=== PATIENT | female | born 1975 | race African-American/Black ===

== ENCOUNTER 2018-11-02 07:30 | Emergency (ER) | payer MEDICAID ==
[~2018-11-02] VITALS: Ht 167.6 cm; Wt 127.0 kg
[2018-11-02] MEDS ORDERED: ONDANSETRON PF 4 MG/2 ML VIAL. IV ONE ×2 (08:00→10:00)
[2018-11-02] MEDS ORDERED: IV NORMAL SALINE 1000ML BAG 1,000 ML IV ONE (08:00)
[2018-11-02 08:08] LABS: BASO % 1 % (0-3); BILIRUBIN,URINE NEGATIVE (NEG); CLARITY,URINE CLEAR; COLOR,URINE YELLOW; EOS # 0.2 x10^3/uL (0.0-0.7); EOS % 3 % (0-3); HEMATOCRIT 36.8 % (36.0-47.0); HEMOGLOBIN 11.8 g/dL (12.0-15.5); LYMPH # 2.1 x10^3/uL (1.0-4.8); LYMPH % 40 % (24-48); MEAN CORPUSCULAR HEMOGLOBIN 27 pg (25-35); MEAN CORPUSCULAR HGB CONC 32 g/dL (31-37); MEAN CORPUSCULAR VOLUME 85 fL (79-100); MONO # 0.3 x10^3/uL (0.0-1.1); MONO % 6 % (0-9); NEUT # 2.7 x10^3uL (1.8-7.7); NEUT % 50 % (31-73); NITRITE,URINE NEGATIVE (NEG); PLATELET COUNT 224 x10^3/uL (140-400); PROTEIN,URINE 30 mg/dL (NEG-TRACE); RED BLOOD COUNT 4.35 x10^6/uL (3.50-5.40); RED CELL DISTRIBUTION WIDTH 15.4 % (11.5-14.5); UROBILINOGEN,URINE 0.2 mg/dL (0.2 mg/dL); WHITE BLOOD COUNT 5.4 x10^3/uL (4.0-11.0)
[2018-11-02 08:20] LABS: CALCIUM 8.7 mg/dL (8.5-10.1); GFR 72.9; POTASSIUM 3.7 mmol/L (3.5-5.1); SQUAMOUS EPITHELIAL CELL,UR FEW /LPF
[2018-11-02 08:21] LABS: BACTERIA,URINE 0 /HPF (0-FEW); RBC,URINE 0 /HPF (0-2)
[2018-11-02 08:26] LABS: ALBUMIN 3.5 g/dL (3.4-5.0); ALBUMIN/GLOBULIN RATIO 0.9 (1.0-1.7); TOTAL BILIRUBIN 0.3 mg/dL (0.2-1.0); TOTAL PROTEIN 7.4 g/dL (6.4-8.2)
[2018-11-02] MEDS ORDERED: MORPHINE SULFATE 4 MG/ML VIAL. IV ONE ×2 (08:30→10:15)
[2018-11-02] MEDS ORDERED: MORPHINE SULFATE 4 MG/ML VIAL. IM ONE (09:15)
--- NOTE | 2018-11-02 09:21 | RAD ---
CT ABDOMEN PELVIS WO CONTRAST Indication: Hemoptysis this morning. Abdominal pain, nausea vomiting for 3 days. Cholecystectomy and hysterectomy. Exposure: One or more of the following individualized dose reduction techniques were utilized for this examination: 1. Automated exposure control 2. Adjustment of the mA and/or kV according to patient size 3. Use of iterative reconstruction technique. Comparison: None are available. Technique: No intravenous contrast given. No oral contrast per request. Findings: Evaluation of solid viscera, bowel and vasculature is compromised by the noncontrast technique. Lung bases are clear. Heart size enlarged. Liver mildly enlarged, 19.5 cm. Spleen not enlarged. No peripancreatic fluid or inflammatory change. No evidence of adrenal mass. No evidence of urinary tract calculus, hydronephrosis or hydroureter. Gallbladder surgically absent. Mild dilatation of the common bile duct and pancreatic duct. Aorta is nonaneurysmal. There is a mildly enlarged right inguinal lymph node measuring 15 mm in short axis. No pathologic retroperitoneal or mesenteric lymph node enlargement is otherwise seen. No significant small bowel distention. No evidence of acute colitis. Mild retained stool in the colon, mild. The appendix is not well seen. No evidence of ascites or pneumoperitoneum. The urinary bladder visualization is limited by artifact, due to body habitus. No definite pelvic mass. Mild degenerative changes of the spine and hips. No destructive bone lesion. Small fat-containing anterior abdominal wall umbilical hernia. IMPRESSION: 1. Mild hepatomegaly. 2. Mildly enlarged nonspecific right inguinal lymph node, could be infectious, inflammatory or neoplastic. 3. No acute findings within constraints of a noncontrast exam. Electronically signed by: Vaughn Devries MD (11/02/2018 9:19 AM) [facility]
[2018-11-02] MEDS ORDERED: PROCHLORPERAZINE 10 MG/2 ML VIAL. IV ONE (10:00)
[2018-11-02] MEDS ORDERED: SULF1TAB23 PO (10:11)
[2018-11-02] MEDS ORDERED: ONDA4TAB7 PO (10:11)
--- NOTE | 2018-11-02 10:11 | PHYS DOC ---
Past Medical History Past Medical History: Arthritis, Other Additional Past Medical Histor: NEUROPATHY Past Surgical History: Cholecystectomy, Hysterectomy, Other Additional Past Surgical Histo: KELOID Alcohol Use: None Drug Use: None Adult General Chief Complaint Chief Complaint: NAUSEA/VOMITING/DIARRHA HPI HPI Patient is a 43 year old female presented to the E today for evaluation of nausea, vomiting, diarrhea for about 4 days. Patient denied any fever, no blood in her stool. NO recent sick contact, had not been on any antibiotic recently. Patient complains of some abdominal pain. No pelvic pain, no vaginal bleeding or discharge. Review of Systems Review of Systems Constitutional: Denies fever or chills [] Eyes: Denies change in visual acuity, redness, or eye pain [] HENT: Denies nasal congestion or sore throat [] Respiratory: Denies cough or shortness of breath [] Cardiovascular: No additional information not addressed in HPI [] GI: Positive for abdominal pain, nausea, vomiting, NO bloody stools, POSITIVE FOR diarrhea [] : Denies dysuria or hematuria [] Musculoskeletal: Denies back pain or joint pain [] Integument: Denies rash or skin lesions [] Neurologic: Denies headache, focal weakness or sensory changes [] Endocrine: Denies polyuria or polydipsia [] All other systems were reviewed and found to be within normal limits, except as documented in this note. Current Medications Current Medications Current Medications Medications (Trade) Dose Ordered Sig/Kathrine Start Time Stop Time Status Last Admin Dose Admin Morphine Sulfate (Morphine Sulfate) 4 mg 1X ONCE 11/02/18 10:15 11/02/18 10:16 DC 11/02/18 09:58 4 MG Ondansetron HCl (Zofran) 8 mg 1X ONCE 11/02/18 10:00 11/02/18 10:01 DC 11/02/18 09:55 8 MG Prochlorperazine Edisylate (Compazine) 10 mg 1X ONCE 11/02/18 10:00 11/02/18 10:01 DC 11/02/18 10:46 10 MG Sodium Chloride 1,000 ml @ 1,000 mls/hr 1X ONCE 11/02/18 08:00 11/02/18 08:59 DC 11/02/18 08:24 1,000 MLS/HR Allergies Allergies Allergies Coded Allergies Type Severity Reaction Last Updated Verified Penicillins Allergy Intermediate 11/02/18 Yes ketorolac Allergy Intermediate 11/02/18 Yes metoclopramide Allergy Intermediate 11/02/18 Yes Physical Exam Physical Exam Constitutional: Well developed, well nourished, no acute distress, non-toxic appearance. [] HENT: Normocephalic, atraumatic, bilateral external ears normal, oropharynx yg st, no oral exudates, nose normal. [] Eyes: PERRLA, EOMI, conjunctiva normal, no discharge. [] Neck: Normal range of motion, no tenderness, supple, no stridor. [] Cardiovascular:Heart rate regular rhythm, no murmur [] Lungs & Thorax: Bilateral breath sounds clear to auscultation [] Abdomen: Bowel sounds normal, soft, There is diffuse tenderness to palpation, no guarding, no masses, no pulsatile masses. [] Skin: Warm, dry, no erythema, no rash. [] Back: No tenderness, no CVA tenderness. [] Extremities: No tenderness, no cyanosis, no clubbing, ROM intact, no edema. [] Neurologic: Alert and oriented X 3, normal motor function, normal sensory function, no focal deficits noted. [] Psychologic: Affect normal, judgement normal, mood normal. [] Current Patient Data Vital Signs Vital Signs Date Time Temp Pulse Resp B/P (MAP) Pulse Ox O2 Delivery O2 Flow Rate FiO2 11/02/18 10:48 69 20 174/85 (114) 98 Room Air 11/02/18 07:40 97.4 97.4 Lab Values Laboratory Tests Test 11/02/18 07:40 White Blood Count 5.4 x10^3/uL (4.0-11.0) Red Blood Count 4.35 x10^6/uL (3.50-5.40) Hemoglobin 11.8 g/dL (12.0-15.5) L Hematocrit 36.8 % (36.0-47.0) Mean Corpuscular Volume 85 fL (79-100) Mean Corpuscular Hemoglobin 27 pg (25-35) Mean Corpuscular Hemoglobin Concent 32 g/dL (31-37) Red Cell Distribution Width 15.4 % (11.5-14.5) H Platelet Count 224 x10^3/uL (140-400) Neutrophils (%) (Auto) 50 % (31-73) Lymphocytes (%) (Auto) 40 % (24-48) Monocytes (%) (Auto) 6 % (0-9) Eosinophils (%) (Auto) 3 % (0-3) Basophils (%) (Auto) 1 % (0-3) Neutrophils # (Auto) 2.7 x10^3uL (1.8-7.7) Lymphocytes # (Auto) 2.1 x10^3/uL (1.0-4.8) Monocytes # (Auto) 0.3 x10^3/uL (0.0-1.1) Eosinophils # (Auto) 0.2 x10^3/uL (0.0-0.7) Basophils # (Auto) 0.0 x10^3/uL (0.0-0.2) Urine Collection Type Unknown Urine Color Yellow Urine Clarity Clear Urine pH 6.0 Urine Specific Mcpherson 1.020 Urine Protein 30 mg/dL (NEG-TRACE) Urine Glucose (UA) Negative mg/dL (NEG) Urine Ketones (Stick) Negative mg/dL (NEG) Urine Blood Negative (NEG) Urine Nitrite Negative (NEG) Urine Bilirubin Negative (NEG) Urine Urobilinogen Dipstick 0.2 mg/dL (0.2 mg/dL) Urine Leukocyte Esterase Small (NEG) Urine RBC 0 /HPF (0-2) Urine WBC 5-10 /HPF (0-4) Urine Squamous Epithelial Cells Few /LPF Urine Bacteria 0 /HPF (0-FEW) Urine Mucus Slight /LPF Sodium Level 139 mmol/L (136-145) Potassium Level 3.7 mmol/L (3.5-5.1) Chloride Level 105 mmol/L (98-107) Carbon Dioxide Level 23 mmol/L (21-32) Anion Gap 11 (6-14) Blood Urea Nitrogen 16 mg/dL (7-20) Creatinine 1.0 mg/dL (0.6-1.0) Estimated GFR (Cockcroft-Gault) 72.9 BUN/Creatinine Ratio 16 (6-20) Glucose Level 86 mg/dL (70-99) Calcium Level 8.7 mg/dL (8.5-10.1) Total Bilirubin 0.3 mg/dL (0.2-1.0) Aspartate Amino Transferase (AST) 11 U/L (15-37) L Alanine Aminotransferase (ALT) 14 U/L (14-59) Alkaline Phosphatase 97 U/L (46-116) Total Protein 7.4 g/dL (6.4-8.2) Albumin 3.5 g/dL (3.4-5.0) Albumin/Globulin Ratio 0.9 (1.0-1.7) L Lipase 91 U/L (73-393) Laboratory Tests 11/02/18 07:40 Laboratory Tests 11/02/18 07:40 EKG EKG [] Radiology/Procedures Radiology/Procedures [][facility] [address] [place] [address] IMAGING REPORT Signed PATIENT: YVES BURTON ACCOUNT: [id number] : 1975 LOCATION: ER AGE: 43 SEX: F EXAM STATUS: REG ER ORD. PHYSICIAN: CHRIS APPIAH DO REASON: abdominal pain, nausea and vomiting for 3 days PROCEDURE: CT ABDOMEN PELVIS WO CONTRAST CT ABDOMEN PELVIS WO CONTRAST Indication: Hemoptysis this morning. Abdominal pain, nausea vomiting for 3 days. Cholecystectomy and hysterectomy. Exposure: One or more of the following individualized dose reduction techniques were utilized for this examination: 1. Automated exposure control 2. Adjustment of the mA and/or kV according to patient size 3. Use of iterative reconstruction technique. Comparison: None are available. Technique: No intravenous contrast given. No oral contrast per request. Findings: Evaluation of solid viscera, bowel and vasculature is compromised by the noncontrast technique. Lung bases are clear. Heart size enlarged. Liver mildly enlarged, 19.5 cm. Spleen not enlarged. No peripancreatic fluid or inflammatory change. No evidence of adrenal mass. No evidence of urinary tract calculus, hydronephrosis or hydroureter. Gallbladder surgically absent. Mild dilatation of the common bile duct and pancreatic duct. Aorta is nonaneurysmal. There is a mildly enlarged right inguinal lymph node measuring 15 mm in short axis. No pathologic retroperitoneal or mesenteric lymph node enlargement is otherwise seen. No significant small bowel distention. No evidence of acute colitis. Mild retained stool in the colon, mild. The appendix is not well seen. No evidence of ascites or pneumoperitoneum. The urinary bladder visualization is limited by artifact, due to body habitus. No definite pelvic mass. Mild degenerative changes of the spine and hips. No destructive bone lesion. Small fat-containing anterior abdominal wall umbilical hernia. IMPRESSION: 1. Mild hepatomegaly. 2. Mildly enlarged nonspecific right inguinal lymph node, could be infectious, inflammatory or neoplastic. 3. No acute findings within constraints of a noncontrast exam. Electronically signed by: Vaughn Devries MD (11/02/2018 9:19 AM) [facility] DICTATED and SIGNED BY: VAUGHN DEVRIES MD DATE: 11/02/18918 Course & Med Decision Making Course & Med Decision Making Pertinent Labs and Imaging studies reviewed. (See chart for details) [] Dragon Disclaimer Dragon Disclaimer This electronic medical record was generated, in whole or in part, using a voice recognition dictation system. Departure Departure Impression: Primary Impression: Gastroenteritis Disposition: 01 HOME, SELF-CARE Condition: IMPROVED Referrals: UNKNOWN PCP NAME (PCP) follow up with your doctor next week for reevaluation Patient Instructions: Viral Gastroenteritis Scripts Sulfamethoxazole/Trimethoprim (BACTRIM 400-80 MG TABLET) 1 Each Tablet 1 TAB PO BID, #6 TAB Prov: CHRIS APPIAH DO 11/02/18 Ondansetron Hcl (ZOFRAN) 4 Mg Tablet 1 TAB PO PRN Q6-8HRS, #15 TAB Prov: CHRIS APPIAH DO 11/02/18 CHRIS APPIAH DO November 02, 2018 10:11
[2018-11-02 10:48] VITALS: BP 174/85
--- NOTE | 2018-11-09 11:04 | NUR ---
Late entry made to Medical Record. IV Stop time transcribed from eMAR to IV spreadsheet
== END 2018-11-02 11:15 | disposition home or self-care (01) ==
LOC: ER 07:30
DX: K52.9 Noninfective gastroenteritis and colitis, unspecified (principal); Z90.710 Acquired absence of both cervix and uterus; Z90.49 Acquired absence of other specified parts of digestive tract; Z88.0 Allergy status to penicillin; Z88.6 Allergy status to analgesic agent; Z88.8 Allergy status to other drugs, medicaments and biological substances
CPT/HCPCS: 36415; 74176; 80053; 81001; 83690; 85025; 87086; 96361; 96374; 96375; 96376; 99285; J0780; J2270; J2405; J7030

== ENCOUNTER 2019-05-11 17:26 | Inpatient (IN) | payer SELFPAY ==
[~2019-05-11] VITALS: Ht 162.6 cm; Wt 148.8 kg
[~2019-05-11 17:26] MED LIST: ONDA4TAB7 PO; SULF1TAB23 PO
[2019-05-11] MEDS ORDERED: METOCLOPRAMIDE HCL 10 MG/2 ML VIAL. IVP ONE (18:45)
--- NOTE | 2019-05-11 19:05 | PHYS DOC ---
Past Medical History Past Medical History: Arthritis, Hypertension, Migraines, Other Additional Past Medical Histor: NEUROPATHY Past Surgical History: Cholecystectomy, Hysterectomy, Other Additional Past Surgical Histo: KELOID Alcohol Use: None Drug Use: None Adult General Chief Complaint Chief Complaint: HEADACHE HPI HPI Patient is a 44 year old -[place] female with history of migraines, hypertension who presents with acute migraine headache starting several hours prior to ED arrival. Patient states headache call from sleep. Initially located in the left retro-orbital region and has since gradually migrated to the right parietal region. Headache is described as throbbing. It is associated with light sensitivity and nausea. Patient did take [id number] pain medication without symptoms. Denies neck stiffness, fever, extremity weakness or loss of sensation. No fever, rash. Denies chest pain palpitations shortness of breath. No other acute symptoms or complaints. patient states her blood pressure is normally well controlled 130s over 70s. Patient's systolic blood pressures greater than 200. Patient did not take her blood pressure medications this morning. No family history of cerebral hemorrhage. Previous hysterectomy. [] Review of Systems Review of Systems Review symptoms as per history of present illness. All other review symptoms are negative. All other systems were reviewed and found to be within normal limits, except as documented in this note. Current Medications Current Medications Current Medications Medications (Trade) Dose Ordered Sig/Kathirne Start Time Stop Time Status Last Admin Dose Admin Diphenhydramine HCl (Benadryl) 50 mg 1X ONCE 05/11/19 19:15 05/11/19 19:16 DC 05/11/19 19:40 50 MG Fentanyl Citrate (Fentanyl 2ml Vial) 75 mcg 1X ONCE 05/11/19 21:00 05/11/19 21:01 05/11/19 20:51 75 MCG Metoclopramide HCl (Reglan Vial) 10 mg 1X ONCE 05/11/19 18:45 05/11/19 18:46 UNV Prochlorperazine Edisylate (Compazine) 10 mg 1X ONCE 05/11/19 19:15 05/11/19 19:16 DC 05/11/19 19:40 10 MG Allergies Allergies Allergies Coded Allergies Type Severity Reaction Last Updated Verified Penicillins Allergy Intermediate 11/02/18 Yes ketorolac Allergy Intermediate 11/02/18 Yes metoclopramide Allergy Intermediate 11/02/18 Yes Physical Exam Physical Exam Constitutional: Well developed, well nourished, no acute distress, non-toxic appearance. [] HENT: Normocephalic, atraumatic, bilateral external ears normal, oropharynx moist, no oral exudates, nose normal. [] Eyes: PERRLA, EOMI, conjunctiva normal, no discharge. [] Neck: Normal range of motion, no tenderness, supple, no stridor. [] Cardiovascular:Heart rate regular rhythm, no murmur [] Lungs & Thorax: Bilateral breath sounds clear to auscultation [] Abdomen: Bowel sounds normal, soft, no tenderness. [] Skin: Warm, dry, no erythema, no rash. [] Back: No tenderness, no CVA tenderness. [] Extremities: No tenderness, no cyanosis, no clubbing, ROM intact, no edema. [] Neurologic: Alert and oriented X 3, CN 2-12 grossly intact, normal motor function, normal sensory function, no focal deficits noted. [] Psychologic: Affect normal, judgement normal, mood normal. [] Current Patient Data Vital Signs Vital Signs Date Time Temp Pulse Resp B/P (MAP) Pulse Ox O2 Delivery O2 Flow Rate FiO2 05/11/19 18:17 98.0 102 20 215/86 (129) 98 Room Air 98.0 EKG EKG [] Radiology/Procedures Radiology/Procedures [Ct head: Subtle lieberman-white matter changes in right frontal lobe. MRI recommended per radiologist] Course & Med Decision Making Course & Med Decision Making Pertinent Labs and Imaging studies reviewed. (See chart for details) [Persistent migraine-like headache refractory to pain medication acute elevation in blood pressure. No neurologic deficits. Blood pressure improved with tx. Will admit to the hospital service for further treatment, anticipated neurology consult and MRI] Dragon Disclaimer Dragon Disclaimer This electronic medical record was generated, in whole or in part, using a voice recognition dictation system. Departure Departure Impression: Primary Impression: Headache Additional Impression: Accelerated hypertension Disposition: ADMITTED INPATIENT Condition: IMPROVED Referrals: UNKNOWN PCP NAME (PCP) Problem Qualifiers MELISSA ANAND DO May 11, 2019 19:05
[2019-05-11] MEDS ORDERED: PROCHLORPERAZINE 10 MG/2 ML VIAL. IV ONE (19:15)
[2019-05-11] MEDS ORDERED: diphenhydrAMINE 50 MG/ML VIAL IVP ONE (19:15)
--- NOTE | 2019-05-11 20:16 | RAD ---
Exam: CT head INDICATION: Headache TECHNIQUE: Sequential axial images through the head were obtained without the administration of IV contrast. Comparisons: None FINDINGS: No focal parenchymal lesion or hemorrhage is identified. There is no midline shift or sulcal effacement. Subtle loss of the lieberman-white distinction in the right frontal lobe. This is seen best on series 2 image 21. The ventricular system is within normal limits without compression hydrocephalus. The basal cisterns are well maintained. The visualized portions of the paranasal sinuses and mastoid air cells are well-pneumatized. No acute fractures. IMPRESSION: Subtle loss of lieberman-white distinction in the right frontal lobe, which may be artifactual. Recommend MRI for further evaluation. Exposure: One or more of the following in the visualized dose reduction techniques were utilized for this examination: 1. Automated exposure control 2. Adjustment of the MA and/or KV according to patient size Use of iterative of reconstructive technique Electronically signed by: Derrick Johnson MD (05/11/2019 8:13 PM) [facility]
[2019-05-11] MEDS ORDERED: fentaNYL PF VIAL 100 MCG/2 ML VIAL IVP ONE (21:00)
[2019-05-11] MEDS ORDERED: ONDANSETRON PF 4 MG/2 ML VIAL. IV PRN (21:15)
[2019-05-11] MEDS ORDERED: cloNIDine HCL 0.1 MG TABLET PO PRN (21:15)
[2019-05-11] MEDS ORDERED: LABETALOL 20 MG/4 ML DISP.SYRIN. IVP ONE (21:30)
[2019-05-11] MEDS: IV NORMAL SALINE 1000ML BAG 1,000 ML IV SCH (21:46)
[2019-05-11] MEDS: MORPHINE SULFATE 2 MG/ML VIAL. IV PRN (21:51)
[2019-05-11 22:09] LABS: BASO % 0 % (0-3); EOS # 0.1 x10^3/uL (0.0-0.7); EOS % 3 % (0-3); HEMATOCRIT 30.6 % (36.0-47.0); HEMOGLOBIN 9.8 g/dL (12.0-15.5); LYMPH # 2.4 x10^3/uL (1.0-4.8); LYMPH % 45 % (24-48); MEAN CORPUSCULAR HEMOGLOBIN 26 pg (25-35); MEAN CORPUSCULAR HGB CONC 32 g/dL (31-37); MEAN CORPUSCULAR VOLUME 82 fL (79-100); MONO # 0.6 x10^3/uL (0.0-1.1); MONO % 11 % (0-9); NEUT # 2.2 x10^3/uL (1.8-7.7); NEUT % 41 % (31-73); PLATELET COUNT 185 x10^3/uL (140-400); RED BLOOD COUNT 3.75 x10^6/uL (3.50-5.40); RED CELL DISTRIBUTION WIDTH 14.8 % (11.5-14.5); WHITE BLOOD COUNT 5.3 x10^3/uL (4.0-11.0)
[2019-05-11 22:18] LABS: CALCIUM 8.8 mg/dL (8.5-10.1); CREATININE 0.8 mg/dL (0.6-1.0); GFR 93.9; POTASSIUM 4.1 mmol/L (3.5-5.1)
[2019-05-11 22:23] LABS: ALBUMIN 3.1 g/dL (3.4-5.0); ALBUMIN/GLOBULIN RATIO 0.8 (1.0-1.7); TOTAL BILIRUBIN 0.4 mg/dL (0.2-1.0); TOTAL PROTEIN 6.8 g/dL (6.4-8.2)
[2019-05-12] VITALS (7 sets, daily range): BP systolic 122–183; BP diastolic 56–82
[2019-05-12] MEDS ORDERED: QUET200T4 PO (00:31)
[2019-05-12] MEDS ORDERED: CLON0.1T PO (00:31)
[2019-05-12] MEDS ORDERED: TIZA4TAB2 PO (00:31)
[2019-05-12] MEDS: MORPHINE SULFATE 2 MG/ML VIAL. IV PRN ×6 (00:35→20:38)
--- NOTE | 2019-05-12 09:29 | PDOC1 ---
History and Physical Date of Admission Date of Admission DATE: 05/12/19 TIME: 09:28 Identification/Chief Complaint Chief Complaint SEEN IN ER , 44 year old -H[place] female with history of migraines, hypertension who presents with acute migraine headache starting several hours prior to ED arrival. Patient states headache AWOKE HER from sleep. Initially located in the left retro-orbital region and has since gradually migrated to the right parietal region. Headache is described as throbbing. It is associated with light sensitivity and nausea. Patient did take [id number] pain medication without symptoms. Denies neck stiffness, fever, extremity weakness or loss of se nsation. No fever, rash. Denies chest pain palpitations shortness of breath. patient states her blood pressure is normally well controlled 130s over 70s. Patient's systolic blood pressures greater than 200. ON PRESENTATION Past Medical History Past Medical History Past Medical History Past Medical History Past Medical History: Arthritis, Hypertension, Migraines, Other Additional Past Medical Histor: NEUROPATHY Past Surgical History: Cholecystectomy, Hysterectomy, Other Additional Past Surgical Histo: KELOID Alcohol Use: None Drug Use: None Family History Family History: Hypertension Social History Smoke: No ALCOHOL: none Drugs: None Current Problem List Problem List Problems Medical Problems: (1) Accelerated hypertension Status: Acute (2) Headache Status: Acute Current Medications Current Medications Current Medications Prochlorperazine Edisylate (Compazine) 10 mg 1X ONCE IV Last administered on 05/11/19at 19:40; Start 05/11/19 at 19:15; Stop 05/11/19 at 19:16; Status DC Metoclopramide HCl (Reglan Vial) 10 mg 1X ONCE IVP ; Start 05/11/19 at 18:45; Stop 05/11/19 at 18:46; Status UNV Diphenhydramine HCl (Benadryl) 50 mg 1X ONCE IVP Last administered on 05/11/19at 19:40; Start 05/11/19 at 19:15; Stop 05/11/19 at 19:16; Status DC Fentanyl Citrate (Fentanyl 2ml Vial) 75 mcg 1X ONCE IVP Last administered on 05/11/19at 20:51; Start 05/11/19 at 21:00; Stop 05/11/19 at 21:01; Status DC Labetalol HCl (Normodyne Iv Push) 20 mg 1X ONCE IVP Last administered on 05/11/19at 21:20; Start 05/11/19 at 21:30; Stop 05/11/19 at 21:31; Status DC Ondansetron HCl (Zofran) 4 mg PRN Q8HRS PRN IV NAUSEA/VOMITING Last administered on 05/11/19at 21:50; Start 05/11/19 at 21:15; Stop 05/12/19 at 21:14 Morphine Sulfate (Morphine Sulfate) 2 mg PRN Q2HR PRN IV PAIN Last administered on 05/12/19at 08:26; Start 05/11/19 at 21:15; Stop 05/12/19 at 21:14 Sodium Chloride 1,000 ml @ 75 mls/hr [id number] IV Last administered on 05/11/19at 21:46; Start 05/11/19 at 21:15; Stop 05/12/19 at 21:14 Clonidine HCl (Catapres) 0.1 mg PRN Q4HRS PRN PO HYPERTENSION; Start 05/11/19 at 21:15 Active Scripts Active Bactrim 400-80 Mg Tablet (Sulfamethoxazole/Trimethoprim) 1 Each Tablet 1 Tab PO BID Zofran (Ondansetron Hcl) 4 Mg Tablet 1 Tab PO PRN Q6-8HRS Reported Seroquel (Quetiapine Fumarate) 200 Mg Tablet 200 Mg PO HS Tizanidine Hcl 4 Mg Tablet 4 Mg PO TID PRN Clonidine Hcl 0.1 Mg Tablet 0.1 Mg PO DAILY Allergies Allergies: Coded Allergies: Penicillins (Verified Allergy, Intermediate, 11/02/18) ketorolac (Verified Allergy, Intermediate, 11/02/18) metoclopramide (Verified Allergy, Intermediate, 11/02/18) Physical Exam Physical Exam Physical Exam Physical Exam Constitutional: Well developed, well nourished, no acute distress, non-toxic appearance. [] HENT: Normocephalic, atraumatic, bilateral external ears normal, oropharynx mois t, no oral exudates, nose normal. [] Eyes: PERRLA, EOMI, conjunctiva normal, no discharge. [] Neck: Normal range of motion, no tenderness, supple, no stridor. [] Cardiovascular:Heart rate regular rhythm, no murmur [] Lungs & Thorax: Bilateral breath sounds clear to auscultation [] Abdomen: Bowel sounds normal, soft, no tenderness. [] Skin: Warm, dry, no erythema, no rash. [] Back: No tenderness, no CVA tenderness. [] Extremities: No tenderness, no cyanosis, no clubbing, ROM intact, no edema. [] Neurologic: Alert and oriented X 3, CN 2-12 grossly intact, normal motor function, normal sensory function, no focal deficits noted. [] Psychologic: Affect normal, judgment normal, mood normal. [] General: Oriented X3, Cooperative HEENT: Atraumatic Heart: no thrills Breasts: Not examined Abdomen: Soft Rectal Exam: not examined PELVIC: Examination not indicated Extremities: No cyanosis Neuro: Normal speech, Cranial nerves 3-12 NL Psych/Mental Status: Mental status NL Vitals Vitals Vital Signs Date Time Temp Pulse Resp B/P (MAP) Pulse Ox O2 Delivery O2 Flow Rate FiO2 05/12/19 08:26 20 Room Air 05/12/19 07:00 98.2 68 122/66 (84) 98 98.2 Labs Labs Laboratory Tests Test 05/11/19 21:50 White Blood Count 5.3 x10^3/uL (4.0-11.0) Red Blood Count 3.75 x10^6/uL (3.50-5.40) Hemoglobin 9.8 g/dL (12.0-15.5) Hematocrit 30.6 % (36.0-47.0) Mean Corpuscular Volume 82 fL (79-100) Mean Corpuscular Hemoglobin 26 pg (25-35) Mean Corpuscular Hemoglobin Concent 32 g/dL (31-37) Red Cell Distribution Width 14.8 % (11.5-14.5) Platelet Count 185 x10^3/uL (140-400) Neutrophils (%) (Auto) 41 % (31-73) Lymphocytes (%) (Auto) 45 % (24-48) Monocytes (%) (Auto) 11 % (0-9) Eosinophils (%) (Auto) 3 % (0-3) Basophils (%) (Auto) 0 % (0-3) Neutrophils # (Auto) 2.2 x10^3/uL (1.8-7.7) Lymphocytes # (Auto) 2.4 x10^3/uL (1.0-4.8) Monocytes # (Auto) 0.6 x10^3/uL (0.0-1.1) Eosinophils # (Auto) 0.1 x10^3/uL (0.0-0.7) Basophils # (Auto) 0.0 x10^3/uL (0.0-0.2) Sodium Level 143 mmol/L (136-145) Potassium Level 4.1 mmol/L (3.5-5.1) Chloride Level 106 mmol/L (98-107) Carbon Dioxide Level 24 mmol/L (21-32) Anion Gap 13 (6-14) Blood Urea Nitrogen 23 mg/dL (7-20) Creatinine 0.8 mg/dL (0.6-1.0) Estimated GFR (Cockcroft-Gault) 93.9 BUN/Creatinine Ratio 29 (6-20) Glucose Level 88 mg/dL (70-99) Calcium Level 8.8 mg/dL (8.5-10.1) Total Bilirubin 0.4 mg/dL (0.2-1.0) Aspartate Amino Transf (AST/SGOT) 13 U/L (15-37) Alanine Aminotransferase (ALT/SGPT) 13 U/L (14-59) Alkaline Phosphatase 85 U/L (46-116) Total Protein 6.8 g/dL (6.4-8.2) Albumin 3.1 g/dL (3.4-5.0) Albumin/Globulin Ratio 0.8 (1.0-1.7) Laboratory Tests Test 05/11/19 21:50 White Blood Count 5.3 x10^3/uL (4.0-11.0) Red Blood Count 3.75 x10^6/uL (3.50-5.40) Hemoglobin 9.8 g/dL (12.0-15.5) Hematocrit 30.6 % (36.0-47.0) Mean Corpuscular Volume 82 fL (79-100) Mean Corpuscular Hemoglobin 26 pg (25-35) Mean Corpuscular Hemoglobin Concent 32 g/dL (31-37) Red Cell Distribution Width 14.8 % (11.5-14.5) Platelet Count 185 x10^3/uL (140-400) Neutrophils (%) (Auto) 41 % (31-73) Lymphocytes (%) (Auto) 45 % (24-48) Monocytes (%) (Auto) 11 % (0-9) Eosinophils (%) (Auto) 3 % (0-3) Basophils (%) (Auto) 0 % (0-3) Neutrophils # (Auto) 2.2 x10^3/uL (1.8-7.7) Lymphocytes # (Auto) 2.4 x10^3/uL (1.0-4.8) Monocytes # (Auto) 0.6 x10^3/uL (0.0-1.1) Eosinophils # (Auto) 0.1 x10^3/uL (0.0-0.7) Basophils # (Auto) 0.0 x10^3/uL (0.0-0.2) Sodium Level 143 mmol/L (136-145) Potassium Level 4.1 mmol/L (3.5-5.1) Chloride Level 106 mmol/L (98-107) Carbon Dioxide Level 24 mmol/L (21-32) Anion Gap 13 (6-14) Blood Urea Nitrogen 23 mg/dL (7-20) Creatinine 0.8 mg/dL (0.6-1.0) Estimated GFR (Cockcroft-Gault) 93.9 BUN/Creatinine Ratio 29 (6-20) Glucose Level 88 mg/dL (70-99) Calcium Level 8.8 mg/dL (8.5-10.1) Total Bilirubin 0.4 mg/dL (0.2-1.0) Aspartate Amino Transf (AST/SGOT) 13 U/L (15-37) Alanine Aminotransferase (ALT/SGPT) 13 U/L (14-59) Alkaline Phosphatase 85 U/L (46-116) Total Protein 6.8 g/dL (6.4-8.2) Albumin 3.1 g/dL (3.4-5.0) Albumin/Globulin Ratio 0.8 (1.0-1.7) Images Images Exam: CT head INDICATION: Headache TECHNIQUE: Sequential axial images through the head were obtained without the administration of IV contrast. Comparisons: None FINDINGS: No focal parenchymal lesion or hemorrhage is identified. There is no midline shift or sulcal effacement. Subtle loss of the lieberman-white distinction in the right frontal lobe. This is seen best on series 2 image 21. The ventricular system is within normal limits without compression hydrocephalus. The basal cisterns are well maintained. The visualized portions of the paranasal sinuses and mastoid air cells are well-pneumatized. No acute fractures. IMPRESSION: Subtle loss of lieberman-white distinction in the right frontal lobe, which may be artifactual. Recommend MRI for further evaluation. Exposure: One or more of the following in the visualized dose reduction techniques were utilized for this examination: 1. Automated exposure control 2. Adjustment of the MA and/or KV according to patient size Use of iterative of reconstructive technique Electronically signed by: Heidi Cedeno MD (05/11/2019 8:13 PM) [facility] DICTATED and SIGNED BY: HEIDI CEDENO MD VTE Prophylaxis Ordered VTE Prophylaxis Devices: No VTE Pharmacological Prophylaxi: Yes Assessment/Plan Assessment/Plan IMPRESSION: ACUTE MIGRANE SYNDROME UNCONTROLLED HYPERTENSION EXTREME MORBID OBESITY 05/[address] HEAD, Subtle loss of lieberman-white distinction in the right frontal lobe, which may be artifactual. Recommend MRI for further evaluation. PLAN TELE BED ADMIT BP CONTROL ECHO CARDIOLOGY CONSULT NEUROLOGY CONSULT MRI HEAD not done, will not fit in our mri here NAEL KIRKLAND MD May 12, 2019 09:29
[2019-05-12] MEDS: IV NORMAL SALINE 1000ML BAG 1,000 ML IV SCH (10:35)
[2019-05-12] MEDS ORDERED: PROMETHAZINE 12.5 MG TABLET. PO PRN (12:00)
--- NOTE | 2019-05-12 12:12 | PDOC2 ---
NEUROLOGY CONSULT Date of Admission Date of Admission Full Report Dictated Radha Alonso is a pleasant 44-year-old morbidly obese woman with severe hypertension who presented with migraine with aura. Neurologic exam revealed some weakness of the right leg which she states has been going on for several months. CT scan of the brain did not reveal hemorrhage. There may have been some lieberman-white differentiation but this is often artifact. MRI brain was recommended but she would not be able to fit into a closed scanner. She does have a heart murmur which she was unaware. She's been feeling some chest pain and shortness of breath. I will order a chest x-ray and echocardiogram. We cannot use a migraine specific medicine with her elevated blood pressure. We can continue with symptomatic treatment with morphine and antiemetics. I will add lorazepam to help with the anxiety. DATE: 05/12/19 TIME: 12:12 Current Medications Current Medications Current Medications Prochlorperazine Edisylate (Compazine) 10 mg 1X ONCE IV Last administered on 05/11/19at 19:40; Start 05/11/19 at 19:15; Stop 05/11/19 at 19:16; Status DC Metoclopramide HCl (Reglan Vial) 10 mg 1X ONCE IVP ; Start 05/11/19 at 18:45; Stop 05/11/19 at 18:46; Status UNV Diphenhydramine HCl (Benadryl) 50 mg 1X ONCE IVP Last administered on 05/11/19at 19:40; Start 05/11/19 at 19:15; Stop 05/11/19 at 19:16; Status DC Fentanyl Citrate (Fentanyl 2ml Vial) 75 mcg 1X ONCE IVP Last administered on 05/11/19at 20:51; Start 05/11/19 at 21:00; Stop 05/11/19 at 21:01; Status DC Labetalol HCl (Normodyne Iv Push) 20 mg 1X ONCE IVP Last administered on 05/11/19at 21:20; Start 05/11/19 at 21:30; Stop 05/11/19 at 21:31; Status DC Ondansetron HCl (Zofran) 4 mg PRN Q8HRS PRN IV NAUSEA/VOMITING Last admini stered on 05/11/19at 21:50; Start 05/11/19 at 21:15; Stop 05/12/19 at 21:14 Morphine Sulfate (Morphine Sulfate) 2 mg PRN Q2HR PRN IV PAIN Last administered on 05/12/19at 08:26; Start 05/11/19 at 21:15; Stop 05/12/19 at 21:14 Sodium Chloride 1,000 ml @ 75 mls/hr [id number] IV Last administered on 05/12/19at 10:35; Start 05/11/19 at 21:15; Stop 05/12/19 at 21:14 Clonidine HCl (Catapres) 0.1 mg PRN Q4HRS PRN PO HYPERTENSION; Start 05/11/19 at 21:15 Active Scripts Active Bactrim 400-80 Mg Tablet (Sulfamethoxazole/Trimethoprim) 1 Each Tablet 1 Tab PO BID Zofran (Ondansetron Hcl) 4 Mg Tablet 1 Tab PO PRN Q6-8HRS Reported Seroquel (Quetiapine Fumarate) 200 Mg Tablet 200 Mg PO HS Tizanidine Hcl 4 Mg Tablet 4 Mg PO TID PRN Clonidine Hcl 0.1 Mg Tablet 0.1 Mg PO DAILY Allergies Allergies: Coded Allergies: Penicillins (Verified Allergy, Intermediate, 11/02/18) ketorolac (Verified Allergy, Intermediate, 11/02/18) metoclopramide (Verified Allergy, Intermediate, 11/02/18) Vitals VITALS Vital Signs Date Time Temp Pulse Resp B/P (MAP) Pulse Ox O2 Delivery O2 Flow Rate FiO2 05/12/19 08:26 20 Room Air 05/12/19 07:00 98.2 68 122/66 (84) 98 98.2 Labs Labs Laboratory Tests Test 05/11/19 21:50 White Blood Count 5.3 x10^3/uL (4.0-11.0) Red Blood Count 3.75 x10^6/uL (3.50-5.40) Hemoglobin 9.8 g/dL (12.0-15.5) Hematocrit 30.6 % (36.0-47.0) Mean Corpuscular Volume 82 fL (79-100) Mean Corpuscular Hemoglobin 26 pg (25-35) Mean Corpuscular Hemoglobin Concent 32 g/dL (31-37) Red Cell Distribution Width 14.8 % (11.5-14.5) Platelet Count 185 x10^3/uL (140-400) Neutrophils (%) (Auto) 41 % (31-73) Lymphocytes (%) (Auto) 45 % (24-48) Monocytes (%) (Auto) 11 % (0-9) Eosinophils (%) (Auto) 3 % (0-3) Basophils (%) (Auto) 0 % (0-3) Neutrophils # (Auto) 2.2 x10^3/uL (1.8-7.7) Lymphocytes # (Auto) 2.4 x10^3/uL (1.0-4.8) Monocytes # (Auto) 0.6 x10^3/uL (0.0-1.1) Eosinophils # (Auto) 0.1 x10^3/uL (0.0-0.7) Basophils # (Auto) 0.0 x10^3/uL (0.0-0.2) Sodium Level 143 mmol/L (136-145) Potassium Level 4.1 mmol/L (3.5-5.1) Chloride Level 106 mmol/L (98-107) Carbon Dioxide Level 24 mmol/L (21-32) Anion Gap 13 (6-14) Blood Urea Nitrogen 23 mg/dL (7-20) Creatinine 0.8 mg/dL (0.6-1.0) Estimated GFR (Cockcroft-Gault) 93.9 BUN/Creatinine Ratio 29 (6-20) Glucose Level 88 mg/dL (70-99) Calcium Level 8.8 mg/dL (8.5-10.1) Total Bilirubin 0.4 mg/dL (0.2-1.0) Aspartate Amino Transf (AST/SGOT) 13 U/L (15-37) Alanine Aminotransferase (ALT/SGPT) 13 U/L (14-59) Alkaline Phosphatase 85 U/L (46-116) Total Protein 6.8 g/dL (6.4-8.2) Albumin 3.1 g/dL (3.4-5.0) Albumin/Globulin Ratio 0.8 (1.0-1.7) Laboratory Tests Test 05/11/19 21:50 White Blood Count 5.3 x10^3/uL (4.0-11.0) Red Blood Count 3.75 x10^6/uL (3.50-5.40) Hemoglobin 9.8 g/dL (12.0-15.5) Hematocrit 30.6 % (36.0-47.0) Mean Corpuscular Volume 82 fL (79-100) Mean Corpuscular Hemoglobin 26 pg (25-35) Mean Corpuscular Hemoglobin Concent 32 g/dL (31-37) Red Cell Distribution Width 14.8 % (11.5-14.5) Platelet Count 185 x10^3/uL (140-400) Neutrophils (%) (Auto) 41 % (31-73) Lymphocytes (%) (Auto) 45 % (24-48) Monocytes (%) (Auto) 11 % (0-9) Eosinophils (%) (Auto) 3 % (0-3) Basophils (%) (Auto) 0 % (0-3) Neutrophils # (Auto) 2.2 x10^3/uL (1.8-7.7) Lymphocytes # (Auto) 2.4 x10^3/uL (1.0-4.8) Monocytes # (Auto) 0.6 x10^3/uL (0.0-1.1) Eosinophils # (Auto) 0.1 x10^3/uL (0.0-0.7) Basophils # (Auto) 0.0 x10^3/uL (0.0-0.2) Sodium Level 143 mmol/L (136-145) Potassium Level 4.1 mmol/L (3.5-5.1) Chloride Level 106 mmol/L (98-107) Carbon Dioxide Level 24 mmol/L (21-32) Anion Gap 13 (6-14) Blood Urea Nitrogen 23 mg/dL (7-20) Creatinine 0.8 mg/dL (0.6-1.0) Estimated GFR (Cockcroft-Gault) 93.9 BUN/Creatinine Ratio 29 (6-20) Glucose Level 88 mg/dL (70-99) Calcium Level 8.8 mg/dL (8.5-10.1) Total Bilirubin 0.4 mg/dL (0.2-1.0) Aspartate Amino Transf (AST/SGOT) 13 U/L (15-37) Alanine Aminotransferase (ALT/SGPT) 13 U/L (14-59) Alkaline Phosphatase 85 U/L (46-116) Total Protein 6.8 g/dL (6.4-8.2) Albumin 3.1 g/dL (3.4-5.0) Albumin/Globulin Ratio 0.8 (1.0-1.7) CAMI CHRISTIANSEN MD May 12, 2019 12:12
[2019-05-12] MEDS ORDERED: ONDANSETRON ODT 4 MG TAB.RAPDIS. PO PRN (12:15)
[2019-05-12] MEDS ORDERED: ACETAMINOPHEN 325 MG TABLET. PO PRN (12:30)
[2019-05-12] MEDS ORDERED: guaiFENesin ORAL 200 MG/10 ML LIQUID. PO PRN (12:30)
[2019-05-12] MEDS ORDERED: DOCUSATE SODIUM 100 MG CAPSULE. PO PRN (12:30)
[2019-05-12] MEDS ORDERED: 0.9 % SODIUM CHLORIDE 10 ML DISP.SYRIN. IV PRN (12:30)
[2019-05-12] MEDS ORDERED: MAG HYDROX/ALUMINUM HYD/SIMETH 30 ML ORAL.SUSP PO PRN (12:30)
[2019-05-12] MEDS ORDERED: ALBUTEROL SULFATE 2.5 MG/3 ML NEBU. NEB PRN (12:30)
[2019-05-12] MEDS ORDERED: ONDANSETRON PF 4 MG/2 ML VIAL. IV PRN (12:30)
[2019-05-12] MEDS ORDERED: cloNIDine HCL 0.1 MG TABLET PO PRN (12:30)
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
[2019-05-12] MEDS: cloNIDine HCL 0.1 MG TABLET PO SCH (13:21)
--- NOTE | 2019-05-12 13:35 | RAD ---
Exam performed: 2 views of the chest. Indication: Chest pain, swelling, heart murmur Date of Service: 05/12/2019 11:53 AM . Comparison : None available Findings: PA and lateral radiographs of the chest reveal a mildly enlarged cardiomediastinal contour. Probably vascularity is unremarkable. The lungs are clear. No pleural fluid is seen. The visualized osseous structures are unremarkable. Impression: Mild cardiomegaly. No acute pulmonary findings seen. Electronically signed by: Cheri Carranza MD (05/12/2019 1:32 PM) [facility]
[2019-05-12] MEDS: QUEtiapine 100 MG TABLET. PO SCH (20:38)
[2019-05-12] MEDS: tiZANidine 4 MG TABLET. PO PRN (20:44)
[2019-05-12] MEDS ORDERED: PROCHLORPERAZINE 10 MG/2 ML VIAL. IV PRN (23:15)
[2019-05-12] MEDS: traMADol 50 MG TABLET PO PRN (23:19)
[2019-05-13 03:16] VITALS: BP 136/78
[2019-05-13] MEDS: MORPHINE SULFATE 2 MG/ML VIAL. IV PRN ×2 (07:17→13:42)
[2019-05-13 07:25] VITALS: BP 178/83
--- NOTE | 2019-05-13 10:14 | PDOC ---
PROGRESS NOTES History of Present Illness History of Present Illness DICTATED and SIGNED BY: DERRICK CEDENO MD VTE Prophylaxis Ordered VTE Prophylaxis Devices: No VTE Pharmacological Prophylaxi: Yes Assessment/Plan Assessment/Plan IMPRESSION: ACUTE MIGRANE SYNDROME UNCONTROLLED HYPERTENSION EXTREME MORBID OBESITY 05/[address] HEAD, Subtle loss of lieberman-white distinction in the right frontal lobe, which may be artifactual. Recommend MRI for further evaluation. PLAN TELE BED ADMIT BP CONTROL ECHO CARDIOLOGY CONSULT NEUROLOGY CONSULT MRI HEAD not done, will not fit in our mri here CBC, COMP, ESR 11-17 INC CLONIDINE 0.1 MG PO BID Vitals Vitals Vital Signs Date Time Temp Pulse Resp B/P (MAP) Pulse Ox O2 Delivery O2 Flow Rate FiO2 05/13/19 07:25 97.4 100 20 178/83 (114) 100 Room Air 97.4 Physical Exam General: Alert, Oriented X3, Cooperative, mild distress Heart: Regular rate Lungs: Clear, Wheezing Abdomen: Normal bowel sounds, Soft Extremities: No clubbing, No cyanosis Skin: No significant lesion Labs LABS STATUS: REG ER ORD. PHYSICIAN: MELISSA ANAND DO REASON: LLOYD PROCEDURE: CT HEAD WO CONTRAST Exam: CT head INDICATION: Headache TECHNIQUE: Sequential axial images through the head were obtained without the administration of IV contrast. Comparisons: None FINDINGS: No focal parenchymal lesion or hemorrhage is identified. There is no midline shift or sulcal effacement. Subtle loss of the lieberman-white distinction in the right frontal lobe. This is seen best on series 2 image 21. The ventricular system is within normal limits without compression hydrocephalus. The basal cisterns are well maintained. The visualized portions of the paranasal sinuses and mastoid air cells are well-pneumatized. No acute fractures. IMPRESSION: Subtle loss of lieberman-white distinction in the right frontal lobe, which may be artifactual. Recommend MRI for further evaluation. Exposure: One or more of the following in the visualized dose reduction techniques were utilized for this examination: 1. Automated exposure control 2. Adjustment of the MA and/or KV according to patient size Use of iterative of reconstructive technique Electronically signed by: Derrick Cedeno MD (05/11/2019 8:13 PM) [facility] DICTATED and SIGNED BY: DERRICK CEDENO MD DATE: 05/11/192012 Assessment and Plan Assessmemt and Plan Problems Medical Problems: (1) Accelerated hypertension Status: Acute (2) Headache Status: Acute Comment Review of Relevant I have reviewed the following items rhonda (where applicable) has been applied. Labs Laboratory Tests Test 05/11/19 21:50 White Blood Count 5.3 x10^3/uL (4.0-11.0) Red Blood Count 3.75 x10^6/uL (3.50-5.40) Hemoglobin 9.8 g/dL (12.0-15.5) Hematocrit 30.6 % (36.0-47.0) Mean Corpuscular Volume 82 fL (79-100) Mean Corpuscular Hemoglobin 26 pg (25-35) Mean Corpuscular Hemoglobin Concent 32 g/dL (31-37) Red Cell Distribution Width 14.8 % (11.5-14.5) Platelet Count 185 x10^3/uL (140-400) Neutrophils (%) (Auto) 41 % (31-73) Lymphocytes (%) (Auto) 45 % (24-48) Monocytes (%) (Auto) 11 % (0-9) Eosinophils (%) (Auto) 3 % (0-3) Basophils (%) (Auto) 0 % (0-3) Neutrophils # (Auto) 2.2 x10^3/uL (1.8-7.7) Lymphocytes # (Auto) 2.4 x10^3/uL (1.0-4.8) Monocytes # (Auto) 0.6 x10^3/uL (0.0-1.1) Eosinophils # (Auto) 0.1 x10^3/uL (0.0-0.7) Basophils # (Auto) 0.0 x10^3/uL (0.0-0.2) Sodium Level 143 mmol/L (136-145) Potassium Level 4.1 mmol/L (3.5-5.1) Chloride Level 106 mmol/L (98-107) Carbon Dioxide Level 24 mmol/L (21-32) Anion Gap 13 (6-14) Blood Urea Nitrogen 23 mg/dL (7-20) Creatinine 0.8 mg/dL (0.6-1.0) Estimated GFR (Cockcroft-Gault) 93.9 BUN/Creatinine Ratio 29 (6-20) Glucose Level 88 mg/dL (70-99) Calcium Level 8.8 mg/dL (8.5-10.1) Total Bilirubin 0.4 mg/dL (0.2-1.0) Aspartate Amino Transf (AST/SGOT) 13 U/L (15-37) Alanine Aminotransferase (ALT/SGPT) 13 U/L (14-59) Alkaline Phosphatase 85 U/L (46-116) Total Protein 6.8 g/dL (6.4-8.2) Albumin 3.1 g/dL (3.4-5.0) Albumin/Globulin Ratio 0.8 (1.0-1.7) Medications Current Medications Prochlorperazine Edisylate (Compazine) 10 mg 1X ONCE IV Last administered on 05/11/19 19:40; Start 05/11/19 at 19:15; Stop 05/11/19 at 19:16; Status DC Metoclopramide HCl (Reglan Vial) 10 mg 1X ONCE IVP ; Start 05/11/19 at 18:45; Stop 05/11/19 at 18:46; Status UNV Diphenhydramine HCl (Benadryl) 50 mg 1X ONCE IVP Last administered on 05/11/19at 19:40; Start 05/11/19 at 19:15; Stop 05/11/19 at 19:16; Status DC Fentanyl Citrate (Fentanyl 2ml Vial) 75 mcg 1X ONCE IVP Last administered on 05/11/19at 20:51; Start 05/11/19 at 21:00; Stop 05/11/19 at 21:01; Status DC Labetalol HCl (Normodyne Iv Push) 20 mg 1X ONCE IVP Last administered on 05/11/19at 21:20; Start 05/11/19 at 21:30; Stop 05/11/19 at 21:31; Status DC Ondansetron HCl (Zofran) 4 mg PRN Q8HRS PRN IV NAUSEA/VOMITING Last administered on 05/11/19at 21:50; Start 05/11/19 at 21:15; Stop 05/12/19 at 21:14; Status DC Morphine Sulfate (Morphine Sulfate) 2 mg PRN Q2HR PRN IV PAIN Last administered on 05/12/19at 20:38; Start 05/11/19 at 21:15; Stop 05/12/19 at 21:14; Status DC Sodium Chloride 1,000 ml @ 75 mls/hr [id number] IV Last administered on 05/12/19at 10:35; Start 05/11/19 at 21:15; Stop 05/12/19 at 21:14; Status DC Clonidine HCl (Catapres) 0.1 mg PRN Q4HRS PRN PO HYPERTENSION; Start 05/11/19 at 21:15; Status Cancel Clonidine HCl (Catapres) 0.1 mg DAILY PO Last administered on 05/12/19at 13:21; Start 05/12/19 at 13:00 Tizanidine HCl (Zanaflex) 4 mg PRN TID PRN PO MUSCLE SPASMS Last administered on 05/12/19at 20:44; Start 05/12/19 at 12:00 Ondansetron HCl (Zofran Odt) 4 mg PRN Q8HRS PRN PO NAUSEA/VOMITING; Start 05/12/19 at 12:15 Quetiapine Fumarate (SEROquel) 200 mg QHS PO Last administered on 05/12/19at 20:38; Start 05/12/19 at 21:00 Lorazepam (Ativan Inj) 0.5 mg PRN Q8HRS PRN IVP ANXIETY / AGITATION Last administered on 05/13/19at 07:15; Start 05/12/19 at 12:00 Promethazine HCl (Phenergan) 12.5 mg PRN Q6HRS PRN PO NAUSEA/VOMITING 2ND CHOICE Last administered on 05/12/19at 14:38; Start 05/12/19 at 12:00 Sodium Chloride (Normal Saline Flush) 3 ml QSHIFT PRN IV AFTER MEDS AND BLOOD DRAWS; Start 05/12/19 at 12:30 Ondansetron HCl (Zofran) 4 mg PRN Q4HRS PRN IV NAUSEA/VOMITING; Start 05/12/19 at 12:30 Acetaminophen (Tylenol) 650 mg PRN Q4HRS PRN PO TEMP OVER 100.4F OR MILD PAIN; Start 05/12/19 at 12:30 Al Hydroxide/Mg Hydroxide (Mylanta Plus Xs) 30 ml PRN DAILY PRN PO HEARTBURN / GAS; Start 05/12/19 at 12:30 Clonidine HCl (Catapres) 0.1 mg PRN Q6HRS PRN PO SBP>160 OR DBP>90; Start 05/12/19 at 12:30 Docusate Sodium (Colace) 100 mg PRN BID PRN PO CONSTIPATION; Start 05/12/19 at 12:30 Albuterol Sulfate (Ventolin Neb Soln) 2.5 mg PRN Q4HRS PRN NEB SHORTNESS OF BREATH; Start 05/12/19 at 12:30 Guaifenesin (Robitussin) 200 mg PRN Q4HRS PRN PO COUGH; Start 05/12/19 at 12:30 Lorazepam (Ativan) 0.5 mg PRN Q4HRS PRN PO ANXIETY / AGITATION; Start 05/12/19 at 12:30 Enoxaparin Sodium (Lovenox 60mg Syringe) 60 mg Q12HR SQ Last administered on 05/12/19at 20:41; Start 05/12/19 at 21:00 Tramadol HCl (Ultram) 50 mg PRN Q6HRS PRN PO PAIN Last administered on 05/12/19at 23:19; Start 05/12/19 at 23:15 Morphine Sulfate (Morphine Sulfate) 2 mg PRN Q6HRS PRN IV PAIN Last administered on 05/13/19at 07:17; Start 05/12/19 at 23:15 Prochlorperazine Edisylate (Compazine) 10 mg PRN Q6HRS PRN IV NAUSEA/VOMITING Last administered on 05/12/19at 23:19; Start 05/12/19 at 23:15 Active Scripts Active Bactrim 400-80 Mg Tablet (Sulfamethoxazole/Trimethoprim) 1 Each Tablet 1 Tab PO BID Zofran (Ondansetron Hcl) 4 Mg Tablet 1 Tab PO PRN Q6-8HRS Reported Seroquel (Quetiapine Fumarate) 200 Mg Tablet 200 Mg PO HS Tizanidine Hcl 4 Mg Tablet 4 Mg PO TID PRN Clonidine Hcl 0.1 Mg Tablet 0.1 Mg PO DAILY Vitals/I & O Vital Sign - Last 24 Hours 05/12/19 05/12/19 05/12/19 05/12/19 11:00 11:05 11:35 13:21 Temp 97.6 97.6 Pulse 103 103 Resp 20 B/P (MAP) 163/78 (106) 163/78 Pulse Ox 96 98 98 O2 Delivery Room Air Room Air Room Air 05/12/19 05/12/19 05/12/19 05/12/19 14:39 15:00 17:56 18:36 Temp 98.2 98.2 Pulse 89 Resp 22 B/P (MAP) 143/65 (91) Pulse Ox 98 97 97 97 O2 Delivery Room Air Room Air Room Air Room Air 05/12/19 05/12/19 05/12/19 05/12/19 19:42 20:00 20:38 23:19 Temp 97.8 97.8 Pulse 96 Resp 20 B/P (MAP) 142/66 (91) Pulse Ox 98 O2 Delivery Room Air Room Air Room Air Room Air 05/12/19 05/13/19 05/13/19 05/13/19 23:25 01:23 03:16 07:17 Temp 98.5 98.3 98.5 98.3 Pulse 90 87 Resp 18 24 B/P (MAP) 156/70 (98) 136/78 (97) Pulse Ox 95 97 97 O2 Delivery Room Air Room Air Room Air Room Air 05/13/19 07:25 Temp 97.4 97.4 Pulse 100 Resp 20 B/P (MAP) 178/83 (114) Pulse Ox 100 O2 Delivery Room Air Intake and Output 05/12/19 05/12/19 05/13/19 15:00 23:00 07:00 Intake Total 360 ml 240 ml 480 ml Balance 360 ml 240 ml 480 ml NAEL KIRKLAND MD May 13, 2019 10:14
[2019-05-13] MEDS: traMADol 50 MG TABLET PO PRN ×2 (10:52→20:49)
[2019-05-13] MEDS: cloNIDine HCL 0.1 MG TABLET PO SCH ×3 (10:52→20:51)
[2019-05-13 11:10] VITALS: BP 167/76
[2019-05-13 14:55] VITALS: BP 151/70
--- NOTE | 2019-05-13 17:34 | PDOC ---
PROGRESS NOTES Assessment Problems Medical Problems: (1) Accelerated hypertension - Blood pressure medications are being adjusted to try to improve control. I don't believe the current blood pressures contribute to her headache as they are not severely elevated. Status: Acute (2) Headache- She continues to have great difficulty with headache. The current medical regimen is not adequately controlling her pain. I will change the morphine so the dosages 4 mg at a time instead of 2 and return the dosage interval to every 4 hours. We cannot use migraine specific medications at this time because of her elevated blood pressures. If the headaches do not start to improve with symptomatic treatment that I would recommend further investigation with a lumbar puncture in order to obtain cerebral spinal fluid to look for evidence of viral meningitis. This would need to be done under fluoroscopy because of the morbid obesity. Status: Acute Plan 1. I have changed the order of morphine to 4 mg every 4 hours as needed. She may continue to use low-dose lorazepam as needed for anxiety. 2. If the headache is not improving but I would consider a lumbar puncture for spinal fluid analysis to look for viral meningitis. 3. An MRI of the brain could be performed but [facility] Subjective The medication helps reduce the pain a little bit but the headache is just coming back. They change the morphine to every 6 hours and the headache is becoming quite severe. Objective Vital Signs Date Time Temp Pulse Resp B/P (MAP) Pulse Ox O2 Delivery O2 Flow Rate FiO2 05/13/19 17:04 87 151/70 05/13/19 14:55 97.5 20 98 Room Air 97.5 Intake and Output 05/13/19 07:00 Intake Total 1080 ml Balance 1080 ml Intake Oral 1080 ml # Voids 3 PHYSICAL EXAM She was sitting at the side of the bed with good balance. She was alert, awake and cooperative. Speech was fluent and clear. She had a good fund of recent and remote knowledge. Attention and concentration was intact. The eyes were conjugate and face symmetric. Movements were symmetric and well coordinated. Review of Relevant I have reviewed the following items rhonda (where applicable) has been applied. Labs Laboratory Tests Test 05/11/19 21:50 White Blood Count 5.3 x10^3/uL (4.0-11.0) Red Blood Count 3.75 x10^6/uL (3.50-5.40) Hemoglobin 9.8 g/dL (12.0-15.5) Hematocrit 30.6 % (36.0-47.0) Mean Corpuscular Volume 82 fL (79-100) Mean Corpuscular Hemoglobin 26 pg (25-35) Mean Corpuscular Hemoglobin Concent 32 g/dL (31-37) Red Cell Distribution Width 14.8 % (11.5-14.5) Platelet Count 185 x10^3/uL (140-400) Neutrophils (%) (Auto) 41 % (31-73) Lymphocytes (%) (Auto) 45 % (24-48) Monocytes (%) (Auto) 11 % (0-9) Eosinophils (%) (Auto) 3 % (0-3) Basophils (%) (Auto) 0 % (0-3) Neutrophils # (Auto) 2.2 x10^3/uL (1.8-7.7) Lymphocytes # (Auto) 2.4 x10^3/uL (1.0-4.8) Monocytes # (Auto) 0.6 x10^3/uL (0.0-1.1) Eosinophils # (Auto) 0.1 x10^3/uL (0.0-0.7) Basophils # (Auto) 0.0 x10^3/uL (0.0-0.2) Sodium Level 143 mmol/L (136-145) Potassium Level 4.1 mmol/L (3.5-5.1) Chloride Level 106 mmol/L (98-107) Carbon Dioxide Level 24 mmol/L (21-32) Anion Gap 13 (6-14) Blood Urea Nitrogen 23 mg/dL (7-20) Creatinine 0.8 mg/dL (0.6-1.0) Estimated GFR (Cockcroft-Gault) 93.9 BUN/Creatinine Ratio 29 (6-20) Glucose Level 88 mg/dL (70-99) Calcium Level 8.8 mg/dL (8.5-10.1) Total Bilirubin 0.4 mg/dL (0.2-1.0) Aspartate Amino Transf (AST/SGOT) 13 U/L (15-37) Alanine Aminotransferase (ALT/SGPT) 13 U/L (14-59) Alkaline Phosphatase 85 U/L (46-116) Total Protein 6.8 g/dL (6.4-8.2) Albumin 3.1 g/dL (3.4-5.0) Albumin/Globulin Ratio 0.8 (1.0-1.7) Medications Current Medications Prochlorperazine Edisylate (Compazine) 10 mg 1X ONCE IV Last administered on 05/11/19at 19:40; Start 05/11/19 at 19:15; Stop 05/11/19 at 19:16; Status DC Metoclopramide HCl (Reglan Vial) 10 mg 1X ONCE IVP ; Start 05/11/19 at 18:45; Stop 05/11/19 at 18:46; Status UNV Diphenhydramine HCl (Benadryl) 50 mg 1X ONCE IVP Last administered on 05/11/19at 19:40; Start 05/11/19 at 19:15; Stop 05/11/19 at 19:16; Status DC Fentanyl Citrate (Fentanyl 2ml Vial) 75 mcg 1X ONCE IVP Last administered on 05/11/19at 20:51; Start 05/11/19 at 21:00; Stop 05/11/19 at 21:01; Status DC Labetalol HCl (Normodyne Iv Push) 20 mg 1X ONCE IVP Last administered on 05/11/19at 21:20; Start 05/11/19 at 21:30; Stop 05/11/19 at 21:31; Status DC Ondansetron HCl (Zofran) 4 mg PRN Q8HRS PRN IV NAUSEA/VOMITING Last administer ed on 05/11/19at 21:50; Start 05/11/19 at 21:15; Stop 05/12/19 at 21:14; Status DC Morphine Sulfate (Morphine Sulfate) 2 mg PRN Q2HR PRN IV PAIN Last administered on 05/12/19at 20:38; Start 05/11/19 at 21:15; Stop 05/12/19 at 21:14; Status DC Sodium Chloride 1,000 ml @ 75 mls/hr [id number] IV Last administered on 05/12/19at 10:35; Start 05/11/19 at 21:15; Stop 05/12/19 at 21:14; Status DC Clonidine HCl (Catapres) 0.1 mg PRN Q4HRS PRN PO HYPERTENSION; Start 05/11/19 at 21:15; Status Cancel Clonidine HCl (Catapres) 0.1 mg DAILY PO Last administered on 05/13/19at 10:52; Start 05/12/19 at 13:00; Stop 05/13/19 at 15:42; Status DC Tizanidine HCl (Zanaflex) 4 mg PRN TID PRN PO MUSCLE SPASMS Last administered on 05/12/19at 20:44; Start 05/12/19 at 12:00 Ondansetron HCl (Zofran Odt) 4 mg PRN Q8HRS PRN PO NAUSEA/VOMITING (1st Choice); Start 05/12/19 at 12:15 Quetiapine Fumarate (SEROquel) 200 mg QHS PO Last administered on 05/12/19at 20:38; Start 05/12/19 at 21:00 Lorazepam (Ativan Inj) 0.5 mg PRN Q8HRS PRN IVP ANXIETY / AGITATION Last administered on 05/13/19at 07:15; Start 05/12/19 at 12:00 Promethazine HCl (Phenergan) 12.5 mg PRN Q6HRS PRN PO NAUSEA/VOMITING 2ND CHOICE Last administered on 05/12/19at 14:38; Start 05/12/19 at 12:00 Sodium Chloride (Normal Saline Flush) 3 ml QSHIFT PRN IV AFTER MEDS AND BLOOD DRAWS; Start 05/12/19 at 12:30 Ondansetron HCl (Zofran) 4 mg PRN Q4HRS PRN IV NAUSEA/VOMITING (1st Choice); Start 05/12/19 at 12:30 Acetaminophen (Tylenol) 650 mg PRN Q4HRS PRN PO TEMP OVER 100.4F OR MILD PAIN; Start 05/12/19 at 12:30 Al Hydroxide/Mg Hydroxide (Mylanta Plus Xs) 30 ml PRN DAILY PRN PO HEARTBURN / GAS; Start 05/12/19 at 12:30 Clonidine HCl (Catapres) 0.1 mg PRN Q6HRS PRN PO SBP>160 OR DBP>90; Start 05/12/19 at 12:30 Docusate Sodium (Colace) 100 mg PRN BID PRN PO CONSTIPATION; Start 05/12/19 at 12:30 Albuterol Sulfate (Ventolin Neb Soln) 2.5 mg PRN Q4HRS PRN NEB SHORTNESS OF BREATH; Start 05/12/19 at 12:30 Guaifenesin (Robitussin) 200 mg PRN Q4HRS PRN PO COUGH; Start 05/12/19 at 12:30 Lorazepam (Ativan) 0.5 mg PRN Q4HRS PRN PO ANXIETY / AGITATION; Start 05/12/19 at 12:30 Enoxaparin Sodium (Lovenox 60mg Syringe) 60 mg Q12HR SQ Last administered on 05/13/19at 10:51; Start 05/12/19 at 21:00 Tramadol HCl (Ultram) 50 mg PRN Q6HRS PRN PO PAIN Last administered on 05/13/19at 10:52; Start 05/12/19 at 23:15 Morphine Sulfate (Morphine Sulfate) 2 mg PRN Q6HRS PRN IV PAIN Last administered on 05/13/19at 13:42; Start 05/12/19 at 23:15; Stop 05/13/19 at 17:29; Status DC Prochlorperazine Edisylate (Compazine) 10 mg PRN Q6HRS PRN IV NAUSEA/VOMITING (2nd Choice) Last administered on 05/12/19at 23:19; Start 05/12/19 at 23:15 Clonidine HCl (Catapres) 0.1 mg BID PO Last administered on 05/13/19at 17:04; Start 05/13/19 at 15:45 Morphine Sulfate (Morphine Sulfate) 4 mg PRN Q4HRS PRN IV PAIN; Start 05/13/19 at 17:30; Status UNV Active Scripts Active Bactrim 400-80 Mg Tablet (Sulfamethoxazole/Trimethoprim) 1 Each Tablet 1 Tab PO BID Zofran (Ondansetron Hcl) 4 Mg Tablet 1 Tab PO PRN Q6-8HRS Reported Seroquel (Quetiapine Fumarate) 200 Mg Tablet 200 Mg PO HS Tizanidine Hcl 4 Mg Tablet 4 Mg PO TID PRN Clonidine Hcl 0.1 Mg Tablet 0.1 Mg PO DAILY Vitals/I & O Vital Sign - Last 24 Hours 05/12/19 05/12/19 05/12/19 05/12/19 17:56 18:36 19:42 20:00 Temp 97.8 97.8 Pulse 96 Resp 20 B/P (MAP) 142/66 (91) Pulse Ox 97 97 98 O2 Delivery Room Air Room Air Room Air Room Air 05/12/19 05/12/19 05/12/19 05/13/19 20:38 23:19 23:25 01:23 Temp 98.5 98.5 Pulse 90 Resp 18 B/P (MAP) 156/70 (98) Pulse Ox 95 O2 Delivery Room Air Room Air Room Air Room Air 05/13/19 05/13/19 05/13/19 05/13/19 03:16 07:17 07:25 08:00 Temp 98.3 97.4 98.3 97.4 Pulse 87 100 Resp 24 20 B/P (MAP) 136/78 (97) 178/83 (114) Pulse Ox 97 97 100 O2 Delivery Room Air Room Air Room Air Room Air 05/13/19 05/13/19 05/13/19 05/13/19 10:52 10:52 11:10 13:42 Temp 97.7 97.7 Pulse 100 102 Resp 20 B/P (MAP) 178/83 167/76 (106) Pulse Ox 100 98 98 O2 Delivery Room Air Room Air Room Air 05/13/19 05/13/19 14:55 17:04 Temp 97.5 97.5 Pulse 87 87 Resp 20 B/P (MAP) 151/70 (97) 151/70 Pulse Ox 98 O2 Delivery Room Air Intake and Output 05/12/19 05/12/19 05/13/19 15:00 23:00 07:00 Intake Total 360 ml 240 ml 480 ml Balance 360 ml 240 ml 480 ml CAMI CHRISTIANSEN MD May 13, 2019 17:34
--- NOTE | 2019-05-13 18:22 | PDOC2 ---
CONSULT Date of Consult Date of Consult DATE: 05/13/19 TIME: 18:18 Reason for Consult Reason for Consult: Accelerated hypertension Referring Physician Referring Physician: Dr. High Identification/Chief Complaint Chief Complaint Headache Source Source: Chart review, Patient History of Present Illness Reason for Visit: The patient is a 44-year-old female who presented to the emergency room with headache. Patient's initial blood pressure was also reportedly to be significantly elevated greater than 190. Initial CT head scan showed no acute changes but possible subtle loss of lieberman-white distinction in the right frontal lobe. Patient's blood pressure has improved and she has been placed on clonidine today. She denies chest pain. She denies shortness of breath. She is being evaluated by the neurology service. Past Medical History Cardiovascular: HTN CENTRAL NERVOUS SYSTEM: Migraine Past Surgical History Past Surgical History: No pertinent history Family History Family History: Hypertension Social History No ALCOHOL: none Drugs: None Current Problem List Problem List Problems Medical Problems: (1) Accelerated hypertension Status: Acute (2) Headache Status: Acute Current Medications Current Medications Current Medications Prochlorperazine Edisylate (Compazine) 10 mg 1X ONCE IV Last administered on 05/11/19at 19:40; Start 05/11/19 at 19:15; Stop 05/11/19 at 19:16; Status DC Metoclopramide HCl (Reglan Vial) 10 mg 1X ONCE IVP ; Start 05/11/19 at 18:45; Stop 05/11/19 at 18:46; Status UNV Diphenhydramine HCl (Benadryl) 50 mg 1X ONCE IVP Last administered on 05/11/19at 19:40; Start 05/11/19 at 19:15; Stop 05/11/19 at 19:16; Status DC Fentanyl Citrate (Fentanyl 2ml Vial) 75 mcg 1X ONCE IVP Last administered on 05/11/19at 20:51; Start 05/11/19 at 21:00; Stop 05/11/19 at 21:01; Status DC Labetalol HCl (Normodyne Iv Push) 20 mg 1X ONCE IVP Last administered on 05/11/19at 21:20; Start 05/11/19 at 21:30; Stop 05/11/19 at 21:31; Status DC Ondansetron HCl (Zofran) 4 mg PRN Q8HRS PRN IV NAUSEA/VOMITING Last administered on 05/11/19at 21:50; Start 05/11/19 at 21:15; Stop 05/12/19 at 21:14; Status DC Morphine Sulfate (Morphine Sulfate) 2 mg PRN Q2HR PRN IV PAIN Last administered on 05/12/19at 20:38; Start 05/11/19 at 21:15; Stop 05/12/19 at 21:14; Status DC Sodium Chloride 1,000 ml @ 75 mls/hr [id number] IV Last administered on 05/12/19at 10:35; Start 05/11/19 at 21:15; Stop 05/12/19 at 21:14; Status DC Clonidine HCl (Catapres) 0.1 mg PRN Q4HRS PRN PO HYPERTENSION; Start 05/11/19 at 21:15; Status Cancel Clonidine HCl (Catapres) 0.1 mg DAILY PO Last administered on 05/13/19at 10:52; Start 05/12/19 at 13:00; Stop 05/13/19 at 15:42; Status DC Tizanidine HCl (Zanaflex) 4 mg PRN TID PRN PO MUSCLE SPASMS Last administered on 05/12/19at 20:44; Start 05/12/19 at 12:00 Ondansetron HCl (Zofran Odt) 4 mg PRN Q8HRS PRN PO NAUSEA/VOMITING (1st Choice); Start 05/12/19 at 12:15 Quetiapine Fumarate (SEROquel) 200 mg QHS PO Last administered on 05/12/19at 20:38; Start 05/12/19 at 21:00 Lorazepam (Ativan Inj) 0.5 mg PRN Q8HRS PRN IVP ANXIETY / AGITATION Last administered on 05/13/19at 07:15; Start 05/12/19 at 12:00 Promethazine HCl (Phenergan) 12.5 mg PRN Q6HRS PRN PO NAUSEA/VOMITING 2ND CHOICE Last administered on 05/12/19at 14:38; Start 05/12/19 at 12:00 Sodium Chloride (Normal Saline Flush) 3 ml QSHIFT PRN IV AFTER MEDS AND BLOOD DRAWS; Start 05/12/19 at 12:30 Ondansetron HCl (Zofran) 4 mg PRN Q4HRS PRN IV NAUSEA/VOMITING (1st Choice); Start 05/12/19 at 12:30 Acetaminophen (Tylenol) 650 mg PRN Q4HRS PRN PO TEMP OVER 100.4F OR MILD PAIN; Start 05/12/19 at 12:30 Al Hydroxide/Mg Hydroxide (Mylanta Plus Xs) 30 ml PRN DAILY PRN PO HEARTBURN / GAS; Start 05/12/19 at 12:30 Clonidine HCl (Catapres) 0.1 mg PRN Q6HRS PRN PO SBP>160 OR DBP>90; Start 05/12/19 at 12:30 Docusate Sodium (Colace) 100 mg PRN BID PRN PO CONSTIPATION; Start 05/12/19 at 12:30 Albuterol Sulfate (Ventolin Neb Soln) 2.5 mg PRN Q4HRS PRN NEB SHORTNESS OF BREATH; Start 05/12/19 at 12:30 Guaifenesin (Robitussin) 200 mg PRN Q4HRS PRN PO COUGH; Start 05/12/19 at 12:30 Lorazepam (Ativan) 0.5 mg PRN Q4HRS PRN PO ANXIETY / AGITATION; Start 05/12/19 at 12:30 Enoxaparin Sodium (Lovenox 60mg Syringe) 60 mg Q12HR SQ Last administered on 05/13/19at 10:51; Start 05/12/19 at 21:00 Tramadol HCl (Ultram) 50 mg PRN Q6HRS PRN PO PAIN Last administered on 05/13/19at 10:52; Start 05/12/19 at 23:15 Morphine Sulfate (Morphine Sulfate) 2 mg PRN Q6HRS PRN IV PAIN Last administered on 05/13/19at 13:42; Start 05/12/19 at 23:15; Stop 05/13/19 at 17:29; Status DC Prochlorperazine Edisylate (Compazine) 10 mg PRN Q6HRS PRN IV NAUSEA/VOMITING (2nd Choice) Last administered on 05/12/19at 23:19; Start 05/12/19 at 23:15 Clonidine HCl (Catapres) 0.1 mg BID PO Last administered on 05/13/19at 17:04; Start 05/13/19 at 15:45 Morphine Sulfate (Morphine Sulfate) 4 mg PRN Q4HRS PRN IV MODERATE TO SEVERE PAIN; Start 05/13/19 at 17:45 Active Scripts Active Bactrim 400-80 Mg Tablet (Sulfamethoxazole/Trimethoprim) 1 Each Tablet 1 Tab PO BID Zofran (Ondansetron Hcl) 4 Mg Tablet 1 Tab PO PRN Q6-8HRS Reported Seroquel (Quetiapine Fumarate) 200 Mg Tablet 200 Mg PO HS Tizanidine Hcl 4 Mg Tablet 4 Mg PO TID PRN Clonidine Hcl 0.1 Mg Tablet 0.1 Mg PO DAILY Allergies Allergies: Coded Allergies: Penicillins (Verified Allergy, Intermediate, 11/02/18) ketorolac (Verified Allergy, Intermediate, 11/02/18) metoclopramide (Verified Allergy, Intermediate, 11/02/18) ROS General: YES: Fatigue Neurological: Yes Headaches Physical Exam General: mild distress HEENT: Atraumatic Lungs: Clear to auscultation Heart: Regular rate Abdomen: Normal bowel sounds Vitals VITALS Vital Signs Date Time Temp Pulse Resp B/P (MAP) Pulse Ox O2 Delivery O2 Flow Rate FiO2 05/13/19 17:04 87 151/70 05/13/19 14:55 97.5 20 98 Room Air 97.5 Labs Labs Laboratory Tests Test 05/11/19 21:50 White Blood Count 5.3 x10^3/uL (4.0-11.0) Red Blood Count 3.75 x10^6/uL (3.50-5.40) Hemoglobin 9.8 g/dL (12.0-15.5) Hematocrit 30.6 % (36.0-47.0) Mean Corpuscular Volume 82 fL (79-100) Mean Corpuscular Hemoglobin 26 pg (25-35) Mean Corpuscular Hemoglobin Concent 32 g/dL (31-37) Red Cell Distribution Width 14.8 % (11.5-14.5) Platelet Count 185 x10^3/uL (140-400) Neutrophils (%) (Auto) 41 % (31-73) Lymphocytes (%) (Auto) 45 % (24-48) Monocytes (%) (Auto) 11 % (0-9) Eosinophils (%) (Auto) 3 % (0-3) Basophils (%) (Auto) 0 % (0-3) Neutrophils # (Auto) 2.2 x10^3/uL (1.8-7.7) Lymphocytes # (Auto) 2.4 x10^3/uL (1.0-4.8) Monocytes # (Auto) 0.6 x10^3/uL (0.0-1.1) Eosinophils # (Auto) 0.1 x10^3/uL (0.0-0.7) Basophils # (Auto) 0.0 x10^3/uL (0.0-0.2) Sodium Level 143 mmol/L (136-145) Potassium Level 4.1 mmol/L (3.5-5.1) Chloride Level 106 mmol/L (98-107) Carbon Dioxide Level 24 mmol/L (21-32) Anion Gap 13 (6-14) Blood Urea Nitrogen 23 mg/dL (7-20) Creatinine 0.8 mg/dL (0.6-1.0) Estimated GFR (Cockcroft-Gault) 93.9 BUN/Creatinine Ratio 29 (6-20) Glucose Level 88 mg/dL (70-99) Calcium Level 8.8 mg/dL (8.5-10.1) Total Bilirubin 0.4 mg/dL (0.2-1.0) Aspartate Amino Transf (AST/SGOT) 13 U/L (15-37) Alanine Aminotransferase (ALT/SGPT) 13 U/L (14-59) Alkaline Phosphatase 85 U/L (46-116) Total Protein 6.8 g/dL (6.4-8.2) Albumin 3.1 g/dL (3.4-5.0) Albumin/Globulin Ratio 0.8 (1.0-1.7) Images Images CT scan as above Assessment/Plan Assessment/Plan 1. Headaches. History of migraines. Headache mildly improving. Being evaluated by the neurology service. 2. Accelerated hypertension. Improved today. Patient states she has been under good control and then had a spike recently. We'll continue medications above with close monitoring. Echo echocardiogram for LV function and possible LVH. Thank you for allowing us to participate in the care of your patient. ADE SHOKO MD May 13, 2019 18:22
[2019-05-13 19:55] VITALS: BP 149/66
[2019-05-13] MEDS: QUEtiapine 100 MG TABLET. PO SCH (20:51)
[2019-05-13 21:23] LABS: BASO # 0.1 x10^3/uL (0.0-0.2); BASO % 1 % (0-3); EOS # 0.3 x10^3/uL (0.0-0.7); EOS % 4 % (0-3); HEMATOCRIT 29.6 % (36.0-47.0); HEMOGLOBIN 9.8 g/dL (12.0-15.5); LYMPH # 3.3 x10^3/uL (1.0-4.8); LYMPH % 45 % (24-48); MEAN CORPUSCULAR HEMOGLOBIN 27 pg (25-35); MEAN CORPUSCULAR HGB CONC 33 g/dL (31-37); MEAN CORPUSCULAR VOLUME 81 fL (79-100); MONO # 0.7 x10^3/uL (0.0-1.1); MONO % 9 % (0-9); NEUT # 2.9 x10^3/uL (1.8-7.7); NEUT % 41 % (31-73); PLATELET COUNT 152 x10^3/uL (140-400); RED BLOOD COUNT 3.65 x10^6/uL (3.50-5.40); RED CELL DISTRIBUTION WIDTH 14.7 % (11.5-14.5); WHITE BLOOD COUNT 7.2 x10^3/uL (4.0-11.0)
[2019-05-13 21:42] LABS: ALBUMIN 2.8 g/dL (3.4-5.0); ALBUMIN/GLOBULIN RATIO 0.8 (1.0-1.7); CALCIUM 8.7 mg/dL (8.5-10.1); CREATININE 0.7 mg/dL (0.6-1.0); GFR 109.5; POTASSIUM 4.9 mmol/L (3.5-5.1); TOTAL BILIRUBIN 0.4 mg/dL (0.2-1.0); TOTAL PROTEIN 6.1 g/dL (6.4-8.2)
[2019-05-13 21:45] LABS: PLATELET CLUMP PRESENT; PLT ESTIMATE ADEQUATE (ADEQUATE)
[2019-05-13 21:47] LABS: SCHISTOCYTES OCC
[2019-05-13] MEDS: MORPHINE SULFATE 4 MG/ML VIAL. IV PRN (22:52)
[2019-05-13 23:29] VITALS: BP 160/77
[2019-05-14 03:20] VITALS: BP 139/67
[2019-05-14] MEDS: MORPHINE SULFATE 4 MG/ML VIAL. IV PRN ×5 (04:53→22:54)
[2019-05-14 07:00] VITALS: BP 168/67
--- NOTE | 2019-05-14 08:53 | PDOC ---
PROGRESS NOTES History of Present Illness History of Present Illness DICTATED and SIGNED BY: HEIDI CEDENO MD VTE Prophylaxis Ordered VTE Prophylaxis Devices: No VTE Pharmacological Prophylaxi: Yes Assessment/Plan Assessment/Plan IMPRESSION: ACUTE MIGRANE SYNDROME UNCONTROLLED HYPERTENSION EXTREME MORBID OBESITY 05/[address] HEAD, Subtle loss of lieberman-white distinction in the right frontal lobe, which may be artifactual. Recommend MRI for further evaluation. PERSISTENT HEADACHE, NO FEVER PLAN TELE BED ADMIT BP CONTROL ECHO CARDIOLOGY CONSULT NEUROLOGY CONSULT MRI HEAD not done, will not fit in our mri here CBC, COMP, ESR 11-17 INC CLONIDINE 0.1 MG PO TID ID CONSULT Vitals Vitals Vital Signs Date Time Temp Pulse Resp B/P (MAP) Pulse Ox O2 Delivery O2 Flow Rate FiO2 05/14/19 07:00 97.4 84 22 168/67 (100) 98 Room Air 97.4 Physical Exam General: Alert, Oriented X3, Cooperative, mild distress Heart: Regular rate, Normal S1, Normal S2 Lungs: Clear, Wheezing Abdomen: Normal bowel sounds Extremities: No clubbing, No cyanosis Skin: No significant lesion Labs LABS Laboratory Tests Test 05/13/19 21:00 White Blood Count 7.2 x10^3/uL (4.0-11.0) Red Blood Count 3.65 x10^6/uL (3.50-5.40) Hemoglobin 9.8 g/dL (12.0-15.5) Hematocrit 29.6 % (36.0-47.0) Mean Corpuscular Volume 81 fL (79-100) Mean Corpuscular Hemoglobin 27 pg (25-35) Mean Corpuscular Hemoglobin Concent 33 g/dL (31-37) Red Cell Distribution Width 14.7 % (11.5-14.5) Platelet Count 152 x10^3/uL (140-400) Neutrophils (%) (Auto) 41 % (31-73) Lymphocytes (%) (Auto) 45 % (24-48) Monocytes (%) (Auto) 9 % (0-9) Eosinophils (%) (Auto) 4 % (0-3) Basophils (%) (Auto) 1 % (0-3) Neutrophils # (Auto) 2.9 x10^3/uL (1.8-7.7) Lymphocytes # (Auto) 3.3 x10^3/uL (1.0-4.8) Monocytes # (Auto) 0.7 x10^3/uL (0.0-1.1) Eosinophils # (Auto) 0.3 x10^3/uL (0.0-0.7) Basophils # (Auto) 0.1 x10^3/uL (0.0-0.2) Platelet Estimate Adequate (ADEQUATE) Platelet Clumps, EDTA Present Schistocytes Occ Erythrocyte Sedimentation Rate 15 (0-25) Sodium Level 143 mmol/L (136-145) Potassium Level 4.9 mmol/L (3.5-5.1) Chloride Level 108 mmol/L (98-107) Carbon Dioxide Level 25 mmol/L (21-32) Anion Gap 10 (6-14) Blood Urea Nitrogen 17 mg/dL (7-20) Creatinine 0.7 mg/dL (0.6-1.0) Estimated GFR (Cockcroft-Gault) 109.5 BUN/Creatinine Ratio 24 (6-20) Glucose Level 118 mg/dL (70-99) Calcium Level 8.7 mg/dL (8.5-10.1) Total Bilirubin 0.4 mg/dL (0.2-1.0) Aspartate Amino Transf (AST/SGOT) 27 U/L (15-37) Alanine Aminotransferase (ALT/SGPT) 15 U/L (14-59) Alkaline Phosphatase 94 U/L (46-116) Total Protein 6.1 g/dL (6.4-8.2) Albumin 2.8 g/dL (3.4-5.0) Albumin/Globulin Ratio 0.8 (1.0-1.7) Assessment and Plan Assessmemt and Plan Problems Medical Problems: (1) Accelerated hypertension Status: Acute (2) Headache Status: Acute Comment Review of Relevant I have reviewed the following items rhonda (where applicable) has been applied. Labs Laboratory Tests Test 05/13/19 21:00 White Blood Count 7.2 x10^3/uL (4.0-11.0) Red Blood Count 3.65 x10^6/uL (3.50-5.40) Hemoglobin 9.8 g/dL (12.0-15.5) Hematocrit 29.6 % (36.0-47.0) Mean Corpuscular Volume 81 fL (79-100) Mean Corpuscular Hemoglobin 27 pg (25-35) Mean Corpuscular Hemoglobin Concent 33 g/dL (31-37) Red Cell Distribution Width 14.7 % (11.5-14.5) Platelet Count 152 x10^3/uL (140-400) Neutrophils (%) (Auto) 41 % (31-73) Lymphocytes (%) (Auto) 45 % (24-48) Monocytes (%) (Auto) 9 % (0-9) Eosinophils (%) (Auto) 4 % (0-3) Basophils (%) (Auto) 1 % (0-3) Neutrophils # (Auto) 2.9 x10^3/uL (1.8-7.7) Lymphocytes # (Auto) 3.3 x10^3/uL (1.0-4.8) Monocytes # (Auto) 0.7 x10^3/uL (0.0-1.1) Eosinophils # (Auto) 0.3 x10^3/uL (0.0-0.7) Basophils # (Auto) 0.1 x10^3/uL (0.0-0.2) Platelet Estimate Adequate (ADEQUATE) Platelet Clumps, EDTA Present Schistocytes Occ Erythrocyte Sedimentation Rate 15 (0-25) Sodium Level 143 mmol/L (136-145) Potassium Level 4.9 mmol/L (3.5-5.1) Chloride Level 108 mmol/L (98-107) Carbon Dioxide Level 25 mmol/L (21-32) Anion Gap 10 (6-14) Blood Urea Nitrogen 17 mg/dL (7-20) Creatinine 0.7 mg/dL (0.6-1.0) Estimated GFR (Cockcroft-Gault) 109.5 BUN/Creatinine Ratio 24 (6-20) Glucose Level 118 mg/dL (70-99) Calcium Level 8.7 mg/dL (8.5-10.1) Total Bilirubin 0.4 mg/dL (0.2-1.0) Aspartate Amino Transf (AST/SGOT) 27 U/L (15-37) Alanine Aminotransferase (ALT/SGPT) 15 U/L (14-59) Alkaline Phosphatase 94 U/L (46-116) Total Protein 6.1 g/dL (6.4-8.2) Albumin 2.8 g/dL (3.4-5.0) Albumin/Globulin Ratio 0.8 (1.0-1.7) Laboratory Tests Test 05/13/19 21:00 White Blood Count 7.2 x10^3/uL (4.0-11.0) Red Blood Count 3.65 x10^6/uL (3.50-5.40) Hemoglobin 9.8 g/dL (12.0-15.5) Hematocrit 29.6 % (36.0-47.0) Mean Corpuscular Volume 81 fL (79-100) Mean Corpuscular Hemoglobin 27 pg (25-35) Mean Corpuscular Hemoglobin Concent 33 g/dL (31-37) Red Cell Distribution Width 14.7 % (11.5-14.5) Platelet Count 152 x10^3/uL (140-400) Neutrophils (%) (Auto) 41 % (31-73) Lymphocytes (%) (Auto) 45 % (24-48) Monocytes (%) (Auto) 9 % (0-9) Eosinophils (%) (Auto) 4 % (0-3) Basophils (%) (Auto) 1 % (0-3) Neutrophils # (Auto) 2.9 x10^3/uL (1.8-7.7) Lymphocytes # (Auto) 3.3 x10^3/uL (1.0-4.8) Monocytes # (Auto) 0.7 x10^3/uL (0.0-1.1) Eosinophils # (Auto) 0.3 x10^3/uL (0.0-0.7) Basophils # (Auto) 0.1 x10^3/uL (0.0-0.2) Platelet Estimate Adequate (ADEQUATE) Platelet Clumps, EDTA Present Schistocytes Occ Erythrocyte Sedimentation Rate 15 (0-25) Sodium Level 143 mmol/L (136-145) Potassium Level 4.9 mmol/L (3.5-5.1) Chloride Level 108 mmol/L (98-107) Carbon Dioxide Level 25 mmol/L (21-32) Anion Gap 10 (6-14) Blood Urea Nitrogen 17 mg/dL (7-20) Creatinine 0.7 mg/dL (0.6-1.0) Estimated GFR (Cockcroft-Gault) 109.5 BUN/Creatinine Ratio 24 (6-20) Glucose Level 118 mg/dL (70-99) Calcium Level 8.7 mg/dL (8.5-10.1) Total Bilirubin 0.4 mg/dL (0.2-1.0) Aspartate Amino Transf (AST/SGOT) 27 U/L (15-37) Alanine Aminotransferase (ALT/SGPT) 15 U/L (14-59) Alkaline Phosphatase 94 U/L (46-116) Total Protein 6.1 g/dL (6.4-8.2) Albumin 2.8 g/dL (3.4-5.0) Albumin/Globulin Ratio 0.8 (1.0-1.7) Medications Current Medications Prochlorperazine Edisylate (Compazine) 10 mg 1X ONCE IV Last administered on 05/11/19at 19:40; Start 05/11/19 at 19:15; Stop 05/11/19 at 19:16; Status DC Metoclopramide HCl (Reglan Vial) 10 mg 1X ONCE IVP ; Start 05/11/19 at 18:45; Stop 05/11/19 at 18:46; Status UNV Diphenhydramine HCl (Benadryl) 50 mg 1X ONCE IVP Last administered on 05/11/19at 19:40; Start 05/11/19 at 19:15; Stop 05/11/19 at 19:16; Status DC Fentanyl Citrate (Fentanyl 2ml Vial) 75 mcg 1X ONCE IVP Last administered on 05/11/19at 20:51; Start 05/11/19 at 21:00; Stop 05/11/19 at 21:01; Status DC Labetalol HCl (Normodyne Iv Push) 20 mg 1X ONCE IVP Last administered on 05/11/19at 21:20; Start 05/11/19 at 21:30; Stop 05/11/19 at 21:31; Status DC Ondansetron HCl (Zofran) 4 mg PRN Q8HRS PRN IV NAUSEA/VOMITING Last administered on 05/11/19at 21:50; Start 05/11/19 at 21:15; Stop 05/12/19 at 21:14; Status DC Morphine Sulfate (Morphine Sulfate) 2 mg PRN Q2HR PRN IV PAIN Last administered on 05/12/19at 20:38; Start 05/11/19 at 21:15; Stop 05/12/19 at 21:14; Status DC Sodium Chloride 1,000 ml @ 75 mls/hr [id number] IV Last administered on 05/12/19at 10:35; Start 05/11/19 at 21:15; Stop 05/12/19 at 21:14; Status DC Clonidine HCl (Catapres) 0.1 mg PRN Q4HRS PRN PO HYPERTENSION; Start 05/11/19 at 21:15; Status Cancel Clonidine HCl (Catapres) 0.1 mg DAILY PO Last administered on 05/13/19at 10:52; Start 05/12/19 at 13:00; Stop 05/13/19 at 15:42; Status DC Tizanidine HCl (Zanaflex) 4 mg PRN TID PRN PO MUSCLE SPASMS Last administered on 05/12/19at 20:44; Start 05/12/19 at 12:00 Ondansetron HCl (Zofran Odt) 4 mg PRN Q8HRS PRN PO NAUSEA/VOMITING (1st C hoice); Start 05/12/19 at 12:15 Quetiapine Fumarate (SEROquel) 200 mg QHS PO Last administered on 05/13/19at 20:51; Start 05/12/19 at 21:00 Lorazepam (Ativan Inj) 0.5 mg PRN Q8HRS PRN IVP ANXIETY / AGITATION Last administered on 05/13/19at 22:52; Start 05/12/19 at 12:00 Promethazine HCl (Phenergan) 12.5 mg PRN Q6HRS PRN PO NAUSEA/VOMITING 2ND CHOICE Last administered on 05/12/19at 14:38; Start 05/12/19 at 12:00; Stop 05/13/19 at 18:29; Status DC Sodium Chloride (Normal Saline Flush) 3 ml QSHIFT PRN IV AFTER MEDS AND BLOOD DRAWS; Start 05/12/19 at 12:30 Ondansetron HCl (Zofran) 4 mg PRN Q4HRS PRN IV NAUSEA/VOMITING (1st Choice); Start 05/12/19 at 12:30 Acetaminophen (Tylenol) 650 mg PRN Q4HRS PRN PO TEMP OVER 100.4F OR MILD PAIN; Start 05/12/19 at 12:30 Al Hydroxide/Mg Hydroxide (Mylanta Plus Xs) 30 ml PRN DAILY PRN PO HEARTBURN / GAS; Start 05/12/19 at 12:30 Clonidine HCl (Catapres) 0.1 mg PRN Q6HRS PRN PO SBP>160 OR DBP>90; Start 05/12/19 at 12:30 Docusate Sodium (Colace) 100 mg PRN BID PRN PO CONSTIPATION; Start 05/12/19 at 12:30 Albuterol Sulfate (Ventolin Neb Soln) 2.5 mg PRN Q4HRS PRN NEB SHORTNESS OF BREATH; Start 05/12/19 at 12:30 Guaifenesin (Robitussin) 200 mg PRN Q4HRS PRN PO COUGH; Start 05/12/19 at 12:30 Lorazepam (Ativan) 0.5 mg PRN Q4HRS PRN PO ANXIETY / AGITATION; Start 05/12/19 at 12:30 Enoxaparin Sodium (Lovenox 60mg Syringe) 60 mg Q12HR SQ Last administered on 05/13/19at 20:51; Start 05/12/19 at 21:00 Tramadol HCl (Ultram) 50 mg PRN Q6HRS PRN PO PAIN Last administered on 05/13/19at 20:49; Start 05/12/19 at 23:15 Morphine Sulfate (Morphine Sulfate) 2 mg PRN Q6HRS PRN IV PAIN Last administ ered on 05/13/19at 13:42; Start 05/12/19 at 23:15; Stop 05/13/19 at 17:29; Status DC Prochlorperazine Edisylate (Compazine) 10 mg PRN Q6HRS PRN IV NAUSEA/VOMITING (2nd Choice) Last administered on 05/12/19at 23:19; Start 05/12/19 at 23:15 Clonidine HCl (Catapres) 0.1 mg BID PO Last administered on 05/13/19at 20:51; Start 05/13/19 at 15:45 Morphine Sulfate (Morphine Sulfate) 4 mg PRN Q4HRS PRN IV MODERATE TO SEVERE PAIN Last administered on 05/14/19at 04:53; Start 05/13/19 at 17:45 Promethazine HCl (Phenergan) 12.5 mg PRN Q4HRS PRN PO NAUSEA/VOMITING 2ND CHOICE; Start 05/13/19 at 18:30 Dihydroergotamine Mesylate 1 mg/ Sodium Chloride 51 ml @ 102 mls/hr Q12H IV ; Start 05/14/19 at 09:00 Active Scripts Active Bactrim 400-80 Mg Tablet (Sulfamethoxazole/Trimethoprim) 1 Each Tablet 1 Tab PO BID Zofran (Ondansetron Hcl) 4 Mg Tablet 1 Tab PO PRN Q6-8HRS Reported Seroquel (Quetiapine Fumarate) 200 Mg Tablet 200 Mg PO HS Tizanidine Hcl 4 Mg Tablet 4 Mg PO TID PRN Clonidine Hcl 0.1 Mg Tablet 0.1 Mg PO DAILY Vitals/I & O Vital Sign - Last 24 Hours 05/13/19 05/13/19 05/13/19 05/13/19 10:52 10:52 11:10 13:42 Temp 97.7 97.7 Pulse 100 102 Resp 20 B/P (MAP) 178/83 167/76 (106) Pulse Ox 100 98 98 O2 Delivery Room Air Room Air Room Air 05/13/19 05/13/19 05/13/19 05/13/19 14:55 17:04 19:55 20:14 Temp 97.5 97.9 97.5 97.9 Pulse 87 87 91 Resp 20 24 B/P (MAP) 151/70 (97) 151/70 149/66 (93) Pulse Ox 98 98 O2 Delivery Room Air Room Air Room Air 05/13/19 05/13/19 05/13/19 05/13/19 20:49 20:51 21:57 22:52 Pulse 91 Resp 18 18 18 B/P (MAP) 149/66 Pulse Ox 98 98 98 O2 Delivery Room Air Room Air Room Air 05/13/19 05/13/19 05/14/19 05/14/19 23:29 23:37 03:20 04:53 Temp 98.6 98.0 98.6 98.0 Pulse 93 93 Resp 18 18 20 18 B/P (MAP) 160/77 (104) 139/67 (91) Pulse Ox 97 97 98 98 O2 Delivery Room Air Room Air Room Air Room Air 05/14/19 05/14/19 05:41 07:00 Temp 97.4 97.4 Pulse 84 Resp 16 22 B/P (MAP) 168/67 (100) Pulse Ox 98 98 O2 Delivery Room Air Room Air Intake and Output 05/13/19 05/13/19 05/14/19 15:00 23:00 07:00 Intake Total 0 ml 240 ml 740 ml Output Total 2250 ml Balance 0 ml 240 ml -1510 ml NAEL KIRKLAND MD May 14, 2019 08:53
[2019-05-14] MEDS: cloNIDine HCL 0.1 MG TABLET PO SCH ×3 (09:12→22:00)
[2019-05-14] MEDS: PROMETHAZINE 12.5 MG TABLET. PO PRN ×2 (09:54→22:51)
[2019-05-14] MEDS: DIHYDROERGOTAMINE 1 MG in IV NORMAL SALINE 50ML 50 ML IV SCH ×2 (10:21→22:01)
[2019-05-14 11:36] VITALS: BP 171/99
--- NOTE | 2019-05-14 12:55 | PDOC ---
PROGRESS NOTES Assessment Problems Medical Problems: (1) Accelerated hypertension Status: Acute (2) Headache Status: Acute Migraines Hypertension Possible sleep apnea Plan Morphine trial of DHE, discussed side effects Holding on LP and MRI given improvement Subjective complains of snoring and excessive somnolence Headache better, 12/04 Objective Vital Signs Date Time Temp Pulse Resp B/P (MAP) Pulse Ox O2 Delivery O2 Flow Rate FiO2 05/14/19 11:36 98.6 87 22 171/99 (123) 96 Room Air 98.6 Intake and Output 05/14/19 07:00 Intake Total 980 ml Output Total 2250 ml Balance -1270 ml Intake Oral 980 ml Output Urine Total 2250 ml # Voids 1 PHYSICAL EXAM Alert. Oriented to time, place and person. PERRL. EOMI. CN: no focal findings. Muscle tone: normal. Muscle strength: 5/5 DTR: 2+ Plantar reflex: flexor Gait: not examined in bed. Sensory exam: no abnormal findings. No cerebellar signs elicited. Review of Relevant I have reviewed the following items rhonda (where applicable) has been applied. Labs Laboratory Tests Test 05/13/19 21:00 White Blood Count 7.2 x10^3/uL (4.0-11.0) Red Blood Count 3.65 x10^6/uL (3.50-5.40) Hemoglobin 9.8 g/dL (12.0-15.5) Hematocrit 29.6 % (36.0-47.0) Mean Corpuscular Volume 81 fL (79-100) Mean Corpuscular Hemoglobin 27 pg (25-35) Mean Corpuscular Hemoglobin Concent 33 g/dL (31-37) Red Cell Distribution Width 14.7 % (11.5-14.5) Platelet Count 152 x10^3/uL (140-400) Neutrophils (%) (Auto) 41 % (31-73) Lymphocytes (%) (Auto) 45 % (24-48) Monocytes (%) (Auto) 9 % (0-9) Eosinophils (%) (Auto) 4 % (0-3) Basophils (%) (Auto) 1 % (0-3) Neutrophils # (Auto) 2.9 x10^3/uL (1.8-7.7) Lymphocytes # (Auto) 3.3 x10^3/uL (1.0-4.8) Monocytes # (Auto) 0.7 x10^3/uL (0.0-1.1) Eosinophils # (Auto) 0.3 x10^3/uL (0.0-0.7) Basophils # (Auto) 0.1 x10^3/uL (0.0-0.2) Platelet Estimate Adequate (ADEQUATE) Platelet Clumps, EDTA Present Schistocytes Occ Erythrocyte Sedimentation Rate 15 (0-25) Sodium Level 143 mmol/L (136-145) Potassium Level 4.9 mmol/L (3.5-5.1) Chloride Level 108 mmol/L (98-107) Carbon Dioxide Level 25 mmol/L (21-32) Anion Gap 10 (6-14) Blood Urea Nitrogen 17 mg/dL (7-20) Creatinine 0.7 mg/dL (0.6-1.0) Estimated GFR (Cockcroft-Gault) 109.5 BUN/Creatinine Ratio 24 (6-20) Glucose Level 118 mg/dL (70-99) Calcium Level 8.7 mg/dL (8.5-10.1) Total Bilirubin 0.4 mg/dL (0.2-1.0) Aspartate Amino Transf (AST/SGOT) 27 U/L (15-37) Alanine Aminotransferase (ALT/SGPT) 15 U/L (14-59) Alkaline Phosphatase 94 U/L (46-116) Total Protein 6.1 g/dL (6.4-8.2) Albumin 2.8 g/dL (3.4-5.0) Albumin/Globulin Ratio 0.8 (1.0-1.7) Laboratory Tests Test 05/13/19 21:00 White Blood Count 7.2 x10^3/uL (4.0-11.0) Red Blood Count 3.65 x10^6/uL (3.50-5.40) Hemoglobin 9.8 g/dL (12.0-15.5) Hematocrit 29.6 % (36.0-47.0) Mean Corpuscular Volume 81 fL (79-100) Mean Corpuscular Hemoglobin 27 pg (25-35) Mean Corpuscular Hemoglobin Concent 33 g/dL (31-37) Red Cell Distribution Width 14.7 % (11.5-14.5) Platelet Count 152 x10^3/uL (140-400) Neutrophils (%) (Auto) 41 % (31-73) Lymphocytes (%) (Auto) 45 % (24-48) Monocytes (%) (Auto) 9 % (0-9) Eosinophils (%) (Auto) 4 % (0-3) Basophils (%) (Auto) 1 % (0-3) Neutrophils # (Auto) 2.9 x10^3/uL (1.8-7.7) Lymphocytes # (Auto) 3.3 x10^3/uL (1.0-4.8) Monocytes # (Auto) 0.7 x10^3/uL (0.0-1.1) Eosinophils # (Auto) 0.3 x10^3/uL (0.0-0.7) Basophils # (Auto) 0.1 x10^3/uL (0.0-0.2) Platelet Estimate Adequate (ADEQUATE) Platelet Clumps, EDTA Present Schistocytes Occ Erythrocyte Sedimentation Rate 15 (0-25) Sodium Level 143 mmol/L (136-145) Potassium Level 4.9 mmol/L (3.5-5.1) Chloride Level 108 mmol/L (98-107) Carbon Dioxide Level 25 mmol/L (21-32) Anion Gap 10 (6-14) Blood Urea Nitrogen 17 mg/dL (7-20) Creatinine 0.7 mg/dL (0.6-1.0) Estimated GFR (Cockcroft-Gault) 109.5 BUN/Creatinine Ratio 24 (6-20) Glucose Level 118 mg/dL (70-99) Calcium Level 8.7 mg/dL (8.5-10.1) Total Bilirubin 0.4 mg/dL (0.2-1.0) Aspartate Amino Transf (AST/SGOT) 27 U/L (15-37) Alanine Aminotransferase (ALT/SGPT) 15 U/L (14-59) Alkaline Phosphatase 94 U/L (46-116) Total Protein 6.1 g/dL (6.4-8.2) Albumin 2.8 g/dL (3.4-5.0) Albumin/Globulin Ratio 0.8 (1.0-1.7) Medications Current Medications Prochlorperazine Edisylate (Compazine) 10 mg 1X ONCE IV Last administered on 05/11/19at 19:40; Start 05/11/19 at 19:15; Stop 05/11/19 at 19:16; Status DC Metoclopramide HCl (Reglan Vial) 10 mg 1X ONCE IVP ; Start 05/11/19 at 18:45; Stop 05/11/19 at 18:46; Status UNV Diphenhydramine HCl (Benadryl) 50 mg 1X ONCE IVP Last administered on 05/11/19at 19:40; Start 05/11/19 at 19:15; Stop 05/11/19 at 19:16; Status DC Fentanyl Citrate (Fentanyl 2ml Vial) 75 mcg 1X ONCE IVP Last administered on 05/11/19at 20:51; Start 05/11/19 at 21:00; Stop 05/11/19 at 21:01; Status DC Labetalol HCl (Normodyne Iv Push) 20 mg 1X ONCE IVP Last administered on 05/11/19at 21:20; Start 05/11/19 at 21:30; Stop 05/11/19 at 21:31; Status DC Ondansetron HCl (Zofran) 4 mg PRN Q8HRS PRN IV NAUSEA/VOMITING Last administered on 05/11/19at 21:50; Start 05/11/19 at 21:15; Stop 05/12/19 at 21:14; Status DC Morphine Sulfate (Morphine Sulfate) 2 mg PRN Q2HR PRN IV PAIN Last administered on 05/12/19at 20:38; Start 05/11/19 at 21:15; Stop 05/12/19 at 21:14; Status DC Sodium Chloride 1,000 ml @ 75 mls/hr [id number] IV Last administered on 05/12/19at 10:35; Start 05/11/19 at 21:15; Stop 05/12/19 at 21:14; Status DC Clonidine HCl (Catapres) 0.1 mg PRN Q4HRS PRN PO HYPERTENSION; Start 05/11/19 at 21:15; Status Cancel Clonidine HCl (Catapres) 0.1 mg DAILY PO Last administered on 05/13/19at 10:52; Start 05/12/19 at 13:00; Stop 05/13/19 at 15:42; Status DC Tizanidine HCl (Zanaflex) 4 mg PRN TID PRN PO MUSCLE SPASMS Last administered on 05/12/19at 20:44; Start 05/12/19 at 12:00 Ondansetron HCl (Zofran Odt) 4 mg PRN Q8HRS PRN PO NAUSEA/VOMITING (1st Choice); Start 05/12/19 at 12:15 Quetiapine Fumarate (SEROquel) 200 mg QHS PO Last administered on 05/13/19at 20:51; Start 05/12/19 at 21:00 Lorazepam (Ativan Inj) 0.5 mg PRN Q8HRS PRN IVP ANXIETY / AGITATION Last administered on 05/13/19at 22:52; Start 05/12/19 at 12:00 Promethazine HCl (Phenergan) 12.5 mg PRN Q6HRS PRN PO NAUSEA/VOMITING 2ND CHOICE Last administered on 05/12/19at 14:38; Start 05/12/19 at 12:00; Stop 05/13/19 at 18:29; Status DC Sodium Chloride (Normal Saline Flush) 3 ml QSHIFT PRN IV AFTER MEDS AND BLOOD DRAWS; Start 05/12/19 at 12:30 Ondansetron HCl (Zofran) 4 mg PRN Q4HRS PRN IV NAUSEA/VOMITING (1st Choice); Start 05/12/19 at 12:30 Acetaminophen (Tylenol) 650 mg PRN Q4HRS PRN PO TEMP OVER 100.4F OR MILD PAIN; Start 05/12/19 at 12:30 Al Hydroxide/Mg Hydroxide (Mylanta Plus Xs) 30 ml PRN DAILY PRN PO HEARTBURN / GAS; Start 05/12/19 at 12:30 Clonidine HCl (Catapres) 0.1 mg PRN Q6HRS PRN PO SBP>160 OR DBP>90; Start 05/12/19 at 12:30 Docusate Sodium (Colace) 100 mg PRN BID PRN PO CONSTIPATION; Start 05/12/19 at 12:30 Albuterol Sulfate (Ventolin Neb Soln) 2.5 mg PRN Q4HRS PRN NEB SHORTNESS OF BREATH; Start 05/12/19 at 12:30 Guaifenesin (Robitussin) 200 mg PRN Q4HRS PRN PO COUGH; Start 05/12/19 at 12:30 Lorazepam (Ativan) 0.5 mg PRN Q4HRS PRN PO ANXIETY / AGITATION; Start 05/12/19 at 12:30 Enoxaparin Sodium (Lovenox 60mg Syringe) 60 mg Q12HR SQ Last administered on 05/14/19 09:13; Start 05/12/19 at 21:00 Tramadol HCl (Ultram) 50 mg PRN Q6HRS PRN PO PAIN Last administered on 05/13/19 20:49; Start 05/12/19 at 23:15 Morphine Sulfate (Morphine Sulfate) 2 mg PRN Q6HRS PRN IV PAIN Last administered on 05/13/19 13:42; Start 05/12/19 at 23:15; Stop 05/13/19 at 17:29; Status DC Prochlorperazine Edisylate (Compazine) 10 mg PRN Q6HRS PRN IV NAUSEA/VOMITING (2nd Choice) Last administered on 05/12/19 23:19; Start 05/12/19 at 23:15 Clonidine HCl (Catapres) 0.1 mg BID PO Last administered on 05/14/19at 09:12; Start 05/13/19 at 15:45; Stop 05/14/19 at 11:38; Status DC Morphine Sulfate (Morphine Sulfate) 4 mg PRN Q4HRS PRN IV MODERATE TO SEVERE PAIN Last administered on 05/14/19 09:12; Start 05/13/19 at 17:45 Promethazine HCl (Phenergan) 12.5 mg PRN Q4HRS PRN PO NAUSEA/VOMITING 2ND CHOICE Last administered on 05/14/19at 09:54; Start 05/13/19 at 18:30 Dihydroergotamine Mesylate 1 mg/ Sodium Chloride 51 ml @ 102 mls/hr Q12H IV Last administered on 05/14/19at 10:21; Start 05/14/19 at 09:00 Clonidine HCl (Catapres) 0.1 mg Q8HRS PO ; Start 05/14/19 at 14:00 Hydralazine HCl (Apresoline Inj) 10 mg PRN Q6HRS PRN IVP ELEVATED BP, SEE COMMENTS; Start 05/14/19 at 12:30 Active Scripts Active Bactrim 400-80 Mg Tablet (Sulfamethoxazole/Trimethoprim) 1 Each Tablet 1 Tab PO BID Zofran (Ondansetron Hcl) 4 Mg Tablet 1 Tab PO PRN Q6-8HRS Reported Seroquel (Quetiapine Fumarate) 200 Mg Tablet 200 Mg PO HS Tizanidine Hcl 4 Mg Tablet 4 Mg PO TID PRN Clonidine Hcl 0.1 Mg Tablet 0.1 Mg PO DAILY Vitals/I & O Vital Sign - Last 24 Hours 05/13/19 05/13/19 05/13/19 05/13/19 13:42 14:55 17:04 19:55 Temp 97.5 97.9 97.5 97.9 Pulse 87 87 91 Resp 20 24 B/P (MAP) 151/70 (97) 151/70 149/66 (93) Pulse Ox 98 98 98 O2 Delivery Room Air Room Air Room Air 05/13/19 05/13/19 05/13/19 05/13/19 20:14 20:49 20:51 21:57 Pulse 91 Resp 18 18 B/P (MAP) 149/66 Pulse Ox 98 98 O2 Delivery Room Air Room Air Room Air 05/13/19 05/13/19 05/13/19 05/14/19 22:52 23:29 23:37 03:20 Temp 98.6 98.0 98.6 98.0 Pulse 93 93 Resp 18 18 18 20 B/P (MAP) 160/77 (104) 139/67 (91) Pulse Ox 98 97 97 98 O2 Delivery Room Air Room Air Room Air Room Air 05/14/19 05/14/19 05/14/19 05/14/19 04:53 05:41 07:00 07:55 Temp 97.4 97.4 Pulse 84 Resp 18 16 22 B/P (MAP) 168/67 (100) Pulse Ox 98 98 98 O2 Delivery Room Air Room Air Room Air Room Air 05/14/19 05/14/19 05/14/19 05/14/19 09:12 09:12 09:56 11:36 Temp 98.6 98.6 Pulse 84 87 Resp 22 B/P (MAP) 168/67 171/99 (123) Pulse Ox 96 O2 Delivery Room Air Room Air Room Air Intake and Output 05/13/19 05/13/19 05/14/19 15:00 23:00 07:00 Intake Total 0 ml 240 ml 740 ml Output Total 2250 ml Balance 0 ml 240 ml -1510 ml EMMA BRENNAN MD May 14, 2019 12:55
--- NOTE | 2019-05-14 13:11 | CARD ---
MR#: [id number] Date of Study: 05/14/2019 Ordering Physician: CAMI CHRISTIANSEN, Referring Physician: CAMI CHRISTIANSEN, Tech: Courtney Lundberg APPROVED REPORT EXAM: Two-dimensional and M-mode echocardiogram with Doppler and color Doppler. Other Information Quality : AverageHR: 85bpm INDICATION Murmur 2D DIMENSIONS RVDd3.3 (2.9-3.5cm)Left Atrium(2D)4.4 (1.6-4.0cm) IVSd1.2 (0.7-1.1cm)Aortic Root(2D)2.6 (2.0-3.7cm) LVDd5.1 (3.9-5.9cm)LVOT Diameter2.1 (1.8-2.4cm) PWd1.3 (0.7-1.1cm)LVDs2.6 (2.5-4.0cm) FS (%) 49.7 %SV101.3 ml LVEF(%)80.8 (>50%) Aortic Valve AoV Peak Vipin.196.8cm/sAoV VTI35.7cm AO Peak GR.15.5mmHgLVOT Peak Vipin.163.8cm/s LVOT VTI 29.25cmAO Mean GR.11mmHg CHUCK (VMAX)2.12bn7OGE (VTI)2.85cm2 Mitral Valve MV E Rcrnbkhe875.4cm/sMV DECEL [id number] MV A Iodmtjac79.2cm/sMV VUX68sz E/A Ratio3.6MVA (PHT)5.72cm2 TDI E/Lateral E'11.0E/Medial E'11.6 Pulmonary Valve PV Peak Bxqwccuy556.3cm/sPV Peak Grad.5mmHg Tricuspid Valve TR P. Jxmxufhr559ms/sRAP [id number] TR Peak Gr.21mmHg Pulmonary Vein S1 Fgvxfklb21.2cm/sD2 Blmihfma92.7cm/s PVa [id number] LEFT VENTRICLE The left ventricle is normal size. There is borderline concentric left ventricular hypertrophy. The l eft ventricular systolic function is normal. The Ejection Fraction is 60-65%. There is normal LV segm ental wall motion. Transmitral Doppler flow pattern is normal for age. RIGHT VENTRICLE The right ventricle is normal size. The right ventricular systolic function is normal. ATRIA The left atrium is mildly dilated. The right atrium size is normal. The interatrial septum is intact with no evidence for an atrial septal defect or patent foramen ovale as noted on 2-D or Doppler imagi ng. AORTIC VALVE The aortic valve is mildly thickened but opens well. Doppler and Color Flow revealed no significant a ortic regurgitation. There is no significant aortic valvular stenosis. MITRAL VALVE The mitral valve is thickened but opens well. There is no evidence of mitral valve prolapse. There is no mitral valve stenosis. Doppler and Color-flow revealed trace mitral regurgitation. TRICUSPID VALVE The tricuspid valve leaflets are thickened , but open well. Doppler and Color Flow revealed trace tri cuspid regurgitation. There is no tricuspid valve stenosis. PULMONIC VALVE The pulmonic valve is not well visualized. Doppler and Color Flow revealed mild pulmonic valvular reg urgitation. GREAT VESSELS The aortic root is normal in size. The ascending aorta is normal in size. The IVC is normal in size a nd collapses >50% with inspiration. PERICARDIAL EFFUSION There is no pleural effusion. There is no evidence of significant pericardial effusion. Critical Notification Critical Value: No <Conclusion> The left ventricular systolic function is normal. The Ejection Fraction is 60-65%. There is normal LV segmental wall motion. Trace mitral regurgitation. Trace tricuspid regurgitation. There is no evidence of significant pericardial effusion. Signed by : Javier Cody, Electronically Approved : 05/14/2019 13:11:16
[2019-05-14] MEDS: hydrALAZINE 20 MG/ML VIAL. IVP PRN (13:31)
[2019-05-14 14:15] LABS: BASO % 1 % (0-3); EOS # 0.2 x10^3/uL (0.0-0.7); EOS % 4 % (0-3); HEMATOCRIT 34.4 % (36.0-47.0); HEMOGLOBIN 10.7 g/dL (12.0-15.5); LYMPH # 1.7 x10^3/uL (1.0-4.8); LYMPH % 38 % (24-48); MEAN CORPUSCULAR HEMOGLOBIN 26 pg (25-35); MEAN CORPUSCULAR HGB CONC 31 g/dL (31-37); MEAN CORPUSCULAR VOLUME 84 fL (79-100); MONO # 0.4 x10^3/uL (0.0-1.1); MONO % 9 % (0-9); NEUT # 2.1 x10^3/uL (1.8-7.7); NEUT % 48 % (31-73); PLATELET COUNT 131 x10^3/uL (140-400); RED BLOOD COUNT 4.09 x10^6/uL (3.50-5.40); RED CELL DISTRIBUTION WIDTH 15.1 % (11.5-14.5); WHITE BLOOD COUNT 4.4 x10^3/uL (4.0-11.0)
[2019-05-14 14:56] VITALS: BP 159/65
--- NOTE | 2019-05-14 15:58 | NUR ---
SW consulted for dc planning. Chart reviewed and discussed with RN. Pt lives at home with family. Pt has PMHx migrains, HTN and Arthritis. Pt is admitted for headache and accelerated HTN. SW met with pt and pt was lethargic. Pt states she goes to [facility] for her medical condition. Pt does not have health insurance and SW discussed [facility] will screen her to see if she qualifies for any programs. Pt is not employed and gets support from family. Pt denies SW needs at this time but would like to work with Physical therapy while she is here. SW requested PT/OT order. SW will be available for dc needs.
--- NOTE | 2019-05-14 17:55 | PDOC ---
PROGRESS NOTES Subjective Subjective Patient seen and examined The patient is more comfortable today Objective Objective Vital Signs Date Time Temp Pulse Resp B/P (MAP) Pulse Ox O2 Delivery O2 Flow Rate FiO2 05/14/19 14:56 84 159/65 (96) 05/14/19 14:51 Room Air 05/14/19 11:36 98.6 22 96 98.6 Intake and Output 05/14/19 07:00 Intake Total 980 ml Output Total 2250 ml Balance -1270 ml Intake Oral 980 ml Output Urine Total 2250 ml # Voids 1 Physical Exam Abdomen: Normal bowel sounds Heart: Regular rate General: mild distress Lungs: Clear to auscultation Assessment Assessment Problems Medical Problems: (1) Accelerated hypertension Status: Acute (2) Headache Status: Acute 1. Headaches. History of migraines. Headache mildly improving. Neurology workup is in progress. 2. Accelerated hypertension. Improved. Patient states she has been under good control and then had a spike recently. Medications being tapered up. Echo pending. Comment Review of Relevant I have reviewed the following items rhonda (where applicable) has been applied. Labs Laboratory Tests Test 05/13/19 21:00 05/14/19 14:00 White Blood Count 7.2 x10^3/uL (4.0-11.0) 4.4 x10^3/uL (4.0-11.0) Red Blood Count 3.65 x10^6/uL (3.50-5.40) 4.09 x10^6/uL (3.50-5.40) Hemoglobin 9.8 g/dL (12.0-15.5) 10.7 g/dL (12.0-15.5) Hematocrit 29.6 % (36.0-47.0) 34.4 % (36.0-47.0) Mean Corpuscular Volume 81 fL (79-100) 84 fL (79-100) Mean Corpuscular Hemoglobin 27 pg (25-35) 26 pg (25-35) Mean Corpuscular Hemoglobin Concent 33 g/dL (31-37) 31 g/dL (31-37) Red Cell Distribution Width 14.7 % (11.5-14.5) 15.1 % (11.5-14.5) Platelet Count 152 x10^3/uL (140-400) 131 x10^3/uL (140-400) Neutrophils (%) (Auto) 41 % (31-73) 48 % (31-73) Lymphocytes (%) (Auto) 45 % (24-48) 38 % (24-48) Monocytes (%) (Auto) 9 % (0-9) 9 % (0-9) Eosinophils (%) (Auto) 4 % (0-3) 4 % (0-3) Basophils (%) (Auto) 1 % (0-3) 1 % (0-3) Neutrophils # (Auto) 2.9 x10^3/uL (1.8-7.7) 2.1 x10^3/uL (1.8-7.7) Lymphocytes # (Auto) 3.3 x10^3/uL (1.0-4.8) 1.7 x10^3/uL (1.0-4.8) Monocytes # (Auto) 0.7 x10^3/uL (0.0-1.1) 0.4 x10^3/uL (0.0-1.1) Eosinophils # (Auto) 0.3 x10^3/uL (0.0-0.7) 0.2 x10^3/uL (0.0-0.7) Basophils # (Auto) 0.1 x10^3/uL (0.0-0.2) 0.0 x10^3/uL (0.0-0.2) Platelet Estimate Adequate (ADEQUATE) Platelet Clumps, EDTA Present Schistocytes Occ Erythrocyte Sedimentation Rate 15 (0-25) Sodium Level 143 mmol/L (136-145) Potassium Level 4.9 mmol/L (3.5-5.1) Chloride Level 108 mmol/L (98-107) Carbon Dioxide Level 25 mmol/L (21-32) Anion Gap 10 (6-14) Blood Urea Nitrogen 17 mg/dL (7-20) Creatinine 0.7 mg/dL (0.6-1.0) Estimated GFR (Cockcroft-Gault) 109.5 BUN/Creatinine Ratio 24 (6-20) Glucose Level 118 mg/dL (70-99) Calcium Level 8.7 mg/dL (8.5-10.1) Total Bilirubin 0.4 mg/dL (0.2-1.0) Aspartate Amino Transf (AST/SGOT) 27 U/L (15-37) Alanine Aminotransferase (ALT/SGPT) 15 U/L (14-59) Alkaline Phosphatase 94 U/L (46-116) Total Protein 6.1 g/dL (6.4-8.2) Albumin 2.8 g/dL (3.4-5.0) Albumin/Globulin Ratio 0.8 (1.0-1.7) Laboratory Tests Test 05/13/19 21:00 05/14/19 14:00 White Blood Count 7.2 x10^3/uL (4.0-11.0) 4.4 x10^3/uL (4.0-11.0) Red Blood Count 3.65 x10^6/uL (3.50-5.40) 4.09 x10^6/uL (3.50-5.40) Hemoglobin 9.8 g/dL (12.0-15.5) 10.7 g/dL (12.0-15.5) Hematocrit 29.6 % (36.0-47.0) 34.4 % (36.0-47.0) Mean Corpuscular Volume 81 fL (79-100) 84 fL (79-100) Mean Corpuscular Hemoglobin 27 pg (25-35) 26 pg (25-35) Mean Corpuscular Hemoglobin Concent 33 g/dL (31-37) 31 g/dL (31-37) Red Cell Distribution Width 14.7 % (11.5-14.5) 15.1 % (11.5-14.5) Platelet Count 152 x10^3/uL (140-400) 131 x10^3/uL (140-400) Neutrophils (%) (Auto) 41 % (31-73) 48 % (31-73) Lymphocytes (%) (Auto) 45 % (24-48) 38 % (24-48) Monocytes (%) (Auto) 9 % (0-9) 9 % (0-9) Eosinophils (%) (Auto) 4 % (0-3) 4 % (0-3) Basophils (%) (Auto) 1 % (0-3) 1 % (0-3) Neutrophils # (Auto) 2.9 x10^3/uL (1.8-7.7) 2.1 x10^3/uL (1.8-7.7) Lymphocytes # (Auto) 3.3 x10^3/uL (1.0-4.8) 1.7 x10^3/uL (1.0-4.8) Monocytes # (Auto) 0.7 x10^3/uL (0.0-1.1) 0.4 x10^3/uL (0.0-1.1) Eosinophils # (Auto) 0.3 x10^3/uL (0.0-0.7) 0.2 x10^3/uL (0.0-0.7) Basophils # (Auto) 0.1 x10^3/uL (0.0-0.2) 0.0 x10^3/uL (0.0-0.2) Platelet Estimate Adequate (ADEQUATE) Platelet Clumps, EDTA Present Schistocytes Occ Erythrocyte Sedimentation Rate 15 (0-25) Sodium Level 143 mmol/L (136-145) Potassium Level 4.9 mmol/L (3.5-5.1) Chloride Level 108 mmol/L (98-107) Carbon Dioxide Level 25 mmol/L (21-32) Anion Gap 10 (6-14) Blood Urea Nitrogen 17 mg/dL (7-20) Creatinine 0.7 mg/dL (0.6-1.0) Estimated GFR (Cockcroft-Gault) 109.5 BUN/Creatinine Ratio 24 (6-20) Glucose Level 118 mg/dL (70-99) Calcium Level 8.7 mg/dL (8.5-10.1) Total Bilirubin 0.4 mg/dL (0.2-1.0) Aspartate Amino Transf (AST/SGOT) 27 U/L (15-37) Alanine Aminotransferase (ALT/SGPT) 15 U/L (14-59) Alkaline Phosphatase 94 U/L (46-116) Total Protein 6.1 g/dL (6.4-8.2) Albumin 2.8 g/dL (3.4-5.0) Albumin/Globulin Ratio 0.8 (1.0-1.7) Medications Current Medications Prochlorperazine Edisylate (Compazine) 10 mg 1X ONCE IV Last administered on 05/11/19at 19:40; Start 05/11/19 at 19:15; Stop 05/11/19 at 19:16; Status DC Metoclopramide HCl (Reglan Vial) 10 mg 1X ONCE IVP ; Start 05/11/19 at 18:45; Stop 05/11/19 at 18:46; Status UNV Diphenhydramine HCl (Benadryl) 50 mg 1X ONCE IVP Last administered on 05/11/19at 19:40; Start 05/11/19 at 19:15; Stop 05/11/19 at 19:16; Status DC Fentanyl Citrate (Fentanyl 2ml Vial) 75 mcg 1X ONCE IVP Last administered on 05/11/19at 20:51; Start 05/11/19 at 21:00; Stop 05/11/19 at 21:01; Status DC Labetalol HCl (Normodyne Iv Push) 20 mg 1X ONCE IVP Last administered on 05/11/19at 21:20; Start 05/11/19 at 21:30; Stop 05/11/19 at 21:31; Status DC Ondansetron HCl (Zofran) 4 mg PRN Q8HRS PRN IV NAUSEA/VOMITING Last administered on 05/11/19at 21:50; Start 05/11/19 at 21:15; Stop 05/12/19 at 21:14; Status DC Morphine Sulfate (Morphine Sulfate) 2 mg PRN Q2HR PRN IV PAIN Last administered on 05/12/19 20:38; Start 05/11/19 at 21:15; Stop 05/12/19 at 21:14; Status DC Sodium Chloride 1,000 ml @ 75 mls/hr [id number] IV Last administered on 05/12/19at 10:35; Start 05/11/19 at 21:15; Stop 05/12/19 at 21:14; Status DC Clonidine HCl (Catapres) 0.1 mg PRN Q4HRS PRN PO HYPERTENSION; Start 05/11/19 at 21:15; Status Cancel Clonidine HCl (Catapres) 0.1 mg DAILY PO Last administered on 05/13/19at 10:52; Start 05/12/19 at 13:00; Stop 05/13/19 at 15:42; Status DC Tizanidine HCl (Zanaflex) 4 mg PRN TID PRN PO MUSCLE SPASMS Last administered on 05/12/19at 20:44; Start 05/12/19 at 12:00 Ondansetron HCl (Zofran Odt) 4 mg PRN Q8HRS PRN PO NAUSEA/VOMITING (1st Choice); Start 05/12/19 at 12:15 Quetiapine Fumarate (SEROquel) 200 mg QHS PO Last administered on 05/13/19at 20:51; Start 05/12/19 at 21:00 Lorazepam (Ativan Inj) 0.5 mg PRN Q8HRS PRN IVP ANXIETY / AGITATION Last administered on 05/14/19at 14:52; Start 05/12/19 at 12:00 Promethazine HCl (Phenergan) 12.5 mg PRN Q6HRS PRN PO NAUSEA/VOMITING 2ND CHOIC E Last administered on 05/12/19at 14:38; Start 05/12/19 at 12:00; Stop 05/13/19 at 18:29; Status DC Sodium Chloride (Normal Saline Flush) 3 ml QSHIFT PRN IV AFTER MEDS AND BLOOD DRAWS; Start 05/12/19 at 12:30 Ondansetron HCl (Zofran) 4 mg PRN Q4HRS PRN IV NAUSEA/VOMITING (1st Choice); Start 05/12/19 at 12:30 Acetaminophen (Tylenol) 650 mg PRN Q4HRS PRN PO TEMP OVER 100.4F OR MILD PAIN; Start 05/12/19 at 12:30 Al Hydroxide/Mg Hydroxide (Mylanta Plus Xs) 30 ml PRN DAILY PRN PO HEARTBURN / GAS; Start 05/12/19 at 12:30 Clonidine HCl (Catapres) 0.1 mg PRN Q6HRS PRN PO SBP>160 OR DBP>90; Start 05/12/19 at 12:30 Docusate Sodium (Colace) 100 mg PRN BID PRN PO CONSTIPATION; Start 05/12/19 at 12:30 Albuterol Sulfate (Ventolin Neb Soln) 2.5 mg PRN Q4HRS PRN NEB SHORTNESS OF BREATH; Start 05/12/19 at 12:30 Guaifenesin (Robitussin) 200 mg PRN Q4HRS PRN PO COUGH; Start 05/12/19 at 12:30 Lorazepam (Ativan) 0.5 mg PRN Q4HRS PRN PO ANXIETY / AGITATION; Start 05/12/19 at 12:30 Enoxaparin Sodium (Lovenox 60mg Syringe) 60 mg Q12HR SQ Last administered on 05/14/19 09:13; Start 05/12/19 at 21:00 Tramadol HCl (Ultram) 50 mg PRN Q6HRS PRN PO PAIN Last administered on 05/13/19 20:49; Start 05/12/19 at 23:15 Morphine Sulfate (Morphine Sulfate) 2 mg PRN Q6HRS PRN IV PAIN Last administered on 05/13/19 13:42; Start 05/12/19 at 23:15; Stop 05/13/19 at 17:29; Status DC Prochlorperazine Edisylate (Compazine) 10 mg PRN Q6HRS PRN IV NAUSEA/VOMITING (2nd Choice) Last administered on 05/12/19 23:19; Start 05/12/19 at 23:15 Clonidine HCl (Catapres) 0.1 mg BID PO Last administered on 05/14/19 09:12; Start 05/13/19 at 15:45; Stop 05/14/19 at 11:38; Status DC Morphine Sulfate (Morphine Sulfate) 4 mg PRN Q4HRS PRN IV MODERATE TO SEVERE PAIN Last administered on 05/14/19 13:32; Start 05/13/19 at 17:45 Promethazine HCl (Phenergan) 12.5 mg PRN Q4HRS PRN PO NAUSEA/VOMITING 2ND CHOIC E Last administered on 05/14/19 09:54; Start 05/13/19 at 18:30 Dihydroergotamine Mesylate 1 mg/ Sodium Chloride 51 ml @ 102 mls/hr Q12H IV Last administered on 05/14/19 10:21; Start 05/14/19 at 09:00 Clonidine HCl (Catapres) 0.1 mg Q8HRS PO Last administered on 05/14/19 13:32; Start 05/14/19 at 14:00 Hydralazine HCl (Apresoline Inj) 10 mg PRN Q6HRS PRN IVP ELEVATED BP, SEE COMMENTS; Start 05/14/19 at 12:30 Active Scripts Active Bactrim 400-80 Mg Tablet (Sulfamethoxazole/Trimethoprim) 1 Each Tablet 1 Tab PO BID Zofran (Ondansetron Hcl) 4 Mg Tablet 1 Tab PO PRN Q6-8HRS Reported Seroquel (Quetiapine Fumarate) 200 Mg Tablet 200 Mg PO HS Tizanidine Hcl 4 Mg Tablet 4 Mg PO TID PRN Clonidine Hcl 0.1 Mg Tablet 0.1 Mg PO DAILY Vitals/I & O Vital Sign - Last 24 Hours 05/13/19 05/13/19 05/13/19 05/13/19 19:55 20:14 20:49 20:51 Temp 97.9 97.9 Pulse 91 91 Resp 24 18 B/P (MAP) 149/66 (93) 149/66 Pulse Ox 98 98 O2 Delivery Room Air Room Air Room Air 05/13/19 05/13/19 05/13/19 05/13/19 21:57 22:52 23:29 23:37 Temp 98.6 98.6 Pulse 93 Resp 18 18 18 18 B/P (MAP) 160/77 (104) Pulse Ox 98 98 97 97 O2 Delivery Room Air Room Air Room Air Room Air 05/14/19 05/14/19 05/14/19 05/14/19 03:20 04:53 05:41 07:00 Temp 98.0 97.4 98.0 97.4 Pulse 93 84 Resp 20 18 16 22 B/P (MAP) 139/67 (91) 168/67 (100) Pulse Ox 98 98 98 98 O2 Delivery Room Air Room Air Room Air Room Air 05/14/19 05/14/19 05/14/19 05/14/19 07:55 09:12 09:12 09:56 Pulse 84 B/P (MAP) 168/67 O2 Delivery Room Air Room Air Room Air 05/14/19 05/14/19 05/14/19 05/14/19 11:36 13:32 13:32 14:51 Temp 98.6 98.6 Pulse 87 91 Resp 22 B/P (MAP) 171/99 (123) 152/118 Pulse Ox 96 O2 Delivery Room Air Room Air Room Air 05/14/19 14:56 Pulse 84 B/P (MAP) 159/65 (96) Intake and Output 05/13/19 05/13/19 05/14/19 15:00 23:00 07:00 Intake Total 0 ml 240 ml 740 ml Output Total 2250 ml Balance 0 ml 240 ml -1510 ml ADE SHOOK MD May 14, 2019 17:55
[2019-05-14 19:25] VITALS: BP 150/76
[2019-05-14] MEDS: QUEtiapine 100 MG TABLET. PO SCH (22:00)
[2019-05-14 23:25] VITALS: BP 189/95
[2019-05-15 03:25] VITALS: BP 151/58
[2019-05-15] MEDS: MORPHINE SULFATE 4 MG/ML VIAL. IV PRN ×6 (04:42→22:58)
[2019-05-15] MEDS: cloNIDine HCL 0.1 MG TABLET PO SCH ×3 (06:17→21:51)
[2019-05-15 07:20] VITALS: BP 156/84
[2019-05-15] MEDS ORDERED: METOCLOPRAMIDE HCL 10 MG/2 ML VIAL. IVP ONE (09:00)
[2019-05-15] MEDS ORDERED: DIHYDROERGOTAMINE 1 MG in IV NORMAL SALINE 50ML 50 ML IV ONE (09:00)
--- NOTE | 2019-05-15 10:28 | PDOC ---
PROGRESS NOTES History of Present Illness History of Present Illness DICTATED and SIGNED BY: HEIDI CEDENO MD VTE Prophylaxis Ordered VTE Prophylaxis Devices: No VTE Pharmacological Prophylaxi: Yes Assessment/Plan Assessment/Plan IMPRESSION: ACUTE MIGRANE SYNDROME UNCONTROLLED HYPERTENSION EXTREME MORBID OBESITY 05/[address] HEAD, Subtle loss of lieberman-white distinction in the right frontal lobe, which may be artifactual. Recommend MRI for further evaluation. PERSISTENT HEADACHE, NO FEVER PLAN TELE BED ADMIT BP CONTROL ECHO CARDIOLOGY CONSULT NEUROLOGY CONSULT MRI HEAD not done, will not fit in our mri here CBC, COMP, ESR 11-17 INC CLONIDINE 0.1 MG PO TID ID CONSULT Vitals Vitals Vital Signs Date Time Temp Pulse Resp B/P (MAP) Pulse Ox O2 Delivery O2 Flow Rate FiO2 05/15/19 09:10 Room Air 05/15/19 07:20 99.3 87 22 156/84 (108) 96 99.3 Physical Exam General: mild distress Heart: Regular rate Lungs: Clear, Wheezing Abdomen: Normal bowel sounds Extremities: No clubbing, No cyanosis Skin: No significant lesion Labs LABS Laboratory Tests Test 05/14/19 14:00 White Blood Count 4.4 x10^3/uL (4.0-11.0) Red Blood Count 4.09 x10^6/uL (3.50-5.40) Hemoglobin 10.7 g/dL (12.0-15.5) Hematocrit 34.4 % (36.0-47.0) Mean Corpuscular Volume 84 fL (79-100) Mean Corpuscular Hemoglobin 26 pg (25-35) Mean Corpuscular Hemoglobin Concent 31 g/dL (31-37) Red Cell Distribution Width 15.1 % (11.5-14.5) Platelet Count 131 x10^3/uL (140-400) Neutrophils (%) (Auto) 48 % (31-73) Lymphocytes (%) (Auto) 38 % (24-48) Monocytes (%) (Auto) 9 % (0-9) Eosinophils (%) (Auto) 4 % (0-3) Basophils (%) (Auto) 1 % (0-3) Neutrophils # (Auto) 2.1 x10^3/uL (1.8-7.7) Lymphocytes # (Auto) 1.7 x10^3/uL (1.0-4.8) Monocytes # (Auto) 0.4 x10^3/uL (0.0-1.1) Eosinophils # (Auto) 0.2 x10^3/uL (0.0-0.7) Basophils # (Auto) 0.0 x10^3/uL (0.0-0.2) Assessment and Plan Assessmemt and Plan Problems Medical Problems: (1) Accelerated hypertension Status: Acute (2) Headache Status: Acute Comment Review of Relevant I have reviewed the following items rhonda (where applicable) has been applied. Labs Laboratory Tests Test 05/13/19 21:00 05/14/19 14:00 White Blood Count 7.2 x10^3/uL (4.0-11.0) 4.4 x10^3/uL (4.0-11.0) Red Blood Count 3.65 x10^6/uL (3.50-5.40) 4.09 x10^6/uL (3.50-5.40) Hemoglobin 9.8 g/dL (12.0-15.5) 10.7 g/dL (12.0-15.5) Hematocrit 29.6 % (36.0-47.0) 34.4 % (36.0-47.0) Mean Corpuscular Volume 81 fL (79-100) 84 fL (79-100) Mean Corpuscular Hemoglobin 27 pg (25-35) 26 pg (25-35) Mean Corpuscular Hemoglobin Concent 33 g/dL (31-37) 31 g/dL (31-37) Red Cell Distribution Width 14.7 % (11.5-14.5) 15.1 % (11.5-14.5) Platelet Count 152 x10^3/uL (140-400) 131 x10^3/uL (140-400) Neutrophils (%) (Auto) 41 % (31-73) 48 % (31-73) Lymphocytes (%) (Auto) 45 % (24-48) 38 % (24-48) Monocytes (%) (Auto) 9 % (0-9) 9 % (0-9) Eosinophils (%) (Auto) 4 % (0-3) 4 % (0-3) Basophils (%) (Auto) 1 % (0-3) 1 % (0-3) Neutrophils # (Auto) 2.9 x10^3/uL (1.8-7.7) 2.1 x10^3/uL (1.8-7.7) Lymphocytes # (Auto) 3.3 x10^3/uL (1.0-4.8) 1.7 x10^3/uL (1.0-4.8) Monocytes # (Auto) 0.7 x10^3/uL (0.0-1.1) 0.4 x10^3/uL (0.0-1.1) Eosinophils # (Auto) 0.3 x10^3/uL (0.0-0.7) 0.2 x10^3/uL (0.0-0.7) Basophils # (Auto) 0.1 x10^3/uL (0.0-0.2) 0.0 x10^3/uL (0.0-0.2) Platelet Estimate Adequate (ADEQUATE) Platelet Clumps, EDTA Present Schistocytes Occ Erythrocyte Sedimentation Rate 15 (0-25) Sodium Level 143 mmol/L (136-145) Potassium Level 4.9 mmol/L (3.5-5.1) Chloride Level 108 mmol/L (98-107) Carbon Dioxide Level 25 mmol/L (21-32) Anion Gap 10 (6-14) Blood Urea Nitrogen 17 mg/dL (7-20) Creatinine 0.7 mg/dL (0.6-1.0) Estimated GFR (Cockcroft-Gault) 109.5 BUN/Creatinine Ratio 24 (6-20) Glucose Level 118 mg/dL (70-99) Calcium Level 8.7 mg/dL (8.5-10.1) Total Bilirubin 0.4 mg/dL (0.2-1.0) Aspartate Amino Transf (AST/SGOT) 27 U/L (15-37) Alanine Aminotransferase (ALT/SGPT) 15 U/L (14-59) Alkaline Phosphatase 94 U/L (46-116) Total Protein 6.1 g/dL (6.4-8.2) Albumin 2.8 g/dL (3.4-5.0) Albumin/Globulin Ratio 0.8 (1.0-1.7) Laboratory Tests Test 05/14/19 14:00 White Blood Count 4.4 x10^3/uL (4.0-11.0) Red Blood Count 4.09 x10^6/uL (3.50-5.40) Hemoglobin 10.7 g/dL (12.0-15.5) Hematocrit 34.4 % (36.0-47.0) Mean Corpuscular Volume 84 fL (79-100) Mean Corpuscular Hemoglobin 26 pg (25-35) Mean Corpuscular Hemoglobin Concent 31 g/dL (31-37) Red Cell Distribution Width 15.1 % (11.5-14.5) Platelet Count 131 x10^3/uL (140-400) Neutrophils (%) (Auto) 48 % (31-73) Lymphocytes (%) (Auto) 38 % (24-48) Monocytes (%) (Auto) 9 % (0-9) Eosinophils (%) (Auto) 4 % (0-3) Basophils (%) (Auto) 1 % (0-3) Neutrophils # (Auto) 2.1 x10^3/uL (1.8-7.7) Lymphocytes # (Auto) 1.7 x10^3/uL (1.0-4.8) Monocytes # (Auto) 0.4 x10^3/uL (0.0-1.1) Eosinophils # (Auto) 0.2 x10^3/uL (0.0-0.7) Basophils # (Auto) 0.0 x10^3/uL (0.0-0.2) Medications Current Medications Prochlorperazine Edisylate (Compazine) 10 mg 1X ONCE IV Last administered on 05/11/19at 19:40; Start 05/11/19 at 19:15; Stop 05/11/19 at 19:16; Status DC Metoclopramide HCl (Reglan Vial) 10 mg 1X ONCE IVP ; Start 05/11/19 at 18:45; Stop 05/11/19 at 18:46; Status UNV Diphenhydramine HCl (Benadryl) 50 mg 1X ONCE IVP Last administered on 05/11/19at 19:40; Start 05/11/19 at 19:15; Stop 05/11/19 at 19:16; Status DC Fentanyl Citrate (Fentanyl 2ml Vial) 75 mcg 1X ONCE IVP Last administered on 05/11/19at 20:51; Start 05/11/19 at 21:00; Stop 05/11/19 at 21:01; Status DC Labetalol HCl (Normodyne Iv Push) 20 mg 1X ONCE IVP Last administered on 05/11/19at 21:20; Start 05/11/19 at 21:30; Stop 05/11/19 at 21:31; Status DC Ondansetron HCl (Zofran) 4 mg PRN Q8HRS PRN IV NAUSEA/VOMITING Last administered on 05/11/19at 21:50; Start 05/11/19 at 21:15; Stop 05/12/19 at 21:14; Status DC Morphine Sulfate (Morphine Sulfate) 2 mg PRN Q2HR PRN IV PAIN Last administered on 05/12/19at 20:38; Start 05/11/19 at 21:15; Stop 05/12/19 at 21:14; Status DC Sodium Chloride 1,000 ml @ 75 mls/hr [id number] IV Last administered on 05/12/19at 10:35; Start 05/11/19 at 21:15; Stop 05/12/19 at 21:14; Status DC Clonidine HCl (Catapres) 0.1 mg PRN Q4HRS PRN PO HYPERTENSION; Start 05/11/19 at 21:15; Status Cancel Clonidine HCl (Catapres) 0.1 mg DAILY PO Last administered on 05/13/19at 10:52; Start 05/12/19 at 13:00; Stop 05/13/19 at 15:42; Status DC Tizanidine HCl (Zanaflex) 4 mg PRN TID PRN PO MUSCLE SPASMS Last administered on 05/12/19at 20:44; Start 05/12/19 at 12:00 Ondansetron HCl (Zofran Odt) 4 mg PRN Q8HRS PRN PO NAUSEA/VOMITING (1st Choice ); Start 05/12/19 at 12:15 Quetiapine Fumarate (SEROquel) 200 mg QHS PO Last administered on 05/14/19at 22:00; Start 05/12/19 at 21:00 Lorazepam (Ativan Inj) 0.5 mg PRN Q8HRS PRN IVP ANXIETY / AGITATION Last administered on 05/14/19at 22:54; Start 05/12/19 at 12:00 Promethazine HCl (Phenergan) 12.5 mg PRN Q6HRS PRN PO NAUSEA/VOMITING 2ND CHOICE Last administered on 05/12/19at 14:38; Start 05/12/19 at 12:00; Stop 05/13/19 at 18:29; Status DC Sodium Chloride (Normal Saline Flush) 3 ml QSHIFT PRN IV AFTER MEDS AND BLOOD DRAWS; Start 05/12/19 at 12:30 Ondansetron HCl (Zofran) 4 mg PRN Q4HRS PRN IV NAUSEA/VOMITING (1st Choice); Start 05/12/19 at 12:30 Acetaminophen (Tylenol) 650 mg PRN Q4HRS PRN PO TEMP OVER 100.4F OR MILD PAIN; Start 05/12/19 at 12:30 Al Hydroxide/Mg Hydroxide (Mylanta Plus Xs) 30 ml PRN DAILY PRN PO HEARTBURN / GAS; Start 05/12/19 at 12:30 Clonidine HCl (Catapres) 0.1 mg PRN Q6HRS PRN PO SBP>160 OR DBP>90; Start 05/12/19 at 12:30 Docusate Sodium (Colace) 100 mg PRN BID PRN PO CONSTIPATION; Start 05/12/19 at 12:30 Albuterol Sulfate (Ventolin Neb Soln) 2.5 mg PRN Q4HRS PRN NEB SHORTNESS OF BREATH; Start 05/12/19 at 12:30 Guaifenesin (Robitussin) 200 mg PRN Q4HRS PRN PO COUGH; Start 05/12/19 at 12:30 Lorazepam (Ativan) 0.5 mg PRN Q4HRS PRN PO ANXIETY / AGITATION; Start 05/12/19 at 12:30 Enoxaparin Sodium (Lovenox 60mg Syringe) 60 mg Q12HR SQ Last administered on 05/15/19at 09:09; Start 05/12/19 at 21:00 Tramadol HCl (Ultram) 50 mg PRN Q6HRS PRN PO PAIN Last administered on 05/13/19at 20:49; Start 05/12/19 at 23:15 Morphine Sulfate (Morphine Sulfate) 2 mg PRN Q6HRS PRN IV PAIN Last administered on 05/13/19at 13:42; Start 05/12/19 at 23:15; Stop 05/13/19 at 17:29; Status DC Prochlorperazine Edisylate (Compazine) 10 mg PRN Q6HRS PRN IV NAUSEA/VOMITING (2nd Choice) Last administered on 05/12/19at 23:19; Start 05/12/19 at 23:15 Clonidine HCl (Catapres) 0.1 mg BID PO Last administered on 05/14/19at 09:12; Start 05/13/19 at 15:45; Stop 05/14/19 at 11:38; Status DC Morphine Sulfate (Morphine Sulfate) 4 mg PRN Q4HRS PRN IV MODERATE TO SEVERE PAIN Last administered on 05/15/19at 09:10; Start 05/13/19 at 17:45 Promethazine HCl (Phenergan) 12.5 mg PRN Q4HRS PRN PO NAUSEA/VOMITING 2ND CHOICE Last administered on 05/14/19at 22:51; Start 05/13/19 at 18:30 Dihydroergotamine Mesylate 1 mg/ Sodium Chloride 51 ml @ 102 mls/hr Q12H IV Last administered on 05/14/19at 22:01; Start 05/14/19 at 09:00; Stop 05/15/19 at 10:00; Status DC Clonidine HCl (Catapres) 0.1 mg Q8HRS PO Last administered on 05/15/19at 06:17; Start 05/14/19 at 14:00 Hydralazine HCl (Apresoline Inj) 10 mg PRN Q6HRS PRN IVP ELEVATED BP, SEE COMMENTS; Start 05/14/19 at 12:30 Metoclopramide HCl (Reglan Vial) 10 mg 1X ONCE IVP ; Start 05/15/19 at 09:00; Stop 05/15/19 at 09:01; Status UNV Dihydroergotamine Mesylate 1 mg/ Sodium Chloride 51 ml @ 102 mls/hr 1X ONCE IV ; Start 05/15/19 at 09:00; Stop 05/15/19 at 09:29; Status UNV Ondansetron HCl (Zofran) 4 mg ONCE ONCE IVP ; Start 05/15/19 at 09:50; Stop 05/15/19 at 09:51; Status DC Active Scripts Active Bactrim 400-80 Mg Tablet (Sulfamethoxazole/Trimethoprim) 1 Each Tablet 1 Tab PO BID Zofran (Ondansetron Hcl) 4 Mg Tablet 1 Tab PO PRN Q6-8HRS Reported Seroquel (Quetiapine Fumarate) 200 Mg Tablet 200 Mg PO HS Tizanidine Hcl 4 Mg Tablet 4 Mg PO TID PRN Clonidine Hcl 0.1 Mg Tablet 0.1 Mg PO DAILY Vitals/I & O Vital Sign - Last 24 Hours 05/14/19 05/14/19 05/14/19 05/14/19 11:36 13:32 13:32 14:51 Temp 98.6 98.6 Pulse 87 91 Resp 22 B/P (MAP) 171/99 (123) 152/118 Pulse Ox 96 O2 Delivery Room Air Room Air Room Air 05/14/19 05/14/19 05/14/19 05/14/19 14:56 18:23 19:24 19:25 Temp 98.5 98.5 Pulse 84 85 Resp 22 B/P (MAP) 159/65 (96) 150/76 (100) Pulse Ox 98 O2 Delivery Room Air Room Air Room Air 05/14/19 05/14/19 05/14/19 05/14/19 20:00 22:00 22:54 23:25 Temp 98.6 98.6 Pulse 85 81 Resp 22 B/P (MAP) 150/76 189/95 (126) Pulse Ox 98 98 O2 Delivery Room Air Room Air Room Air 05/14/19 05/15/19 05/15/19 05/15/19 23:29 03:25 04:42 05:15 Temp 97.9 97.9 Pulse 78 Resp 24 15 B/P (MAP) 151/58 (89) Pulse Ox 98 97 97 97 O2 Delivery Room Air Room Air Room Air Room Air 05/15/19 05/15/19 05/15/19 05/15/19 06:17 07:20 07:45 09:10 Temp 99.3 99.3 Pulse 83 87 Resp 22 B/P (MAP) 156/76 156/84 (108) Pulse Ox 96 O2 Delivery Room Air Room Air Room Air Intake and Output 05/14/19 05/14/19 05/15/19 15:00 23:00 07:00 Intake Total 100 ml 350 ml Output Total 250 ml Balance 100 ml -250 ml 350 ml NAEL KIRKLAND MD May 15, 2019 10:28
[2019-05-15] MEDS: ONDANSETRON PF 4 MG/2 ML VIAL. IVP ONE ×2 (10:30→12:17)
[2019-05-15 10:58] VITALS: BP 159/66
--- NOTE | 2019-05-15 11:41 | PDOC ---
PROGRESS NOTES Assessment Problems Medical Problems: (1) Accelerated hypertension Status: Acute (2) Headache Status: Acute Migraines Hypertension Possible sleep apnea Plan Awaiting MRI of the brain with MR venogram and angiogram Hold on lumbar puncture She is no better with DHE, she declined the premedication with Compazine, but would like to try it again, this time with Reglan. However, pharmacist call me to say that she is allergic to Reglan, so we will pre-medicate with Zofran Morphine She has had side effects or lack of improvement with multiple medications I listed for her including Depakote, Imitrex, Toradol, Benadryl, Compazine Outpatient home polysomnogram I'm not sure which direction the cause-effect arrow goes between her hypert ension and migraines, hopefully lowering of blood pressure will help Subjective Headache is still 12/04 Objective Vital Signs Date Time Temp Pulse Resp B/P (MAP) Pulse Ox O2 Delivery O2 Flow Rate FiO2 05/15/19 10:58 98.7 79 18 159/66 (97) 98 Room Air 98.7 Intake and Output 05/15/19 07:00 Intake Total 450 ml Output Total 250 ml Balance 200 ml Intake Oral 450 ml Output Urine Total 250 ml # Voids 3 PHYSICAL EXAM Alert. Oriented to time, place and person. PERRL. EOMI. CN: no focal findings. Fundi benign Muscle tone: normal. Muscle strength: 5/5 DTR: 2+ Plantar reflex: flexor Gait: not examined in bed. Sensory exam: no abnormal findings. No cerebellar signs elicited. Review of Relevant I have reviewed the following items rhonda (where applicable) has been applied. Labs Laboratory Tests Test 05/13/19 21:00 05/14/19 14:00 White Blood Count 7.2 x10^3/uL (4.0-11.0) 4.4 x10^3/uL (4.0-11.0) Red Blood Count 3.65 x10^6/uL (3.50-5.40) 4.09 x10^6/uL (3.50-5.40) Hemoglobin 9.8 g/dL (12.0-15.5) 10.7 g/dL (12.0-15.5) Hematocrit 29.6 % (36.0-47.0) 34.4 % (36.0-47.0) Mean Corpuscular Volume 81 fL (79-100) 84 fL (79-100) Mean Corpuscular Hemoglobin 27 pg (25-35) 26 pg (25-35) Mean Corpuscular Hemoglobin Concent 33 g/dL (31-37) 31 g/dL (31-37) Red Cell Distribution Width 14.7 % (11.5-14.5) 15.1 % (11.5-14.5) Platelet Count 152 x10^3/uL (140-400) 131 x10^3/uL (140-400) Neutrophils (%) (Auto) 41 % (31-73) 48 % (31-73) Lymphocytes (%) (Auto) 45 % (24-48) 38 % (24-48) Monocytes (%) (Auto) 9 % (0-9) 9 % (0-9) Eosinophils (%) (Auto) 4 % (0-3) 4 % (0-3) Basophils (%) (Auto) 1 % (0-3) 1 % (0-3) Neutrophils # (Auto) 2.9 x10^3/uL (1.8-7.7) 2.1 x10^3/uL (1.8-7.7) Lymphocytes # (Auto) 3.3 x10^3/uL (1.0-4.8) 1.7 x10^3/uL (1.0-4.8) Monocytes # (Auto) 0.7 x10^3/uL (0.0-1.1) 0.4 x10^3/uL (0.0-1.1) Eosinophils # (Auto) 0.3 x10^3/uL (0.0-0.7) 0.2 x10^3/uL (0.0-0.7) Basophils # (Auto) 0.1 x10^3/uL (0.0-0.2) 0.0 x10^3/uL (0.0-0.2) Platelet Estimate Adequate (ADEQUATE) Platelet Clumps, EDTA Present Schistocytes Occ Erythrocyte Sedimentation Rate 15 (0-25) Sodium Level 143 mmol/L (136-145) Potassium Level 4.9 mmol/L (3.5-5.1) Chloride Level 108 mmol/L (98-107) Carbon Dioxide Level 25 mmol/L (21-32) Anion Gap 10 (6-14) Blood Urea Nitrogen 17 mg/dL (7-20) Creatinine 0.7 mg/dL (0.6-1.0) Estimated GFR (Cockcroft-Gault) 109.5 BUN/Creatinine Ratio 24 (6-20) Glucose Level 118 mg/dL (70-99) Calcium Level 8.7 mg/dL (8.5-10.1) Total Bilirubin 0.4 mg/dL (0.2-1.0) Aspartate Amino Transf (AST/SGOT) 27 U/L (15-37) Alanine Aminotransferase (ALT/SGPT) 15 U/L (14-59) Alkaline Phosphatase 94 U/L (46-116) Total Protein 6.1 g/dL (6.4-8.2) Albumin 2.8 g/dL (3.4-5.0) Albumin/Globulin Ratio 0.8 (1.0-1.7) Laboratory Tests Test 05/14/19 14:00 White Blood Count 4.4 x10^3/uL (4.0-11.0) Red Blood Count 4.09 x10^6/uL (3.50-5.40) Hemoglobin 10.7 g/dL (12.0-15.5) Hematocrit 34.4 % (36.0-47.0) Mean Corpuscular Volume 84 fL (79-100) Mean Corpuscular Hemoglobin 26 pg (25-35) Mean Corpuscular Hemoglobin Concent 31 g/dL (31-37) Red Cell Distribution Width 15.1 % (11.5-14.5) Platelet Count 131 x10^3/uL (140-400) Neutrophils (%) (Auto) 48 % (31-73) Lymphocytes (%) (Auto) 38 % (24-48) Monocytes (%) (Auto) 9 % (0-9) Eosinophils (%) (Auto) 4 % (0-3) Basophils (%) (Auto) 1 % (0-3) Neutrophils # (Auto) 2.1 x10^3/uL (1.8-7.7) Lymphocytes # (Auto) 1.7 x10^3/uL (1.0-4.8) Monocytes # (Auto) 0.4 x10^3/uL (0.0-1.1) Eosinophils # (Auto) 0.2 x10^3/uL (0.0-0.7) Basophils # (Auto) 0.0 x10^3/uL (0.0-0.2) Medications Current Medications Prochlorperazine Edisylate (Compazine) 10 mg 1X ONCE IV Last administered on 05/11/19at 19:40; Start 05/11/19 at 19:15; Stop 05/11/19 at 19:16; Status DC Metoclopramide HCl (Reglan Vial) 10 mg 1X ONCE IVP ; Start 05/11/19 at 18:45; Stop 05/11/19 at 18:46; Status UNV Diphenhydramine HCl (Benadryl) 50 mg 1X ONCE IVP Last administered on 05/11/19at 19:40; Start 05/11/19 at 19:15; Stop 05/11/19 at 19:16; Status DC Fentanyl Citrate (Fentanyl 2ml Vial) 75 mcg 1X ONCE IVP Last administered on 05/11/19at 20:51; Start 05/11/19 at 21:00; Stop 05/11/19 at 21:01; Status DC Labetalol HCl (Normodyne Iv Push) 20 mg 1X ONCE IVP Last administered on 05/11/19at 21:20; Start 05/11/19 at 21:30; Stop 05/11/19 at 21:31; Status DC Ondansetron HCl (Zofran) 4 mg PRN Q8HRS PRN IV NAUSEA/VOMITING Last administered on 05/11/19at 21:50; Start 05/11/19 at 21:15; Stop 05/12/19 at 21:14; Status DC Morphine Sulfate (Morphine Sulfate) 2 mg PRN Q2HR PRN IV PAIN Last administered on 05/12/19at 20:38; Start 05/11/19 at 21:15; Stop 05/12/19 at 21:14; Status DC Sodium Chloride 1,000 ml @ 75 mls/hr [id number] IV Last administered on 05/12/19at 10:35; Start 05/11/19 at 21:15; Stop 05/12/19 at 21:14; Status DC Clonidine HCl (Catapres) 0.1 mg PRN Q4HRS PRN PO HYPERTENSION; Start 05/11/19 at 21:15; Status Cancel Clonidine HCl (Catapres) 0.1 mg DAILY PO Last administered on 05/13/19at 10:52; Start 05/12/19 at 13:00; Stop 05/13/19 at 15:42; Status DC Tizanidine HCl (Zanaflex) 4 mg PRN TID PRN PO MUSCLE SPASMS Last administered on 05/12/19at 20:44; Start 05/12/19 at 12:00 Ondansetron HCl (Zofran Odt) 4 mg PRN Q8HRS PRN PO NAUSEA/VOMITING (1st Choice); Start 05/12/19 at 12:15 Quetiapine Fumarate (SEROquel) 200 mg QHS PO Last administered on 05/14/19at 2 2:00; Start 05/12/19 at 21:00 Lorazepam (Ativan Inj) 0.5 mg PRN Q8HRS PRN IVP ANXIETY / AGITATION Last administered on 05/15/19at 10:30; Start 05/12/19 at 12:00 Promethazine HCl (Phenergan) 12.5 mg PRN Q6HRS PRN PO NAUSEA/VOMITING 2ND CHOICE Last administered on 05/12/19at 14:38; Start 05/12/19 at 12:00; Stop 05/13/19 at 18:29; Status DC Sodium Chloride (Normal Saline Flush) 3 ml QSHIFT PRN IV AFTER MEDS AND BLOOD DRAWS; Start 05/12/19 at 12:30 Ondansetron HCl (Zofran) 4 mg PRN Q4HRS PRN IV NAUSEA/VOMITING (1st Choice); Start 05/12/19 at 12:30 Acetaminophen (Tylenol) 650 mg PRN Q4HRS PRN PO TEMP OVER 100.4F OR MILD PAIN; Start 05/12/19 at 12:30 Al Hydroxide/Mg Hydroxide (Mylanta Plus Xs) 30 ml PRN DAILY PRN PO HEARTBURN / GAS; Start 05/12/19 at 12:30 Clonidine HCl (Catapres) 0.1 mg PRN Q6HRS PRN PO SBP>160 OR DBP>90; Start 05/12/19 at 12:30 Docusate Sodium (Colace) 100 mg PRN BID PRN PO CONSTIPATION; Start 05/12/19 at 12:30 Albuterol Sulfate (Ventolin Neb Soln) 2.5 mg PRN Q4HRS PRN NEB SHORTNESS OF BREATH; Start 05/12/19 at 12:30 Guaifenesin (Robitussin) 200 mg PRN Q4HRS PRN PO COUGH; Start 05/12/19 at 12:30 Lorazepam (Ativan) 0.5 mg PRN Q4HRS PRN PO ANXIETY / AGITATION; Start 05/12/19 at 12:30 Enoxaparin Sodium (Lovenox 60mg Syringe) 60 mg Q12HR SQ Last administered on 05/15/19 09:09; Start 05/12/19 at 21:00 Tramadol HCl (Ultram) 50 mg PRN Q6HRS PRN PO PAIN Last administered on 05/13/19at 20:49; Start 05/12/19 at 23:15 Morphine Sulfate (Morphine Sulfate) 2 mg PRN Q6HRS PRN IV PAIN Last administered on 05/13/19at 13:42; Start 05/12/19 at 23:15; Stop 05/13/19 at 17:29; Status DC Prochlorperazine Edisylate (Compazine) 10 mg PRN Q6HRS PRN IV NAUSEA/VOMITING (2nd Choice) Last administered on 05/12/19 23:19; Start 05/12/19 at 23:15 Clonidine HCl (Catapres) 0.1 mg BID PO Last administered on 05/14/19at 09:12; Start 05/13/19 at 15:45; Stop 05/14/19 at 11:38; Status DC Morphine Sulfate (Morphine Sulfate) 4 mg PRN Q4HRS PRN IV MODERATE TO SEVERE PAIN Last administered on 05/15/19 09:10; Start 05/13/19 at 17:45 Promethazine HCl (Phenergan) 12.5 mg PRN Q4HRS PRN PO NAUSEA/VOMITING 2ND CHOICE Last administered on 05/14/19at 22:51; Start 05/13/19 at 18:30 Dihydroergotamine Mesylate 1 mg/ Sodium Chloride 51 ml @ 102 mls/hr Q12H IV Last administered on 05/14/19at 22:01; Start 05/14/19 at 09:00; Stop 05/15/19 at 10:00; Status DC Clonidine HCl (Catapres) 0.1 mg Q8HRS PO Last administered on 05/15/19at 06:17; Start 05/14/19 at 14:00 Hydralazine HCl (Apresoline Inj) 10 mg PRN Q6HRS PRN IVP ELEVATED BP, SEE COMMENTS; Start 05/14/19 at 12:30 Metoclopramide HCl (Reglan Vial) 10 mg 1X ONCE IVP ; Start 05/15/19 at 09:00; Stop 05/15/19 at 09:01; Status UNV Dihydroergotamine Mesylate 1 mg/ Sodium Chloride 51 ml @ 102 mls/hr 1X ONCE IV ; Start 05/15/19 at 09:00; Stop 05/15/19 at 09:29; Status UNV Ondansetron HCl (Zofran) 4 mg ONCE ONCE IVP ; Start 05/15/19 at 09:50; Stop 05/15/19 at 09:51; Status DC Active Scripts Active Bactrim 400-80 Mg Tablet (Sulfamethoxazole/Trimethoprim) 1 Each Tablet 1 Tab PO BID Zofran (Ondansetron Hcl) 4 Mg Tablet 1 Tab PO PRN Q6-8HRS Reported Seroquel (Quetiapine Fumarate) 200 Mg Tablet 200 Mg PO HS Tizanidine Hcl 4 Mg Tablet 4 Mg PO TID PRN Clonidine Hcl 0.1 Mg Tablet 0.1 Mg PO DAILY Vitals/I & O Vital Sign - Last 24 Hours 05/14/19 05/14/19 05/14/19 05/14/19 13:32 13:32 14:51 14:56 Pulse 91 84 B/P (MAP) 152/118 159/65 (96) O2 Delivery Room Air Room Air 05/14/19 05/14/19 05/14/19 05/14/19 18:23 19:24 19:25 20:00 Temp 98.5 98.5 Pulse 85 Resp 22 B/P (MAP) 150/76 (100) Pulse Ox 98 O2 Delivery Room Air Room Air Room Air Room Air 05/14/19 05/14/19 05/14/19 05/14/19 22:00 22:54 23:25 23:29 Temp 98.6 98.6 Pulse 85 81 Resp 22 B/P (MAP) 150/76 189/95 (126) Pulse Ox 98 98 98 O2 Delivery Room Air Room Air Room Air 05/15/19 05/15/19 05/15/19 05/15/19 03:25 04:42 05:15 06:17 Temp 97.9 97.9 Pulse 78 83 Resp 24 15 B/P (MAP) 151/58 (89) 156/76 Pulse Ox 97 97 97 O2 Delivery Room Air Room Air Room Air 05/15/19 05/15/19 05/15/19 05/15/19 07:20 07:45 09:10 10:30 Temp 99.3 99.3 Pulse 87 Resp 22 B/P (MAP) 156/84 (108) Pulse Ox 96 O2 Delivery Room Air Room Air Room Air Room Air 05/15/19 10:58 Temp 98.7 98.7 Pulse 79 Resp 18 B/P (MAP) 159/66 (97) Pulse Ox 98 O2 Delivery Room Air Intake and Output 05/14/19 05/14/19 05/15/19 15:00 23:00 07:00 Intake Total 100 ml 350 ml Output Total 250 ml Balance 100 ml -250 ml 350 ml EMMA BRENNAN MD May 15, 2019 11:40
[2019-05-15] MEDS: DIHYDROERGOTAMINE 1 MG in IV NORMAL SALINE 50ML 50 ML IV SCH (12:30)
--- NOTE | 2019-05-15 12:36 | RAD ---
EXAMINATION: Magnetic resonance imaging (MRI) of the brain and brainstem without contrast 05/15/2019 2:07 PM Magnetic resonance angiography and venography of the brain without contrast HISTORY: Headache TECHNIQUE: Multiplanar multi-weighted MRI of the brain and brainstem was performed without intravenous contrast using the general brain protocol. Noncontrast [id number] magnetic resonance angiography and venography of the cerebral vasculature was performed. Maximum intensity projection images are provided. Stenosis calculations for CT, MR, and conventional angiography are based upon measurements of the distal ICA diameter in accordance with the NASCET methodology. Stenosis calculations for carotid ultrasound studies are derived from validated velocity criteria which are known to correlate with the NASCET methodology. COMPARISON: None available. FINDINGS: The scalp and calvarium are normal. The superior sagittal sinus demonstrates normal venous flow. The corpus callosum is normal in shape and signal intensity. The posterior fossa is unremarkable. The pituitary and sella are normal. The brainstem and craniocervical junction are unremarkable. 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 Diffusion weighted images reveal no hyperintensities to suggest acute cerebral infarction. The susceptibility weighted sequences reveal no evidence of acute or chronic hemorrhage. The ventricles are normal in size and position without evidence of hydrocephalus. The paranasal sinuses are normal. The visualized portions of the mastoids are unremarkable. The orbits appear normal. Normal flow voids are demonstrated in the carotid arteries and basilar artery. Venogram: Superior sagittal sinus is patent. Internal cerebral veins and minute Mauri are patent. Straight sinus is patent. Tortuous is normal in position. Transverse sinuses, sigmoid sinus and jugular bulb are intact. No evidence for dural venous sinus thrombosis. Arteriogram: Intracranial segments of the internal carotid arteries are normal in course and caliber. 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 Middle cerebral arteries are normal in course and caliber with patent sylvian branches. Anterior cerebral arteries are normal in course and caliber. Vertebral arteries are codominant. Basilar artery is normal in course and caliber. Superior cerebellar arteries and anterior inferior cerebellar arteries are widely patent. Posterior cerebral arteries including bilateral P1 segments are widely patent. There is no vascular malformation or high-grade stenosis/large vessel occlusion. IMPRESSION: 1. No evidence for acute or subacute ischemia. 2. 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 3 month follow-up MRI brain may be of benefit to assess stability as alternate pineal lesions/tumors remain in the differential. 3. 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 One year follow-up MRA may be of benefit. 4. No evidence for sinus venous thrombosis. Electronically signed by: María Rollins MD (05/15/2019 12:33 PM) [id number]
[2019-05-15 15:17] VITALS: BP 163/61
[2019-05-15 19:15] VITALS: BP 152/81
[2019-05-15] MEDS: QUEtiapine 100 MG TABLET. PO SCH (21:50)
[2019-05-15] MEDS: tiZANidine 4 MG TABLET. PO PRN (21:55)
[2019-05-15 23:15] VITALS: BP 150/80
[2019-05-16] VITALS (7 sets, daily range): BP systolic 142–169; BP diastolic 54–81
[2019-05-16] MEDS: MORPHINE SULFATE 4 MG/ML VIAL. IV PRN (03:54)
[2019-05-16] MEDS: cloNIDine HCL 0.1 MG TABLET PO SCH ×3 (06:12→20:46)
[2019-05-16] MEDS: hydrALAZINE 20 MG/ML VIAL. IVP PRN (07:07)
[2019-05-16] MEDS: CITALOPRAM 20 MG TABLET. PO SCH (09:13)
[2019-05-16] MEDS: fentaNYL PF VIAL 100 MCG/2 ML VIAL IVP PRN ×5 (09:13→22:39)
[2019-05-16] MEDS ORDERED: SUMAtriptan SUCC 6 MG/0.5 ML VIAL. SQ ONE (09:30)
--- NOTE | 2019-05-16 10:15 | PDOC ---
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 Plan I will repeat the brain MRI in 3-12 months, and the brain MRI angiogram in one year Citalopram, for migraine prevention and grief reaction, side effects discussed Does not need lumbar puncture Change morphine to fentanyl She has had side effects or lack of improvement with multiple medications I listed for her including Depakote, Imitrex, Toradol, Benadryl, Compazine. She is willing to try a sumatriptan injection, I discussed side effects Outpatient home polysomnogram I'm not sure which direction the cause-effect arrow goes between her hypertens ion and migraines, hopefully lowering of blood pressure will help Headache still 01/03, cannot go home with this degree of pain Subjective Headache still 01/03 Objective Vital Signs Date Time Temp Pulse Resp B/P (MAP) Pulse Ox O2 Delivery O2 Flow Rate FiO2 05/16/19 09:13 100 Room Air 05/16/19 07:30 98.0 97 20 155/75 (101) 98.0 Intake and Output 05/16/19 07:00 Intake Total 2000 ml Balance 2000 ml Intake Oral 2000 ml # Voids 1 PHYSICAL EXAM Alert. Oriented to time, place and person. PERRL. EOMI. CN: no focal findings. Muscle tone: normal. Muscle strength: 5/5 DTR: 2+ Plantar reflex: flexor Gait: not examined in bed. Sensory exam: no abnormal findings. No cerebellar signs elicited. Review of Relevant I have reviewed the following items rhonda (where applicable) has been applied. Labs Laboratory Tests Test 05/14/19 14:00 White Blood Count 4.4 x10^3/uL (4.0-11.0) Red Blood Count 4.09 x10^6/uL (3.50-5.40) Hemoglobin 10.7 g/dL (12.0-15.5) Hematocrit 34.4 % (36.0-47.0) Mean Corpuscular Volume 84 fL (79-100) Mean Corpuscular Hemoglobin 26 pg (25-35) Mean Corpuscular Hemoglobin Concent 31 g/dL (31-37) Red Cell Distribution Width 15.1 % (11.5-14.5) Platelet Count 131 x10^3/uL (140-400) Neutrophils (%) (Auto) 48 % (31-73) Lymphocytes (%) (Auto) 38 % (24-48) Monocytes (%) (Auto) 9 % (0-9) Eosinophils (%) (Auto) 4 % (0-3) Basophils (%) (Auto) 1 % (0-3) Neutrophils # (Auto) 2.1 x10^3/uL (1.8-7.7) Lymphocytes # (Auto) 1.7 x10^3/uL (1.0-4.8) Monocytes # (Auto) 0.4 x10^3/uL (0.0-1.1) Eosinophils # (Auto) 0.2 x10^3/uL (0.0-0.7) Basophils # (Auto) 0.0 x10^3/uL (0.0-0.2) Medications Current Medications Prochlorperazine Edisylate (Compazine) 10 mg 1X ONCE IV Last administered on 05/11/19at 19:40; Start 05/11/19 at 19:15; Stop 05/11/19 at 19:16; Status DC Metoclopramide HCl (Reglan Vial) 10 mg 1X ONCE IVP ; Start 05/11/19 at 18:45; Stop 05/11/19 at 18:46; Status UNV Diphenhydramine HCl (Benadryl) 50 mg 1X ONCE IVP Last administered on 05/11/19at 19:40; Start 05/11/19 at 19:15; Stop 05/11/19 at 19:16; Status DC Fentanyl Citrate (Fentanyl 2ml Vial) 75 mcg 1X ONCE IVP Last administered on 05/11/19at 20:51; Start 05/11/19 at 21:00; Stop 05/11/19 at 21:01; Status DC Labetalol HCl (Normodyne Iv Push) 20 mg 1X ONCE IVP Last administered on 05/11/19at 21:20; Start 05/11/19 at 21:30; Stop 05/11/19 at 21:31; Status DC Ondansetron HCl (Zofran) 4 mg PRN Q8HRS PRN IV NAUSEA/VOMITING Last administered on 05/11/19at 21:50; Start 05/11/19 at 21:15; Stop 05/12/19 at 21:14; Status DC Morphine Sulfate (Morphine Sulfate) 2 mg PRN Q2HR PRN IV PAIN Last administered on 05/12/19 20:38; Start 05/11/19 at 21:15; Stop 05/12/19 at 21:14; Status DC Sodium Chloride 1,000 ml @ 75 mls/hr [id number] IV Last administered on 05/12/19 10:35; Start 05/11/19 at 21:15; Stop 05/12/19 at 21:14; Status DC Clonidine HCl (Catapres) 0.1 mg PRN Q4HRS PRN PO HYPERTENSION; Start 05/11/19 at 21:15; Status Cancel Clonidine HCl (Catapres) 0.1 mg DAILY PO Last administered on 05/13/19at 10:52; Start 05/12/19 at 13:00; Stop 05/13/19 at 15:42; Status DC Tizanidine HCl (Zanaflex) 4 mg PRN TID PRN PO MUSCLE SPASMS Last administered on 05/15/19 21:55; Start 05/12/19 at 12:00 Ondansetron HCl (Zofran Odt) 4 mg PRN Q8HRS PRN PO NAUSEA/VOMITING (1st Ch oice); Start 05/12/19 at 12:15 Quetiapine Fumarate (SEROquel) 200 mg QHS PO Last administered on 05/15/19at 21:50; Start 05/12/19 at 21:00 Lorazepam (Ativan Inj) 0.5 mg PRN Q8HRS PRN IVP ANXIETY / AGITATION Last administered on 05/15/19at 22:59; Start 05/12/19 at 12:00 Promethazine HCl (Phenergan) 12.5 mg PRN Q6HRS PRN PO NAUSEA/VOMITING 2ND CHOICE Last administered on 05/12/19 14:38; Start 05/12/19 at 12:00; Stop 05/13/19 at 18:29; Status DC Sodium Chloride (Normal Saline Flush) 3 ml QSHIFT PRN IV AFTER MEDS AND BLOOD DRAWS; Start 05/12/19 at 12:30 Ondansetron HCl (Zofran) 4 mg PRN Q4HRS PRN IV NAUSEA/VOMITING (1st Choice); Start 05/12/19 at 12:30 Acetaminophen (Tylenol) 650 mg PRN Q4HRS PRN PO TEMP OVER 100.4F OR MILD PAIN; Start 05/12/19 at 12:30 Al Hydroxide/Mg Hydroxide (Mylanta Plus Xs) 30 ml PRN DAILY PRN PO HEARTBURN / GAS; Start 05/12/19 at 12:30 Clonidine HCl (Catapres) 0.1 mg PRN Q6HRS PRN PO SBP>160 OR DBP>90; Start 05/12/19 at 12:30 Docusate Sodium (Colace) 100 mg PRN BID PRN PO CONSTIPATION; Start 05/12/19 at 12:30 Albuterol Sulfate (Ventolin Neb Soln) 2.5 mg PRN Q4HRS PRN NEB SHORTNESS OF BREATH; Start 05/12/19 at 12:30 Guaifenesin (Robitussin) 200 mg PRN Q4HRS PRN PO COUGH; Start 05/12/19 at 12:30 Lorazepam (Ativan) 0.5 mg PRN Q4HRS PRN PO ANXIETY / AGITATION; Start 05/12/19 at 12:30 Enoxaparin Sodium (Lovenox 60mg Syringe) 60 mg Q12HR SQ Last administered on 05/16/19at 09:23; Start 05/12/19 at 21:00 Tramadol HCl (Ultram) 50 mg PRN Q6HRS PRN PO PAIN Last administered on 05/13/19at 20:49; Start 05/12/19 at 23:15 Morphine Sulfate (Morphine Sulfate) 2 mg PRN Q6HRS PRN IV PAIN Last administe red on 05/13/19at 13:42; Start 05/12/19 at 23:15; Stop 05/13/19 at 17:29; Status DC Prochlorperazine Edisylate (Compazine) 10 mg PRN Q6HRS PRN IV NAUSEA/VOMITING (2nd Choice) Last administered on 05/12/19at 23:19; Start 05/12/19 at 23:15 Clonidine HCl (Catapres) 0.1 mg BID PO Last administered on 05/14/19 09:12; Start 05/13/19 at 15:45; Stop 05/14/19 at 11:38; Status DC Morphine Sulfate (Morphine Sulfate) 4 mg PRN Q4HRS PRN IV MODERATE TO SEVERE PAIN Last administered on 05/16/19at 03:54; Start 05/13/19 at 17:45; Stop 05/16/19 at 08:54; Status DC Promethazine HCl (Phenergan) 12.5 mg PRN Q4HRS PRN PO NAUSEA/VOMITING 2ND CHOICE Last administered on 05/14/19at 22:51; Start 05/13/19 at 18:30 Dihydroergotamine Mesylate 1 mg/ Sodium Chloride 51 ml @ 102 mls/hr Q12H IV Last administered on 05/15/19at 12:30; Start 05/14/19 at 09:00; Stop 05/15/19 at 10:00; Status DC Clonidine HCl (Catapres) 0.1 mg Q8HRS PO Last administered on 05/16/19at 06:12; Start 05/14/19 at 14:00 Hydralazine HCl (Apresoline Inj) 10 mg PRN Q6HRS PRN IVP ELEVATED BP, SEE COMMENTS Last administered on 05/16/19at 07:07; Start 05/14/19 at 12:30 Metoclopramide HCl (Reglan Vial) 10 mg 1X ONCE IVP ; Start 05/15/19 at 09:00; Stop 05/15/19 at 09:01; Status UNV Dihydroergotamine Mesylate 1 mg/ Sodium Chloride 51 ml @ 102 mls/hr 1X ONCE IV ; Start 05/15/19 at 09:00; Stop 05/15/19 at 09:29; Status UNV Ondansetron HCl (Zofran) 4 mg ONCE ONCE IVP Last administered on 05/15/19at 12:17; Start 05/15/19 at 09:50; Stop 05/15/19 at 09:51; Status DC Citalopram Hydrobromide (CeleXA) 20 mg DAILY PO Last administered on 05/16/19at 09:13; Start 05/16/19 at 09:00 Fentanyl Citrate (Fentanyl 2ml Vial) 50 mcg PRN Q2HR PRN IVP PAIN Last administered on 05/16/19at 09:13; Start 05/16/19 at 09:00 Sumatriptan Succinate (Imitrex) 6 mg 1X ONCE SQ Last administered on 05/16/19at 09:59; Start 05/16/19 at 09:30; Stop 05/16/19 at 09:31; Status DC Active Scripts Active Bactrim 400-80 Mg Tablet (Sulfamethoxazole/Trimethoprim) 1 Each Tablet 1 Tab PO BID Zofran (Ondansetron Hcl) 4 Mg Tablet 1 Tab PO PRN Q6-8HRS Reported Seroquel (Quetiapine Fumarate) 200 Mg Tablet 200 Mg PO HS Tizanidine Hcl 4 Mg Tablet 4 Mg PO TID PRN Clonidine Hcl 0.1 Mg Tablet 0.1 Mg PO DAILY Vitals/I & O Vital Sign - Last 24 Hours 05/15/19 05/15/19 05/15/19 05/15/19 10:30 10:58 13:53 13:55 Temp 98.7 98.7 Pulse 79 85 Resp 18 B/P (MAP) 159/66 (97) 157/85 Pulse Ox 98 O2 Delivery Room Air Room Air Room Air 05/15/19 05/15/19 05/15/19 05/15/19 14:36 15:17 18:38 19:15 Temp 97.8 98.4 97.8 98.4 Pulse 81 83 Resp 20 16 B/P (MAP) 163/61 (95) 152/81 (104) Pulse Ox 97 95 O2 Delivery Room Air Room Air Room Air Room Air 05/15/19 05/15/19 05/15/19 05/15/19 20:07 20:15 21:51 22:58 Pulse 83 B/P (MAP) 152/81 O2 Delivery Room Air Room Air Room Air 05/15/19 05/16/19 05/16/19 05/16/19 23:15 00:22 03:20 03:54 Temp 99.0 97.5 99.0 97.5 Pulse 78 91 Resp 16 20 B/P (MAP) 150/80 (103) 142/63 (89) Pulse Ox 98 100 O2 Delivery Room Air Room Air Room Air Room Air 05/16/19 05/16/19 05/16/1919 04:33 06:12 07:07 07:30 Temp 98.0 98.0 Pulse 91 89 97 Resp 20 B/P (MAP) 142/63 194/106 155/75 (101) Pulse Ox 100 O2 Delivery Room Air Room Air 05/16/19 09:13 Pulse Ox 100 O2 Delivery Room Air Intake and Output 05/15/19 05/15/19 05/16/19 15:00 23:00 07:00 Intake Total 480 ml 500 ml 1020 ml Balance 480 ml 500 ml 1020 ml Images ANGIOGRAPHY BRAIN WO CONTRAST EXAMINATION: Magnetic resonance imaging (MRI) of the brain and brainstem without contrast 05/15/2019 2:07 PM Magnetic resonance angiography and venography of the brain without contrast HISTORY: Headache TECHNIQUE: Multiplanar multi-weighted MRI of the brain and brainstem was performed without intravenous contrast using the general brain protocol. Noncontrast [id number] magnetic resonance angiography and venography of the cerebral vasculature was performed. Maximum intensity projection images are provided. Stenosis calculations for CT, MR, and conventional angiography are based upon measurements of the distal ICA diameter in accordance with the NASCET methodology. Stenosis calculations for carotid ultrasound studies are derived from validated velocity criteria which are known to correlate with the NASCET methodology. COMPARISON: None available. FINDINGS: The scalp and calvarium are normal. The superior sagittal sinus demonstrates normal venous flow. The corpus callosum is normal in shape and signal intensity. The posterior fossa is unremarkable. The pituitary and sella are normal. The brainstem and craniocervical junction are unremarkable. 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 Diffusion weighted images reveal no hyperintensities to suggest acute cerebral infarction. The susceptibility weighted sequences reveal no evidence of acute or chronic hemorrhage. The ventricles are normal in size and position without evidence of hydrocephalus. The paranasal sinuses are normal. The visualized portions of the mastoids are unremarkable. The orbits appear normal. Normal flow voids are demonstrated in the carotid arteries and basilar artery. Venogram: Superior sagittal sinus is patent. Internal cerebral veins and minute Mauri are patent. Straight sinus is patent. Tortuous is normal in position. Transverse sinuses, sigmoid sinus and jugular bulb are intact. No evidence for dural venous sinus thrombosis. Arteriogram: Intracranial segments of the internal carotid arteries are normal in course and caliber. 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 Middle cerebral arteries are normal in course and caliber with patent sylvian branches. Anterior cerebral arteries are normal in course and caliber. Vertebral arteries are codominant. Basilar artery is normal in course and caliber. Superior cerebellar arteries and anterior inferior cerebellar arteries are widely patent. Posterior cerebral arteries including bilateral P1 segments are widely patent. There is no vascular malformation or high-grade stenosis/large vessel occlusion. IMPRESSION: 1. No evidence for acute or subacute ischemia. 2. 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 3 month follow-up MRI brain may be of benefit to assess stability as alternate pineal lesions/tumors remain in the differential. 3. 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 One year follow-up MRA may be of benefit. 4. No evidence for sinus venous thrombosis. EMMA BRENNAN MD May 16, 2019 10:15
--- NOTE | 2019-05-16 11:13 | NUR ---
SW following pt. HCFS will follow pt for Medicaid application. Pt has been participating in therapy and might need Cane, Walker upon dc. Nursing staff is able to provide pt with a walker from [facility]. office as pt is self pay. Will be available as needed. Discussed with RN.
[2019-05-16] MEDS ORDERED: LISINOPRIL 20 MG TABLET PO SCH (11:15)
--- NOTE | 2019-05-16 11:17 | PDOC ---
PROGRESS NOTES History of Present Illness History of Present Illness DICTATED and SIGNED BY: HEIDI CEDENO MD VTE Prophylaxis Ordered VTE Prophylaxis Devices: No VTE Pharmacological Prophylaxi: Yes Assessment/Plan Assessment/Plan IMPRESSION: ACUTE MIGRANE SYNDROME UNCONTROLLED HYPERTENSION, REMAINS LABILE EXTREME MORBID OBESITY 05/[address] HEAD, Subtle loss of lieberman-white distinction in the right frontal lobe, which may be artifactual. Recommend MRI for further evaluation. PERSISTENT HEADACHE, NO FEVER ON MRA HEADNo evidence for acute or subacute ischemia. 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 3 month follow-up MRI brain may be of benefit to assess stability as alternate pineal lesions/tumors remain in the differential. 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 One year follow-up MRA may be of benefit. No evidence for sinus venous thrombosis. PLAN TELE BED ADMIT BP CONTROL ECHO CARDIOLOGY CONSULT NEUROLOGY CONSULT NOTED MRI HEAD not done, will not fit in our mri here CBC, COMP, ESR 11-17 INC CLONIDINE 0.1 MG PO TID ID CONSULT ON HOLD Add labetalol 100MG PO BID 38 MIN PT EXAM, CHART REVIEW, > 50% OF TIME SPENT WITH EXAM, CHART REVIEW, PT CARE COORDINATION Vitals Vitals Vital Signs Date Time Temp Pulse Resp B/P (MAP) Pulse Ox O2 Delivery O2 Flow Rate FiO2 05/16/19 11:01 97.8 89 22 151/54 (86) 96 Room Air 97.8 Physical Exam General: Alert, Oriented X3, Cooperative, mild distress Heart: Regular rate, Normal S1 Lungs: Clear, Wheezing Abdomen: Normal bowel sounds, Soft Extremities: No clubbing, No cyanosis Skin: No significant lesion Labs LABS REASON: headache /MRV /OK TO DO 05/15 PER JOSE PROCEDURE: ANGIOGRAPHY BRAIN WO CONTRAST EXAMINATION: Magnetic resonance imaging (MRI) of the brain and brainstem without contrast 05/15/2019 2:07 PM Magnetic resonance angiography and venography of the brain without contrast HISTORY: Headache TECHNIQUE: Multiplanar multi-weighted MRI of the brain and brainstem was performed without intravenous contrast using the general brain protocol. Noncontrast [id number] magnetic resonance angiography and venography of the cerebral vasculature was performed. Maximum intensity projection images are provided. Stenosis calculations for CT, MR, and conventional angiography are based upon measurements of the distal ICA diameter in accordance with the NASCET methodology. Stenosis calculations for carotid ultrasound studies are derived from validated velocity criteria which are known to correlate with the NASCET methodology. COMPARISON: None available. FINDINGS: The scalp and calvarium are normal. The superior sagittal sinus demonstrates normal venous flow. The corpus callosum is normal in shape and signal intensity. The posterior fossa is unremarkable. The pituitary and sella are normal. The brainstem and craniocervical junction are unremarkable. 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 Diffusion weighted images reveal no hyperintensities to suggest acute cerebral infarction. The susceptibility weighted sequences reveal no evidence of acute or chronic hemorrhage. The ventricles are normal in size and position without evidence of hydrocephalus. The paranasal sinuses are normal. The visualized portions of the mastoids are unremarkable. The orbits appear normal. Normal flow voids are demonstrated in the carotid arteries and basilar artery. Venogram: Superior sagittal sinus is patent. Internal cerebral veins and minute Mauri are patent. Straight sinus is patent. Tortuous is normal in position. Transverse sinuses, sigmoid sinus and jugular bulb are intact. No evidence for dural venous sinus thrombosis. Arteriogram: Intracranial segments of the internal carotid arteries are normal in course and caliber. 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 Middle cerebral arteries are normal in course and caliber with patent sylvian branches. Anterior cerebral arteries are normal in course and caliber. Vertebral arteries are codominant. Basilar artery is normal in course and caliber. Superior cerebellar arteries and anterior inferior cerebellar arteries are widely patent. Posterior cerebral arteries including bilateral P1 segments are widely patent. There is no vascular malformation or high-grade stenosis/large vessel occlusion. IMPRESSION: 1. No evidence for acute or subacute ischemia. 2. 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 3 month follow-up MRI brain may be of benefit to assess stability as alternate pineal lesions/tumors remain in the differential. 3. 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 One year follow-up MRA may be of benefit. 4. No evidence for sinus venous thrombosis. Electronically signed by: Jarad Mccrary MD (05/15/2019 12:33 PM) [id number] DICTATED and SIGNED BY: JARAD MCCRARY MD DATE: 05/15/19 1233 Assessment and Plan Assessmemt and Plan Problems Medical Problems: (1) Accelerated hypertension Status: Acute (2) Headache Status: Acute Comment Review of Relevant I have reviewed the following items rhonda (where applicable) has been applied. Labs Laboratory Tests Test 05/14/19 14:00 White Blood Count 4.4 x10^3/uL (4.0-11.0) Red Blood Count 4.09 x10^6/uL (3.50-5.40) Hemoglobin 10.7 g/dL (12.0-15.5) Hematocrit 34.4 % (36.0-47.0) Mean Corpuscular Volume 84 fL (79-100) Mean Corpuscular Hemoglobin 26 pg (25-35) Mean Corpuscular Hemoglobin Concent 31 g/dL (31-37) Red Cell Distribution Width 15.1 % (11.5-14.5) Platelet Count 131 x10^3/uL (140-400) Neutrophils (%) (Auto) 48 % (31-73) Lymphocytes (%) (Auto) 38 % (24-48) Monocytes (%) (Auto) 9 % (0-9) Eosinophils (%) (Auto) 4 % (0-3) Basophils (%) (Auto) 1 % (0-3) Neutrophils # (Auto) 2.1 x10^3/uL (1.8-7.7) Lymphocytes # (Auto) 1.7 x10^3/uL (1.0-4.8) Monocytes # (Auto) 0.4 x10^3/uL (0.0-1.1) Eosinophils # (Auto) 0.2 x10^3/uL (0.0-0.7) Basophils # (Auto) 0.0 x10^3/uL (0.0-0.2) Medications Current Medications Prochlorperazine Edisylate (Compazine) 10 mg 1X ONCE IV Last administered on 05/11/19at 19:40; Start 05/11/19 at 19:15; Stop 05/11/19 at 19:16; Status DC Metoclopramide HCl (Reglan Vial) 10 mg 1X ONCE IVP ; Start 05/11/19 at 18:45; Stop 05/11/19 at 18:46; Status UNV Diphenhydramine HCl (Benadryl) 50 mg 1X ONCE IVP Last administered on 05/11/19 19:40; Start 05/11/19 at 19:15; Stop 05/11/19 at 19:16; Status DC Fentanyl Citrate (Fentanyl 2ml Vial) 75 mcg 1X ONCE IVP Last administered on 05/11/19 20:51; Start 05/11/19 at 21:00; Stop 05/11/19 at 21:01; Status DC Labetalol HCl (Normodyne Iv Push) 20 mg 1X ONCE IVP Last administered on 05/11/19at 21:20; Start 05/11/19 at 21:30; Stop 05/11/19 at 21:31; Status DC Ondansetron HCl (Zofran) 4 mg PRN Q8HRS PRN IV NAUSEA/VOMITING Last administered on 05/11/19 21:50; Start 05/11/19 at 21:15; Stop 05/12/19 at 21:14; Status DC Morphine Sulfate (Morphine Sulfate) 2 mg PRN Q2HR PRN IV PAIN Last administered on 05/12/19 20:38; Start 05/11/19 at 21:15; Stop 05/12/19 at 21:14; Status DC Sodium Chloride 1,000 ml @ 75 mls/hr [id number] IV Last administered on 05/12/19 10:35; Start 05/11/19 at 21:15; Stop 05/12/19 at 21:14; Status DC Clonidine HCl (Catapres) 0.1 mg PRN Q4HRS PRN PO HYPERTENSION; Start 05/11/19 at 21:15; Status Cancel Clonidine HCl (Catapres) 0.1 mg DAILY PO Last administered on 05/13/19at 10:52; Start 05/12/19 at 13:00; Stop 05/13/19 at 15:42; Status DC Tizanidine HCl (Zanaflex) 4 mg PRN TID PRN PO MUSCLE SPASMS Last administered on 05/15/19 21:55; Start 05/12/19 at 12:00 Ondansetron HCl (Zofran Odt) 4 mg PRN Q8HRS PRN PO NAUSEA/VOMITING (1st Choice ); Start 05/12/19 at 12:15 Quetiapine Fumarate (SEROquel) 200 mg QHS PO Last administered on 11/19/19at 21:50; Start 05/12/19 at 21:00 Lorazepam (Ativan Inj) 0.5 mg PRN Q8HRS PRN IVP ANXIETY / AGITATION Last administered on 05/15/19at 22:59; Start 05/12/19 at 12:00 Promethazine HCl (Phenergan) 12.5 mg PRN Q6HRS PRN PO NAUSEA/VOMITING 2ND CHOICE Last administered on 05/12/19at 14:38; Start 05/12/19 at 12:00; Stop 05/13/19 at 18:29; Status DC Sodium Chloride (Normal Saline Flush) 3 ml QSHIFT PRN IV AFTER MEDS AND BLOOD DRAWS; Start 05/12/19 at 12:30 Ondansetron HCl (Zofran) 4 mg PRN Q4HRS PRN IV NAUSEA/VOMITING (1st Choice); Start 05/12/19 at 12:30 Acetaminophen (Tylenol) 650 mg PRN Q4HRS PRN PO TEMP OVER 100.4F OR MILD PAIN; Start 05/12/19 at 12:30 Al Hydroxide/Mg Hydroxide (Mylanta Plus Xs) 30 ml PRN DAILY PRN PO HEARTBURN / GAS; Start 05/12/19 at 12:30 Clonidine HCl (Catapres) 0.1 mg PRN Q6HRS PRN PO SBP>160 OR DBP>90; Start 05/12/19 at 12:30 Docusate Sodium (Colace) 100 mg PRN BID PRN PO CONSTIPATION; Start 05/12/19 at 12:30 Albuterol Sulfate (Ventolin Neb Soln) 2.5 mg PRN Q4HRS PRN NEB SHORTNESS OF BREATH; Start 05/12/19 at 12:30 Guaifenesin (Robitussin) 200 mg PRN Q4HRS PRN PO COUGH; Start 05/12/19 at 12:30 Lorazepam (Ativan) 0.5 mg PRN Q4HRS PRN PO ANXIETY / AGITATION; Start 05/12/19 at 12:30 Enoxaparin Sodium (Lovenox 60mg Syringe) 60 mg Q12HR SQ Last administered on 05/16/19at 09:23; Start 05/12/19 at 21:00 Tramadol HCl (Ultram) 50 mg PRN Q6HRS PRN PO PAIN Last administered on 05/13/19at 20:49; Start 05/12/19 at 23:15 Morphine Sulfate (Morphine Sulfate) 2 mg PRN Q6HRS PRN IV PAIN Last administered on 05/13/19at 13:42; Start 05/12/19 at 23:15; Stop 05/13/19 at 17:29; Status DC Prochlorperazine Edisylate (Compazine) 10 mg PRN Q6HRS PRN IV NAUSEA/VOMITING (2nd Choice) Last administered on 05/12/19at 23:19; Start 05/12/19 at 23:15 Clonidine HCl (Catapres) 0.1 mg BID PO Last administered on 05/14/19at 09:12; Start 05/13/19 at 15:45; Stop 05/14/19 at 11:38; Status DC Morphine Sulfate (Morphine Sulfate) 4 mg PRN Q4HRS PRN IV MODERATE TO SEVERE PAIN Last administered on 05/16/19at 03:54; Start 05/13/19 at 17:45; Stop 05/16/19 at 08:54; Status DC Promethazine HCl (Phenergan) 12.5 mg PRN Q4HRS PRN PO NAUSEA/VOMITING 2ND C HOICE Last administered on 05/14/19at 22:51; Start 05/13/19 at 18:30 Dihydroergotamine Mesylate 1 mg/ Sodium Chloride 51 ml @ 102 mls/hr Q12H IV Last administered on 05/15/19at 12:30; Start 05/14/19 at 09:00; Stop 05/15/19 at 10:00; Status DC Clonidine HCl (Catapres) 0.1 mg Q8HRS PO Last administered on 05/16/19at 06:12; Start 05/14/19 at 14:00 Hydralazine HCl (Apresoline Inj) 10 mg PRN Q6HRS PRN IVP ELEVATED BP, SEE COMMENTS Last administered on 05/16/19at 07:07; Start 05/14/19 at 12:30 Metoclopramide HCl (Reglan Vial) 10 mg 1X ONCE IVP ; Start 05/15/19 at 09:00; Stop 05/15/19 at 09:01; Status UNV Dihydroergotamine Mesylate 1 mg/ Sodium Chloride 51 ml @ 102 mls/hr 1X ONCE IV ; Start 05/15/19 at 09:00; Stop 05/15/19 at 09:29; Status UNV Ondansetron HCl (Zofran) 4 mg ONCE ONCE IVP Last administered on 05/15/19at 12:17; Start 05/15/19 at 09:50; Stop 05/15/19 at 09:51; Status DC Citalopram Hydrobromide (CeleXA) 20 mg DAILY PO Last administered on 05/16/19at 09:13; Start 05/16/19 at 09:00 Fentanyl Citrate (Fentanyl 2ml Vial) 50 mcg PRN Q2HR PRN IVP PAIN Last administered on 05/16/19at 09:13; Start 05/16/19 at 09:00 Sumatriptan Succinate (Imitrex) 6 mg 1X ONCE SQ Last administered on 05/16/19at 09:59; Start 05/16/19 at 09:30; Stop 05/16/19 at 09:31; Status DC Lisinopril (Prinivil) 20 mg DAILY PO ; Start 05/16/19 at 11:15 Active Scripts Active Bactrim 400-80 Mg Tablet (Sulfamethoxazole/Trimethoprim) 1 Each Tablet 1 Tab PO BID Zofran (Ondansetron Hcl) 4 Mg Tablet 1 Tab PO PRN Q6-8HRS Reported Seroquel (Quetiapine Fumarate) 200 Mg Tablet 200 Mg PO HS Tizanidine Hcl 4 Mg Tablet 4 Mg PO TID PRN Clonidine Hcl 0.1 Mg Tablet 0.1 Mg PO DAILY Vitals/I & O Vital Sign - Last 24 Hours 05/15/19 05/15/19 05/15/19 05/15/19 13:53 13:55 14:36 15:17 Temp 97.8 97.8 Pulse 85 81 Resp 20 B/P (MAP) 157/85 163/61 (95) Pulse Ox 97 O2 Delivery Room Air Room Air Room Air 05/15/19 05/15/19 05/15/19 05/15/19 18:38 19:15 20:07 20:15 Temp 98.4 98.4 Pulse 83 Resp 16 B/P (MAP) 152/81 (104) Pulse Ox 95 O2 Delivery Room Air Room Air Room Air Room Air 05/15/19 05/15/19 05/15/19/20/19 21:51 22:58 23:15 00:22 Temp 99.0 99.0 Pulse 83 78 Resp 16 B/P (MAP) 152/81 150/80 (103) Pulse Ox 98 O2 Delivery Room Air Room Air Room Air 05/16/19 05/16/19 05/16/19 05/16/19 03:20 03:54 04:33 06:12 Temp 97.5 97.5 Pulse 91 91 Resp 20 B/P (MAP) 142/63 (89) 142/63 Pulse Ox 100 O2 Delivery Room Air Room Air Room Air 05/16/19 05/16/19 05/16/19 05/16/19 07:07 07:30 09:13 11:01 Temp 98.0 97.8 98.0 97.8 Pulse 89 97 89 Resp 20 22 B/P (MAP) 194/106 155/75 (101) 151/54 (86) Pulse Ox 100 100 96 O2 Delivery Room Air Room Air Room Air Intake and Output 05/15/19 05/15/19 05/16/19 15:00 23:00 07:00 Intake Total 480 ml 500 ml 1020 ml Balance 480 ml 500 ml 1020 ml NAEL KIRKLAND MD May 16, 2019 11:17
--- NOTE | 2019-05-16 11:37 | PDOC ---
CARDIO Progress Notes Date and Time Date of Service 05/16/19 Time of Evaluation 1105 Subjective Subjective: No Chest Pain, No shortness of breath, Other (tearful, concerned about health) Vitals Vitals Vital Signs Date Time Temp Pulse Resp B/P (MAP) Pulse Ox O2 Delivery O2 Flow Rate FiO2 05/16/19 11:01 97.8 89 22 151/54 (86) 96 Room Air 97.8 Weight Weight [ ] Input and Output Intake and Output Intake and Output 05/16/19 07:00 Intake Total 2000 ml Balance 2000 ml Intake Oral 2000 ml # Voids 1 Physical Exam HEENT: Neck Supple W Full Motion Chest: Symmetric LUNGS: Clear to Auscultation Heart: RRR, murmurs (2/6 systolic murmur ) Extremities: No Edema Neurology: alert, oriented, follow commands Assessment Assessment Migraine Accelerated hypertension; remains labile. Right ICA aneurysm; 3 x 2 mm Recommendations Allergy to ACEi- angioedema Continue clonidine Add labetalol for BP control Supportive care BRENNON AC APRN May 16, 2019 11:37
[2019-05-16] MEDS: LABETALOL HCL 100 MG TABLET. PO SCH ×2 (12:33→20:46)
[2019-05-16] MEDS: QUEtiapine 100 MG TABLET. PO SCH (20:47)
[2019-05-16] MEDS: tiZANidine 4 MG TABLET. PO PRN (20:53)
[2019-05-17] MEDS: fentaNYL PF VIAL 100 MCG/2 ML VIAL IVP PRN ×3 (02:08→06:59)
[2019-05-17 03:00] VITALS: BP 145/62
[2019-05-17] MEDS: cloNIDine HCL 0.1 MG TABLET PO SCH ×3 (04:45→20:56)
[2019-05-17] MEDS: traMADol 50 MG TABLET PO PRN (04:50)
[2019-05-17] MEDS: LORazepam 0.5 MG TABLET PO PRN ×2 (04:51→23:00)
[2019-05-17 07:00] VITALS: BP 157/79
[2019-05-17] MEDS ORDERED: fentaNYL PF VIAL 100 MCG/2 ML VIAL IVP PRN (08:30)
[2019-05-17] MEDS ORDERED: HYDROmorphone 2 MG/ML VIAL IV ONE ×2 (08:45→23:00)
[2019-05-17] MEDS: LABETALOL HCL 100 MG TABLET. PO SCH ×2 (09:00→20:57)
[2019-05-17] MEDS: CITALOPRAM 20 MG TABLET. PO SCH (09:00)
--- NOTE | 2019-05-17 09:10 | PDOC ---
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 Plan I will repeat the brain MRI in 3-12 months, and the brain MRI angiogram in one year Citalopram started for migraine prevention and grief reaction, side effects discussed Lumbar puncture to check opening pressure, need to hold Lovenox 24 hours Increased fentanyl dose Trial of one dose of Dilaudid which patient says has helped in the past In past, she has had side effects or lack of improvement with multiple medication: Depakote, Imitrex, Toradol, Benadryl, Compazine, and, here in hospital, the sumatriptan, morphine, and DHE Outpatient home polysomnogram I'm not sure which direction the cause-effect arrow goes between her hyperte nsion and migraines, hopefully lowering of blood pressure will help Headache still 02/03, cannot go home with this degree of pain Subjective Headache still 810 Objective Vital Signs Date Time Temp Pulse Resp B/P (MAP) Pulse Ox O2 Delivery O2 Flow Rate FiO2 05/17/19 07:00 98.1 100 18 157/79 (105) 95 Room Air 98.1 Intake and Output 05/17/19 07:00 Intake Total 1980 ml Balance 1980 ml Intake Oral 1980 ml PHYSICAL EXAM Alert. Oriented to time, place and person. PERRL. EOMI. CN: no focal findings. Muscle tone: normal. Muscle strength: 5/5 DTR: 2+ Plantar reflex: flexor Gait: not examined in bed. Sensory exam: no abnormal findings. No cerebellar signs elicited. Review of Relevant I have reviewed the following items rhonda (where applicable) has been applied. Medications Current Medications Prochlorperazine Edisylate (Compazine) 10 mg 1X ONCE IV Last administered on 05/11/19at 19:40; Start 05/11/19 at 19:15; Stop 05/11/19 at 19:16; Status DC Metoclopramide HCl (Reglan Vial) 10 mg 1X ONCE IVP ; Start 05/11/19 at 18:45; Stop 05/11/19 at 18:46; Status UNV Diphenhydramine HCl (Benadryl) 50 mg 1X ONCE IVP Last administered on 05/11/19at 19:40; Start 05/11/19 at 19:15; Stop 05/11/19 at 19:16; Status DC Fentanyl Citrate (Fentanyl 2ml Vial) 75 mcg 1X ONCE IVP Last administered on 05/11/19at 20:51; Start 05/11/19 at 21:00; Stop 05/11/19 at 21:01; Status DC Labetalol HCl (Normodyne Iv Push) 20 mg 1X ONCE IVP Last administered on 05/11/19at 21:20; Start 05/11/19 at 21:30; Stop 05/11/19 at 21:31; Status DC Ondansetron HCl (Zofran) 4 mg PRN Q8HRS PRN IV NAUSEA/VOMITING Last administered on 05/11/19at 21:50; Start 05/11/19 at 21:15; Stop 05/12/19 at 21:14; Status DC Morphine Sulfate (Morphine Sulfate) 2 mg PRN Q2HR PRN IV PAIN Last administered on 05/12/19at 20:38; Start 05/11/19 at 21:15; Stop 05/12/19 at 21:14; Status DC Sodium Chloride 1,000 ml @ 75 mls/hr [id number] IV Last administered on 05/12/19at 10:35; Start 05/11/19 at 21:15; Stop 05/12/19 at 21:14; Status DC Clonidine HCl (Catapres) 0.1 mg PRN Q4HRS PRN PO HYPERTENSION; Start 05/11/19 at 21:15; Status Cancel Clonidine HCl (Catapres) 0.1 mg DAILY PO Last administered on 05/13/19at 10:52; Start 05/12/19 at 13:00; Stop 05/13/19 at 15:42; Status DC Tizanidine HCl (Zanaflex) 4 mg PRN TID PRN PO MUSCLE SPASMS Last administered on 05/16/19at 20:53; Start 05/12/19 at 12:00 Ondansetron HCl (Zofran Odt) 4 mg PRN Q8HRS PRN PO NAUSEA/VOMITING (1st Choice); Start 05/12/19 at 12:15 Quetiapine Fumarate (SEROquel) 200 mg QHS PO Last administered on 05/16/19at 20:47; Start 05/12/19 at 21:00 Lorazepam (Ativan Inj) 0.5 mg PRN Q8HRS PRN IVP ANXIETY / AGITATION Last administered on 05/16/19at 22:38; Start 05/12/19 at 12:00 Promethazine HCl (Phenergan) 12.5 mg PRN Q6HRS PRN PO NAUSEA/VOMITING 2ND CHOICE Last administered on 05/12/19at 14:38; Start 05/12/19 at 12:00; Stop 05/13/19 at 18:29; Status DC Sodium Chloride (Normal Saline Flush) 3 ml QSHIFT PRN IV AFTER MEDS AND BLOOD DRAWS; Start 05/12/19 at 12:30 Ondansetron HCl (Zofran) 4 mg PRN Q4HRS PRN IV NAUSEA/VOMITING (1st Choice); Start 05/12/19 at 12:30 Acetaminophen (Tylenol) 650 mg PRN Q4HRS PRN PO TEMP OVER 100.4F OR MILD PAIN; Start 05/12/19 at 12:30 Al Hydroxide/Mg Hydroxide (Mylanta Plus Xs) 30 ml PRN DAILY PRN PO HEARTBURN / GAS; Start 05/12/19 at 12:30 Clonidine HCl (Catapres) 0.1 mg PRN Q6HRS PRN PO SBP>160 OR DBP>90; Start 05/12/19 at 12:30 Docusate Sodium (Colace) 100 mg PRN BID PRN PO CONSTIPATION; Start 05/12/19 at 12:30 Albuterol Sulfate (Ventolin Neb Soln) 2.5 mg PRN Q4HRS PRN NEB SHORTNESS OF BREATH; Start 05/12/19 at 12:30 Guaifenesin (Robitussin) 200 mg PRN Q4HRS PRN PO COUGH; Start 05/12/19 at 12:30 Lorazepam (Ativan) 0.5 mg PRN Q4HRS PRN PO ANXIETY / AGITATION Last administered on 05/17/19at 04:51; Start 05/12/19 at 12:30 Enoxaparin Sodium (Lovenox 60mg Syringe) 60 mg Q12HR SQ Last administered on 05/16/19 20:46; Start 05/12/19 at 21:00; Stop 05/17/19 at 08:32; Status DC Tramadol HCl (Ultram) 50 mg PRN Q6HRS PRN PO PAIN Last administered on 05/17/19 04:50; Start 05/12/19 at 23:15 Morphine Sulfate (Morphine Sulfate) 2 mg PRN Q6HRS PRN IV PAIN Last administered on 05/13/19 13:42; Start 05/12/19 at 23:15; Stop 05/13/19 at 17:29; Status DC Prochlorperazine Edisylate (Compazine) 10 mg PRN Q6HRS PRN IV NAUSEA/VOMITING (2nd Choice) Last administered on 05/12/19 23:19; Start 05/12/19 at 23:15 Clonidine HCl (Catapres) 0.1 mg BID PO Last administered on 05/14/19 09:12; Start 05/13/19 at 15:45; Stop 05/14/19 at 11:38; Status DC Morphine Sulfate (Morphine Sulfate) 4 mg PRN Q4HRS PRN IV MODERATE TO SEVERE PAIN Last administered on 05/16/19 03:54; Start 05/13/19 at 17:45; Stop 05/16/19 at 08:54; Status DC Promethazine HCl (Phenergan) 12.5 mg PRN Q4HRS PRN PO NAUSEA/VOMITING 2ND CHOICE Last administered on 05/14/19at 22:51; Start 05/13/19 at 18:30 Dihydroergotamine Mesylate 1 mg/ Sodium Chloride 51 ml @ 102 mls/hr Q12H IV Last administered on 05/15/19 12:30; Start 05/14/19 at 09:00; Stop 05/15/19 at 10:00; Status DC Clonidine HCl (Catapres) 0.1 mg Q8HRS PO Last administered on 05/17/19 04:45; Start 05/14/19 at 14:00 Hydralazine HCl (Apresoline Inj) 10 mg PRN Q6HRS PRN IVP ELEVATED BP, SEE COMMENTS Last administered on 11/20/19at 07:07; Start 05/14/19 at 12:30 Metoclopramide HCl (Reglan Vial) 10 mg 1X ONCE IVP ; Start 05/15/19 at 09:00; Stop 05/15/19 at 09:01; Status UNV Dihydroergotamine Mesylate 1 mg/ Sodium Chloride 51 ml @ 102 mls/hr 1X ONCE IV ; Start 05/15/19 at 09:00; Stop 05/15/19 at 09:29; Status UNV Ondansetron HCl (Zofran) 4 mg ONCE ONCE IVP Last administered on 05/15/19at 12:17; Start 05/15/19 at 09:50; Stop 05/15/19 at 09:51; Status DC Citalopram Hydrobromide (CeleXA) 20 mg DAILY PO Last administered on 05/16/19at 09:13; Start 05/16/19 at 09:00 Fentanyl Citrate (Fentanyl 2ml Vial) 50 mcg PRN Q2HR PRN IVP PAIN Last administered on 05/17/19at 06:59; Start 05/16/19 at 09:00; Stop 05/17/19 at 08:32; Status DC Sumatriptan Succinate (Imitrex) 6 mg 1X ONCE SQ Last administered on 05/16/19at 09:59; Start 05/16/19 at 09:30; Stop 05/16/19 at 09:31; Status DC Lisinopril (Prinivil) 20 mg DAILY PO ; Start 05/16/19 at 11:15; Stop 05/16/19 at 11:37; Status DC Labetalol HCl (Trandate) 100 mg BID PO Last administered on 05/16/19at 20:46; Start 05/16/19 at 12:00 Fentanyl Citrate (Fentanyl 2ml Vial) 75 mcg PRN Q2HR PRN IVP PAIN; Start 05/17/19 at 08:30 Hydromorphone HCl (Dilaudid) 2 mg 1X ONCE IV ; Start 05/17/19 at 08:45; Stop 05/17/19 at 08:46; Status DC Active Scripts Active Bactrim 400-80 Mg Tablet (Sulfamethoxazole/Trimethoprim) 1 Each Tablet 1 Tab PO BID Zofran (Ondansetron Hcl) 4 Mg Tablet 1 Tab PO PRN Q6-8HRS Reported Seroquel (Quetiapine Fumarate) 200 Mg Tablet 200 Mg PO HS Tizanidine Hcl 4 Mg Tablet 4 Mg PO TID PRN Clonidine Hcl 0.1 Mg Tablet 0.1 Mg PO DAILY Vitals/I & O Vital Sign - Last 24 Hours 05/16/19 05/16/19 05/16/19 05/16/19 09:13 09:43 11:01 12:33 Temp 97.8 97.8 Pulse 89 89 Resp 16 22 B/P (MAP) 151/54 (86) 151/54 Pulse Ox 100 96 96 O2 Delivery Room Air Room Air Room Air 05/16/19 05/16/19 05/16/19 05/16/19 13:23 13:25 13:55 15:06 Temp 97.8 97.8 Pulse 89 89 Resp 20 B/P (MAP) 151/54 151/54 (86) Pulse Ox 96 96 96 O2 Delivery Room Air Room Air Room Air 05/16/19 05/16/19 05/16/19 05/16/19 17:17 17:47 19:41 19:43 Temp 98.4 98.4 Pulse 91 Resp 20 B/P (MAP) 169/81 (110) Pulse Ox 96 96 98 O2 Delivery Room Air Room Air Room Air Room Air 05/16/19 05/16/19 05/16/19 05/16/19 20:00 20:05 20:11 20:46 Temp 99.3 99.3 Pulse 90 91 Resp 18 B/P (MAP) 149/78 (101) 169/81 Pulse Ox 98 98 O2 Delivery Room Air Room Air 05/16/19 05/16/19 05/16/19 05/16/19 20:46 22:39 23:00 23:09 Temp 97.2 97.2 Pulse 91 85 Resp 30 B/P (MAP) 169/81 154/80 (104) Pulse Ox 100 98 O2 Delivery Room Air Room Air 05/17/19 05/17/19 05/17/19 05/17/19 02:08 02:38 03:00 04:45 Temp 98.7 98.7 Pulse 26 26 Resp 26 B/P (MAP) 145/62 (89) 145/62 Pulse Ox 98 98 O2 Delivery Room Air Room Air 05/17/19 05/17/19 05/17/1919 04:47 04:50 05:17 06:59 O2 Delivery Room Air Room Air Room Air Room Air 05/17/19 07:00 Temp 98.1 98.1 Pulse 100 Resp 18 B/P (MAP) 157/79 (105) Pulse Ox 95 O2 Delivery Room Air Intake and Output 05/16/19 05/16/19 05/17/19 15:00 23:00 07:00 Intake Total 480 ml 560 ml 940 ml Balance 480 ml 560 ml 940 ml EMMA BRENNAN MD May 17, 2019 09:10
[2019-05-17 11:00] VITALS: BP 152/84
--- NOTE | 2019-05-17 12:52 | PDOC ---
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 History of Present Illness History of Present Illness Patient seen and examined I reviewed the MRI report and called interventional radiology They feel that these lesions can be watched closely Vitals/I&O Vitals/I&O: Vital Signs Date Time Temp Pulse Resp B/P (MAP) Pulse Ox O2 Delivery O2 Flow Rate FiO2 05/17/19 11:00 97.8 87 19 152/84 (106) 95 Room Air 97.8 I & O 05/16/19 05/16/19 05/17/19 15:00 23:00 07:00 Intake Total 480 ml 560 ml 940 ml Balance 480 ml 560 ml 940 ml Physical Exam General: Alert, Oriented X3, Cooperative, mild distress Heart: Regular rate, Normal S1 Lungs: Clear, Wheezing Abdomen: Normal bowel sounds, Soft Extremities: No clubbing, No cyanosis Skin: No significant lesion Assessment and Plan Assessmemt and Plan Problems Medical Problems: (1) Accelerated hypertension Status: Acute (2) Headache Status: Acute Migraines Hypertension Possible sleep apnea Pineal lesion, 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 Plan When necessary narcotics Lumbar puncture tomorrow Home meds DVT prophylaxis Full code Comment Review of Relevant I have reviewed the following items rhonda (where applicable) has been applied. Medications: Current Medications Medications (Trade) Dose Ordered Sig/Kathrine Route PRN Reason Start Time Stop Time Status Last Admin Dose Admin Hydromorphone HCl (Dilaudid) 2 mg 1X ONCE IV 05/17/19 08:45 05/17/19 11:41 DC 05/17/19 09:01 ARYA SCOTT III DO May 17, 2019 12:52
[2019-05-17 15:00] VITALS: BP 154/76
[2019-05-17] MEDS: HYDROmorphone 2 MG/ML VIAL IV PRN ×2 (15:33→20:58)
[2019-05-17 19:00] VITALS: BP 160/80
[2019-05-17] MEDS: QUEtiapine 100 MG TABLET. PO SCH (20:55)
[2019-05-17 23:00] VITALS: BP 159/82
[2019-05-18 03:00] VITALS: BP 119/56
[2019-05-18] MEDS: cloNIDine HCL 0.1 MG TABLET PO SCH ×3 (05:27→20:44)
[2019-05-18] MEDS: HYDROmorphone 2 MG/ML VIAL IV PRN ×4 (05:28→21:44)
[2019-05-18 07:00] VITALS: BP 147/63
[2019-05-18] MEDS ORDERED: LIDOCAINE WITH 8.4% SOD BICARB 3 ML DISP.SYRIN. INJ ONE (09:15)
--- NOTE | 2019-05-18 09:21 | PDOC ---
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 Complains of rectal bleeding Plan GI consult I will repeat the brain MRI in 3-12 months, and the brain MRI angiogram in one year Citalopram started for migraine prevention and grief reaction, side effects discussed Await lumbar puncture to check opening pressure, need to hold Lovenox 24 hours Dilaudid In past, she has had side effects or lack of improvement with multiple medication: Depakote, Imitrex, Toradol, Benadryl, Compazine, and, here in hospital, the sumatriptan, morphine, fentanyl, and DHE Outpatient home polysomnogram I'm not sure which direction the cause-effect arrow goes between her hypertension and migraines, hopefully lowering of blood pressure will help Headache still 6/10, cannot go home with this degree of pain Subjective She complains of rectal bleeding, headache is down to 6/10, she prefers Dilaudid to any of the other medications I have given. Objective Vital Signs Date Time Temp Pulse Resp B/P (MAP) Pulse Ox O2 Delivery O2 Flow Rate FiO2 05/18/19 07:00 97.5 77 22 147/63 (91) 98 Room Air 97.5 Intake and Output 05/18/19 07:00 Intake Total 440 ml Balance 440 ml Intake Oral 440 ml # Voids 5 PHYSICAL EXAM Alert. Oriented to time, place and person. PERRL. EOMI. CN: no focal findings. Muscle tone: normal. Muscle strength: 5/5 DTR: 2+ Plantar reflex: flexor Gait: not examined in bed. Sensory exam: no abnormal findings. No cerebellar signs elicited. Review of Relevant I have reviewed the following items rhonda (where applicable) has been applied. Medications Current Medications Prochlorperazine Edisylate (Compazine) 10 mg 1X ONCE IV Last administered on 05/11/19at 19:40; Start 05/11/19 at 19:15; Stop 05/11/19 at 19:16; Status DC Metoclopramide HCl (Reglan Vial) 10 mg 1X ONCE IVP ; Start 05/11/19 at 18:45; Stop 05/11/19 at 18:46; Status UNV Diphenhydramine HCl (Benadryl) 50 mg 1X ONCE IVP Last administered on 05/11/19at 19:40; Start 05/11/19 at 19:15; Stop 05/11/19 at 19:16; Status DC Fentanyl Citrate (Fentanyl 2ml Vial) 75 mcg 1X ONCE IVP Last administered on 05/11/19at 20:51; Start 05/11/19 at 21:00; Stop 05/11/19 at 21:01; Status DC Labetalol HCl (Normodyne Iv Push) 20 mg 1X ONCE IVP Last administered on 05/11/19at 21:20; Start 05/11/19 at 21:30; Stop 05/11/19 at 21:31; Status DC Ondansetron HCl (Zofran) 4 mg PRN Q8HRS PRN IV NAUSEA/VOMITING Last administered on 05/11/19at 21:50; Start 05/11/19 at 21:15; Stop 05/12/19 at 21:14; Status DC Morphine Sulfate (Morphine Sulfate) 2 mg PRN Q2HR PRN IV PAIN Last administered on 05/12/19at 20:38; Start 05/11/19 at 21:15; Stop 05/12/19 at 21:14; Status DC Sodium Chloride 1,000 ml @ 75 mls/hr [id number] IV Last administered on 05/12/19at 10:35; Start 05/11/19 at 21:15; Stop 05/12/19 at 21:14; Status DC Clonidine HCl (Catapres) 0.1 mg PRN Q4HRS PRN PO HYPERTENSION; Start 05/11/19 at 21:15; Status Cancel Clonidine HCl (Catapres) 0.1 mg DAILY PO Last administered on 05/13/19at 10:52; Start 05/12/19 at 13:00; Stop 05/13/19 at 15:42; Status DC Tizanidine HCl (Zanaflex) 4 mg PRN TID PRN PO MUSCLE SPASMS Last administered on 05/16/19at 20:53; Start 05/12/19 at 12:00 Ondansetron HCl (Zofran Odt) 4 mg PRN Q8HRS PRN PO NAUSEA/VOMITING (1st Choice); Start 05/12/19 at 12:15 Quetiapine Fumarate (SEROquel) 200 mg QHS PO Last administered on 05/17/19at 20:55; Start 05/12/19 at 21:00 Lorazepam (Ativan Inj) 0.5 mg PRN Q8HRS PRN IVP ANXIETY / AGITATION Last administered on 05/18/19at 05:27; Start 05/12/19 at 12:00 Promethazine HCl (Phenergan) 12.5 mg PRN Q6HRS PRN PO NAUSEA/VOMITING 2ND CHOICE Last administered on 05/12/19at 14:38; Start 05/12/19 at 12:00; Stop 05/13/19 at 18:29; Status DC Sodium Chloride (Normal Saline Flush) 3 ml QSHIFT PRN IV AFTER MEDS AND BLOOD DRAWS; Start 05/12/19 at 12:30 Ondansetron HCl (Zofran) 4 mg PRN Q4HRS PRN IV NAUSEA/VOMITING (1st Choice); Start 05/12/19 at 12:30 Acetaminophen (Tylenol) 650 mg PRN Q4HRS PRN PO TEMP OVER 100.4F OR MILD PAIN; Start 05/12/19 at 12:30 Al Hydroxide/Mg Hydroxide (Mylanta Plus Xs) 30 ml PRN DAILY PRN PO HEARTBURN / GAS; Start 05/12/19 at 12:30 Clonidine HCl (Catapres) 0.1 mg PRN Q6HRS PRN PO SBP>160 OR DBP>90; Start 05/12/19 at 12:30 Docusate Sodium (Colace) 100 mg PRN BID PRN PO CONSTIPATION; Start 05/12/19 at 12:30 Albuterol Sulfate (Ventolin Neb Soln) 2.5 mg PRN Q4HRS PRN NEB SHORTNESS OF BREATH; Start 05/12/19 at 12:30 Guaifenesin (Robitussin) 200 mg PRN Q4HRS PRN PO COUGH; Start 05/12/19 at 12:30 Lorazepam (Ativan) 0.5 mg PRN Q4HRS PRN PO ANXIETY / AGITATION Last administered on 05/17/19at 23:00; Start 05/12/19 at 12:30 Enoxaparin Sodium (Lovenox 60mg Syringe) 60 mg Q12HR SQ Last administered on 05/16/19at 20:46; Start 05/12/19 at 21:00; Stop 05/17/19 at 08:32; Status DC Tramadol HCl (Ultram) 50 mg PRN Q6HRS PRN PO PAIN Last administered on 05/17/19 04:50; Start 05/12/19 at 23:15 Morphine Sulfate (Morphine Sulfate) 2 mg PRN Q6HRS PRN IV PAIN Last administered on 05/13/19 13:42; Start 05/12/19 at 23:15; Stop 05/13/19 at 17:29; Status DC Prochlorperazine Edisylate (Compazine) 10 mg PRN Q6HRS PRN IV NAUSEA/VOMITING (2nd Choice) Last administered on 05/12/19 23:19; Start 05/12/19 at 23:15 Clonidine HCl (Catapres) 0.1 mg BID PO Last administered on 05/14/19 09:12; Start 05/13/19 at 15:45; Stop 05/14/19 at 11:38; Status DC Morphine Sulfate (Morphine Sulfate) 4 mg PRN Q4HRS PRN IV MODERATE TO SEVERE PAIN Last administered on 05/16/19 03:54; Start 05/13/19 at 17:45; Stop 05/16/19 at 08:54; Status DC Promethazine HCl (Phenergan) 12.5 mg PRN Q4HRS PRN PO NAUSEA/VOMITING 2ND CHOICE Last administered on 05/14/19at 22:51; Start 05/13/19 at 18:30 Dihydroergotamine Mesylate 1 mg/ Sodium Chloride 51 ml @ 102 mls/hr Q12H IV L ast administered on 05/15/19at 12:30; Start 05/14/19 at 09:00; Stop 05/15/19 at 10:00; Status DC Clonidine HCl (Catapres) 0.1 mg Q8HRS PO Last administered on 05/18/19 05:27; Start 05/14/19 at 14:00 Hydralazine HCl (Apresoline Inj) 10 mg PRN Q6HRS PRN IVP ELEVATED BP, SEE COMMENTS Last administered on 05/16/19at 07:07; Start 05/14/19 at 12:30 Metoclopramide HCl (Reglan Vial) 10 mg 1X ONCE IVP ; Start 05/15/19 at 09:00; Stop 05/15/19 at 09:01; Status UNV Dihydroergotamine Mesylate 1 mg/ Sodium Chloride 51 ml @ 102 mls/hr 1X ONCE IV ; Start 05/15/19 at 09:00; Stop 05/15/19 at 09:29; Status UNV Ondansetron HCl (Zofran) 4 mg ONCE ONCE IVP Last administered on 05/15/19at 12:17; Start 05/15/19 at 09:50; Stop 05/15/19 at 09:51; Status DC Citalopram Hydrobromide (CeleXA) 20 mg DAILY PO Last administered on 05/17/19at 09:00; Start 05/16/19 at 09:00 Fentanyl Citrate (Fentanyl 2ml Vial) 50 mcg PRN Q2HR PRN IVP PAIN Last administered on 05/17/19at 06:59; Start 05/16/19 at 09:00; Stop 05/17/19 at 08:32; Status DC Sumatriptan Succinate (Imitrex) 6 mg 1X ONCE SQ Last administered on 05/16/19at 09:59; Start 05/16/19 at 09:30; Stop 05/16/19 at 09:31; Status DC Lisinopril (Prinivil) 20 mg DAILY PO ; Start 05/16/19 at 11:15; Stop 05/16/19 at 11:37; Status DC Labetalol HCl (Trandate) 100 mg BID PO Last administered on 05/17/19at 20:57; Start 05/16/19 at 12:00 Fentanyl Citrate (Fentanyl 2ml Vial) 75 mcg PRN Q2HR PRN IVP PAIN; Start 05/17/19 at 08:30; Stop 05/17/19 at 11:40; Status DC Hydromorphone HCl (Dilaudid) 2 mg 1X ONCE IV Last administered on 05/17/19at 09:01; Start 05/17/19 at 08:45; Stop 05/17/19 at 11:41; Status DC Hydromorphone HCl (Dilaudid) 2 mg PRN Q4HRS PRN IV MODERATE TO SEVERE PAIN Last administered on 05/18/19at 05:28; Start 05/17/19 at 11:45 Hydromorphone HCl (Dilaudid) 2 mg 1X ONCE IV Last administered on 05/17/19at 22:53; Start 05/17/19 at 23:00; Stop 05/17/19 at 23:01; Status DC Lidocaine HCl (Buffered Lidocaine 1%) 3 ml 1X ONCE INJ ; Start 05/18/19 at 09:15; Stop 05/18/19 at 09:16; Status DC Active Scripts Active Bactrim 400-80 Mg Tablet (Sulfamethoxazole/Trimethoprim) 1 Each Tablet 1 Tab PO BID Zofran (Ondansetron Hcl) 4 Mg Tablet 1 Tab PO PRN Q6-8HRS Reported Seroquel (Quetiapine Fumarate) 200 Mg Tablet 200 Mg PO HS Tizanidine Hcl 4 Mg Tablet 4 Mg PO TID PRN Clonidine Hcl 0.1 Mg Tablet 0.1 Mg PO DAILY Vitals/I & O Vital Sign - Last 24 Hours 05/17/19 05/17/19 05/17/19 05/17/19 11:00 15:00 15:31 15:33 Temp 97.8 98.2 97.8 98.2 Pulse 87 85 87 Resp 19 18 20 B/P (MAP) 152/84 (106) 154/76 (102) 152/84 Pulse Ox 95 98 93 O2 Delivery Room Air Room Air Room Air 05/17/19 05/17/19 05/17/19 05/17/19 16:05 19:00 20:03 20:56 Temp 98.5 98.5 Pulse 81 81 Resp 20 22 B/P (MAP) 160/80 (106) 160/80 Pulse Ox 94 96 O2 Delivery Room Air Room Air 05/17/19 05/17/19 05/17/19 05/17/19 20:57 20:58 21:28 22:53 Pulse 81 B/P (MAP) 160/80 Pulse Ox 96 O2 Delivery Room Air Room Air Room Air 05/17/19 05/18/19 05/18/19 05/18/19 23:00 03:00 05:27 05:28 Temp 98.7 97.7 98.7 97.7 Pulse 80 73 74 Resp 20 24 15 B/P (MAP) 159/82 (107) 119/56 (77) 147/78 Pulse Ox 96 100 100 O2 Delivery Room Air 05/18/19 05/18/19 06:00 07:00 Temp 97.5 97.5 Pulse 77 Resp 18 22 B/P (MAP) 147/63 (91) Pulse Ox 100 98 O2 Delivery Room Air Room Air Intake and Output 05/17/19 05/17/19 05/18/19 15:00 23:00 07:00 Intake Total 200 ml 240 ml Balance 200 ml 240 ml EMMA BRENNAN MD May 18, 2019 09:21
[2019-05-18 10:24] LABS: CSF PROTEIN 34.1 mg/dL (15.0-45.0)
[2019-05-18] MEDS: PROMETHAZINE 12.5 MG TABLET. PO PRN (10:47)
[2019-05-18] MEDS: CITALOPRAM 20 MG TABLET. PO SCH (10:47)
[2019-05-18] MEDS: LABETALOL HCL 100 MG TABLET. PO SCH ×2 (10:48→20:44)
[2019-05-18 10:53] VITALS: BP 179/75
--- NOTE | 2019-05-18 11:36 | PDOC2 ---
GI CONSULT Reason For Consult: Rectal bleeding HPI: HPI: 44 y/o female admitted several days ago w/ headache and HTN. Brain imaging w/ pineal lesion and right ICA clinoid segment aneurysm - plans to monitor w/ imaging per neurology. Also s/p LP this morning. Also has DC orders per Dr. Driscoll. GI-nichols, has seen some bright red blood w/ stools for a couple days - worse overnight w/ "stiffer" stools and associated w/ rectal pain ("razor blades"). Wants evaluation while she's here in the hospital. Has also had some nausea/decreased appetite w/ headache, also a dull ache in epigastrium after eating. H/o GERD "that used to wake me up screaming" w/ previous Prilosec use, no longer bothersome (or treated) w/ weight loss. No dysphagia. Typically no issues w/ n/v, abd pain, diarrhea, or constipation. No melena. Intentional weight loss w/ [employer]ystem and vegetarian/low carb diet. H/o anemia since age 14 - took iron at one point, quit due to constipation, was also advised to drink grape juice as treatment. Had EGD in 1998 for being "sick to stomach" with a lot of stress - was at [facility] for 30 days - says "intestines were blue and twisted" and "they kept saying something about the duodenum." Was given medicine for IBS. Had colonoscopy in [place], [place] in 2007 for crampy abd pain - says she was given a medication that started with a P, polyps were removed, hemorrhoids noted, and it was recommended that she have a colonoscopy every yea r. S/p cholecystectomy for decreased GB EF. Denies liver or pancreas history. Past CT (in 10/2018) noted mild hepatomegaly and mild dilatation of the common bile duct and pancreatic duct. Typically no NSAIDs but recently took a course of Naprosyn for neuropathy. Increased stress - only child, both parents this year, of 20 years unfaithful. PMH: PMH: HTN, migraines, anemia, neuropathy partial hysterectomy, cholecystectomy, lumbar puncture FH: Family History: Other ("intestinal problems" in several fmily members - mother had GB and pancreas issues - had to "have it cleaned out and something with a stent") Social History: Smoke: No ALCOHOL: none Drugs: None ROS: GEN: Denies fevers, chills, sweats HEENT: +migraine aura at home CV: Denies chest pain RESP: Denies shortness of air, cough GI: Per HPI : Denies hematuria, dysuria ENDO: +weight loss NEURO: +headache MSK: Denies weakness, joint pain/swelling SKIN: Denies jaundice, pruritus Vitals: Vitals: Vital Signs Date Time Temp Pulse Resp B/P (MAP) Pulse Ox O2 Delivery O2 Flow Rate FiO2 05/18/19 10:53 97.2 86 20 179/75 (109) 98 Room Air 97.2 Labs: Labs: Laboratory Tests Test 05/18/19 10:00 CSF Glucose 56 mg/dL (37-70) CSF Total Protein 34.1 mg/dL (15.0-45.0) Allergies: Coded Allergies: Penicillins (Verified Allergy, Intermediate, 11/02/18) ketorolac (Verified Allergy, Intermediate, 11/02/18) metoclopramide (Verified Allergy, Intermediate, 11/02/18) Medications: Current Medications Medications (Trade) Dose Ordered Sig/Kathrine Route PRN Reason Start Time Stop Time Status Last Admin Dose Admin Hydromorphone HCl (Dilaudid) 2 mg PRN Q4HRS PRN IV MODERATE TO SEVERE PAIN 05/17/19 11:45 05/18/19 10:47 Hydromorphone HCl (Dilaudid) 2 mg 1X ONCE IV 05/17/19 23:00 05/17/19 23:01 DC 05/17/19 22:53 Imaging: Imaging: CXR Impression: Mild cardiomegaly. No acute pulmonary findings seen. Head CT IMPRESSION: Subtle loss of lieberman-white distinction in the right frontal lobe, which may be artifactual. Recommend MRI for further evaluation. Echocardiogram <Conclusion> The left ventricular systolic function is normal. The Ejection Fraction is 60-65%. There is normal LV segmental wall motion. Trace mitral regurgitation. Trace tricuspid regurgitation. There is no evidence of significant pericardial effusion. Brain Angiography MRI IMPRESSION: 1. No evidence for acute or subacute ischemia. 2. 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 3 month follow-up MRI brain may be of benefit to assess stability as alternate pineal lesions/tumors remain in the differential. 3. 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 One year follow-up MRA may be of benefit. 4. No evidence for sinus venous thrombosis. PE: GEN: NAD HEENT: Atraumatic, PERRL LUNGS: CTAB HEART: RRR ABD: NABS, soft, obese, very mild/vague epigastric discomfort EXTREMITY: No edema SKIN: No rashes, no jaundice NEURO/PSYCH: A & O 3 A/P: A/P: Headache, HTN - neuro recs/workup as above Rectal bleeding, nausea/decreased appetite, epigastric discomfort Anemia - says a chronic issue, took iron at one point H/o GERD - no longer bothersome w/ weight loss CRC screen, h/o polyps - colonoscopy in [place] in 2007 S/p cholecystectomy Mild hepatomegaly, CBD and PD dilation Recent NSAID use -- Add PPI, check iron profile, check x-ray, treat ?constipation, plan for outpt 'scopes. PUNEET AREVALO May 18, 2019 11:36
[2019-05-18] MEDS ORDERED: POLYETHYLENE GLYCOL 3350 17 GM PACKET. PO PRN (11:45)
[2019-05-18] MEDS ORDERED: BISACODYL 5 MG TABLET.DR. PO PRN (11:45)
[2019-05-18 12:52] LABS: CSF CLARITY CLEAR; CSF COLOR COLORLESS
[2019-05-18] MEDS: PANTOPRAZOLE 40 MG TABLET.DR. PO SCH (12:52)
[2019-05-18] MEDS: POLYETHYLENE GLYCOL 3350 17 GM PACKET. PO SCH (12:52)
[2019-05-18 12:53] LABS: CSF RBC COUNT 4 /cmm (Not Established); CSF WBC COUNT 2 /cmm (Not Established)
--- NOTE | 2019-05-18 13:06 | RAD ---
EXAM: FLUOROSCOPICALLY GUIDED LUMBAR PUNCTURE. HISTORY: Headache, concern for intracranial hypertension. Fluoroscopically guided lumbar puncture is requested. FINDINGS: The procedure along with its risks and benefits were explained to the patient. They agreed to proceed. A timeout procedure was performed. The patient was placed prone on the fluoroscopy table. The L4-5 level was localized fluoroscopically. The overlying skin was sterilely prepped and infiltrated with 1% lidocaine for local anesthesia. Under fluoroscopic guidance, a 20-gauge spinal needle was advanced into the thecal sac. A fluoroscopic image was obtained. Fluoroscopy time 0.6 minutes. There was spontaneous return of clear cerebrospinal fluid. Opening pressure was measured at 27 cm of water. 30 mL were collected. Closing pressure was approximately 17 cm water. Instrumentation was withdrawn and a sterile dressing placed. There were no immediate complications. Postprocedural instructions were provided. IMPRESSION: 1. Successful fluoroscopically guided lumbar puncture. Opening pressure 27 cm water. 30 mL clear CSF were collected with closing pressure approximately 17 cm water. Electronically signed by: Milind Haines MD (05/18/2019 1:04 PM) [facility]
[2019-05-18 15:24] VITALS: BP 158/80
[2019-05-18 16:18] LABS: BASO % 1 % (0-3); EOS # 0.4 x10^3/uL (0.0-0.7); EOS % 8 % (0-3); HEMATOCRIT 27.5 % (36.0-47.0); LYMPH # 1.6 x10^3/uL (1.0-4.8); LYMPH % 37 % (24-48); MEAN CORPUSCULAR HEMOGLOBIN 27 pg (25-35); MEAN CORPUSCULAR HGB CONC 33 g/dL (31-37); MEAN CORPUSCULAR VOLUME 81 fL (79-100); MONO # 0.4 x10^3/uL (0.0-1.1); MONO % 10 % (0-9); NEUT # 1.9 x10^3/uL (1.8-7.7); NEUT % 45 % (31-73); PLATELET COUNT 161 x10^3/uL (140-400); RED BLOOD COUNT 3.39 x10^6/uL (3.50-5.40); RED CELL DISTRIBUTION WIDTH 14.4 % (11.5-14.5); WHITE BLOOD COUNT 4.2 x10^3/uL (4.0-11.0)
--- NOTE | 2019-05-18 16:40 | RAD ---
EXAM: Abdomen acute complete. HISTORY: Pain. Bloody stools. COMPARISON: 05/12/2019 FINDINGS: A frontal view of the chest and frontal upright and supine views of the abdomen are obtained. There is cardiomegaly. There is no consolidation, pleural effusion or pneumothorax. There is moderate gas and stool throughout the colon and within the rectal vault. There is no evidence of small bowel obstruction. There is no free air. IMPRESSION: 1. Cardiomegaly. 2. Moderate colonic and rectal stool. Correlate for constipation. Electronically signed by: Krista Hebert MD (05/18/2019 4:37 PM) [place] [id number]
[2019-05-18 19:00] VITALS: BP 148/86
[2019-05-18] MEDS: QUEtiapine 100 MG TABLET. PO SCH (20:43)
[2019-05-18] MEDS: tiZANidine 4 MG TABLET. PO PRN (20:46)
[2019-05-18 23:00] VITALS: BP 125/68
[2019-05-19] MEDS: HYDROmorphone 2 MG/ML VIAL IV PRN ×3 (02:12→10:35)
--- NOTE | 2019-05-19 02:39 | DS ---
DATE OF DISCHARGE: 05/18/2019 ADMISSION DIAGNOSIS: Headache. DISCHARGE DIAGNOSES: 1. Resolving migraine. 2. 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 3. Pineal gland cyst. 4. Narcotic dependence. 5. Obesity. HOSPITAL COURSE: The patient is a pleasant 44-year-old female who presented with headache. She was treated for her headache with narcotics and we consulted Neurology. She did go for a lumbar puncture this morning, the results are pending. I did see her and examined her this morning. Heart tones were normal. Lungs were clear. Abdomen was soft and obese. Extremities had trace edema. Overall, she looks great. We plan to discharge if the lumbar puncture is negative. It should be noted that she did have a small aneurysm, please see above. I did call Interventional Radiology. The plan is to simply observe this and periodically reimaging to make sure it is not enlarging. DISPOSITION: Home. ACTIVITY: As tolerated. DIET: Low-sodium. MEDICATIONS: I did give her a prescription for Dilaudid 2 mg #10 take 1 p.o. every 6 hours p.r.n. TOTAL TIME: 34 minutes. ARYA SCOTT DO DR: RADHA/ileana JOB#: [id number] / [id number]
[2019-05-19 03:26] VITALS: BP 157/82
[2019-05-19] MEDS: cloNIDine HCL 0.1 MG TABLET PO SCH (06:27)
[2019-05-19 07:59] VITALS: BP 153/75
[2019-05-19] MEDS: POLYETHYLENE GLYCOL 3350 17 GM PACKET. PO SCH (09:00)
[2019-05-19] MEDS: CITALOPRAM 20 MG TABLET. PO SCH (10:35)
[2019-05-19] MEDS: LABETALOL HCL 100 MG TABLET. PO SCH (10:36)
[2019-05-19] MEDS: PANTOPRAZOLE 40 MG TABLET.DR. PO SCH (10:36)
--- NOTE | 2019-05-19 11:09 | PDOC ---
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 History of Present Illness History of Present Illness Patient seen and examined I reviewed the MRI report and called interventional radiology They feel that these lesions can be watched closely 05/19 Pt seen and examined Pt resting comfortably Pt mildly anxious but was reassured DWRN Vitals/I&O Vitals/I&O: Vital Signs Date Time Temp Pulse Resp B/P (MAP) Pulse Ox O2 Delivery O2 Flow Rate FiO2 05/19/19 10:36 71 153/75 05/19/19 07:59 98.4 20 93 Room Air 98.4 I & O 05/18/19 05/18/19 05/19/19 15:00 23:00 07:00 Intake Total 400 ml 360 ml 240 ml Balance 400 ml 360 ml 240 ml Physical Exam General: Alert, Oriented X3, Cooperative, mild distress Heart: Regular rate, Normal S1 Lungs: Clear, Wheezing Abdomen: Normal bowel sounds, Soft Extremities: No clubbing, No cyanosis Skin: No rashes, No significant lesion Labs Labs: Laboratory Tests Test 05/18/19 16:10 White Blood Count 4.2 x10^3/uL (4.0-11.0) Red Blood Count 3.39 x10^6/uL (3.50-5.40) Hemoglobin 9.0 g/dL (12.0-15.5) Hematocrit 27.5 % (36.0-47.0) Mean Corpuscular Volume 81 fL (79-100) Mean Corpuscular Hemoglobin 27 pg (25-35) Mean Corpuscular Hemoglobin Concent 33 g/dL (31-37) Red Cell Distribution Width 14.4 % (11.5-14.5) Platelet Count 161 x10^3/uL (140-400) Neutrophils (%) (Auto) 45 % (31-73) Lymphocytes (%) (Auto) 37 % (24-48) Monocytes (%) (Auto) 10 % (0-9) Eosinophils (%) (Auto) 8 % (0-3) Basophils (%) (Auto) 1 % (0-3) Neutrophils # (Auto) 1.9 x10^3/uL (1.8-7.7) Lymphocytes # (Auto) 1.6 x10^3/uL (1.0-4.8) Monocytes # (Auto) 0.4 x10^3/uL (0.0-1.1) Eosinophils # (Auto) 0.4 x10^3/uL (0.0-0.7) Basophils # (Auto) 0.0 x10^3/uL (0.0-0.2) Iron Level 47 ug/dL (50-170) Total Iron Binding Capacity 215 ug/dL (250-450) Iron Saturation 22 % (15-34) Review of Systems Review of Systems: No CP, SOB Assessment and Plan Assessmemt and Plan Problems Medical Problems: (1) Accelerated hypertension Status: Acute (2) Headache Status: Acute Assessment Migraines Hypertension Possible sleep apnea Pineal lesion, 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 Plan Narcotics prn Lumbar puncture was negative GI consult, treat constipation, treat iron def anemia, follow-up outpatient Neuro consult, awaiting comment after LP result Home meds DVT prophylaxis PT/OT Probable DC today if ok with subspecialist Full code Comment Review of Relevant I have reviewed the following items rhonda (where applicable) has been applied. Medications: Current Medications Medications (Trade) Dose Ordered Sig/Kathrine Route PRN Reason Start Time Stop Time Status Last Admin Dose Admin Pantoprazole Sodium (Protonix) 40 mg DAILYAC PO 05/18/19 11:30 05/19/19 10:36 Polyethylene Glycol (miraLAX PACKET) 17 gm DAILY PO 05/18/19 12:00 05/18/19 12:52 ARYA SCOTT III DO May 19, 2019 11:09
[2019-05-19 11:32] VITALS: BP 152/73
[2019-05-19] MEDS ORDERED: acetaZOLAMIDE 250 MG TABLET. PO SCH (12:00)
[2019-05-19] MEDS ORDERED: HYDROmorphone 2 MG TABLET PO ONE (12:15)
--- NOTE | 2019-05-19 12:56 | NUR ---
RN entered room to give patient PO dilaudid and Diamox and to inform pt of discharge. pt became very hostile accusing RN of lying about orders to discharge and demanding to speak with Dr. Driscoll or Dr. Babin. RN already spoke with Dr. Driscoll who is no longer on site. pt informed of this. pt then accused RN of "not caring" and trying to estrada her out. RN explained that this was not the case, that pt had discharge orders and it was verified with Dr. Babin. pt continued to demand to speak with a physician. NS paged.
--- NOTE | 2019-05-19 15:47 | NUR ---
pt discharged home with family or friend. stable upon dc. script given for PO dilaudid, diamox called in to [facility]. pt taken out via w/c. meds and follow up reviewed.
== END 2019-05-19 15:00 | disposition home or self-care (01) | DRG 103 ==
LOC: ER 17:26 → 6 SOUTH 21:00 → ER 21:08 → 5 SOUTH 05-16 20:15
PROVIDERS: ADMIT Family Medicine; ATTEND Family Medicine
PROC: 009U3ZX Drainage of Spinal Canal, Percutaneous Approach, Diagnostic (ICD-10-PCS; principal; 2019-05-18)
PROC: B01B1ZZ Fluoroscopy of Spinal Cord using Low Osmolar Contrast (ICD-10-PCS; 2019-05-18)
DX: G43.909 Migraine, unspecified, not intractable, without status migrainosus (principal); F11.20 Opioid dependence, uncomplicated; I16.9 Hypertensive crisis, unspecified; K62.5 Hemorrhage of anus and rectum; Z68.42 Body mass index [BMI] 45.0-49.9, adult; I67.1 Cerebral aneurysm, nonruptured; D64.9 Anemia, unspecified; E66.01 Morbid (severe) obesity due to excess calories; G62.9 Polyneuropathy, unspecified; I10 Essential (primary) hypertension; K58.9 Irritable bowel syndrome, unspecified; K83.8 Other specified diseases of biliary tract; Z82.49 Family history of ischemic heart disease and other diseases of the circulatory system; Z90.49 Acquired absence of other specified parts of digestive tract; Z90.711 Acquired absence of uterus with remaining cervical stump; F43.20 Adjustment disorder, unspecified; G43.109 Migraine with aura, not intractable, without status migrainosus; K21.9 Gastro-esophageal reflux disease without esophagitis; M19.90 Unspecified osteoarthritis, unspecified site; Z88.0 Allergy status to penicillin; Z88.8 Allergy status to other drugs, medicaments and biological substances
CPT/HCPCS: 36415; 62270; 70450; 70544; 70551; 71046; 74022; 80053; 82945; 83540; 83550; 84157; 85025; 85651; 87071; 87075; 89051; 93306; 94760; 96374; 96375; J0360; J0780; J1110; J1170; J1200; J1650; J2060; J2270; J2405; J3010; J3030; J3490; J7030; Q0169; 97110; 97116; 97530; 97535; 99285-25; G0378

== ENCOUNTER 2019-06-01 10:45 | Emergency (ER) | payer SELFPAY ==
[~2019-06-01] VITALS: Ht 162.6 cm; Wt 139.3 kg
[~2019-06-01 10:45] MED LIST changes: +CLON0.1T PO; +QUET200T4 PO; +TIZA4TAB2 PO
[2019-06-01] MEDS ORDERED: ONDANSETRON PF 4 MG/2 ML VIAL. IV ONE (11:15)
[2019-06-01] MEDS ORDERED: diphenhydrAMINE 50 MG/ML VIAL IVP ONE (11:15)
[2019-06-01] MEDS ORDERED: IV NORMAL SALINE 1000ML BAG 1,000 ML IV ONE (11:15)
--- NOTE | 2019-06-01 11:33 | PHYS DOC ---
Past Medical History Past Medical History: Arthritis, Hypertension, Migraines, Other Additional Past Medical Histor: NEUROPATHY Past Surgical History: Cholecystectomy, Hysterectomy, Other Additional Past Surgical Histo: KELOID Alcohol Use: None Drug Use: None Adult General Chief Complaint Chief Complaint: HEADACHE HPI HPI Patient is a 44-year-old -[place] female who presents to the emergency department with complaints of a severe headache that started as a pulsating sensation behind her left eye 3 days ago. Patient states now the pain is a constant, sharp, stabbing pain that she rates a 10 out of 10 on the pain scale. Patient reports that she was admitted to this hospital last month and diagnosed with brain aneurysm. She states she has been taking her blood pressure medication as prescribed. Patient denies any chest pain, palpitations, shortness of breath, cough, diarrhea, or abdominal pain. Pt states that her vision has been blurry in both eyes and she reports photosensitivity. Pt denies any numbness, weakness, or difficulty speaking, she reports intermittent tingling in left hand since yesterday. She reports 3 episodes of nausea and vomiting in the last 24 hours. She denies any numbness, tingling, weakness or difficulty with coordination. She denies any difficulties with speech. Patient denies any alleviating factors. Review of Systems Review of Systems Constitutional: Denies fever or chills [] Eyes: Denies change in visual acuity, redness, or eye pain [] HENT: Denies nasal congestion or sore throat [] Respiratory: Denies cough or shortness of breath [] Cardiovascular: No additional information not addressed in HPI [] GI: Denies abdominal pain, nausea, vomiting, bloody stools or diarrhea [] : Denies dysuria or hematuria [] Musculoskeletal: Denies back pain or joint pain [] Integument: Denies rash or skin lesions [] Neurologic: Denies headache, focal weakness or sensory changes [] Endocrine: Denies polyuria or polydipsia [] All other systems were reviewed and found to be within normal limits, except as documented in this note. Current Medications Current Medications Current Medications Medications (Trade) Dose Ordered Sig/Kathrine Start Time Stop Time Status Last Admin Dose Admin Clonidine HCl (Catapres) 0.1 mg 1X ONCE 06/01/19 13:00 06/01/19 13:01 DC 06/01/19 13:17 0.1 MG Dexamethasone Sodium Phosphate (Decadron) 10 mg 1X ONCE 06/01/19 12:30 06/01/19 12:32 DC 06/01/19 12:40 10 MG Diphenhydramine HCl (Benadryl) 25 mg 1X ONCE 06/01/19 11:15 06/01/19 11:16 DC 06/01/19 11:37 25 MG Hydralazine HCl (Apresoline Inj) 10 mg 1X ONCE 06/01/19 13:00 06/01/19 13:01 DC Ondansetron HCl (Zofran) 4 mg 1X ONCE 06/01/19 11:15 06/01/19 11:16 DC 06/01/19 11:37 4 MG Sodium Chloride 1,000 ml @ 1,000 mls/hr 1X ONCE 06/01/19 11:15 06/01/19 12:14 DC 06/01/19 11:37 1,000 MLS/HR Allergies Allergies Allergies Coded Allergies Type Severity Reaction Last Updated Verified Penicillins Allergy Intermediate 11/02/18 Yes ketorolac Allergy Intermediate 11/02/18 Yes metoclopramide Allergy Intermediate 11/02/18 Yes Physical Exam Physical Exam Constitutional: Well developed, well nourished, no acute distress, non-toxic appearance, obese. [] HENT: Normocephalic, atraumatic, bilateral external ears normal, nose normal. [] Eyes: PERRLA, EOMI, conjunctiva normal, no discharge. [] Neck: Normal range of motion, no stridor. [] Cardiovascular:Heart rate regular rhythm, no murmur [] Lungs & Thorax: Bilateral breath sounds clear to auscultation, Respirations even and unlabored, no retractions, no respiratory distress [] Skin: Warm, dry, no erythema, no rash. [] Back: No tenderness Extremities: No cyanosis, ROM intact, no edema. [] Neurologic: Alert and oriented X 3, normal motor function, normal sensory function, no focal deficits noted. [] Psychologic: Affect normal, judgement normal, mood normal. [] Current Patient Data Vital Signs Vital Signs Date Time Temp Pulse Resp B/P (MAP) Pulse Ox O2 Delivery O2 Flow Rate FiO2 06/01/19 13:17 86 207/86 06/01/19 11:04 98.0 18 98 Room Air 98.0 Lab Values Laboratory Tests Test 06/01/19 11:06 POC Urine HCG, Qualitative Hcg negative (Negative) EKG EKG [] Radiology/Procedures Radiology/Procedures PROCEDURE: CT HEAD WO CONTRAST CT HEAD WO CONTRAST Clinical indications: Headache for 3 days. Worse headache of life. History of aneurysm. COMPARISON: May 11, [address] Technique: Noncontrast axial cross sectional scanning of the head was performed. PQRS compliance Statement One or more of the following individualized dose reduction techniques were utilized for this study: 1. Automated exposure control 2. Adjustment of the mA and/or kV according to patient size 3. Use of iterative reconstruction technique Findings: No acute intracranial hemorrhage or midline shift or mass-effect or hydrocephalus or extra-axial fluid collection is seen. No focal hypodense area or sulci effacement is seen to indicate an acute infarct or edema radiographically. No skull fracture or pneumocephalus is seen. No opacification of the mastoid sinuses or the middle ear cavities or the paranasal sinuses is seen. The maxillary sinuses are not completely seen in this study. Impression: No acute intracranial abnormality is seen. [] Course & Med Decision Making Course & Med Decision Making Pertinent Labs and Imaging studies reviewed. (See chart for details) Patient is a 44-year-old -[place] female who presented to the emergency room today with complaints of a headache and elevated blood pressure. She was concerned because she was recently diagnosed with a brain aneurysm. She denied any numbness, tingling, weakness or acute change in neurological status. CT of her head revealed no acute findings. The patient was given 1 L normal saline, 4 mg Zofran and 25 mg of Benadryl, she reported no relief of her symptoms after these medications so 10 mg of Decadron was also ordered. Her pain decreased to a 5 out of 10 after all these medications. Patient was given 1 dose of 10 mg of hydralazine and a 0.1 mg tablet of clonidine for her high blood pressure. Pt was instructed to follow up with her PCP for further evaluation of her headaches and management of her blood pressure. A prescription was written for fiorcet tablets to take PRN. [] Dragon Disclaimer Dragon Disclaimer This electronic medical record was generated, in whole or in part, using a voice recognition dictation system. Departure Departure Impression: Primary Impression: Hypertension Additional Impressions: Headache Nausea & vomiting Disposition: 01 HOME, SELF-CARE Condition: STABLE Referrals: UNKNOWN PCP NAME (PCP) Patient Instructions: Hypertension, Migraine Headache, [id number] Additional Instructions: The CT of your head did not show any acute findings. Take your blood pressure medication as prescribed. Fill the prescription and take as directed for migraine. Follow up with your primary care doctor for further evaluation of headaches and management of your blood pressure. Return to the ER if your symptoms worsen. Scripts Butalb/Acetaminophen/Caffeine ([id number] 50-325-40) 1 Each Tablet 1-2 EACH PO Q4HRS PRN for PAIN MDD 6 tabs for 3 Days, #18 TAB 0 Refills Prov: NAYELI ROJAS KILN [employer]OURER 06/01/19 Problem Qualifiers Primary Impression: Hypertension Hypertension type: essential hypertension Qualified Codes: I10 - Essential (primary) hypertension Additional Impressions: Headache Headache type: unspecified Headache chronicity pattern: acute headache Intractability: intractable Qualified Codes: R51 - Headache Nausea & vomiting Vomiting type: unspecified Vomiting Intractability: non-intractable Qualified Codes: R11.2 - Nausea with vomiting, unspecified NAYELI ROJAS KILN LABOURER Jun 01, 2019 11:33
--- NOTE | 2019-06-01 12:16 | RAD ---
CT HEAD WO CONTRAST Clinical indications: Headache for 3 days. Worse headache of life. History of aneurysm. COMPARISON: May 11, [address] Technique: Noncontrast axial cross sectional scanning of the head was performed. PQRS compliance Statement One or more of the following individualized dose reduction techniques were utilized for this study: 1. Automated exposure control 2. Adjustment of the mA and/or kV according to patient size 3. Use of iterative reconstruction technique Findings: No acute intracranial hemorrhage or midline shift or mass-effect or hydrocephalus or extra-axial fluid collection is seen. No focal hypodense area or sulci effacement is seen to indicate an acute infarct or edema radiographically. No skull fracture or pneumocephalus is seen. No opacification of the mastoid sinuses or the middle ear cavities or the paranasal sinuses is seen. The maxillary sinuses are not completely seen in this study. Impression: No acute intracranial abnormality is seen. Cerumen is seen occluding the right external auditory canal. The middle ear cavities appear clear otherwise. Electronically signed by: Eusebio Yee MD (06/01/2019 12:13 PM) [facility]
[2019-06-01] MEDS ORDERED: DEXAMETHASONE SOD PHOS 20 MG/5 ML VIAL. IV ONE (12:30)
[2019-06-01] MEDS ORDERED: hydrALAZINE 20 MG/ML VIAL. IVP ONE (12:30)
[2019-06-01] MEDS ORDERED: cloNIDine HCL 0.1 MG TABLET PO ONE (13:00)
[2019-06-01] MEDS: hydrALAZINE 20 MG/ML VIAL. IVP ONE ×2 (13:00→13:16)
[2019-06-01 13:17] VITALS: BP 207/86
[2019-06-01] MEDS ORDERED: BUTA1TAB23 PO (13:23)
== END 2019-06-01 14:04 | disposition home or self-care (01) ==
LOC: ER 10:45
DX: G43.909 Migraine, unspecified, not intractable, without status migrainosus (principal); I10 Essential (primary) hypertension; R11.2 Nausea with vomiting, unspecified; Z88.0 Allergy status to penicillin; Z88.8 Allergy status to other drugs, medicaments and biological substances
CPT/HCPCS: 70450; 81025; 96361; 96374; 96375; 99284; J0360; J1100; J1200; J2405; J7030

== ENCOUNTER 2020-07-30 19:26 | Emergency (ER) | payer SELFPAY ==
[~2020-07-30] VITALS: Ht 165.1 cm; Wt 143.1 kg
[~2020-07-30 19:26] MED LIST changes: +BUTA1TAB23 PO
[2020-07-30 21:00] LABS: BASO % 0 % (0-3); EOS # 0.1 x10^3/uL (0.0-0.7); EOS % 2 % (0-3); HEMATOCRIT 36.4 % (36.0-47.0); HEMOGLOBIN 11.8 g/dL (12.0-15.5); LYMPH % 45 % (24-48); MEAN CORPUSCULAR HEMOGLOBIN 25 pg (25-35); MEAN CORPUSCULAR HGB CONC 32 g/dL (31-37); MEAN CORPUSCULAR VOLUME 76 fL (79-100); MONO # 0.5 x10^3/uL (0.0-1.1); MONO % 8 % (0-9); NEUT # 3.1 x10^3/uL (1.8-7.7); NEUT % 45 % (31-73); PLATELET COUNT 189 x10^3/uL (140-400); RED BLOOD COUNT 4.78 x10^6/uL (3.50-5.40); RED CELL DISTRIBUTION WIDTH 16.5 % (11.5-14.5); WHITE BLOOD COUNT 6.8 x10^3/uL (4.0-11.0)
[2020-07-30] MEDS ORDERED: diphenhydrAMINE 50 MG/ML VIAL IVP ONE (21:00)
[2020-07-30] MEDS ORDERED: IV NORMAL SALINE 1000ML BAG 1,000 ML IV ONE (21:00)
[2020-07-30] MEDS ORDERED: DEXAMETHASONE SOD PHOS 20 MG/5 ML VIAL. IV ONE (21:00)
[2020-07-30] MEDS ORDERED: PROCHLORPERAZINE 10 MG/2 ML VIAL. IV ONE (21:00)
[2020-07-30 21:12] LABS: CALCIUM 8.9 mg/dL (8.5-10.1); CREATININE 0.8 mg/dL (0.6-1.0); GFR 93.4; POTASSIUM 3.9 mmol/L (3.5-5.1)
[2020-07-30 21:18] LABS: ALBUMIN 3.2 g/dL (3.4-5.0); ALBUMIN/GLOBULIN RATIO 0.8 (1.0-1.7); TOTAL BILIRUBIN 0.3 mg/dL (0.2-1.0); TOTAL PROTEIN 7.1 g/dL (6.4-8.2)
[2020-07-30] MEDS ORDERED: CONTRAST GIVEN. MC PRN (21:45)
[2020-07-30] MEDS ORDERED: IOHEXOL 350 MG/ML 100 ML VIAL. IV ONE (21:45)
--- NOTE | 2020-07-30 22:31 | RAD ---
Exam: CTA head and neck INDICATION: Headache TECHNIQUE: Sequential axial images through the head and neck obtained following the administration of 75 mL of Omni 350 IV contrast. Sagittal and coronal reformatted images were reconstructed from the a xial data and reviewed. Comparisons: CT head without contrast 06/11/2019 FINDINGS: CTA NECK: Visualized portions of thoracic aorta are unremarkable. Standard three-vessel aortic arch anatomy. Right common carotid artery is patent without evidence of stenosis, occlusion or aneurysm. Cervical s egment of the right internal carotid artery is patent without evidence of stenosis, occlusion or aneu rysm. Left common carotid artery is patent without evidence of stenosis, occlusion or aneurysm. Cervical se gment of the left internal carotid artery is patent without evidence of stenosis, occlusion or aneury sm. Right vertebral artery is patent to basilar confluence without evidence of stenosis, occlusion or ane urysm. Left vertebral artery is patent to the basilar confluence without evidence of stenosis, occlusion or aneurysm. Visualized are unremarkable. CTA HEAD: Intracranial segments of the right internal carotid artery are patent without evidence of stenosis, o cclusion or aneurysm. Right MCA is patent. Right RAJ is patent. Intracranial segments of the left internal carotid artery are patent without evidence of stenosis, oc clusion or aneurysm. Left MCA is patent. Left RAJ is patent. Basilar artery is patent without evidence of stenosis, occlusion or aneurysm. barrel stave inspector are patent bilater ally. IMPRESSION: Patent intracranial cervical arterial vasculature without evidence of stenosis, occlusion or aneurysm . Exposure: One or more of the following in the visualized dose reduction techniques were utilized for this examination: 1. Automated exposure control 2. Adjustment of the MA and/or KV according to patient size 3. Use of iterative of reconstructive technique Electronically signed by: Derrick Johnson MD (07/30/2020 10:28 PM) [facility]
[2020-07-30 23:00] VITALS: BP 174/85
[2020-07-30] MEDS ORDERED: BUTA1TAB23 PO (23:20)
--- NOTE | 2020-07-30 23:21 | ED.ADGEN ---
Past Medical History Past Medical History: Arthritis, Hypertension, Migraines, Other Additional Past Medical Histor: NEUROPATHY, ANEURYSM Past Surgical History: Cholecystectomy, Hysterectomy, Other Additional Past Surgical Histo: KELOID Smoking Status: Never Smoker Alcohol Use: None Drug Use: None General Adult EDM: Chief Complaint: HEADACHE HPI: HPI: Patient is a 45 year old AA female who presents emergency department with complaints of a frontal headache that began 4 days ago. Patient reports that her vision has been blurred and she has had some nausea and vomiting with the onset of the pain. She currently rates pain at a 9 out of 10 on pain scale, she reports having history of migraines and she also has a brain aneurysm. Patient denies any dizziness, numbness, tingling, weakness, difficulty speaking, loss of vision, shortness of breath, abdominal pain, or diarrhea. She denies any fever, or cough. She currently rates pain 9 out of 10 on the pain scale, she denies any alleviating factors. Review of Systems: Review of Systems: Complete ROS is negative unless otherwise noted in HPI. Current Medications: Current Medications Medications (Trade) Dose Ordered Sig/Kathrine Start Time Stop Time Status Last Admin Dose Admin Dexamethasone Sodium Phosphate (Decadron) 10 mg 1X ONCE 07/30/20 21:00 07/30/20 21:01 DC 07/30/20 21:55 10 MG Diphenhydramine HCl (Benadryl) 25 mg 1X ONCE 07/30/20 21:00 07/30/20 21:01 DC 07/30/20 21:54 25 MG Info (CONTRAST GIVEN -- Rx MONITORING) 1 each PRN DAILY PRN 07/30/20 21:45 08/01/20 21:44 Iohexol (Omnipaque 350 Mg/ml) 75 ml 1X ONCE 07/30/20 21:45 07/30/20 21:46 DC 07/30/20 22:03 75 ML Prochlorperazine Edisylate (Compazine) 10 mg 1X ONCE 07/30/20 21:00 07/30/20 21:01 DC 07/30/20 21:54 10 MG Sodium Chloride 1,000 ml @ 1,000 mls/hr 1X ONCE 07/30/20 21:00 07/30/20 21:59 DC 07/30/20 21:54 1,000 MLS/HR Allergies: Allergies: Allergies Coded Allergies Type Severity Reaction Last Updated Verified Penicillins Allergy Intermediate 11/02/18 Yes ketorolac Allergy Intermediate 11/02/18 Yes metoclopramide Allergy Intermediate 11/02/18 Yes Physical Exam: PE: See Above Constitutional: Well developed, well nourished, no acute distress, non-toxic appearance, morbidly obese. [] HENT: Normocephalic, atraumatic, bilateral external ears normal, nose normal. [] Eyes: PERRLA, EOMI, conjunctiva normal, no discharge. [] Neck: Normal range of motion, no stridor. [] Cardiovascular:Heart rate regular rhythm Lungs & Thorax: Respirations even and unlabored, no retractions, no respiratory distress Skin: Warm, dry, no erythema, no rash. [] Extremities: No cyanosis, ROM intact, no edema. [] Neurologic: Alert and oriented X 3, normal motor, normal sensory, no focal deficits noted. [] Psychologic: Affect normal, judgement normal, mood normal. [] Current Patient Data: Labs: Laboratory Tests Test 07/30/20 20:46 White Blood Count 6.8 x10^3/uL (4.0-11.0) Red Blood Count 4.78 x10^6/uL (3.50-5.40) Hemoglobin 11.8 g/dL (12.0-15.5) L Hematocrit 36.4 % (36.0-47.0) Mean Corpuscular Volume 76 fL (79-100) L Mean Corpuscular Hemoglobin 25 pg (25-35) Mean Corpuscular Hemoglobin Concent 32 g/dL (31-37) Red Cell Distribution Width 16.5 % (11.5-14.5) H Platelet Count 189 x10^3/uL (140-400) Neutrophils (%) (Auto) 45 % (31-73) Lymphocytes (%) (Auto) 45 % (24-48) Monocytes (%) (Auto) 8 % (0-9) Eosinophils (%) (Auto) 2 % (0-3) Basophils (%) (Auto) 0 % (0-3) Neutrophils # (Auto) 3.1 x10^3/uL (1.8-7.7) Lymphocytes # (Auto) 3.0 x10^3/uL (1.0-4.8) Monocytes # (Auto) 0.5 x10^3/uL (0.0-1.1) Eosinophils # (Auto) 0.1 x10^3/uL (0.0-0.7) Basophils # (Auto) 0.0 x10^3/uL (0.0-0.2) Sodium Level 138 mmol/L (136-145) Potassium Level 3.9 mmol/L (3.5-5.1) Chloride Level 106 mmol/L (98-107) Carbon Dioxide Level 22 mmol/L (21-32) Anion Gap 10 (6-14) Blood Urea Nitrogen 18 mg/dL (7-20) Creatinine 0.8 mg/dL (0.6-1.0) Estimated GFR (Cockcroft-Gault) 93.4 BUN/Creatinine Ratio 23 (6-20) H Glucose Level 92 mg/dL (70-99) Calcium Level 8.9 mg/dL (8.5-10.1) Total Bilirubin 0.3 mg/dL (0.2-1.0) Aspartate Amino Transferase (AST) 16 U/L (15-37) Alanine Aminotransferase (ALT) 18 U/L (14-59) Alkaline Phosphatase 137 U/L (46-116) H Total Protein 7.1 g/dL (6.4-8.2) Albumin 3.2 g/dL (3.4-5.0) L Albumin/Globulin Ratio 0.8 (1.0-1.7) L Laboratory Tests 07/30/20 20:46 Laboratory Tests 07/30/20 20:46 Vital Signs: Vital Signs Date Time Temp Pulse Resp B/P (MAP) Pulse Ox O2 Delivery O2 Flow Rate FiO2 07/30/20 19:40 98.6 110 18 152/95 (114) 99 Room Air 98.6 EKG: EKG: [] Heart Score: Risk Factors: Risk Factors: DM, Current or recent (<one month) smoker, HTN, HLP, family history of CAD, obesity. Risk Scores: Score 0 - 3: 2.5% MACE over next 6 weeks - Discharge Home Score 4 - 6: 20.3% MACE over next 6 weeks - Admit for Clinical Observation Score 7 - 10: 72.7% MACE over next 6 weeks - Early Invasive Strategies Radiology/Procedures: Radiology/Procedures: PROCEDURE: CT ANGIOGRAPHY HEAD AND NECK Exam: CTA head and neck INDICATION: Headache TECHNIQUE: Sequential axial images through the head and neck obtained following the administration of 75 mL of Omni 350 IV contrast. Sagittal and coronal reformatted images were reconstructed from the axial data and reviewed. Comparisons: CT head without contrast 06/11/2019 FINDINGS: CTA NECK: Visualized portions of thoracic aorta are unremarkable. Standard three-vessel aortic arch anatomy. Right common carotid artery is patent without evidence of stenosis, occlusion or aneurysm. Cervical segment of the right internal carotid artery is patent without evidence of stenosis, occlusion or aneurysm. Left common carotid artery is patent without evidence of stenosis, occlusion or aneurysm. Cervical segment of the left internal carotid artery is patent without evidence of stenosis, occlusion or aneurysm. Right vertebral artery is patent to basilar confluence without evidence of stenosis, occlusion or aneurysm. Left vertebral artery is patent to the basilar confluence without evidence of stenosis, occlusion or aneurysm. Visualized are unremarkable. CTA HEAD: Intracranial segments of the right internal carotid artery are patent without evidence of stenosis, occlusion or aneurysm. Right MCA is patent. Right RAJ is patent. Intracranial segments of the left internal carotid artery are patent without evidence of stenosis, occlusion or aneurysm. Left MCA is patent. Left RAJ is patent. Basilar artery is patent without evidence of stenosis, occlusion or aneurysm. plastics bench mechanic are patent bilaterally. IMPRESSION: Patent intracranial cervical arterial vasculature without evidence of stenosis, occlusion or aneurysm. [] Course & Med Decision Making: Course & Med Decision Making Pertinent Labs and Imaging studies reviewed. (See chart for details) 45-year-old female presented emergency department with complaints of a headache that began [address] angio of head and neck revealed no acute findings, patient had a history of a brain aneurysm, She was given a liter normal saline, 10 mg of Compazine, 25 mg of Benadryl, and 10 mg of Decadron once an IV was successfully established. The patient reported relief of her pain after these medications. I advised patient of the CT results, I encouraged her to follow-up with your primary care doctor in the next 1 to 2 days for reevaluation. Prescription was written for butalbital to take as needed for pain. Return precautions given. Patient verbalized an understanding of home care, medications, follow-up, and return to ED instructions and was in agreement with the plan of care. [] Dragon Disclaimer: Dragon Disclaimer: This electronic medical record was generated, in whole or in part, using a voice recognition dictation system. Departure Departure Impression: Primary Impression: Headache Disposition: 01 DC HOME SELF CARE/HOMELESS Condition: STABLE Referrals: UNKNOWN PCP NAME (PCP) Patient Instructions: General Headache Without Cause, [id number] Additional Instructions: Fill prescription and take as directed. Follow up with your primary care doctor in 1-2 days. Return to the ER if symptoms worsen. Scripts Butalb/Acetaminophen/Caffeine ([id number] 50-325-40) 1 Each Tablet 1-2 EACH PO Q4HRS PRN for PAIN MDD 6 tabs for 3 Days, #18 TAB 0 Refills Prov: NAYELI ROJAS APRN 07/30/20 Problem Qualifiers Primary Impression: Headache Headache type: unspecified Headache chronicity pattern: acute headache Intractability: not intractable Qualified Codes: R51.9 - Headache, unspecified NAYELI ROJAS GROCERY CASHIER Jul 30, 2020 23:21
== END 2020-07-30 23:25 | disposition home or self-care (01) ==
LOC: ER 19:26
DX: G43.909 Migraine, unspecified, not intractable, without status migrainosus (principal); R11.2 Nausea with vomiting, unspecified; M19.90 Unspecified osteoarthritis, unspecified site; I10 Essential (primary) hypertension; Z90.49 Acquired absence of other specified parts of digestive tract; Z90.710 Acquired absence of both cervix and uterus; Z98.890 Other specified postprocedural states; Z88.0 Allergy status to penicillin; Z88.8 Allergy status to other drugs, medicaments and biological substances
CPT/HCPCS: 36415; 70496; 70498; 80053; 85025; 96361; 96374; 96375; 99285; J0780; J1100; J1200; J7030; Q9967

== ENCOUNTER 2021-04-30 09:07 | Inpatient (IN) | payer MEDICAID, OTHER ==
[2021-04-30] VITALS (12 sets, daily range): BP systolic 142–204; BP diastolic 60–108
[~2021-04-30] VITALS: Ht 162.6 cm; Wt 163.6 kg
[~2021-04-30 09:07] MED LIST changes: +TIZA-75 PO; -TIZA4TAB2 PO
[2021-04-30] MEDS ORDERED: ALBUTEROL SULFATE 2.5 MG/3 ML NEBU. CONT NEB ONE (09:15)
[2021-04-30] MEDS ORDERED: methylPREDNISolone SOD SUCC PF 125 MG/2 ML VIAL. IV ONE (09:30)
[2021-04-30] MEDS ORDERED: ACETAMINOPHEN 500 MG TABLET PO ONE (09:30)
[2021-04-30] MEDS ORDERED: AZITHRMYCN 500MG IVPB FOR OMNI 250 ML IV ONE (09:30)
--- NOTE | 2021-04-30 09:30 | EKG ---
[facility] [address] [place] [address] Test Date: 2021-04-30 Test Time: 09:15:22 Pat Name: YVES BURTON Department: Room: Gender: F Linen Room Custodian: : 1975 Requested By: ARGELIA MACHUCA Order Number: [id number] Reading MD: Darren Duval Measurements Intervals [place] Rate: 99 P: 39 [place]: 164 QRS: -22 QRSD: 100 T: 35 QT: 336 QTc: 436 Interpretive Statements SINUS RHYTHM LEFTWARD AXIS R-S TRANSITION ZONE IN V LEADS DISPLACED TO THE LEFT S1,S2,S3 PATTERN OTHERWISE NORMAL ECG RI6.02 No previous ECG available for comparison Electronically Signed On 05-04-2021 9:54:45 ROCK DUSTER by Darren Duval
--- NOTE | 2021-04-30 09:35 | PHYS DOC ---
Past Medical History Past Medical History: Arthritis, Hypertension, Migraines, Other Additional Past Medical Histor: NEUROPATHY, ANEURYSM (ARGELIA MACHUCA [employer]VIS[employer]ING[employer]) Past Surgical History: Cholecystectomy, Hysterectomy, Other Additional Past Surgical Histo: KELOID (ARGELIA MACHUCA [employer]PERVIS[employer] CONTINGENTS) Smoking Status: Never Smoker Alcohol Use: None Drug Use: None ([facility]) General Adult EDM: Chief Complaint: DYSPNEA/RESPIRATORY DISTRESS HPI: HPI: Patient is a 46 year old female who presents with last night began having shortness of breath, chest pain, nausea, wheezing and back pain. She is in respiratory distress upon arrival and breathing 50 times a minute. She states that when she " gets like this her creatinine increases and she starts having back pain". Patient is not answering questions. She is alert and oriented but is stating that we just need to call her DPOA. When asked if she would allow us to intubate her she would not give us a answer and then stated no but would be okay with CPR. Patient has a history of arthritis, neuropathy, aneurysm, hypertension, migraine, cholecystectomy, morbid obesity, hysterectomy. She did get the maternal Covid vaccines. She is febrile. ([facility] [employer] [employer]ING[employer]) Review of Systems: Review of Systems: Constitutional: + fever or +chills. [] Eyes: Denies change in visual acuity. [] HENT: Denies nasal congestion or sore throat. [] Respiratory: +cough or +shortness of breath. [] Cardiovascular: Denies chest pain or edema. [] GI: Denies abdominal pain, nausea, vomiting, bloody stools or diarrhea. [] : Denies dysuria. [] Musculoskeletal: Denies back pain or joint pain. + Body aches [] Integument: Denies rash. [] Neurologic: Denies headache, focal weakness or sensory changes. [] Endocrine: Denies polyuria or polydipsia. [] Lymphatic: Denies swollen glands. [] Psychiatric: Denies depression or +anxiety. [] (ARGELIA MACHUCA [employer]PER[employer]) Heart Score: C/O Chest Pain: No HEART Score for Chest Pain: HEART Score for Chest Pain Response (Comments) Value History Slighlty/Non-Suspicious 0 ECG Nonspecific Repolarizatio 1 Age >45 - < 65 1 Risk Factors 1 or 2 Risk Factors 1 Troponin < Normal Limit 0 Total 3 Risk Factors: Risk Factors: DM, Current or recent (<one month) smoker, HTN, HLP, family history of CAD, obesity. Risk Scores: Score 0 - 3: 2.5% MACE over next 6 weeks - Discharge Home Score 4 - 6: 20.3% MACE over next 6 weeks - Admit for Clinical Observation Score 7 - 10: 72.7% MACE over next 6 weeks - Early Invasive Strategies (ARGELIA MACHUCA APRN) Current Medications: Current Medications Medications (Trade) Dose Ordered Sig/Kathrine Start Time Stop Time Status Last Admin Dose Admin Acetaminophen (Tylenol) 1,000 mg 1X ONCE 04/30/21 09:30 04/30/21 09:31 UNV Albuterol Sulfate (Ventolin Neb Soln) 10 mg 1X ONCE 04/30/21 09:15 04/30/21 09:21 DC 04/30/21 09:26 10 MG Azithromycin 250 ml @ 250 mls/hr 1X ONCE 04/30/21 09:30 04/30/21 10:29 UNV Methylprednisolone Sodium Succinate (SOLU-Medrol 125MG VIAL) 125 mg 1X ONCE 04/30/21 09:30 04/30/21 09:31 UNV (ARGELIA MACHUCA APRN) Allergies: Allergies: Allergies Coded Allergies Type Severity Reaction Last Updated Verified Penicillins Allergy Intermediate 11/02/18 Yes ketorolac Allergy Intermediate 11/02/18 Yes metoclopramide Allergy Intermediate 11/02/18 Yes (ARGELIA MACHUCA APRN) Physical Exam: PE: Constitutional: Well developed, well nourished, no acute distress, non-toxic appearance. Febrile [] HENT: Normocephalic, atraumatic, bilateral external ears normal, oropharynx moist, no oral exudates, nose normal. [] Eyes: PERRLA, EOMI, conjunctiva normal, no discharge. [] Neck: Normal range of motion, no tenderness, supple, no stridor. [] Cardiovascular:Heart rate regular rhythm, no murmur [] Lungs & Thorax: Bilateral upper and lower breath sounds wet, wheezing inspiratory and expiratory to auscultation [] Abdomen: Bowel sounds normal, soft, no tenderness, no masses, no pulsatile masses. [] Skin: Warm, dry, no erythema, no rash. Keloids. [] Back: Bilateral tenderness, no CVA tenderness. [] Extremities: No tenderness, no cyanosis, no clubbing, ROM intact, 3+ edema. Lymphedema. [] Neurologic: Alert and oriented X 3, normal motor function, normal sensory function, no focal deficits noted. [] Psychologic: Affect normal, judgement normal, mood normal. Anxiety. [] (ARGELIA MACHUCA APRN) EKG: EK [address] Yang as sinus rhythm and no STEMI. (ARGELIA MACHUCA APRN) Radiology/Procedures: Radiology/Procedures: [] Impression: [facility] [address] [place], [place] [id number] IMAGING REPORT Signed PATIENT: YVES BURTON ACCOUNT: [id number] : 1975 LOCATION: ER AGE: 46 SEX: F EXAM STATUS: PRE ER ORD. PHYSICIAN: ARGELIA MACHUCA APRN REASON: SHORT OF BREATH PROCEDURE: PORTABLE CHEST 1V INDICATION: Reason: SHORT OF BREATH / Spl. Instructions: / History: COMPARISON: May 12, 2019 FINDINGS: Single view of chest obtained. Dense opacities throughout the right lung. There is some suspected mild pulmonic opacities in the left as well to a lesser degree. Enlarged cardiomediastinal silhouette. IMPRESSION: * Dense opacities throughout the right lung which could be infectious in nature but follow-up should be obtained to ensure that this appropriately resolves to exclude any persistent mass contributing. There is less airspace disease in the left lung compared to the right. * Enlarged cardiomediastinal silhouette which can be seen with cardiomegaly and/or pericardial effusion. Electronically signed by: Lamine Agosto MD (04/30/2021 9:42 AM) [id number] DICTATED and SIGNED BY: LAMINE AGOSTO MD DATE: 04/30/21 [id number] (ARGELIA MACHUCA APRN) Course & Med Decision Making: Course & Med Decision Making Pertinent Labs and Imaging studies reviewed. (See chart for details) COVID-19 CRITERIA: The patient was evaluated during the global COVID-19 pandemic, and that diagnosis was suspected/considered upon their initial presentation. Their evaluation, treatment and testing was consistent with current guidelines for patients who present with complaints or symptoms that may be related to COVID-19. See HPI. Alert and oriented x4. Speaks in short sentences. Bilateral lung sounds are wet, wheezing and coarse. She is coughing up some scant blood. She is febrile. Dr. Yang has spoken to her aunt of which the patient states is her DPOA but there is no legal document. Dr. Yang states that her aunt Mack Ansari states that she is not actually the DPOA. The family member is made aware of patient's medical status. Lymphedema. 3+ swelling bilateral lower extremities. She did states that she took her Lasix yesterday. We will Covid test her here in the ED. She is 98% on room air at this time. Refusing ABG saying she "does not want to be poked and it hurts." Skin pink warm and dry. I spoke with Dr. Cifuentes for admission to the ICU. Patient is very hypertensive. Have ordered Lasix, azithromycin, Rocephin, nicardipine drip. Due to patient being fluid overloaded maintenance fluids or saline boluses not started at this time. I spoke to concerning this patient. He states he will see the patient before he leaves today. He also states that he thinks this is more of a pneumonia and so not to give Lasix. Dr. Howell states to start her on vancomycin and Levaquin. I have spoken to Dr. Cifuentes to let him know what Dr. Howell suggests. Patient states that she has anaphylaxis to penicillin. [] (ARGELIA MACHUCA APRN) Course & Med Decision Making I have participated in the care of this patient and I have reviewed and agree with all pertinent clinical information above including history, exam, and recommendations. Critical care time was 40 minutes which includes time at bedside, spent in discussion of patient's care with specialists and/or family members, with interpretation of laboratory and/or radiological studies and is exclusive of procedures. Robert Yang DO (ROBERT YANG DO) Kyara Disclaimer: Dragchristina Disclaimer: This electronic medical record was generated, in whole or in part, using a voice recognition dictation system. (ARGELIA MACHUCA APRN) Departure Departure Impression: Primary Impression: Hypertensive emergency Additional Impressions: Pneumonia Qualified Codes: J18.9 - Pneumonia, unspecified organism Person under investigation for COVID-19 Disposition: ADMITTED INPATIENT Admitting Physician: ЕЛЕНА (ARGELIA MACHUCA APRN) Condition: STABLE Referrals: UNKNOWN PCP NAME (PCP) ARGELIA MACHUCA APRN Apr 30, 2021 09:35 ROBERT YANG DO Apr 30, 2021 14:36
[2021-04-30] MEDS ORDERED: FUROSEMIDE 40 MG/4 ML VIAL. IVP ONE (09:45)
[2021-04-30] MEDS ORDERED: NITROGLYCERIN SUBLINGUAL 0.4 MG BOTTLE OF 25. SL PRN (09:45)
--- NOTE | 2021-04-30 09:45 | RAD ---
INDICATION: Reason: SHORT OF BREATH / Spl. Instructions: / History: COMPARISON: May 12, 2019 FINDINGS: Single view of chest obtained. Dense opacities throughout the right lung. There is some suspected mild pulmonic opacities in the lef t as well to a lesser degree. Enlarged cardiomediastinal silhouette. IMPRESSION: * Dense opacities throughout the right lung which could be infectious in nature but follow-up should be obtained to ensure that this appropriately resolves to exclude any persistent mass contributing. There is less airspace disease in the left lung compared to the right. * Enlarged cardiomediastinal silhouette which can be seen with cardiomegaly and/or pericardial effus ion. Electronically signed by: Luis Fernando Aceves MD (04/30/2021 9:42 AM) [id number]
[2021-04-30] MEDS ORDERED: ONDANSETRON PF 4 MG/2 ML VIAL. IVP ONE (10:00)
[2021-04-30 10:10] LABS: BASO % 0 % (0-3); EOS # 0.1 x10^3/uL (0.0-0.7); EOS % 1 % (0-3); HEMATOCRIT 31.7 % (36.0-47.0); LYMPH # 1.2 x10^3/uL (1.0-4.8); LYMPH % 10 % (24-48); MEAN CORPUSCULAR HEMOGLOBIN 27 pg (25-35); MEAN CORPUSCULAR HGB CONC 31 g/dL (31-37); MEAN CORPUSCULAR VOLUME 85 fL (79-100); MONO # 0.7 x10^3/uL (0.0-1.1); MONO % 6 % (0-9); NEUT # 10.4 x10^3/uL (1.8-7.7); NEUT % 84 % (31-73); PLATELET COUNT 212 x10^3/uL (140-400); RED BLOOD COUNT 3.72 x10^6/uL (3.50-5.40); RED CELL DISTRIBUTION WIDTH 16.9 % (11.5-14.5); WHITE BLOOD COUNT 12.4 x10^3/uL (4.0-11.0)
[2021-04-30] MEDS ORDERED: ACETAMINOPHEN 325 MG TABLET. PO PRN ×2 (10:15→12:00)
[2021-04-30] MEDS ORDERED: ONDANSETRON PF 4 MG/2 ML VIAL. IVP PRN ×2 (10:15→12:00)
[2021-04-30 10:24] LABS: CALCIUM 9.2 mg/dL (8.5-10.1); GFR 71.9; POTASSIUM 3.6 mmol/L (3.5-5.1)
[2021-04-30 10:30] LABS: ALBUMIN 3.1 g/dL (3.4-5.0); ALBUMIN/GLOBULIN RATIO 0.8 (1.0-1.7); TOTAL BILIRUBIN 0.3 mg/dL (0.2-1.0); TOTAL PROTEIN 6.8 g/dL (6.4-8.2)
[2021-04-30] MEDS ORDERED: MAGNESIUM SULFATE 2GM 50 ML IV ONE (10:45)
[2021-04-30 11:36] LABS: BILIRUBIN,URINE NEGATIVE (NEG); CLARITY,URINE CLEAR; COLOR,URINE YELLOW; NITRITE,URINE NEGATIVE (NEG); PH,URINE 6.5 (<5.0-8.0); PROTEIN,URINE 100 mg/dL (NEG-TRACE); UROBILINOGEN,URINE 0.2 mg/dL (0.2 mg/dL)
[2021-04-30 11:42] LABS: BACTERIA,URINE 0 /HPF (0-FEW); WBC,URINE OCC /HPF (0-4)
[2021-04-30 11:58] LABS: BARBITURATES NEG (NEG); BENZODIAZEPINES NEG (NEG); CANNABINOIDS NEG (NEG); COCAINE NEG (NEG); METHADONE NEG (NEG); OPIATES NEG (NEG); PHENCYCLIDINE NEG (NEG)
[2021-04-30 11:59] LABS: AMPHETAMINE/METHAMPHETAMINE NEG (NEG)
[2021-04-30] MEDS ORDERED: 0.9 % SODIUM CHLORIDE 10 ML DISP.SYRIN. IV PRN (12:00)
[2021-04-30] MEDS ORDERED: MAGNESIUM SULFATE 4GM 100 ML IV ONE (12:00)
[2021-04-30] MEDS ORDERED: ZOLPIDEM 5 MG TABLET. PO PRN (12:00)
[2021-04-30] MEDS ORDERED: CALCIUM CARBONATE 500 MG TAB.CHEW PO PRN (12:00)
[2021-04-30] MEDS ORDERED: AMPICILLIN/SULBACTAM 3 GM in IV NORMAL SALINE 100ML 100 ML IV SCH (12:00)
[2021-04-30] MEDS: hydrALAZINE 20 MG/ML VIAL. IVP PRN ×2 (12:54→19:33)
[2021-04-30] MEDS ORDERED: cloNIDine HCL 0.1 MG TABLET PO SCH (13:00)
[2021-04-30] MEDS ORDERED: VANCOMYCIN 2 GM in IV NORMAL SALINE 500ML BAG 500 ML IV ONE (13:00)
[2021-04-30] MEDS ORDERED: ATROPINE 0.5 MG/5 ML DISP.SYRINGE. IV PRN ×2 (13:45→14:45)
[2021-04-30] MEDS ORDERED: IV NORMAL SALINE 500ML BAG 500 ML IV PRN ×2 (13:45→14:45)
--- NOTE | 2021-04-30 13:46 | PDOC1 ---
History and Physical Date of Service: DOS: DATE: 04/30/21 TIME: 13:33 Chief Complaint: Problems: (1) Person under investigation for COVID-19 (2) Hypertensive emergency (3) Pneumonia History of Present Illness: HPI: History from emergency room as patient unable to provide a legitimate history as she is on BiPAP and minimally answering questions Patient is a 46 year old female who presents with last night began having shortness of breath, chest pain, nausea, wheezing and back pain. She is in respiratory distress upon arrival and breathing 50 times a minute. She states that when she " gets like this her creatinine increases and she starts having back pain". Patient is not answering questions. She is alert and oriented but is stating that we just need to call her DPOA. When asked if she would allow us to intubate her she would not give us a answer and then stated no but would be okay with CPR. Patient has a history of arthritis, neuropathy, aneurysm, hypertension, migraine, cholecystectomy, morbid obesity, hysterectomy. She did get the Moderna Covid vaccines. She is febrile. When I evaluated the patient in the ICU she was on BiPAP pretty tachypneic. Settings 40% FiO2 15/5. Was able to get her to open her eyes and asked about CODE STATUS especially in terms of intubation should that be needed. She shook her head no other she would not want to ever be on a breathing machine. Explained to her what this meant in detail and she was able to do shake her head yes that she understood this. Past Medical/Surgical History: PMH/PSH: Arthritis, Hypertension, Migraines, NEUROPATHY, ANEURYSM Allergies: Allergies: Coded Allergies: Penicillins (Verified Allergy, Severe, Anaphylaxis, 04/30/21) ketorolac (Verified Allergy, Intermediate, 04/30/21) metoclopramide (Verified Allergy, Intermediate, 04/30/21) haloperidol (Verified Allergy, Unknown, 04/30/21) prochlorperazine (Verified Allergy, Unknown, 04/30/21) Family History: Family History: Cannot obtain from patient Social History: Social History: No alcohol tobacco drug use Current Medications: Current Medications Current Medications Albuterol Sulfate (Ventolin Neb Soln) 10 mg 1X ONCE CONT NEB Last administered on 04/30/21at 09:26; Start 04/30/21 at 09:15; Stop 04/30/21 at 09:21; Status DC Methylprednisolone Sodium Succinate (SOLU-Medrol 125MG VIAL) 125 mg 1X ONCE IV Last administered on 04/30/21at 10:08; Start 04/30/21 at 09:30; Stop 04/30/21 at 09:39; Status DC Acetaminophen (Tylenol) 1,000 mg 1X ONCE PO ; Start 04/30/21 at 09:30; Stop 04/30/21 at 09:39; Status DC Azithromycin 250 ml @ 250 mls/hr 1X ONCE IV Last administered on 04/30/21at 12:53; Start 04/30/21 at 09:30; Stop 04/30/21 at 10:29; Status DC Lorazepam (Ativan Inj) 1 mg 1X ONCE IVP Last administered on 04/30/21at 10:12; Start 04/30/21 at 09:30; Stop 04/30/21 at 09:39; Status DC Furosemide (Lasix) 40 mg 1X ONCE IVP Last administered on 04/30/21at 10:01; Start 04/30/21 at 09:45; Stop 04/30/21 at 11:46; Status DC Nitroglycerin (Nitrostat) 0.4 mg PRN Q5MIN PRN SL CHEST PAIN; Start 04/30/21 at 09:45 Nicardipine HCl 50 mg/Sodium Chloride 250 ml @ 25 mls/hr CONT PRN IV PER PROTOCOL Last administered on 04/30/21at 10:11; Start 04/30/21 at 09:45 Ondansetron HCl (Zofran) 4 mg 1X ONCE IVP Last administered on 04/30/21at 10:05; Start 04/30/21 at 10:00; Stop 04/30/21 at 10:11; Status DC Ondansetron HCl (Zofran) 4 mg PRN Q8HRS PRN IVP NAUSEA/VOMITING; Start 04/30/21 at 10:15; Stop 05/01/21 at 10:14 Acetaminophen (Tylenol) 650 mg PRN Q4HRS PRN PO FEVER > 100.3'F; Start 04/30/21 at 10:15; Stop 05/01/21 at 10:14 Magnesium Sulfate 50 ml @ 25 mls/hr 1X ONCE IV ; Start 04/30/21 at 10:45; Stop 04/30/21 at 12:44; Status Cancel Lorazepam (Ativan Inj) 2 mg PRN Q2HRS PRN IVP ANXIETY / AGITATION Last administered on 04/30/21at 11:48; Start 04/30/21 at 11:00 Ampicillin Sodium/ Sulbactam Sodium 3 gm/Sodium Chloride 100 ml @ 200 mls/hr Q6HRS IV ; Start 04/30/21 at 12:00; Status UNV Azithromycin 500 mg/Sodium Chloride 250 ml @ 250 mls/hr Q24H IV ; Start 05/01/21 at 09:00; Stop 05/03/21 at 08:59; Status Cancel Clonidine HCl (Catapres) 0.1 mg DAILY PO ; Start 04/30/21 at 13:00 Tizanidine HCl (Zanaflex) 4 mg PRN TID PRN PO MUSCLE SPASMS; Start 04/30/21 at 11:45 Quetiapine Fumarate (SEROquel) 200 mg HS PO ; Start 04/30/21 at 21:00 Oxycodone HCl (Roxicodone) 5 mg PRN Q3HRS PRN PO pain; Start 04/30/21 at 12:00 Acetaminophen (Tylenol) 650 mg PRN Q6HRS PRN PO Headaches, Temp > 101.5'; Start 04/30/21 at 12:00 Ondansetron HCl (Zofran) 4 mg PRN Q6HRS PRN IVP NAUSEA/VOMITING; Start 04/30/21 at 12:00 Calcium Carbonate/ Glycine (Tums) 500 mg PRN Q3HRS PRN PO HEARTBURN / GAS; Start 04/30/21 at 12:00 Zolpidem Tartrate (Ambien) 5 mg PRN QHS PRN PO INSOMNIA, MAY REPEAT IN 1HR; Start 04/30/21 at 12:00 Info (Icu Electrolyte Protocol) 1 ea DAILY MC ; Start 05/01/21 at 09:00 Heparin Sodium (Porcine) (Heparin Sodium) 5,000 unit Q8HRS SQ ; Start 04/30/21 at 22:00 Sodium Chloride (Normal Saline Flush) 3 ml QSHIFT PRN IV AFTER MEDS AND BLOOD DRAWS; Start 04/30/21 at 12:00 Hydralazine HCl (Apresoline Inj) 10 mg PRN Q4HRS PRN IVP HYPERTENSION Last administered on 04/30/21at 12:54; Start 04/30/21 at 12:00 Morphine Sulfate (Morphine Sulfate) 2 mg PRN Q2HRS PRN IVP pain; Start 04/30/21 at 12:00 Magnesium Sulfate 100 ml @ 25 mls/hr 1X ONCE IV Last administered on 04/30/21at 12:52; Start 04/30/21 at 12:00; Stop 04/30/21 at 15:59 Levofloxacin/ Dextrose 150 ml @ 100 mls/hr Q24H IV ; Start 04/30/21 at 13:00 Vancomycin HCl (Vanco Per Pharmacy) 1 each PRN DAILY PRN MC SEE COMMENTS; Start 04/30/21 at 12:15 Vancomycin HCl 2 gm/Sodium Chloride 500 ml @ 250 mls/hr 1X ONCE IV ; Start 04/30/21 at 13:00; Stop 04/30/21 at 14:59 Active Scripts Active Fiutlf-Spakjtfp-Pcsu 50-325-40 (Butalb/Acetaminophen/Caffeine) 1 Each Tablet 1-2 Each PO Q4HRS PRN MDD 6 tabs 3 Days Ggswss-Ovicwjzb-Naca 50-325-40 (Butalb/Acetaminophen/Caffeine) 1 Each Tablet 1-2 Each PO Q4HRS PRN MDD 6 tabs 3 Days Bactrim 400-80 Mg Tablet (Sulfamethoxazole/Trimethoprim) 1 Each Tablet 1 Tab PO BID Zofran (Ondansetron Hcl) 4 Mg Tablet 1 Tab PO PRN Q6-8HRS Reported Seroquel (Quetiapine Fumarate) 200 Mg Tablet 200 Mg PO HS Tizanidine Hcl 4 Mg Tablet 4 Mg PO TID PRN Clonidine Hcl 0.1 Mg Tablet 0.1 Mg PO DAILY ROS: Review of Systems Review of System Really cannot obtain from patient Physical Exam: Vital Signs: Vital Signs Date Time Temp Pulse Resp B/P (MAP) Pulse Ox O2 Delivery O2 Flow Rate FiO2 04/30/21 13:10 96 28 188/81 (116) 100 BiPAP/CPAP 04/30/21 12:56 99.8 99.8 04/30/21 11:18 2.0 Physcial Exam: GEN: Tachypneic,. In distress. Obese HEENT: Normal cephalic, atraumatic, external auditory canals are patent EYES: Extraocular muscles are intact, pupil are equally round and reactive to light and accommodation MUSCULOSKELETAL: Limited range of motion NECK: Supple, no JVD, no thyromegaly was noted LUNGS: Decreased and coarse air entry throughout HEART: RRR, S1, S2 present. Peripheral pulses difficult to palpate secondary to habitus ABDOMEN: Soft, nontender. Positive bowel sounds, no organomegaly, normal bowel sounds EXTREMITIES: Bilateral lower extremity edema not really pitting NEUROLOGIC: AAO x0; PSYCHIATRIC: Cannot really assess SKIN: No ulcerations or rashes, good skin turgor, no jaundice VASCULAR: Good capillary refill, neurovascular bundle appears to be intact Labs: Labs: Laboratory Tests Test 04/30/21 09:45 04/30/21 09:55 04/30/21 11:22 SARS-CoV-2 RNA (ROCKY) Negative (Negative) SARS-CoV-2 Antigen (Rapid) Negative (NEGATIVE) White Blood Count 12.4 x10^3/uL (4.0-11.0) Red Blood Count 3.72 x10^6/uL (3.50-5.40) Hemoglobin 10.0 g/dL (12.0-15.5) Hematocrit 31.7 % (36.0-47.0) Mean Corpuscular Volume 85 fL (79-100) Mean Corpuscular Hemoglobin 27 pg (25-35) Mean Corpuscular Hemoglobin Concent 31 g/dL (31-37) Red Cell Distribution Width 16.9 % (11.5-14.5) Platelet Count 212 x10^3/uL (140-400) Neutrophils (%) (Auto) 84 % (31-73) Lymphocytes (%) (Auto) 10 % (24-48) Monocytes (%) (Auto) 6 % (0-9) Eosinophils (%) (Auto) 1 % (0-3) Basophils (%) (Auto) 0 % (0-3) Neutrophils # (Auto) 10.4 x10^3/uL (1.8-7.7) Lymphocytes # (Auto) 1.2 x10^3/uL (1.0-4.8) Monocytes # (Auto) 0.7 x10^3/uL (0.0-1.1) Eosinophils # (Auto) 0.1 x10^3/uL (0.0-0.7) Basophils # (Auto) 0.0 x10^3/uL (0.0-0.2) Sodium Level 143 mmol/L (136-145) Potassium Level 3.6 mmol/L (3.5-5.1) Chloride Level 107 mmol/L (98-107) Carbon Dioxide Level 27 mmol/L (21-32) Anion Gap 9 (6-14) Blood Urea Nitrogen 18 mg/dL (7-20) Creatinine 1.0 mg/dL (0.6-1.0) Estimated GFR (Cockcroft-Gault) 71.9 BUN/Creatinine Ratio 18 (6-20) Glucose Level 114 mg/dL (70-99) Lactic Acid Level 0.9 mmol/L (0.4-2.0) Calcium Level 9.2 mg/dL (8.5-10.1) Magnesium Level 1.6 mg/dL (1.8-2.4) Total Bilirubin 0.3 mg/dL (0.2-1.0) Aspartate Amino Transf (AST/SGOT) 30 U/L (15-37) Alanine Aminotransferase (ALT/SGPT) 35 U/L (14-59) Alkaline Phosphatase 111 U/L (46-116) Troponin I High Sensitivity 21 ng/L (4-50) KC-Hlb-C-Type Natriuretic Peptide 1123 pg/mL (0-124) Total Protein 6.8 g/dL (6.4-8.2) Albumin 3.1 g/dL (3.4-5.0) Albumin/Globulin Ratio 0.8 (1.0-1.7) Urine Collection Type Unknown Urine Color Yellow Urine Clarity Clear Urine pH 6.5 (<5.0-8.0) Urine Specific [place] <=1.005 (1.000-1.030) Urine Protein 100 mg/dL (NEG-TRACE) Urine Glucose (UA) Negative mg/dL (NEG) Urine Ketones (Stick) Negative mg/dL (NEG) Urine Blood Small (NEG) Urine Nitrite Negative (NEG) Urine Bilirubin Negative (NEG) Urine Urobilinogen Dipstick 0.2 mg/dL (0.2 mg/dL) Urine Leukocyte Esterase Negative (NEG) Urine RBC 1-2 /HPF (0-2) Urine WBC Occ /HPF (0-4) Urine Squamous Epithelial Cells Few /LPF Urine Bacteria 0 /HPF (0-FEW) Urine Opiates Screen Neg (NEG) Urine Methadone Screen Neg (NEG) Urine Barbiturates Neg (NEG) Urine Phencyclidine Screen Neg (NEG) Urine Amphetamine/Methamphetamine Neg (NEG) Urine Benzodiazepines Screen Neg (NEG) Urine Cocaine Screen Neg (NEG) Urine Cannabinoids Screen Neg (NEG) Urine Ethyl Alcohol Neg (NEG) Laboratory Tests Test 04/30/21 09:45 04/30/21 09:55 04/30/21 11:22 SARS-CoV-2 RNA (ROCKY) Negative (Negative) SARS-CoV-2 Antigen (Rapid) Negative (NEGATIVE) White Blood Count 12.4 x10^3/uL (4.0-11.0) Red Blood Count 3.72 x10^6/uL (3.50-5.40) Hemoglobin 10.0 g/dL (12.0-15.5) Hematocrit 31.7 % (36.0-47.0) Mean Corpuscular Volume 85 fL (79-100) Mean Corpuscular Hemoglobin 27 pg (25-35) Mean Corpuscular Hemoglobin Concent 31 g/dL (31-37) Red Cell Distribution Width 16.9 % (11.5-14.5) Platelet Count 212 x10^3/uL (140-400) Neutrophils (%) (Auto) 84 % (31-73) Lymphocytes (%) (Auto) 10 % (24-48) Monocytes (%) (Auto) 6 % (0-9) Eosinophils (%) (Auto) 1 % (0-3) Basophils (%) (Auto) 0 % (0-3) Neutrophils # (Auto) 10.4 x10^3/uL (1.8-7.7) Lymphocytes # (Auto) 1.2 x10^3/uL (1.0-4.8) Monocytes # (Auto) 0.7 x10^3/uL (0.0-1.1) Eosinophils # (Auto) 0.1 x10^3/uL (0.0-0.7) Basophils # (Auto) 0.0 x10^3/uL (0.0-0.2) Sodium Level 143 mmol/L (136-145) Potassium Level 3.6 mmol/L (3.5-5.1) Chloride Level 107 mmol/L (98-107) Carbon Dioxide Level 27 mmol/L (21-32) Anion Gap 9 (6-14) Blood Urea Nitrogen 18 mg/dL (7-20) Creatinine 1.0 mg/dL (0.6-1.0) Estimated GFR (Cockcroft-Gault) 71.9 BUN/Creatinine Ratio 18 (6-20) Glucose Level 114 mg/dL (70-99) Lactic Acid Level 0.9 mmol/L (0.4-2.0) Calcium Level 9.2 mg/dL (8.5-10.1) Magnesium Level 1.6 mg/dL (1.8-2.4) Total Bilirubin 0.3 mg/dL (0.2-1.0) Aspartate Amino Transf (AST/SGOT) 30 U/L (15-37) Alanine Aminotransferase (ALT/SGPT) 35 U/L (14-59) Alkaline Phosphatase 111 U/L (46-116) Troponin I High Sensitivity 21 ng/L (4-50) MT-Mhy-O-Type Natriuretic Peptide 1123 pg/mL (0-124) Total Protein 6.8 g/dL (6.4-8.2) Albumin 3.1 g/dL (3.4-5.0) Albumin/Globulin Ratio 0.8 (1.0-1.7) Urine Collection Type Unknown Urine Color Yellow Urine Clarity Clear Urine pH 6.5 (<5.0-8.0) Urine Specific [place] <=1.005 (1.000-1.030) Urine Protein 100 mg/dL (NEG-TRACE) Urine Glucose (UA) Negative mg/dL (NEG) Urine Ketones (Stick) Negative mg/dL (NEG) Urine Blood Small (NEG) Urine Nitrite Negative (NEG) Urine Bilirubin Negative (NEG) Urine Urobilinogen Dipstick 0.2 mg/dL (0.2 mg/dL) Urine Leukocyte Esterase Negative (NEG) Urine RBC 1-2 /HPF (0-2) Urine WBC Occ /HPF (0-4) Urine Squamous Epithelial Cells Few /LPF Urine Bacteria 0 /HPF (0-FEW) Urine Opiates Screen Neg (NEG) Urine Methadone Screen Neg (NEG) Urine Barbiturates Neg (NEG) Urine Phencyclidine Screen Neg (NEG) Urine Amphetamine/Methamphetamine Neg (NEG) Urine Benzodiazepines Screen Neg (NEG) Urine Cocaine Screen Neg (NEG) Urine Cannabinoids Screen Neg (NEG) Urine Ethyl Alcohol Neg (NEG) Assessment/Plan Assessment/Plan Shortness of breath secondary to suspected community-acquired bacterial pneumonia gram-positive versus gram-negative, PUI, possible history of CHF? Diabetes, hypertensive emergency -Patient reporting shortness of breath chest pain presented to the emergency room today -Was very hypertensive on arrival systolic above 200s. -Chest x-ray showing multiple opacities in the right lung. Pulmonary consulted. Will do Vanco Levaquin. Defer steroid decision to them. No history of COPD -Currently requiring BiPAP -Echo 2018 60-65% EF trace mitral and tricuspid regurg -Given hypertensive emergency and elevated troponin cardiology consulted -DVT prophylaxis -Precedex and Ativan ordered for sedation and agitation -Home meds resumed as indicated 45 minutes critical care time spent on this patient Justifications for Admission Other Justification ELOY LEGER MD Apr 30, 2021 13:46
[2021-04-30] MEDS ORDERED: DEXMEDETOMIDINE 400 MCG in IV NORMAL SALINE 100ML 96 ML IV PRN (14:45)
[2021-04-30] MEDS: DEXMEDETOMIDINE 400 MCG in IV NORMAL SALINE 100ML 96 ML IV PRN ×2 (14:48→18:22)
--- NOTE | 2021-04-30 14:53 | PDOC ---
PULMONARY PROGRESS NOTES DATE: 04/30/21 TIME: 14:53 Vitals Vital Signs Date Time Temp Pulse Resp B/P (MAP) Pulse Ox O2 Delivery O2 Flow Rate FiO2 04/30/21 14:40 88 BiPAP/CPAP 04/30/21 13:10 96 28 188/81 (116) 04/30/21 12:56 99.8 99.8 04/30/21 11:18 2.0 Lungs: Clear, Wheezing Labs Laboratory Tests Test 04/30/21 09:45 04/30/21 09:55 04/30/21 11:22 SARS-CoV-2 RNA (ROCKY) Negative (Negative) SARS-CoV-2 Antigen (Rapid) Negative (NEGATIVE) White Blood Count 12.4 x10^3/uL (4.0-11.0) Red Blood Count 3.72 x10^6/uL (3.50-5.40) Hemoglobin 10.0 g/dL (12.0-15.5) Hematocrit 31.7 % (36.0-47.0) Mean Corpuscular Volume 85 fL (79-100) Mean Corpuscular Hemoglobin 27 pg (25-35) Mean Corpuscular Hemoglobin Concent 31 g/dL (31-37) Red Cell Distribution Width 16.9 % (11.5-14.5) Platelet Count 212 x10^3/uL (140-400) Neutrophils (%) (Auto) 84 % (31-73) Lymphocytes (%) (Auto) 10 % (24-48) Monocytes (%) (Auto) 6 % (0-9) Eosinophils (%) (Auto) 1 % (0-3) Basophils (%) (Auto) 0 % (0-3) Neutrophils # (Auto) 10.4 x10^3/uL (1.8-7.7) Lymphocytes # (Auto) 1.2 x10^3/uL (1.0-4.8) Monocytes # (Auto) 0.7 x10^3/uL (0.0-1.1) Eosinophils # (Auto) 0.1 x10^3/uL (0.0-0.7) Basophils # (Auto) 0.0 x10^3/uL (0.0-0.2) Sodium Level 143 mmol/L (136-145) Potassium Level 3.6 mmol/L (3.5-5.1) Chloride Level 107 mmol/L (98-107) Carbon Dioxide Level 27 mmol/L (21-32) Anion Gap 9 (6-14) Blood Urea Nitrogen 18 mg/dL (7-20) Creatinine 1.0 mg/dL (0.6-1.0) Estimated GFR (Cockcroft-Gault) 71.9 BUN/Creatinine Ratio 18 (6-20) Glucose Level 114 mg/dL (70-99) Lactic Acid Level 0.9 mmol/L (0.4-2.0) Calcium Level 9.2 mg/dL (8.5-10.1) Magnesium Level 1.6 mg/dL (1.8-2.4) Total Bilirubin 0.3 mg/dL (0.2-1.0) Aspartate Amino Transf (AST/SGOT) 30 U/L (15-37) Alanine Aminotransferase (ALT/SGPT) 35 U/L (14-59) Alkaline Phosphatase 111 U/L (46-116) Troponin I High Sensitivity 21 ng/L (4-50) HP-Rrd-U-Type Natriuretic Peptide 1123 pg/mL (0-124) Total Protein 6.8 g/dL (6.4-8.2) Albumin 3.1 g/dL (3.4-5.0) Albumin/Globulin Ratio 0.8 (1.0-1.7) Urine Collection Type Unknown Urine Color Yellow Urine Clarity Clear Urine pH 6.5 (<5.0-8.0) Urine Specific [place] <=1.005 (1.000-1.030) Urine Protein 100 mg/dL (NEG-TRACE) Urine Glucose (UA) Negative mg/dL (NEG) Urine Ketones (Stick) Negative mg/dL (NEG) Urine Blood Small (NEG) Urine Nitrite Negative (NEG) Urine Bilirubin Negative (NEG) Urine Urobilinogen Dipstick 0.2 mg/dL (0.2 mg/dL) Urine Leukocyte Esterase Negative (NEG) Urine RBC 1-2 /HPF (0-2) Urine WBC Occ /HPF (0-4) Urine Squamous Epithelial Cells Few /LPF Urine Bacteria 0 /HPF (0-FEW) Urine Opiates Screen Neg (NEG) Urine Methadone Screen Neg (NEG) Urine Barbiturates Neg (NEG) Urine Phencyclidine Screen Neg (NEG) Urine Amphetamine/Methamphetamine Neg (NEG) Urine Benzodiazepines Screen Neg (NEG) Urine Cocaine Screen Neg (NEG) Urine Cannabinoids Screen Neg (NEG) Urine Ethyl Alcohol Neg (NEG) Laboratory Tests Test 04/30/21 09:45 04/30/21 09:55 04/30/21 11:22 SARS-CoV-2 RNA (ROCKY) Negative (Negative) SARS-CoV-2 Antigen (Rapid) Negative (NEGATIVE) White Blood Count 12.4 x10^3/uL (4.0-11.0) Red Blood Count 3.72 x10^6/uL (3.50-5.40) Hemoglobin 10.0 g/dL (12.0-15.5) Hematocrit 31.7 % (36.0-47.0) Mean Corpuscular Volume 85 fL (79-100) Mean Corpuscular Hemoglobin 27 pg (25-35) Mean Corpuscular Hemoglobin Concent 31 g/dL (31-37) Red Cell Distribution Width 16.9 % (11.5-14.5) Platelet Count 212 x10^3/uL (140-400) Neutrophils (%) (Auto) 84 % (31-73) Lymphocytes (%) (Auto) 10 % (24-48) Monocytes (%) (Auto) 6 % (0-9) Eosinophils (%) (Auto) 1 % (0-3) Basophils (%) (Auto) 0 % (0-3) Neutrophils # (Auto) 10.4 x10^3/uL (1.8-7.7) Lymphocytes # (Auto) 1.2 x10^3/uL (1.0-4.8) Monocytes # (Auto) 0.7 x10^3/uL (0.0-1.1) Eosinophils # (Auto) 0.1 x10^3/uL (0.0-0.7) Basophils # (Auto) 0.0 x10^3/uL (0.0-0.2) Sodium Level 143 mmol/L (136-145) Potassium Level 3.6 mmol/L (3.5-5.1) Chloride Level 107 mmol/L (98-107) Carbon Dioxide Level 27 mmol/L (21-32) Anion Gap 9 (6-14) Blood Urea Nitrogen 18 mg/dL (7-20) Creatinine 1.0 mg/dL (0.6-1.0) Estimated GFR (Cockcroft-Gault) 71.9 BUN/Creatinine Ratio 18 (6-20) Glucose Level 114 mg/dL (70-99) Lactic Acid Level 0.9 mmol/L (0.4-2.0) Calcium Level 9.2 mg/dL (8.5-10.1) Magnesium Level 1.6 mg/dL (1.8-2.4) Total Bilirubin 0.3 mg/dL (0.2-1.0) Aspartate Amino Transf (AST/SGOT) 30 U/L (15-37) Alanine Aminotransferase (ALT/SGPT) 35 U/L (14-59) Alkaline Phosphatase 111 U/L (46-116) Troponin I High Sensitivity 21 ng/L (4-50) VQ-Lyu-W-Type Natriuretic Peptide 1123 pg/mL (0-124) Total Protein 6.8 g/dL (6.4-8.2) Albumin 3.1 g/dL (3.4-5.0) Albumin/Globulin Ratio 0.8 (1.0-1.7) Urine Collection Type Unknown Urine Color Yellow Urine Clarity Clear Urine pH 6.5 (<5.0-8.0) Urine Specific [place] <=1.005 (1.000-1.030) Urine Protein 100 mg/dL (NEG-TRACE) Urine Glucose (UA) Negative mg/dL (NEG) Urine Ketones (Stick) Negative mg/dL (NEG) Urine Blood Small (NEG) Urine Nitrite Negative (NEG) Urine Bilirubin Negative (NEG) Urine Urobilinogen Dipstick 0.2 mg/dL (0.2 mg/dL) Urine Leukocyte Esterase Negative (NEG) Urine RBC 1-2 /HPF (0-2) Urine WBC Occ /HPF (0-4) Urine Squamous Epithelial Cells Few /LPF Urine Bacteria 0 /HPF (0-FEW) Urine Opiates Screen Neg (NEG) Urine Methadone Screen Neg (NEG) Urine Barbiturates Neg (NEG) Urine Phencyclidine Screen Neg (NEG) Urine Amphetamine/Methamphetamine Neg (NEG) Urine Benzodiazepines Screen Neg (NEG) Urine Cocaine Screen Neg (NEG) Urine Cannabinoids Screen Neg (NEG) Urine Ethyl Alcohol Neg (NEG) Medications Active Scripts Medications Dose Route/Sig Max Daily Dose Days Date Category Rqusqk-Eqagzknq-Ylev 50-325-40 (Butalb/Acetaminophen/Caffeine) 1 Each Tablet 1-2 Each PO Q4HRS PRN MDD 6 tabs 3 07/30/20 Rx Eegivz-Bozzwogr-Qrau 50-325-40 (Butalb/Acetaminophen/Caffeine) 1 Each Tablet 1-2 Each PO Q4HRS PRN MDD 6 tabs 3 06/01/19 Rx Seroquel (Quetiapine Fumarate) 200 Mg Tablet 200 Mg PO HS 05/12/19 Reported Tizanidine Hcl 4 Mg Tablet 4 Mg PO TID PRN 05/12/19 Reported Clonidine Hcl 0.1 Mg Tablet 0.1 Mg PO DAILY 05/12/19 Reported Bactrim 400-80 Mg Tablet (Sulfamethoxazole/Trimethoprim) 1 Each Tablet 1 Tab PO BID 11/02/18 Rx Zofran (Ondansetron Hcl) 4 Mg Tablet 1 Tab PO PRN Q6-8HRS 11/02/18 Rx Impression . Full consult dictated Discussed with RN Initiate Precedex Acute hypoxemic respiratory failure multifactorial TON ANGULO MD Apr 30, 2021 14:53
--- NOTE | 2021-04-30 15:16 | PDOC2 ---
YASHIRA,BRENNONDIANN KRAMER 04/30/21 1516: CARDIAC CONSULT DATE OF CONSULT Date of Consult DATE: 04/30/21 TIME: 15:02 REASON FOR CONSULT Reason for Consult: Hypertensive emergency REFERRING PHYSICIAN Referring Physician: Emilia Acosta APRN SOURCE Source: Chart review HISTORY OF PRESENT ILLNESS HISTORY OF PRESENT ILLNESS This is a 46 yo female who presented secondary to shortness of breath, wheezing, and back pain. Patient is presently on Precedex and sleeping. Unable to provide any history. Per chart review, patient presented in respiratory distress. Declined intubated and was place on BiPAP. Was significantly hypertensive upon arrival in ED, which prompted this consult. Was placed on Cardene gtt PAST MEDICAL HISTORY Cardiovascular: HTN CENTRAL NERVOUS SYSTEM: Periperal neuropathy GI: GERD Heme/Onc: Anemia NOS Psych: Anxiety, Depression Musculoskeletal: Osteoarthritis Endocrine: Diabetes PAST SURGICAL HISTORY Past Surgical History: Cholecystectomy, Hysterectomy FAMILY HISTORY Family History: Hypertension SOCIAL HISTORY Smoke: No ALCOHOL: none Drugs: None CURRENT MEDICATIONS CURRENT MEDICATIONS Current Medications Medications (Trade) Dose Ordered Sig/Kathrine Route PRN Reason Start Time Stop Time Status Last Admin Dose Admin Albuterol Sulfate (Ventolin Neb Soln) 10 mg 1X ONCE CONT NEB 04/30/21 09:15 04/30/21 09:21 DC 04/30/21 09:26 Methylprednisolone Sodium Succinate (SOLU-Medrol 125MG VIAL) 125 mg 1X ONCE IV 04/30/21 09:30 04/30/21 09:39 DC 04/30/21 10:08 Azithromycin 250 ml @ 250 mls/hr 1X ONCE IV 04/30/21 09:30 04/30/21 10:29 DC 04/30/21 12:53 Lorazepam (Ativan Inj) 1 mg 1X ONCE IVP 04/30/21 09:30 04/30/21 09:39 DC 04/30/21 10:12 Furosemide (Lasix) 40 mg 1X ONCE IVP 04/30/21 09:45 04/30/21 11:46 DC 04/30/21 10:01 Nicardipine HCl 50 mg/Sodium Chloride 250 ml @ 25 mls/hr CONT PRN IV PER PROTOCOL 04/30/21 09:45 04/30/21 10:11 Ondansetron HCl (Zofran) 4 mg 1X ONCE IVP 04/30/21 10:00 04/30/21 10:11 DC 04/30/21 10:05 Lorazepam (Ativan Inj) 2 mg PRN Q2HRS PRN IVP ANXIETY / AGITATION 04/30/21 11:00 04/30/21 14:09 Hydralazine HCl (Apresoline Inj) 10 mg PRN Q4HRS PRN IVP HYPERTENSION 04/30/21 12:00 04/30/21 12:54 Magnesium Sulfate 100 ml @ 25 mls/hr 1X ONCE IV 04/30/21 12:00 04/30/21 15:59 04/30/21 12:52 Dexmedetomidine HCl 400 mcg/ Sodium Chloride 100 ml @ 7.045 mls/ hr CONT PRN IV PER PROTOCOL 04/30/21 13:45 04/30/21 14:48 ALLERGIES ALLERGIES: Coded Allergies: Penicillins (Verified Allergy, Severe, Anaphylaxis, 04/30/21) haloperidol (Verified Allergy, Intermediate, 05/01/21) ketorolac (Verified Allergy, Intermediate, 04/30/21) metoclopramide (Verified Allergy, Intermediate, 04/30/21) prochlorperazine (Verified Allergy, Intermediate, 05/01/21) ROS Review of System unobtainable PHYSICAL EXAM General: No acute distress, Other (sleeping ) HEENT: Atraumatic Lungs: Other (BiPAP) Heart: Regular rate (SR), Other (distant heart tones ) Abdomen: Soft, Other (obese ) Extremities: Other (1+ bilateral LE edema ) Skin: No significant lesion Neuro: Other (on mild sedation ) Psych/Mental Status: Other (unable to assess ) VITALS/I&O VITALS/I&O: Vital Signs Date Time Temp Pulse Resp B/P (MAP) Pulse Ox O2 Delivery O2 Flow Rate FiO2 04/30/21 15:01 88 BiPAP/CPAP 04/30/21 13:10 96 28 188/81 (116) 04/30/21 12:56 99.8 99.8 04/30/21 11:18 2.0 LABS Lab: Laboratory Tests Test 04/30/21 09:45 04/30/21 09:55 04/30/21 11:22 SARS-CoV-2 RNA (ROCKY) Negative (Negative) SARS-CoV-2 Antigen (Rapid) Negative (NEGATIVE) White Blood Count 12.4 x10^3/uL (4.0-11.0) H Red Blood Count 3.72 x10^6/uL (3.50-5.40) Hemoglobin 10.0 g/dL (12.0-15.5) L Hematocrit 31.7 % (36.0-47.0) L Mean Corpuscular Volume 85 fL (79-100) Mean Corpuscular Hemoglobin 27 pg (25-35) Mean Corpuscular Hemoglobin Concent 31 g/dL (31-37) Red Cell Distribution Width 16.9 % (11.5-14.5) H Platelet Count 212 x10^3/uL (140-400) Neutrophils (%) (Auto) 84 % (31-73) H Lymphocytes (%) (Auto) 10 % (24-48) L Monocytes (%) (Auto) 6 % (0-9) Eosinophils (%) (Auto) 1 % (0-3) Basophils (%) (Auto) 0 % (0-3) Neutrophils # (Auto) 10.4 x10^3/uL (1.8-7.7) H Lymphocytes # (Auto) 1.2 x10^3/uL (1.0-4.8) Monocytes # (Auto) 0.7 x10^3/uL (0.0-1.1) Eosinophils # (Auto) 0.1 x10^3/uL (0.0-0.7) Basophils # (Auto) 0.0 x10^3/uL (0.0-0.2) Sodium Level 143 mmol/L (136-145) Potassium Level 3.6 mmol/L (3.5-5.1) Chloride Level 107 mmol/L (98-107) Carbon Dioxide Level 27 mmol/L (21-32) Anion Gap 9 (6-14) Blood Urea Nitrogen 18 mg/dL (7-20) Creatinine 1.0 mg/dL (0.6-1.0) Estimated GFR (Cockcroft-Gault) 71.9 BUN/Creatinine Ratio 18 (6-20) Glucose Level 114 mg/dL (70-99) H Lactic Acid Level 0.9 mmol/L (0.4-2.0) Calcium Level 9.2 mg/dL (8.5-10.1) Magnesium Level 1.6 mg/dL (1.8-2.4) L Total Bilirubin 0.3 mg/dL (0.2-1.0) Aspartate Amino Transferase (AST) 30 U/L (15-37) Alanine Aminotransferase (ALT) 35 U/L (14-59) Alkaline Phosphatase 111 U/L (46-116) Troponin I High Sensitivity 21 ng/L (4-50) GO-Ick-S-Type Natriuretic Peptide 1123 pg/mL (0-124) H Total Protein 6.8 g/dL (6.4-8.2) Albumin 3.1 g/dL (3.4-5.0) L Albumin/Globulin Ratio 0.8 (1.0-1.7) L Urine Collection Type Unknown Urine Color Yellow Urine Clarity Clear Urine pH 6.5 (<5.0-8.0) Urine Specific [place] <=1.005 (1.000-1.030) Urine Protein 100 mg/dL (NEG-TRACE) Urine Glucose (UA) Negative mg/dL (NEG) Urine Ketones (Stick) Negative mg/dL (NEG) Urine Blood Small (NEG) Urine Nitrite Negative (NEG) Urine Bilirubin Negative (NEG) Urine Urobilinogen Dipstick 0.2 mg/dL (0.2 mg/dL) Urine Leukocyte Esterase Negative (NEG) Urine RBC 1-2 /HPF (0-2) Urine WBC Occ /HPF (0-4) Urine Squamous Epithelial Cells Few /LPF Urine Bacteria 0 /HPF (0-FEW) Urine Opiates Screen Neg (NEG) Urine Methadone Screen Neg (NEG) Urine Barbiturates Neg (NEG) Urine Phencyclidine Screen Neg (NEG) Urine Amphetamine/Methamphetamine Neg (NEG) Urine Benzodiazepines Screen Neg (NEG) Urine Cocaine Screen Neg (NEG) Urine Cannabinoids Screen Neg (NEG) Urine Ethyl Alcohol Neg (NEG) Laboratory Tests 04/30/21 09:55 Laboratory Tests 04/30/21 09:55 ECHOCARDIOGRAM ECHOCARDIOGRAM <Conclusion> The left ventricular systolic function is normal. The Ejection Fraction is 60-65%. There is normal LV segmental wall motion. Trace mitral regurgitation. Trace tricuspid regurgitation. There is no evidence of significant pericardial effusion. DATE: 05/14/19 1308 ASSESSMENT/PLAN ASSESSMENT/PLAN 1. Acute respiratory failure; multifactorial with PNA, CHF, and probable BERTO 2. Acute diastolic CHF; s/p IV diuresis 3. Hypertensive urgency; on Cardene gtt 4. Leukocytosis, fevers 5. Diabetes, II 6. Obesity 7. Hypomagnesemia; replaced 8. Obesity, probable hypoventilation syndrome 9. PUI; COVID negative Recommendations Echo to assess LV systolic function Mild diuresis Home antiHTN therapy resumed Hydralazine IV PRN Titrate off Cardene as able Follow cultures Ongoing lung optimization, treatment of PNA Supportive care SUSAN LEIVA MD 05/01/21 0819: CARDIAC CONSULT ASSESSMENT/PLAN ASSESSMENT/PLAN Patient seen and examined 04/30/2021. Agree with INSERTER OPERATOR's assessment and plan. Acute respiratory failure secondary to combination of acute on chronic diastolic heart failure and pneumonia Continue diuresis Resume home antihypertensives and titrate for better control of blood pressure Wean Cardene off as tolerated Check 2D echo to assess LV systolic function Thank you for the consultation BRENNON AC APRN Apr 30, 2021 15:16 SUSAN LEIVA MD May 01, 2021 08:19
[2021-04-30] MEDS: VANCOMYCIN PER PHARMACY MC PRN ×2 (16:58→17:33)
--- NOTE | 2021-04-30 17:37 | NUR ---
Pharmacy Vancomycin Dosing Note S:Consulted to monitor and dose vancomycin started 04/30/21. O:YVES BURTON is a 46 year old F with Pneumonia . Height: 5 feet, 4 inches Weight: 167.5 kg [place] Body Weight: 54.70 Adjusted Body Weight: 99.82 Dosing Weight: Actual Other Antibiotics: LABS: Last BUN: 18 Last Creatinine: 1.0 Creatinine Clearance: 109 mL/min Last WBC: 12.4 Last Procalcitonin: Tmax (past 24 hours): Microbiology: I/O: Drug Levels: Last level: on at Last dose given at Vancomycin Dosing: Loading Dose: 2000 mg x1 Dosing Weight: Actual Target Trough: 15-20 A: Based on: HT, WT AND RENAL FUNCTION P: 1. Begin Vancomycin 1750 mg IV q12h 2. Follow up Trough level on 05/01/21 at 1530 3. Pharmacy will continue to monitor, follow and adjust therapy as needed. STACIA CISNEROS, [facility], 04/30/21 [id number]
[2021-04-30] MEDS ORDERED: cloNIDine TTS-2 1 PATCH PATCH TD SCH (17:45)
[2021-04-30] MEDS: QUEtiapine 100 MG TABLET. PO SCH (21:00)
--- NOTE | 2021-04-30 21:52 | CONS ---
DATE OF CONSULTATION: 04/30/2021 PULMONARY CONSULTATION ATTENDING PHYSICIAN: Juan Miguel Cifuentes MD. REASON FOR CONSULTATION: The patient is seen in pulmonary consultation at the request of Dr. Cifuentes for respiratory failure, utilizing noninvasive ventilation. HISTORY OF PRESENT ILLNESS: The patient is a 46-year-old that presented with increasing shortness of breath, chest pain, nausea, wheezing and back pain. She was evaluated in the Emergency Department, she had a chest x-ray, which I personally reviewed, revealing a significant right sided consolidation, mild left sided infiltrate. The patient's white count was elevated. When she came in, she had a toxicology screen, which was negative. UA was noted. Serology for SARS-CoV-2 was negative. I discussed the case with the Emergency Room provider, started patient on coverage for both gram-negative and gram-positive organisms. She is currently in the intensive care unit. She is hypertensive, receiving IV Cardene. She is not totally in sync with the BiPAP. I was unable to obtain much history. PAST MEDICAL HISTORY: Otherwise remarkable for hypertension, migraines, neuropathy. PAST SURGICAL HISTORY: She has had previous cholecystectomy, hysterectomy. REVIEW OF SYSTEMS: Unobtainable secondary to patient's condition. I did discuss the case with Bina, the nurse practitioner from the Emergency Department. At the time of the patient's evaluation, she was alert, oriented, stating that we needed to call DPOA. She also informed the Emergency Room provider that she would not want to be intubated. CURRENT MEDICATIONS: List was reviewed. ALLERGIES: LISTED TO PENICILLIN, HALOPERIDOL, KETOROLAC, METOCLOPRAMIDE AND PROCHLORPERAZINE. PHYSICAL EXAMINATION: GENERAL: The patient was in the intensive care unit. VITAL SIGNS: T-max was 101.2. She is currently on noninvasive ventilation with BiPAP, somewhat in sync with the BiPAP. LUNGS: Anteriorly scattered rhonchi. CARDIOVASCULAR: Tachycardic with distal heart sounds. ABDOMEN: Obese. EXTREMITIES: Marked obesity. LABORATORY DATA: Reviewed. White count was elevated as indicated above. Electrolytes were noted. BUN and creatinine noted. IMPRESSION: 1. Acute hypoxemic respiratory failure secondary to significant consolidation of the right lung. 2. Suspect gram-negative, possibly gram positive pneumonia. 3. Sepsis. 4. Hypertensive emergency. 5. Morbid obesity. 6. History of hypertension, uncontrolled. 7. Arthritis. 8. History of migraine. PLAN: 1. As indicated above. We will continue patient on noninvasive ventilation with BiPAP. 2. Initiate a Precedex to allow for synchrony with noninvasive ventilation. 3. Continue vancomycin and Levaquin. 4. Initiate hydralazine. 5. DVT prophylaxis. 6. Maintenance IV fluids. I do appreciate the privilege in sharing in the patient's care. Total cumulative critical care time of 40 minutes, examining the patient, reviewing the current documentation. Case discussed with both Dr. Cifuentes and the Emergency Room nurse practitioner. MARY/CARLA DR: Madhav TID: [id number]
[2021-04-30] MEDS: HEPARIN for SUB-Q USE 5,000 UNIT/ML VIAL. SQ SCH (22:56)
[2021-05-01] VITALS (12 sets, daily range): BP systolic 106–191; BP diastolic 49–89
--- NOTE | 2021-05-01 00:54 | NUR ---
Nursing Note: At around 2300, patient was pulling bipap mask off. Gave patient drink and reoriented her on why she is here. Pt still sleepy, refused to put bipap mask back on however. Stating she is too dry and hungry. Respirations in the 20s and O2 in the mid to upper 90s on 2L.
[2021-05-01] MEDS: hydrALAZINE 20 MG/ML VIAL. IVP PRN (03:39)
[2021-05-01] MEDS: MORPHINE SULFATE 2 MG/ML INJ. IVP PRN ×6 (03:47→20:34)
[2021-05-01] MEDS ORDERED: VANCOMYCIN 1.75 GM in IV NORMAL SALINE 500ML BAG 500 ML IV SCH (04:00)
[2021-05-01] MEDS: oxyCODONE IR 5 MG TABLET PO PRN ×2 (04:06→09:12)
[2021-05-01] MEDS: HEPARIN for SUB-Q USE 5,000 UNIT/ML VIAL. SQ SCH ×3 (06:00→21:57)
[2021-05-01] MEDS ORDERED: PERFLUTREN PROTEIN-A MICROSPHR 0.22 MG/ML 3 ML VIAL. IV ONE ×2 (07:41→08:00)
--- NOTE | 2021-05-01 08:26 | PDOC ---
PULMONARY PROGRESS NOTES DATE: 05/01/21 TIME: 08:25 Subjective Patient is not more short of breath this morning. She is off of BiPAP, tolerating oxygen well. She is focused on the pain, upset that her pain is not being controlled Vitals Vital Signs Date Time Temp Pulse Resp B/P (MAP) Pulse Ox O2 Delivery O2 Flow Rate FiO2 05/01/21 07:19 26 93 Nasal Cannula 2.0 05/01/21 06:00 94 106/49 (68) 05/01/21 00:00 99.0 99.0 ROS: No Nausea, No Abdominal Pain, No Increase Cough General: Alert Lungs: Wheezing Cardiovascular: S1, S2 Abdomen: Soft, Non-tender Neuro Exam: Alert Extremities: No Edema Skin: Warm Labs Laboratory Tests Test 04/30/21 09:45 04/30/21 09:55 04/30/21 11:22 SARS-CoV-2 RNA (ROCKY) Negative (Negative) SARS-CoV-2 Antigen (Rapid) Negative (NEGATIVE) White Blood Count 12.4 x10^3/uL (4.0-11.0) Red Blood Count 3.72 x10^6/uL (3.50-5.40) Hemoglobin 10.0 g/dL (12.0-15.5) Hematocrit 31.7 % (36.0-47.0) Mean Corpuscular Volume 85 fL (79-100) Mean Corpuscular Hemoglobin 27 pg (25-35) Mean Corpuscular Hemoglobin Concent 31 g/dL (31-37) Red Cell Distribution Width 16.9 % (11.5-14.5) Platelet Count 212 x10^3/uL (140-400) Neutrophils (%) (Auto) 84 % (31-73) Lymphocytes (%) (Auto) 10 % (24-48) Monocytes (%) (Auto) 6 % (0-9) Eosinophils (%) (Auto) 1 % (0-3) Basophils (%) (Auto) 0 % (0-3) Neutrophils # (Auto) 10.4 x10^3/uL (1.8-7.7) Lymphocytes # (Auto) 1.2 x10^3/uL (1.0-4.8) Monocytes # (Auto) 0.7 x10^3/uL (0.0-1.1) Eosinophils # (Auto) 0.1 x10^3/uL (0.0-0.7) Basophils # (Auto) 0.0 x10^3/uL (0.0-0.2) Sodium Level 143 mmol/L (136-145) Potassium Level 3.6 mmol/L (3.5-5.1) Chloride Level 107 mmol/L (98-107) Carbon Dioxide Level 27 mmol/L (21-32) Anion Gap 9 (6-14) Blood Urea Nitrogen 18 mg/dL (7-20) Creatinine 1.0 mg/dL (0.6-1.0) Estimated GFR (Cockcroft-Gault) 71.9 BUN/Creatinine Ratio 18 (6-20) Glucose Level 114 mg/dL (70-99) Lactic Acid Level 0.9 mmol/L (0.4-2.0) Calcium Level 9.2 mg/dL (8.5-10.1) Magnesium Level 1.6 mg/dL (1.8-2.4) Total Bilirubin 0.3 mg/dL (0.2-1.0) Aspartate Amino Transf (AST/SGOT) 30 U/L (15-37) Alanine Aminotransferase (ALT/SGPT) 35 U/L (14-59) Alkaline Phosphatase 111 U/L (46-116) Troponin I High Sensitivity 21 ng/L (4-50) DF-Tep-U-Type Natriuretic Peptide 1123 pg/mL (0-124) Total Protein 6.8 g/dL (6.4-8.2) Albumin 3.1 g/dL (3.4-5.0) Albumin/Globulin Ratio 0.8 (1.0-1.7) Procalcitonin ng/mL (0.00-0.10) Urine Collection Type Unknown Urine Color Yellow Urine Clarity Clear Urine pH 6.5 (<5.0-8.0) Urine Specific [place] <=1.005 (1.000-1.030) Urine Protein 100 mg/dL (NEG-TRACE) Urine Glucose (UA) Negative mg/dL (NEG) Urine Ketones (Stick) Negative mg/dL (NEG) Urine Blood Small (NEG) Urine Nitrite Negative (NEG) Urine Bilirubin Negative (NEG) Urine Urobilinogen Dipstick 0.2 mg/dL (0.2 mg/dL) Urine Leukocyte Esterase Negative (NEG) Urine RBC 1-2 /HPF (0-2) Urine WBC Occ /HPF (0-4) Urine Squamous Epithelial Cells Few /LPF Urine Bacteria 0 /HPF (0-FEW) Urine Opiates Screen Neg (NEG) Urine Methadone Screen Neg (NEG) Urine Barbiturates Neg (NEG) Urine Phencyclidine Screen Neg (NEG) Urine Amphetamine/Methamphetamine Neg (NEG) Urine Benzodiazepines Screen Neg (NEG) Urine Cocaine Screen Neg (NEG) Urine Cannabinoids Screen Neg (NEG) Urine Ethyl Alcohol Neg (NEG) Laboratory Tests Test 04/30/21 09:45 04/30/21 09:55 04/30/21 11:22 SARS-CoV-2 RNA (ROCKY) Negative (Negative) SARS-CoV-2 Antigen (Rapid) Negative (NEGATIVE) White Blood Count 12.4 x10^3/uL (4.0-11.0) Red Blood Count 3.72 x10^6/uL (3.50-5.40) Hemoglobin 10.0 g/dL (12.0-15.5) Hematocrit 31.7 % (36.0-47.0) Mean Corpuscular Volume 85 fL (79-100) Mean Corpuscular Hemoglobin 27 pg (25-35) Mean Corpuscular Hemoglobin Concent 31 g/dL (31-37) Red Cell Distribution Width 16.9 % (11.5-14.5) Platelet Count 212 x10^3/uL (140-400) Neutrophils (%) (Auto) 84 % (31-73) Lymphocytes (%) (Auto) 10 % (24-48) Monocytes (%) (Auto) 6 % (0-9) Eosinophils (%) (Auto) 1 % (0-3) Basophils (%) (Auto) 0 % (0-3) Neutrophils # (Auto) 10.4 x10^3/uL (1.8-7.7) Lymphocytes # (Auto) 1.2 x10^3/uL (1.0-4.8) Monocytes # (Auto) 0.7 x10^3/uL (0.0-1.1) Eosinophils # (Auto) 0.1 x10^3/uL (0.0-0.7) Basophils # (Auto) 0.0 x10^3/uL (0.0-0.2) Sodium Level 143 mmol/L (136-145) Potassium Level 3.6 mmol/L (3.5-5.1) Chloride Level 107 mmol/L (98-107) Carbon Dioxide Level 27 mmol/L (21-32) Anion Gap 9 (6-14) Blood Urea Nitrogen 18 mg/dL (7-20) Creatinine 1.0 mg/dL (0.6-1.0) Estimated GFR (Cockcroft-Gault) 71.9 BUN/Creatinine Ratio 18 (6-20) Glucose Level 114 mg/dL (70-99) Lactic Acid Level 0.9 mmol/L (0.4-2.0) Calcium Level 9.2 mg/dL (8.5-10.1) Magnesium Level 1.6 mg/dL (1.8-2.4) Total Bilirubin 0.3 mg/dL (0.2-1.0) Aspartate Amino Transf (AST/SGOT) 30 U/L (15-37) Alanine Aminotransferase (ALT/SGPT) 35 U/L (14-59) Alkaline Phosphatase 111 U/L (46-116) Troponin I High Sensitivity 21 ng/L (4-50) JK-Lot-T-Type Natriuretic Peptide 1123 pg/mL (0-124) Total Protein 6.8 g/dL (6.4-8.2) Albumin 3.1 g/dL (3.4-5.0) Albumin/Globulin Ratio 0.8 (1.0-1.7) Procalcitonin ng/mL (0.00-0.10) Urine Collection Type Unknown Urine Color Yellow Urine Clarity Clear Urine pH 6.5 (<5.0-8.0) Urine Specific [place] <=1.005 (1.000-1.030) Urine Protein 100 mg/dL (NEG-TRACE) Urine Glucose (UA) Negative mg/dL (NEG) Urine Ketones (Stick) Negative mg/dL (NEG) Urine Blood Small (NEG) Urine Nitrite Negative (NEG) Urine Bilirubin Negative (NEG) Urine Urobilinogen Dipstick 0.2 mg/dL (0.2 mg/dL) Urine Leukocyte Esterase Negative (NEG) Urine RBC 1-2 /HPF (0-2) Urine WBC Occ /HPF (0-4) Urine Squamous Epithelial Cells Few /LPF Urine Bacteria 0 /HPF (0-FEW) Urine Opiates Screen Neg (NEG) Urine Methadone Screen Neg (NEG) Urine Barbiturates Neg (NEG) Urine Phencyclidine Screen Neg (NEG) Urine Amphetamine/Methamphetamine Neg (NEG) Urine Benzodiazepines Screen Neg (NEG) Urine Cocaine Screen Neg (NEG) Urine Cannabinoids Screen Neg (NEG) Urine Ethyl Alcohol Neg (NEG) Medications Active Scripts Medications Dose Route/Sig Max Daily Dose Days Date Category Xxqrfq-Axehbctx-Zmfi 50-325-40 (Butalb/Acetaminophen/Caffeine) 1 Each Tablet 1-2 Each PO Q4HRS PRN MDD 6 tabs 3 07/30/20 Rx Ksztph-Qfhqpivt-Yyxp 50-325-40 (Butalb/Acetaminophen/Caffeine) 1 Each Tablet 1-2 Each PO Q4HRS PRN MDD 6 tabs 3 06/01/19 Rx Seroquel (Quetiapine Fumarate) 200 Mg Tablet 200 Mg PO HS 05/12/19 Reported Tizanidine Hcl 4 Mg Tablet 4 Mg PO TID PRN 05/12/19 Reported Clonidine Hcl 0.1 Mg Tablet 0.1 Mg PO DAILY 05/12/19 Reported Bactrim 400-80 Mg Tablet (Sulfamethoxazole/Trimethoprim) 1 Each Tablet 1 Tab PO BID 11/02/18 Rx Zofran (Ondansetron Hcl) 4 Mg Tablet 1 Tab PO PRN Q6-8HRS 11/02/18 Rx Impression . IMPRESSION: 1. Acute hypoxemic respiratory failure secondary to significant consolidation of the right lung. 2. Suspect gram-negative, possibly gram positive pneumonia. 3. Sepsis. 4. Hypertensive emergency. 5. Morbid obesity. 6. History of hypertension, uncontrolled. 7. Arthritis. 8. History of migraine. Plan . Updated 05/01 patient respiratory status appears to have improved I informed the patient that she has a significant pneumonia on the right side, she was mainly focused on the fact that the medical team is not addressing her pain I informed her that her respiratory status is slowly improving, she requires antibiotics, oxygen, BiPAP nightly She became irate with the nursing staff this morning, and it is inappropriate. Will defer to PCP for pain management PLAN: 1. As indicated above. We will continue patient on noninvasive ventilation with BiPAP. 2. Initiate a Precedex to allow for synchrony with noninvasive ventilation. 3. Continue vancomycin and Levaquin. 4. Initiate hydralazine. 5. DVT prophylaxis. 6. Maintenance IV fluids. I do appreciate the privilege in sharing in the patient's care. Total cumulative critical care time of 40 minutes, examining the patient, reviewing the current documentation. Case discussed with both Dr. Cifuentes and the Emergency Room nurse practitioner. TON ANGULO MD May 01, 2021 08:25
[2021-05-01 08:37] LABS: BASE EXCESS COOX -1 mmol/L (-3-3); HCO3 COOX 23 mmol/L (21-28); PCO2 COOX 34 mmHg (35-46); PO2 COOX 146 mmHg (75-108); SAT O2 COOX 99 % (92-99)
[2021-05-01] MEDS ORDERED: AZITHROMYCIN 500 MG in IV NORMAL SALINE 250ML 250 ML IV SCH (09:00)
[2021-05-01] MEDS ORDERED: ELECTROLYTE (ICU) PROTOCOL. MC SCH (09:00)
--- NOTE | 2021-05-01 09:17 | PDOC ---
CHRISTOPHER DE PAZ COLLATERAL SPECIALIST 05/01/21 0917: CARDIO Progress Notes Date and Time Date of Service 05/01/2021 Time of Evaluation 0900 Subjective Subjective: No shortness of breath, Other (unpleasant to stafff) Vitals Vitals Vital Signs Date Time Temp Pulse Resp B/P (MAP) Pulse Ox O2 Delivery O2 Flow Rate FiO2 05/01/21 07:19 26 93 Nasal Cannula 2.0 05/01/21 06:00 94 106/49 (68) 05/01/21 00:00 99.0 99.0 Weight Weight [ ] Input and Output Intake and Output Intake and Output 05/01/21 07:00 Intake Total 750 ml Output Total 815 ml Balance -65 ml Intake Oral 750 ml Output Urine Total 815 ml # Voids 2 Laboratory Labs Laboratory Tests Test 04/30/21 09:12 04/30/21 09:45 04/30/21 09:55 04/30/21 11:22 O2 Saturation 99 % (92-99) Arterial Blood pH 7.44 (7.35-7.45) Arterial Blood pCO2 at Patient Temp 34 mmHg (35-46) Arterial Blood pO2 at Patient Temp 146 mmHg (75-108) Arterial Blood HCO3 23 mmol/L (21-28) Arterial Blood Base Excess -1 mmol/L (-3-3) FiO2 50/bipap 14/12 SARS-CoV-2 RNA (ROCKY) Negative (Negative) SARS-CoV-2 Antigen (Rapid) Negative (NEGATIVE) White Blood Count 12.4 x10^3/uL (4.0-11.0) Red Blood Count 3.72 x10^6/uL (3.50-5.40) Hemoglobin 10.0 g/dL (12.0-15.5) Hematocrit 31.7 % (36.0-47.0) Mean Corpuscular Volume 85 fL (79-100) Mean Corpuscular Hemoglobin 27 pg (25-35) Mean Corpuscular Hemoglobin Concent 31 g/dL (31-37) Red Cell Distribution Width 16.9 % (11.5-14.5) Platelet Count 212 x10^3/uL (140-400) Neutrophils (%) (Auto) 84 % (31-73) Lymphocytes (%) (Auto) 10 % (24-48) Monocytes (%) (Auto) 6 % (0-9) Eosinophils (%) (Auto) 1 % (0-3) Basophils (%) (Auto) 0 % (0-3) Neutrophils # (Auto) 10.4 x10^3/uL (1.8-7.7) Lymphocytes # (Auto) 1.2 x10^3/uL (1.0-4.8) Monocytes # (Auto) 0.7 x10^3/uL (0.0-1.1) Eosinophils # (Auto) 0.1 x10^3/uL (0.0-0.7) Basophils # (Auto) 0.0 x10^3/uL (0.0-0.2) Sodium Level 143 mmol/L (136-145) Potassium Level 3.6 mmol/L (3.5-5.1) Chloride Level 107 mmol/L (98-107) Carbon Dioxide Level 27 mmol/L (21-32) Anion Gap 9 (6-14) Blood Urea Nitrogen 18 mg/dL (7-20) Creatinine 1.0 mg/dL (0.6-1.0) Estimated GFR (Cockcroft-Gault) 71.9 BUN/Creatinine Ratio 18 (6-20) Glucose Level 114 mg/dL (70-99) Lactic Acid Level 0.9 mmol/L (0.4-2.0) Calcium Level 9.2 mg/dL (8.5-10.1) Magnesium Level 1.6 mg/dL (1.8-2.4) Total Bilirubin 0.3 mg/dL (0.2-1.0) Aspartate Amino Transf (AST/SGOT) 30 U/L (15-37) Alanine Aminotransferase (ALT/SGPT) 35 U/L (14-59) Alkaline Phosphatase 111 U/L (46-116) Troponin I High Sensitivity 21 ng/L (4-50) HJ-Ibt-Q-Type Natriuretic Peptide 1123 pg/mL (0-124) Total Protein 6.8 g/dL (6.4-8.2) Albumin 3.1 g/dL (3.4-5.0) Albumin/Globulin Ratio 0.8 (1.0-1.7) Procalcitonin ng/mL (0.00-0.10) Urine Collection Type Unknown Urine Color Yellow Urine Clarity Clear Urine pH 6.5 (<5.0-8.0) Urine Specific [place] <=1.005 (1.000-1.030) Urine Protein 100 mg/dL (NEG-TRACE) Urine Glucose (UA) Negative mg/dL (NEG) Urine Ketones (Stick) Negative mg/dL (NEG) Urine Blood Small (NEG) Urine Nitrite Negative (NEG) Urine Bilirubin Negative (NEG) Urine Urobilinogen Dipstick 0.2 mg/dL (0.2 mg/dL) Urine Leukocyte Esterase Negative (NEG) Urine RBC 1-2 /HPF (0-2) Urine WBC Occ /HPF (0-4) Urine Squamous Epithelial Cells Few /LPF Urine Bacteria 0 /HPF (0-FEW) Urine Opiates Screen Neg (NEG) Urine Methadone Screen Neg (NEG) Urine Barbiturates Neg (NEG) Urine Phencyclidine Screen Neg (NEG) Urine Amphetamine/Methamphetamine Neg (NEG) Urine Benzodiazepines Screen Neg (NEG) Urine Cocaine Screen Neg (NEG) Urine Cannabinoids Screen Neg (NEG) Urine Ethyl Alcohol Neg (NEG) Microbiology Micro Microbiology 04/30/21 Gram Stain Evaluation - Final, Complete 04/30/21 Respiratory Culture - Final, Complete Physical Exam HEENT: Neck Supple W Full Motion Chest: Symmetric Heart: RRR (SR) Neurology: alert, oriented, follow commands, other (agitated) Assessment Assessment She is agitated and does not want to be assessed and demanding opioids 1. Acute respiratory failure; multifactorial with PNA, CHF, and probable BERTO 2. Acute diastolic CHF; s/p IV diuresis 3. Hypertensive urgency: now controlled 4. Leukocytosis, fevers 5. Diabetes, II 6. Obesity 7. Hypomagnesemia; replaced 8. Obesity, probable hypoventilation syndrome 9. PUI; COVID negative Recommendations Echo to assess LV systolic function Lasix PRN Off cardenes continue current regimen Hydralazine IV PRN Follow cultures Ongoing lung optimization, treatment of PNA Supportive care Justicifation of Admission Dx: Justifications for Admission: Justification of Admission Dx: Yes SUSAN LEIVA MD 05/01/21 1856: CARDIO Progress Notes Assessment Assessment Patient seen and examined. Agree with SPECIAL EDUCATION PRESCHOOL TEACHER's assessment and plan. Acute respiratory failure secondary to combination of acute on chronic diastolic heart failure and pneumonia Acute on chronic diastolic heart failure better compensated with diuresis Blood pressure better controlled. Off Cardene drip. 2D echo showed normal LV systolic function with EF 50%. CHRISTOPHER DE PAZ APRN May 01, 2021 09:17 SUSAN LEIVA MD May 01, 2021 15:46
[2021-05-01] MEDS ORDERED: HYDROmorphone 2 MG/ML VIAL IVP ONE (10:00)
--- NOTE | 2021-05-01 13:43 | NUR ---
Patient adamantly refusing IV levaquin and dose of heparin. Asked patient several times, even after giving patient IV morphine at ativan, patient still refused IV antibiotic. Asked patient if switched to a PO antibiotic if she would take it, says she doesn't trust anybody, will not take anything. Attempted to educate on need to take it to get better, unable to redirect patient.
--- NOTE | 2021-05-01 15:23 | NUR ---
SS following for discharge planning. SS reviewed pt chart and discussed with pt RN. Pt is from home with Aunt and is currently on room air. Pt on iV Vancomycin and IV Levaquin. PAT team referral made due to behaviors and concerns with psychosis. Kimberley from PAT team met with pt and assessed. Pt does not meet requirements for [place]. Safety Plan being developed and referral to [facility] made. Pt declining treatments at this time. Physician to meet with pt and assess further. SS will continue to follow for discharge planning.
--- NOTE | 2021-05-01 15:28 | CARD ---
MR#: [id number] Date of Study: 05/01/2021 Ordering Physician: BRENNON AC, Referring Physician: BRENNON AC, Tech: Ruth Bravo [facility] APPROVED REPORT EXAM: Two-dimensional and M-mode echocardiogram with Doppler and color Doppler. Other Information Quality : Technically LimitedHR: 105bpm Rhythm : NSR INDICATION Hypertension/HCVD RISK FACTORS Hypertension Obesity 2D DIMENSIONS Left Atrium(2D)3.9 (1.6-4.0cm)IVSd1.5 (0.7-1.1cm) Aortic Root(2D)3.0 (2.0-3.7cm)LVDd5.4 (3.9-5.9cm) LVOT Diameter2.6 (1.8-2.4cm)PWd1.3 (0.7-1.1cm) LVDs2.0 (2.5-4.0cm)FS (%) 62.4 % SV127.5 mlLVEF(%)90.6 (>50%) Aortic Valve AoV Peak Vipin.229.3cm/sAoV VTI42.9cm AO Peak GR.21.0mmHgAO Mean GR.14mmHg Mitral Valve MV E Eepwmupj011.3cm/sMV DECEL LAGA025nl MV A Srutvios03.5cm/sE/A Ratio1.6 Pulmonary Valve PV Peak Kyvpdsrk938.7cm/s Tricuspid Valve TR P. Sjcrhfra902na/sTR Peak Gr.23mmHg LEFT VENTRICLE The left ventricle is normal size. There is mild to moderate concentric left ventricular hypertrophy. The left ventricular systolic function is normal. Estimated ejection fraction 60% There is normal LV segmental wall motion. RIGHT VENTRICLE The right ventricle is normal size. There is normal right ventricular wall thickness. The right ventr icular systolic function is normal. ATRIA The left atrium size is normal. The right atrium size is normal. The interatrial septum is intact wit h no evidence for an atrial septal defect or patent foramen ovale as noted on 2-D or Doppler imaging. AORTIC VALVE The aortic valve is normal in structure and function. Doppler and Color Flow revealed no significant aortic regurgitation. There is no significant aortic valvular stenosis. MITRAL VALVE The mitral valve is normal in structure and function. There is no evidence of mitral valve prolapse. There is no mitral valve stenosis. Doppler and Color Flow revealed no mitral valve regurgitation note d. TRICUSPID VALVE The tricuspid valve is normal in structure and function. Doppler and Color Flow revealed no tricuspid valve regurgitation noted. There is no tricuspid valve stenosis. PULMONIC VALVE The pulmonary valve is normal in structure and function. Doppler and Color Flow revealed no pulmonic valvular regurgitation. GREAT VESSELS The aortic root is normal in size. The ascending aorta is normal in size. The IVC was not visualized. PERICARDIAL EFFUSION There is no evidence of significant pericardial effusion. Critical Notification Critical Value: No <Conclusion> The left ventricular systolic function is normal. Estimated ejection fraction 60% There is normal LV segmental wall motion. There is no evidence of significant pericardial effusion. Signed by : Javier Cody, Electronically Approved : 05/01/2021 15:28:49
[2021-05-01 16:13] LABS: CALCIUM 7.8 mg/dL (8.5-10.1); CREATININE 1.6 mg/dL (0.6-1.0); GFR 41.8; POTASSIUM 3.6 mmol/L (3.5-5.1)
[2021-05-01 16:20] LABS: VANC TR 26.7 mcg/mL (10.0-20.0)
[2021-05-01] MEDS: VANCOMYCIN PER PHARMACY MC PRN ×4 (16:24→16:50)
--- NOTE | 2021-05-01 16:40 | NUR ---
Summary of shift: PAT team consulted for patient's behavior towards staff and altered mental status (unsure of baseline). PAT team evaluated, was a hold until patient evaluated by mental health screen. Meanwhile patient was verbally abusive towards multiple RNs and the hospital reverse unit operator fisherman. She was evaluated by the screener, a safety plan will be set up and patient will follow with [facility] upon discharge, but while in the hospital will continue to be screened. The patient's aunt/DPOA (who brought up DPOA paperwork and a copy was placed in the chart) came to the unit, was able to talk to member from PAT team, she said the patient has been evaluated last November for treatment at [facility] but was not medically cleared, but has been hospitalized before for mental health treatment. The aunt clarified with the PAT sub assembly team worker and this RN that she was not going to [facility], she was just being evaluated, and the aunt did not want the patient to go there if at all possible. The aunt brought up the patient's phone neonatal intensive care nurse, was going to return the car to [place], and took the patient's either debit card to pay the [facility] bill, and left the hospital. Upon leaving the hospital, the patient then called several people in her phone saying her aunt was forcing her to get hospitalized at [facility] (despite previous conversation saying she wouldn't be) and that she stole her debit card. Her aunt called the unit back and said there were problems with [facility], she talked to the patient personally, there was a very loud yelling situation over the phone, and then the aunt called the unit back and said she was bringing the debit card back up to the hospital. Currently the patient has her phone charged, is still making several phone calls, including threatening a restraining order.
--- NOTE | 2021-05-01 16:46 | NUR ---
Pharmacy Vancomycin Dosing Note S:Consulted to monitor and dose vancomycin started 04/30/21. O:YVES BURTON is a 46 year old F with suspected pneumonia. Height: 5 feet, 4 inches Weight: 167.5 kg [place] Body Weight: 54.70 Adjusted Body Weight: 99.82 Dosing Weight: Actual Other Antibiotics: Levofloxacin LABS: Last BUN: 25 Last Creatinine: 1.6 Creatinine Clearance: about 65 mL/min Last WBC: 12.4 on 04/30 Last Procalcitonin: 1.14 Tmax (past 24 hours): 101.2 Microbiology: 04/30 sputum - Squamous cells in the specimen indicate the presence of superficial material that may contain contaminating or colonizing bacteria unrelated to infection. Specimen not suitable for culture. Please recollect. 04/30 BC NGTD x 1 day I/O: 750/815 + 2 voids Drug Levels: Last Trough level: 26.7 on 05/01/21 at 1550 Last dose given 05/01/21 at 0340 Vancomycin Dosing: Loading Dose: 2000 mg x1 Maintenance Dose was 1750 mg IV q 12 hours Dosing Weight: Actual Target Trough: 15-20 A: Based on: Patient's renal function, vancomycin trough prior to the 3rd dose and severity suspected infection P: 1. No maintenance dose ordered at this time. Will Dose Per Levels 2. Follow up Trough level on 05/02/21 at 0400 (about 24 hours after last dose) 3. Pharmacy will continue to monitor, follow and adjust therapy as needed. NASRIN DOTSON [facility], 05/01/21 [id number]
--- NOTE | 2021-05-01 17:45 | NUR ---
Patient had medications in her purse, sent down to security in the pharmacy package. Medications were: assorted day tums, docusate, Tizanidine 2 mg tablets, and Cephalexin 500 mg capsules.
--- NOTE | 2021-05-01 18:27 | NUR ---
Patient's aunt brought debit card back and gave it to the patient. Apparently the situation regarding her rental car was unable to be resolved, patient still very much concerned about this. Will continue to monitor.
[2021-05-01] MEDS ORDERED: ELECTROLYTE (NON-ICU) PROTOCOL. MC PRN (20:00)
--- NOTE | 2021-05-01 20:17 | PDOC ---
[facility] [facility] PROGRESS NOTE Date of Service DOS: DATE: 05/01/21 TIME: 20:12 Chief Complaint Chief Complaint Shortness of breath secondary to suspected community-acquired bacterial pneumonia gram-positive versus gram-negative, PUI, possible history of CHF? Diabetes, hypertensive emergency -Patient reporting shortness of breath chest pain presented to the emergency room today -Was very hypertensive on arrival systolic above 200s. -Chest x-ray showing multiple opacities in the right lung. Pulmonary consulted. Will do Vanco Levaquin. Defer steroid decision to them. No history of COPD -Currently r on room air at this point -Echo 2018 60-65% EF trace mitral and tricuspid regurg -Given hypertensive emergency and elevated troponin cardiology consulted -DVT prophylaxis -Precedex and Ativan ordered for sedation and agitation -Home meds resumed as indicated History of Present Illness History of Present Illness Patient is a 46 year old female who presents with last night began having shortness of breath, chest pain, nausea, wheezing and back pain. She is in respiratory distress upon arrival and breathing 50 times a minute. She states that when she " gets like this her creatinine increases and she starts having back pain". Patient is not answering questions. She is alert and oriented but is stating that we just need to call her DPOA. When asked if she would allow us to intubate her she would not give us a answer and then stated no but would be okay with CPR. Patient has a history of arthritis, neuropathy, aneurysm, hypertension, migraine, cholecystectomy, morbid obesity, hysterectomy. She did get the Moderna Covid vaccines. She is febrile. When I evaluated the patient in the ICU she was on BiPAP pretty tachypneic. Settings 40% FiO2 08/11. Was able to get her to open her eyes and asked about CODE STATUS especially in terms of intubation should that be needed. She shook her head no other she would not want to ever be on a breathing machine. Explained to her what this meant in detail and she was able to do shake her head yes that she understood this. 05/01 Patient evaluated examined at bedside. Very different from yesterday much more alert today and very combative with any staff. Verbally abusive to nursing staff. Frequently calling everybody racist for reasons unknown to this author. She was refusing all medications today. Discussed with her the reason for this and really cannot get a good answer from her she just continue to talk in circles. However she agreed to continue taking her antibiotics. She is on room air tolerating well. Suspect there is a lot to anxiety and some sort of psychiatry issue. Consult PAT. Martin to transfer out of ICU. Vitals/I&O Vitals/I&O: Vital Signs Date Time Temp Pulse Resp B/P (MAP) Pulse Ox O2 Delivery O2 Flow Rate FiO2 05/01/21 17:39 22 96 Room Air 05/01/21 15:00 111 152/72 (98) 05/01/21 10:37 2.0 05/01/21 00:00 99.0 99.0 I & O 04/30/21 04/30/21 05/01/21 15:00 23:00 07:00 Intake Total 750 ml Output Total 325 ml 490 ml Balance -325 ml 260 ml Physical Exam General: Alert, Oriented X3, No acute distress Heart: Regular rate (SR), Normal S1, Normal S2 Lungs: Wheezing, Crackles Abdomen: Normal bowel sounds, Soft, No tenderness, No hepatosplenomegaly, Other (obese ) Extremities: Normal pulses, Other (1+ bilateral LE edema ) Skin: No significant lesion Labs Labs: Laboratory Tests Test 05/01/21 15:50 Sodium Level 141 mmol/L (136-145) Potassium Level 3.6 mmol/L (3.5-5.1) Chloride Level 106 mmol/L (98-107) Carbon Dioxide Level 27 mmol/L (21-32) Anion Gap 8 (6-14) Blood Urea Nitrogen 25 mg/dL (7-20) Creatinine 1.6 mg/dL (0.6-1.0) Estimated GFR (Cockcroft-Gault) 41.8 Glucose Level 124 mg/dL (70-99) Calcium Level 7.8 mg/dL (8.5-10.1) Magnesium Level 2.0 mg/dL (1.8-2.4) Vancomycin Level Trough 26.7 mcg/mL (10.0-20.0) Vancomycin Last Dose Date 05/01/21 Vancomycin Last Dose Time 0400 Assessment and Plan Assessmemt and Plan Problems Medical Problems: (1) Hypertensive emergency Status: Acute (2) Person under investigation for COVID-19 Status: Acute (3) Pneumonia Status: Acute Comment Review of Relevant I have reviewed the following items rhonda (where applicable) has been applied. Medications: Current Medications Medications (Trade) Dose Ordered Sig/Kathrine Route PRN Reason Start Time Stop Time Status Last Admin Dose Admin Heparin Sodium (Porcine) (Heparin Sodium) 5,000 unit Q8HRS SQ 04/30/21 22:00 04/30/21 22:56 Vancomycin HCl (Vancomycin Trough Level) 1 each 1X ONCE MC 05/01/21 15:30 05/01/21 15:31 DC 05/01/21 15:30 Vancomycin HCl 1.75 gm/Sodium Chloride 500 ml @ 250 mls/hr Q12H IV 05/01/21 04:00 05/01/21 16:25 DC 05/01/21 03:40 Hydromorphone HCl (Dilaudid) 0.4 mg 1X ONCE IVP 05/01/21 10:00 05/01/21 10:01 DC 05/01/21 10:07 Justifications for Admission Other Justification ELOY LEGER MD May 01, 2021 20:17
[2021-05-01] MEDS: PROMETHAZINE 12.5 MG TABLET. PO PRN (20:52)
[2021-05-01] MEDS: LACTOBACILLUS RHAMNOSUS GG 1 CAPSULE. PO SCH (21:00)
[2021-05-01] MEDS: QUEtiapine 100 MG TABLET. PO SCH (21:00)
--- NOTE | 2021-05-01 21:58 | NUR ---
Pt was on her phone when this RN checked on her. Family member (Aunt Emily) requested for this RN to call her back but was not able to due to pt requesting confidential, no info when she was done talking over the phone. The daughter also called per another staff asking to take the patient's phone away because she was threatening to kill them. Security was notified but was recommended to call RN production department supervisor. Krystle, RN production department supervisor was notified and in as much as it's the patient's personal phone, we can not just take it away from her. Patient complaining of pain 11/10 all over and that she's very anxious, she needs her ativan. Both medications were administered. Patient claimed that dilaudid worked better for her and that morphine should be increased At this time, patient appears to resting comfortably, sleeping.
[2021-05-02] VITALS (10 sets, daily range): BP systolic 114–199; BP diastolic 51–102
[2021-05-02] MEDS: hydrALAZINE 20 MG/ML VIAL. IVP PRN ×4 (01:12→22:13)
[2021-05-02] MEDS: MORPHINE SULFATE 2 MG/ML INJ. IVP PRN ×5 (01:13→21:06)
[2021-05-02] MEDS ORDERED: VANCOMYCIN RANDOM LEVEL. MC ONE (04:00)
--- NOTE | 2021-05-02 06:26 | PDOC ---
PULMONARY PROGRESS NOTES DATE: 05/02/21 TIME: 06:23 Subjective refused bipap on 02 had psg this yr in [place] no cpap could not afford it has chest wall pain Vitals Vital Signs Date Time Temp Pulse Resp B/P (MAP) Pulse Ox O2 Delivery O2 Flow Rate FiO2 05/02/21 05:55 110 176/91 (119) 05/02/21 03:49 22 96 Nasal Cannula 2.0 05/02/21 03:48 98.5 98.5 ROS: No Nausea, No Abdominal Pain, No Increase Cough General: Alert Lungs: Crackles Cardiovascular: S1, S2 Abdomen: Soft, Non-tender Neuro Exam: Alert Extremities: No Edema Skin: Warm Labs Laboratory Tests Test 04/30/21 09:12 04/30/21 09:45 04/30/21 09:55 04/30/21 11:22 O2 Saturation 99 % (92-99) Arterial Blood pH 7.44 (7.35-7.45) Arterial Blood pCO2 at Patient Temp 34 mmHg (35-46) Arterial Blood pO2 at Patient Temp 146 mmHg (75-108) Arterial Blood HCO3 23 mmol/L (21-28) Arterial Blood Base Excess -1 mmol/L (-3-3) FiO2 50/bipap 14/12 SARS-CoV-2 RNA (ROCKY) Negative (Negative) SARS-CoV-2 Antigen (Rapid) Negative (NEGATIVE) White Blood Count 12.4 x10^3/uL (4.0-11.0) Red Blood Count 3.72 x10^6/uL (3.50-5.40) Hemoglobin 10.0 g/dL (12.0-15.5) Hematocrit 31.7 % (36.0-47.0) Mean Corpuscular Volume 85 fL (79-100) Mean Corpuscular Hemoglobin 27 pg (25-35) Mean Corpuscular Hemoglobin Concent 31 g/dL (31-37) Red Cell Distribution Width 16.9 % (11.5-14.5) Platelet Count 212 x10^3/uL (140-400) Neutrophils (%) (Auto) 84 % (31-73) Lymphocytes (%) (Auto) 10 % (24-48) Monocytes (%) (Auto) 6 % (0-9) Eosinophils (%) (Auto) 1 % (0-3) Basophils (%) (Auto) 0 % (0-3) Neutrophils # (Auto) 10.4 x10^3/uL (1.8-7.7) Lymphocytes # (Auto) 1.2 x10^3/uL (1.0-4.8) Monocytes # (Auto) 0.7 x10^3/uL (0.0-1.1) Eosinophils # (Auto) 0.1 x10^3/uL (0.0-0.7) Basophils # (Auto) 0.0 x10^3/uL (0.0-0.2) Sodium Level 143 mmol/L (136-145) Potassium Level 3.6 mmol/L (3.5-5.1) Chloride Level 107 mmol/L (98-107) Carbon Dioxide Level 27 mmol/L (21-32) Anion Gap 9 (6-14) Blood Urea Nitrogen 18 mg/dL (7-20) Creatinine 1.0 mg/dL (0.6-1.0) Estimated GFR (Cockcroft-Gault) 71.9 BUN/Creatinine Ratio 18 (6-20) Glucose Level 114 mg/dL (70-99) Lactic Acid Level 0.9 mmol/L (0.4-2.0) Calcium Level 9.2 mg/dL (8.5-10.1) Magnesium Level 1.6 mg/dL (1.8-2.4) Total Bilirubin 0.3 mg/dL (0.2-1.0) Aspartate Amino Transf (AST/SGOT) 30 U/L (15-37) Alanine Aminotransferase (ALT/SGPT) 35 U/L (14-59) Alkaline Phosphatase 111 U/L (46-116) Troponin I High Sensitivity 21 ng/L (4-50) BQ-Bnm-E-Type Natriuretic Peptide 1123 pg/mL (0-124) Total Protein 6.8 g/dL (6.4-8.2) Albumin 3.1 g/dL (3.4-5.0) Albumin/Globulin Ratio 0.8 (1.0-1.7) Procalcitonin ng/mL (0.00-0.10) Urine Collection Type Unknown Urine Color Yellow Urine Clarity Clear Urine pH 6.5 (<5.0-8.0) Urine Specific [place] <=1.005 (1.000-1.030) Urine Protein 100 mg/dL (NEG-TRACE) Urine Glucose (UA) Negative mg/dL (NEG) Urine Ketones (Stick) Negative mg/dL (NEG) Urine Blood Small (NEG) Urine Nitrite Negative (NEG) Urine Bilirubin Negative (NEG) Urine Urobilinogen Dipstick 0.2 mg/dL (0.2 mg/dL) Urine Leukocyte Esterase Negative (NEG) Urine RBC 1-2 /HPF (0-2) Urine WBC Occ /HPF (0-4) Urine Squamous Epithelial Cells Few /LPF Urine Bacteria 0 /HPF (0-FEW) Urine Opiates Screen Neg (NEG) Urine Methadone Screen Neg (NEG) Urine Barbiturates Neg (NEG) Urine Phencyclidine Screen Neg (NEG) Urine Amphetamine/Methamphetamine Neg (NEG) Urine Benzodiazepines Screen Neg (NEG) Urine Cocaine Screen Neg (NEG) Urine Cannabinoids Screen Neg (NEG) Urine Ethyl Alcohol Neg (NEG) Test 05/01/21 15:50 Sodium Level 141 mmol/L (136-145) Potassium Level 3.6 mmol/L (3.5-5.1) Chloride Level 106 mmol/L (98-107) Carbon Dioxide Level 27 mmol/L (21-32) Anion Gap 8 (6-14) Blood Urea Nitrogen 25 mg/dL (7-20) Creatinine 1.6 mg/dL (0.6-1.0) Estimated GFR (Cockcroft-Gault) 41.8 Glucose Level 124 mg/dL (70-99) Calcium Level 7.8 mg/dL (8.5-10.1) Magnesium Level 2.0 mg/dL (1.8-2.4) Vancomycin Level Trough 26.7 mcg/mL (10.0-20.0) Vancomycin Last Dose Date 05/01/21 Vancomycin Last Dose Time 0400 Laboratory Tests Test 05/01/21 15:50 Sodium Level 141 mmol/L (136-145) Potassium Level 3.6 mmol/L (3.5-5.1) Chloride Level 106 mmol/L (98-107) Carbon Dioxide Level 27 mmol/L (21-32) Anion Gap 8 (6-14) Blood Urea Nitrogen 25 mg/dL (7-20) Creatinine 1.6 mg/dL (0.6-1.0) Estimated GFR (Cockcroft-Gault) 41.8 Glucose Level 124 mg/dL (70-99) Calcium Level 7.8 mg/dL (8.5-10.1) Magnesium Level 2.0 mg/dL (1.8-2.4) Vancomycin Level Trough 26.7 mcg/mL (10.0-20.0) Vancomycin Last Dose Date 05/01/21 Vancomycin Last Dose Time 0400 Medications Active Scripts Medications Dose Route/Sig Max Daily Dose Days Date Category Wcrojq-Rezfnpmj-Yjod 50-325-40 (Butalb/Acetaminophen/Caffeine) 1 Each Tablet 1-2 Each PO Q4HRS PRN MDD 6 tabs 3 07/30/20 Rx Ckkecu-Pkulcopb-Wlkt 50-325-40 (Butalb/Acetaminophen/Caffeine) 1 Each Tablet 1-2 Each PO Q4HRS PRN MDD 6 tabs 3 06/01/19 Rx Seroquel (Quetiapine Fumarate) 200 Mg Tablet 200 Mg PO HS 05/12/19 Reported Tizanidine Hcl 4 Mg Tablet 4 Mg PO TID PRN 05/12/19 Reported Clonidine Hcl 0.1 Mg Tablet 0.1 Mg PO DAILY 05/12/19 Reported Bactrim 400-80 Mg Tablet (Sulfamethoxazole/Trimethoprim) 1 Each Tablet 1 Tab PO BID 11/02/18 Rx Zofran (Ondansetron Hcl) 4 Mg Tablet 1 Tab PO PRN Q6-8HRS 11/02/18 Rx Impression . IMPRESSION: 1. Acute hypoxemic respiratory failure secondary to significant consolidation of the right lung. 2. Suspect gram-negative, possibly gram positive pneumonia. 3. Sepsis. 4. Hypertensive emergency. 5. Morbid obesity. 6. History of hypertension, uncontrolled. 7. Arthritis. 8. History of migraine. Plan . 05/02 02 titration abx chacho the importance of tx discussed psg as out pt start BD ICS hep sq for dvt prophylaxis lose wt DNI discussed w pt and rn Updated 05/01 patient respiratory status appears to have improved I informed the patient that she has a significant pneumonia on the right side, she was mainly focused on the fact that the medical team is not addressing her pain I informed her that her respiratory status is slowly improving, she requires antibiotics, oxygen, BiPAP nightly She became irate with the nursing staff this morning, and it is inappropriate. Will defer to PCP for pain management PLAN: 1. As indicated above. We will continue patient on noninvasive ventilation with BiPAP. 2. Initiate a Precedex to allow for synchrony with noninvasive ventilation. 3. Continue vancomycin and Levaquin. 4. Initiate hydralazine. 5. DVT prophylaxis. 6. Maintenance IV fluids. I do appreciate the privilege in sharing in the patient's care. Total cumulative critical care time of 40 minutes, examining the patient, reviewing the current documentation. Case discussed with both Dr. Cifuentes and the Emergency Room nurse practitioner. JUANCHO SCOTT MD May 02, 2021 06:26
[2021-05-02] MEDS: BUDESONIDE 0.5 MG/2 ML NEBU. NEB SCH ×2 (08:22→20:00)
[2021-05-02] MEDS: IPRATRPIUM/ALBUTEROL 0.5/2.5MG 3 ML NEBU. NEB SCH ×4 (08:22→20:00)
[2021-05-02] MEDS: LACTOBACILLUS RHAMNOSUS GG 1 CAPSULE. PO SCH ×2 (08:23→21:09)
[2021-05-02] MEDS: tiZANidine 4 MG TABLET. PO PRN ×2 (08:24→21:12)
[2021-05-02] MEDS: oxyCODONE IR 5 MG TABLET PO PRN ×2 (08:24→18:48)
[2021-05-02 08:37] LABS: CREATININE 1.3 mg/dL (0.6-1.0); GFR 53.1
[2021-05-02] MEDS: HEPARIN for SUB-Q USE 5,000 UNIT/ML VIAL. SQ SCH ×3 (08:46→22:11)
[2021-05-02] MEDS: VANCOMYCIN PER PHARMACY MC PRN (09:41)
--- NOTE | 2021-05-02 09:42 | NUR ---
Pharmacy Vancomycin Dosing Note S:Consulted to monitor and dose vancomycin started 04/30/21. O:YVES BURTON is a 46 year old F with Pneumonia . Height: 5 feet, 4 inches Weight: 162.4 kg [place] Body Weight: 54.70 Adjusted Body Weight: 97.78 Dosing Weight: Actual Other Antibiotics: Levofloxacin LABS: Last BUN: 25 Last Creatinine: 1.3 Creatinine Clearance: 82 mL/min Last WBC: 12.4 (04/30) Last Procalcitonin: 1.14 Tmax (past 24 hours): 98.5 Microbiology: 04/30 sputum - Squamous cells in the specimen indicate the presence of superficial material that may contain contaminating or colonizing bacteria unrelated to infection. Specimen not suitable for culture. Please recollect. 04/30 BC NGTD x 1 day I/O: 1650/765 Drug Levels: Last Random level: 14.6 on 05/02/21 at 0710 Last dose given 05/01/21 at 0340 Vancomycin Dosing: Loading Dose: 2000 mg x1 Dosing Weight: Actual Target Trough: 15-20 A: Based on: random level P: 1. Start Vancomycin 2000 mg IV q24h 2. Follow up Trough level on 05/04/21 at 0930 3. Pharmacy will continue to monitor, follow and adjust therapy as needed. BRENNON SALGUERO RPH, 05/02/21 [id number]
[2021-05-02] MEDS ORDERED: METOPROLOL TART IMMED RELEASE 25 MG TABLET. PO SCH (10:30)
[2021-05-02] MEDS: VANCOMYCIN 2 GM in IV NORMAL SALINE 500ML BAG 500 ML IV SCH (10:33)
--- NOTE | 2021-05-02 11:04 | PDOC ---
[facility] [facility] PROGRESS NOTE Date of Service DOS: DATE: 05/02/21 TIME: 11:00 Chief Complaint Chief Complaint Pneumonia Respiratory failure requiring History of Present Illness History of Present Illness 05/02/2021 Patient seen and examined She is currently on BiPAP 05/02 with 50% FiO2 Discussed with RN Chart reviewed She is extremely ill Blood pressures running 200/100 I ordered 25 of metoprolol twice daily as she is tachycardic I also ordered Norvasc 10 a day She is already on clonidine patch and hydralazine Patient is a 46 year old female who presents with last night began having shortness of breath, chest pain, nausea, wheezing and back pain. She is in respiratory distress upon arrival and breathing 50 times a minute. She states that when she " gets like this her creatinine increases and she starts having back pain". Patient is not answering questions. She is alert and oriented but is stating that we just need to call her DPOA. When asked if she would allow us to intubate her she would not give us a answer and then stated no but would be okay with CPR. Patient has a history of arthritis, neuropathy, aneurysm, hypertension, migraine, cholecystectomy, morbid obesity, hysterectomy. She did get the Moderna Covid vaccines. She is febrile. When I evaluated the patient in the ICU she was on BiPAP pretty tachypneic. Settings 40% FiO2 /. Was able to get her to open her eyes and asked about CODE STATUS especially in terms of intubation should that be needed. She shook her head no other she would not want to ever be on a breathing machine. Explained to her what this meant in detail and she was able to do shake her head yes that she understood this. 05/01 Patient evaluated examined at bedside. Very different from yesterday much more alert today and very combative with any staff. Verbally abusive to nursing staff. Frequently calling everybody racist for reasons unknown to this author. She was refusing all medications today. Discussed with her the reason for this and really cannot get a good answer from her she just continue to talk in circles. However she agreed to continue taking her antibiotics. She is on room air tolerating well. Suspect there is a lot to anxiety and some sort of psychiatry issue. Consult PAT. Okay to transfer out of ICU. Vitals/I&O Vitals/I&O: Vital Signs Date Time Temp Pulse Resp B/P (MAP) Pulse Ox O2 Delivery O2 Flow Rate FiO2 05/02/21 10:28 98 BiPAP/CPAP 05/02/21 10:21 116 198/102 05/02/21 08:24 1.0 05/02/21 07:00 99.2 24 99.2 I & O 05/01/21 05/01/21 05/02/21 15:00 23:00 07:00 Intake Total 1650 ml Output Total 540 ml 225 ml Balance 1110 ml -225 ml Physical Exam General: mild distress, Other (On BiPAP) Heart: Regular rate (SR), Normal S1, Normal S2 Lungs: Wheezing, Crackles Abdomen: Normal bowel sounds, Soft, No tenderness, No hepatosplenomegaly, Other (obese ) Extremities: Normal pulses, Other (1+ bilateral LE edema ) Skin: No significant lesion Labs Labs: Laboratory Tests Test 05/01/21 15:50 05/02/21 07:10 Sodium Level 141 mmol/L (136-145) Potassium Level 3.6 mmol/L (3.5-5.1) Chloride Level 106 mmol/L (98-107) Carbon Dioxide Level 27 mmol/L (21-32) Anion Gap 8 (6-14) Blood Urea Nitrogen 25 mg/dL (7-20) Creatinine 1.6 mg/dL (0.6-1.0) 1.3 mg/dL (0.6-1.0) Estimated GFR (Cockcroft-Gault) 41.8 53.1 Glucose Level 124 mg/dL (70-99) Calcium Level 7.8 mg/dL (8.5-10.1) Magnesium Level 2.0 mg/dL (1.8-2.4) Vancomycin Level Trough 26.7 mcg/mL (10.0-20.0) Vancomycin Last Dose Date 05/01/21 Vancomycin Last Dose Time 0400 Random Vancomycin Level 14.6 mcg/mL Assessment and Plan Assessmemt and Plan Problems Medical Problems: (1) Hypertensive emergency Status: Acute (2) Person under investigation for COVID-19 Status: Acute (3) Pneumonia Status: Acut Respiratory failure requiring BiPAP Pneumonia CHF PUI Hypertensive emergency Plan IV antibiotics Cardiac monitoring BiPAP Beta agonists I added in metoprolol and Norvasc Appreciate pulmonary input DVT prophylaxis Full code Home meds Long-term prognosis guarded CC time 32 minute Per pulmonary recommendations please see the following and we certainly agree and appreciate; IMPRESSION: 1. Acute hypoxemic respiratory failure secondary to significant consolidation of the right lung. 2. Suspect gram-negative, possibly gram positive pneumonia. 3. Sepsis. 4. Hypertensive emergency. 5. Morbid obesity. 6. History of hypertension, uncontrolled. 7. Arthritis. 8. History of migraine. Plan 05/02 02 titration abx chacho the importance of tx discussed psg as out pt start BD ICS hep sq for dvt prophylaxis lose wt DNI discussed w pt and rn Comment Review of Relevant I have reviewed the following items rhonda (where applicable) has been applied. Medications: Current Medications Medications (Trade) Dose Ordered Sig/Kathrine Route PRN Reason Start Time Stop Time Status Last Admin Dose Admin Vancomycin HCl (Vancomycin Trough Level) 1 each 1X ONCE MC 05/01/21 15:30 05/01/21 15:31 DC 05/01/21 15:30 Lactobacillus Rhamnosus (Culturelle) 1 cap BID PO 05/01/21 21:00 05/02/21 08:23 Promethazine HCl (Phenergan) 12.5 mg PRN Q6HRS PRN PO NAUSEA/VOMITING 05/01/21 16:15 05/01/21 20:52 Albuterol/ Ipratropium (Duoneb) 3 ml RTQID NEB 05/02/21 08:00 05/02/21 08:22 Budesonide (Pulmicort) 0.5 mg RTBID NEB 05/02/21 08:00 05/02/21 08:22 Vancomycin HCl 2 gm/Sodium Chloride 500 ml @ 250 mls/hr Q24H IV 05/02/21 10:00 05/02/21 10:33 Amlodipine Besylate (Norvasc) 10 mg DAILY PO 05/02/21 10:30 05/02/21 10:21 Metoprolol Tartrate (Lopressor) 25 mg BID PO 05/02/21 10:30 05/02/21 10:20 Justifications for Admission Other Justification ARYA SCOTT III DO May 02, 2021 11:04
--- NOTE | 2021-05-02 12:25 | PDOC ---
PROGRESS NOTES Date of Service: DATE: 05/02/21 TIME: 12:25 Subjective Subjective Discharge improved. Denied any chest pain. Objective Objective Vital Signs Date Time Temp Pulse Resp B/P (MAP) Pulse Ox O2 Delivery O2 Flow Rate FiO2 05/02/21 11:25 95 Nasal Cannula 1.0 05/02/21 10:21 116 198/102 05/02/21 07:00 99.2 24 99.2 Intake and Output 05/02/21 06:59 Intake Total 1650 ml Output Total 765 ml Balance 885 ml Intake Oral 1500 ml IV Total 150 ml Output Urine Total 765 ml # Voids 1 Physical Exam Abdomen: Normal bowel sounds, Soft, No tenderness, No hepatosplenomegaly, Other (obese ) Heart: Regular rate (SR), Normal S1, Normal S2 Extremities: Other (1+ bilateral LE edema with chronic changes) General: mild distress, Other (On BiPAP) HEENT: Atraumatic Lungs: Other (BiPAP) Neuro: Other (on mild sedation ) Psych/Mental Status: Other (unable to assess ) Skin: No significant lesion Assessment Assessment 1. Acute respiratory failure; multifactorial with PNA, CHF, and probable BERTO 2. Acute diastolic CHF; s/p IV diuresis 3. Hypertensive urgency: Off Cardene but blood pressure continues to be elevated 4. Leukocytosis, fevers 5. Diabetes, II 6. Obesity 7. Hypomagnesemia; replaced 8. Obesity, probable hypoventilation syndrome 9. PUI; COVID negative Recommendations Increase metoprolol to 50 mg twice daily for better blood pressure control 2D echo showed normal LV systolic function Lasix PRN Ongoing lung optimization, treatment of PNA Supportive care Plan Plan of Care Problems Medical Problems: (1) Hypertensive emergency Status: Acute (2) Person under investigation for COVID-19 Status: Acute (3) Pneumonia Status: Acute Comment Review of Relevant I have reviewed the following items rhonda (where applicable) has been applied. Labs Laboratory Tests Test 05/01/21 15:50 05/02/21 07:10 Sodium Level 141 mmol/L (136-145) Potassium Level 3.6 mmol/L (3.5-5.1) Chloride Level 106 mmol/L (98-107) Carbon Dioxide Level 27 mmol/L (21-32) Anion Gap 8 (6-14) Blood Urea Nitrogen 25 mg/dL (7-20) Creatinine 1.6 mg/dL (0.6-1.0) 1.3 mg/dL (0.6-1.0) Estimated GFR (Cockcroft-Gault) 41.8 53.1 Glucose Level 124 mg/dL (70-99) Calcium Level 7.8 mg/dL (8.5-10.1) Magnesium Level 2.0 mg/dL (1.8-2.4) Vancomycin Level Trough 26.7 mcg/mL (10.0-20.0) Vancomycin Last Dose Date 05/01/21 Vancomycin Last Dose Time 0400 Random Vancomycin Level 14.6 mcg/mL Microbiology 04/30/21 Blood Culture - Preliminary, Resulted NO GROWTH AFTER 1 DAY 04/30/21 Gram Stain Evaluation - Final, Complete 04/30/21 Respiratory Culture - Final, Complete Medications Current Medications Albuterol/ Ipratropium (Duoneb) 3 ml RTQID NEB Last administered on 05/02/21at 11:25; Start 05/02/21 at 08:00 Amlodipine Besylate (Norvasc) 10 mg DAILY PO Last administered on 05/02/21at 10:21; Start 05/02/21 at 10:30 Budesonide (Pulmicort) 0.5 mg RTBID NEB Last administered on 05/02/21at 08:22; Start 05/02/21 at 08:00 Info (Non-Icu Electrolyte Protocol) 1 ea CONT PRN PRN MC SEE COMMENTS; Start 05/01/21 at 20:00 Lactobacillus Rhamnosus (Culturelle) 1 cap BID PO Last administered on 05/02/21at 08:23; Start 05/01/21 at 21:00 Metoprolol Tartrate (Lopressor) 25 mg BID PO Last administered on 05/02/21at 10:20; Start 05/02/21 at 10:30 Promethazine HCl (Phenergan) 12.5 mg PRN Q6HRS PRN PO NAUSEA/VOMITING Last admi nistered on 05/01/21at 20:52; Start 05/01/21 at 16:15 Vancomycin HCl (Vancomycin Random Level) 1 each 1X ONCE MC ; Start 05/02/21 at 04:00; Stop 05/02/21 at 04:01; Status DC Vancomycin HCl (Vancomycin Trough Level) 1 each 1X ONCE MC Last administered on 05/01/21at 15:30; Start 05/01/21 at 15:30; Stop 05/01/21 at 15:31; Status DC Vancomycin HCl (Vancomycin Trough Level) 1 each 1X ONCE MC ; Start 05/04/21 at 09:30; Stop 05/04/21 at 09:31 Vancomycin HCl 2 gm/Sodium Chloride 500 ml @ 250 mls/hr Q24H IV Last administered on 05/02/21at 10:33; Start 05/02/21 at 10:00 Vitals/I & O Vital Sign - Last 24 Hours 05/01/21 05/01/21 05/01/21 05/01/21 13:37 14:07 15:00 17:09 Pulse 111 Resp 22 16 22 B/P (MAP) 152/72 (98) Pulse Ox 96 98 98 98 O2 Delivery Room Air Room Air Room Air Room Air 05/01/21 05/01/21 05/01/21 05/01/21 17:39 19:00 20:00 20:34 Temp 99.2 99.2 Pulse 111 Resp 20 18 B/P (MAP) 160/76 (104) Pulse Ox 96 94 94 O2 Delivery Room Air Room Air Nasal Cannula Nasal Cannula O2 Flow Rate 2.0 2.0 05/01/21 05/01/21 05/02/21 05/02/21 21:04 23:30 01:12 01:13 Pulse 85 114 Resp 20 B/P (MAP) 198/93 Pulse Ox 96 94 O2 Delivery Nasal Cannula Nasal Cannula O2 Flow Rate 2.0 2.0 05/02/21 05/02/21 05/02/21 05/02/21 01:13 01:43 01:57 03:48 Temp 98.2 98.5 98.2 98.5 Pulse 114 120 117 Resp 22 24 22 20 B/P (MAP) 198/93 (128) 189/76 (113) 199/90 (126) Pulse Ox 96 96 96 97 O2 Delivery Nasal Cannula Nasal Cannula Nasal Cannula Room Air O2 Flow Rate 2.0 2.0 2.0 05/02/21 05/02/21 05/02/21 05/02/21 03:49 05:35 05:55 06:30 Pulse 111 110 Resp 22 B/P (MAP) 207/84 176/91 (119) Pulse Ox 96 96 O2 Delivery Nasal Cannula BiPAP/CPAP O2 Flow Rate 2.0 05/02/21 05/02/21 05/02/21 05/02/21 07:00 07:00 08:22 08:24 Temp 99.2 99.2 Pulse 116 Resp 24 B/P (MAP) 198/102 (134) Pulse Ox 98 98 95 98 O2 Delivery BiPAP/CPAP Room Air Nasal Cannula Nasal Cannula O2 Flow Rate 1.0 1.0 1.0 05/02/21 05/02/21 05/02/21 05/02/21 09:00 10:20 10:21 10:28 Pulse 116 116 B/P (MAP) 198/102 198/102 Pulse Ox 98 98 O2 Delivery BiPAP/CPAP BiPAP/CPAP 05/02/21 05/02/21 11:00 11:25 Pulse Ox 98 95 O2 Delivery BiPAP/CPAP Nasal Cannula O2 Flow Rate 1.0 Intake and Output 05/01/21 05/01/21 05/02/21 14:59 22:59 06:59 Intake Total 1650 ml Output Total 540 ml 225 ml Balance 1110 ml -225 ml SUSAN LEIVA MD May 02, 2021 12:25
--- NOTE | 2021-05-02 20:06 | NUR ---
Patient requesting for pain medicine at start of shift. This RN got her medicine and answered the call light and it was the patient asking the RN to come right away. When asked what she wants, she said just to come in. When this RN was in the room the patient asked where's her phone. And she was told that this RN doesnt know but saw that the phone was plugged on the bedside table. So the phone was handed to her and patient said all she wanted was her phone. Pain medicine was offered but patient claimed she didn't ask for it and that it's not helping anyway and she wants to talk to Dr. Cifuentes. This RN was trying to explain to patient about the pain medicine ordered but kept on saying things that out of the topic. She's talking about how she works. and patient got agitated. This RN stepped out for awhile. Will check back on patient.
[2021-05-02] MEDS: QUEtiapine 100 MG TABLET. PO SCH (21:00)
[2021-05-02] MEDS: METOPROLOL TART IMMED RELEASE 50 MG TABLET. PO SCH (21:12)
[2021-05-02] MEDS: PROMETHAZINE 12.5 MG TABLET. PO PRN (21:16)
--- NOTE | 2021-05-02 21:45 | NUR ---
Checked back on patient. Patient apologized. Patient in better behavior. Able to give medicines without complaints.
[2021-05-03] VITALS (7 sets, daily range): BP systolic 129–229; BP diastolic 57–101
--- NOTE | 2021-05-03 | NUR ---
Patient requested for her ativan. Given ativan IVP at 2217. While giving it slowly, noted patient already was closing her eyes and fell asleep. Only half of the medicine was given. Wasted with LAINE Bond. Will endorse to AM shift.
[2021-05-03] MEDS: MORPHINE SULFATE 2 MG/ML INJ. IVP PRN ×5 (00:53→19:59)
[2021-05-03] MEDS: oxyCODONE IR 5 MG TABLET PO PRN ×4 (01:21→22:51)
[2021-05-03] MEDS: tiZANidine 4 MG TABLET. PO PRN ×3 (04:21→16:53)
[2021-05-03] MEDS: PROMETHAZINE 12.5 MG TABLET. PO PRN ×2 (04:21→16:53)
[2021-05-03] MEDS: hydrALAZINE 20 MG/ML VIAL. IVP PRN ×2 (06:26→15:45)
[2021-05-03] MEDS: HEPARIN for SUB-Q USE 5,000 UNIT/ML VIAL. SQ SCH ×3 (06:32→23:06)
--- NOTE | 2021-05-03 07:22 | PDOC ---
PULMONARY PROGRESS NOTES DATE: 05/03/21 TIME: 07:21 Subjective refused bipap on 02 sob better neb tx helped had psg this yr in [employer] no cpap could not afford it Vitals Vital Signs Date Time Temp Pulse Resp B/P (MAP) Pulse Ox O2 Delivery O2 Flow Rate FiO2 05/03/21 06:26 101 216/105 05/03/21 04:52 95 Nasal Cannula 2.0 05/03/21 04:22 20 05/03/21 03:00 98.1 98.1 ROS: No Nausea, No Abdominal Pain, No Increase Cough General: Alert Lungs: Crackles Cardiovascular: S1, S2 Abdomen: Soft, Non-tender Neuro Exam: Alert Extremities: No Edema Skin: Warm Labs Laboratory Tests Test 05/01/21 15:50 05/02/21 07:10 Sodium Level 141 mmol/L (136-145) Potassium Level 3.6 mmol/L (3.5-5.1) Chloride Level 106 mmol/L (98-107) Carbon Dioxide Level 27 mmol/L (21-32) Anion Gap 8 (6-14) Blood Urea Nitrogen 25 mg/dL (7-20) Creatinine 1.6 mg/dL (0.6-1.0) 1.3 mg/dL (0.6-1.0) Estimated GFR (Cockcroft-Gault) 41.8 53.1 Glucose Level 124 mg/dL (70-99) Calcium Level 7.8 mg/dL (8.5-10.1) Magnesium Level 2.0 mg/dL (1.8-2.4) Vancomycin Level Trough 26.7 mcg/mL (10.0-20.0) Vancomycin Last Dose Date 05/01/21 Vancomycin Last Dose Time 0400 Random Vancomycin Level 14.6 mcg/mL Medications Active Scripts Medications Dose Route/Sig Max Daily Dose Days Date Category Hjdjoy-Djunopwf-Znvb 50-325-40 (Butalb/Acetaminophen/Caffeine) 1 Each Tablet 1-2 Each PO Q4HRS PRN MDD 6 tabs 3 07/30/20 Rx Plkfce-Mcyevoxg-Oyju 50-325-40 (Butalb/Acetaminophen/Caffeine) 1 Each Tablet 1-2 Each PO Q4HRS PRN MDD 6 tabs 3 06/01/19 Rx Seroquel (Quetiapine Fumarate) 200 Mg Tablet 200 Mg PO HS 05/12/19 Reported Tizanidine Hcl 4 Mg Tablet 4 Mg PO TID PRN 05/12/19 Reported Clonidine Hcl 0.1 Mg Tablet 0.1 Mg PO DAILY 05/12/19 Reported Bactrim 400-80 Mg Tablet (Sulfamethoxazole/Trimethoprim) 1 Each Tablet 1 Tab PO BID 11/02/18 Rx Zofran (Ondansetron Hcl) 4 Mg Tablet 1 Tab PO PRN Q6-8HRS 11/02/18 Rx Impression . IMPRESSION: 1. Acute hypoxemic respiratory failure secondary to significant consolidation of the right lung. 2. Suspect gram-negative, possibly gram positive pneumonia. 3. Sepsis. 4. Hypertensive emergency. 5. Morbid obesity. 6. History of hypertension, uncontrolled. 7. Arthritis. 8. History of migraine. Plan . 05/03 02 titration abx chacho the importance of tx discussed psg as out pt cont BD ICS hep sq for dvt prophylaxis lose wt DNI discussed w pt and rn 05/02 02 titration abx chacho the importance of tx discussed psg as out pt start BD ICS hep sq for dvt prophylaxis lose wt DNI discussed w pt and rn Updated 05/01 patient respiratory status appears to have improved I informed the patient that she has a significant pneumonia on the right side, she was mainly focused on the fact that the medical team is not addressing her pain I informed her that her respiratory status is slowly improving, she requires antibiotics, oxygen, BiPAP nightly She became irate with the nursing staff this morning, and it is inappropriate. Will defer to PCP for pain management PLAN: 1. As indicated above. We will continue patient on noninvasive ventilation with BiPAP. 2. Initiate a Precedex to allow for synchrony with noninvasive ventilation. 3. Continue vancomycin and Levaquin. 4. Initiate hydralazine. 5. DVT prophylaxis. 6. Maintenance IV fluids. I do appreciate the privilege in sharing in the patient's care. Total cumulative critical care time of 40 minutes, examining the patient, reviewing the current documentation. Case discussed with both Dr. Cifuentes and the Emergency Room nurse practitioner. JUANCHO SCOTT MD May 03, 2021 07:22
[2021-05-03 08:00] LABS: CREATININE 1.3 mg/dL (0.6-1.0); GFR 53.1
[2021-05-03] MEDS: BUDESONIDE 0.5 MG/2 ML NEBU. NEB SCH ×3 (08:30→21:25)
[2021-05-03] MEDS: IPRATRPIUM/ALBUTEROL 0.5/2.5MG 3 ML NEBU. NEB SCH ×5 (08:30→21:25)
[2021-05-03] MEDS: LACTOBACILLUS RHAMNOSUS GG 1 CAPSULE. PO SCH ×2 (09:02→22:47)
[2021-05-03] MEDS: METOPROLOL TART IMMED RELEASE 50 MG TABLET. PO SCH ×2 (09:03→22:47)
[2021-05-03] MEDS: VANCOMYCIN 2 GM in IV NORMAL SALINE 500ML BAG 500 ML IV SCH (09:05)
--- NOTE | 2021-05-03 09:32 | PDOC ---
PROGRESS NOTES Date of Service: DATE: 05/03/21 TIME: 09:32 Subjective Subjective Dyspnea improved Objective Objective Vital Signs Date Time Temp Pulse Resp B/P (MAP) Pulse Ox O2 Delivery O2 Flow Rate FiO2 05/03/21 09:04 101 216/105 05/03/21 09:04 100 Nasal Cannula 1.0 05/03/21 08:00 98.6 32 98.6 Intake and Output 05/03/21 06:59 Intake Total 800 ml Output Total 3400 ml Balance -2600 ml Intake Oral 800 ml Output Urine Total 3400 ml Physical Exam Abdomen: Normal bowel sounds, Soft, No tenderness, No hepatosplenomegaly, Other (obese ) Heart: Regular rate (SR), Normal S1, Normal S2 Extremities: Other (1+ bilateral LE edema with chronic changes) General: mild distress, Other (On BiPAP) HEENT: Atraumatic Lungs: Other (BiPAP) Neuro: Other (on mild sedation ) Psych/Mental Status: Other (unable to assess ) Skin: No significant lesion Assessment Assessment 1. Acute respiratory failure; multifactorial with PNA, CHF, and probable BERTO 2. Acute diastolic CHF; s/p IV diuresis 3. Hypertensive urgency: Off Cardene, blood pressure labile but better controlled this morning 4. Leukocytosis, fevers 5. Diabetes, II 6. Obesity 7. Hypomagnesemia; replaced 8. Obesity, probable hypoventilation syndrome 9. PUI; COVID negative Recommendations Continue current medical regimen 2D echo showed normal LV systolic function Ongoing lung optimization, treatment of PNA Supportive care Plan Plan of Care Problems Medical Problems: (1) Hypertensive emergency Status: Acute (2) Person under investigation for COVID-19 Status: Acute (3) Pneumonia Status: Acute Comment Review of Relevant I have reviewed the following items rhonda (where applicable) has been applied. Labs Laboratory Tests Test 05/03/21 06:55 Creatinine 1.3 mg/dL (0.6-1.0) Estimated GFR (Cockcroft-Gault) 53.1 Microbiology 04/30/21 Blood Culture - Preliminary, Resulted NO GROWTH AFTER 2 DAYS 04/30/21 Gram Stain Evaluation - Final, Complete 04/30/21 Respiratory Culture - Final, Complete Medications Current Medications Amlodipine Besylate (Norvasc) 10 mg DAILY PO Last administered on 05/03/21at 09:04; Start 05/02/21 at 10:30 Metoprolol Tartrate (Lopressor) 25 mg BID PO Last administered on 05/02/21at 10:20; Start 05/02/21 at 10:30; Stop 05/02/21 at 12:52; Status DC Metoprolol Tartrate (Lopressor) 50 mg BID PO Last administered on 05/03/21at 09:03; Start 05/02/21 at 21:00 Vancomycin HCl (Vancomycin Trough Level) 1 each 1X ONCE MC ; Start 05/04/21 at 09:30; Stop 05/04/21 at 09:31 Vancomycin HCl 2 gm/Sodium Chloride 500 ml @ 250 mls/hr Q24H IV Last administered on 05/03/21at 09:05; Start 05/02/21 at 10:00 Vitals/I & O Vital Sign - Last 24 Hours 05/02/21 05/02/21 05/02/21 05/02/21 10:20 10:21 10:28 10:39 Pulse 116 116 100 Resp 22 B/P (MAP) 198/102 198/102 152/80 (104) Pulse Ox 98 95 O2 Delivery BiPAP/CPAP BiPAP/CPAP 05/02/21 05/02/21 05/02/21 05/02/21 11:00 11:25 12:22 13:31 Temp 99.4 99.4 Pulse 90 90 Resp 26 B/P (MAP) 176/98 (124) 176/98 Pulse Ox 98 95 100 O2 Delivery BiPAP/CPAP Nasal Cannula Room Air O2 Flow Rate 1.0 05/02/21 05/02/21 05/02/21 05/02/21 15:00 16:22 17:09 18:48 Pulse 107 Resp 24 B/P (MAP) 114/51 (72) Pulse Ox 97 97 97 97 O2 Delivery Nasal Cannula Room Air O2 Flow Rate 2.0 2.0 2.0 05/02/21 05/02/21 05/02/21 05/02/21 19:00 19:18 20:00 20:00 Temp 99.7 99.7 Pulse 102 Resp 20 20 B/P (MAP) 171/78 (109) Pulse Ox 98 95 O2 Delivery Nasal Cannula Nasal Cannula Nasal Cannula O2 Flow Rate 1.0 2.0 1.0 2.0 05/02/21 05/02/21 05/02/21 05/02/21 21:06 21:12 21:36 21:36 Pulse 107 Resp 18 20 B/P (MAP) 114/51 Pulse Ox 97 95 95 O2 Delivery BiPAP/CPAP Nasal Cannula O2 Flow Rate 2.0 2.0 1.0 05/02/21 05/02/21 05/03/21 05/03/21 22:13 23:00 00:53 01:21 Temp 99.5 99.5 Pulse 92 76 Resp 18 B/P (MAP) 183/93 134/71 (92) Pulse Ox 100 95 95 O2 Delivery BiPAP/CPAP Nasal Cannula Nasal Cannula O2 Flow Rate 2.0 2.0 05/03/21 05/03/21 05/03/21 05/03/21 01:23 01:51 03:00 04:22 Temp 98.1 98.1 Pulse 98 Resp B/P (MAP) 170/101 (124) Pulse Ox 95 95 98 95 O2 Delivery Nasal Cannula Nasal Cannula BiPAP/CPAP Nasal Cannula O2 Flow Rate 2.0 2.0 2.0 05/03/21 05/03/21 05/03/21 05/03/21 04:52 06:26 08:00 08:34 Temp 98.6 98.6 Pulse 101 106 Resp 32 B/P (MAP) 216/105 229/97 (141) Pulse Ox 95 100 100 O2 Delivery Nasal Cannula Nasal Cannula Nasal Cannula O2 Flow Rate 2.0 1.0 1.0 05/03/21 05/03/21 05/03/21 05/03/21 08:36 09:03 09:04 09:04 Pulse 106 101 B/P (MAP) 229/97 216/105 Pulse Ox 100 100 O2 Delivery Nasal Cannula Nasal Cannula O2 Flow Rate 1.0 1.0 Intake and Output 05/02/21 05/02/21 05/03/21 14:59 22:59 06:59 Intake Total 180 ml 620 ml Output Total 1550 ml 1000 ml 850 ml Balance -1370 ml -1000 ml -230 ml SUSAN LEIVA MD May 03, 2021 09:32
[2021-05-03] MEDS ORDERED: FUROSEMIDE 40 MG/4 ML VIAL. IVP ONE (10:30)
--- NOTE | 2021-05-03 11:01 | PDOC ---
[facility] PROGRESS NOTE Date of Service DOS: DATE: 05/03/21 TIME: 10:58 Chief Complaint Chief Complaint Pneumonia Respiratory failure requiring History of Present Illness History of Present Illness 05/03/2021 Patient seen and examined She is off BiPAP Discussed with RN Chart reviewed Patient apparently has refused BiPAP and breathing treatments per RN Blood pressure still running high at 228/117 despite the addition of metoprolol and Norvasc yesterday (she is already getting hydralazine and as needed clonidine) I am going to try a dose of 40 mg of IV Lasix today 05/02/2021 Patient seen and examined She is currently on BiPAP 05/02 with 50% FiO2 Discussed with RN Chart reviewed She is extremely ill Blood pressures running 200/100 I ordered 25 of metoprolol twice daily as she is tachycardic I also ordered Norvasc 10 a day She is already on clonidine patch and hydralazine Patient is a 46 year old female who presents with last night began having shortness of breath, chest pain, nausea, wheezing and back pain. She is in respiratory distress upon arrival and breathing 50 times a minute. She states that when she " gets like this her creatinine increases and she starts having back pain". Patient is not answering questions. She is alert and oriented but is stating that we just need to call her DPOA. When asked if she would allow us to intubate her she would not give us a answer and then stated no but would be okay with CPR. Patient has a history of arthritis, neuropathy, aneurysm, hypertension, migraine, cholecystectomy, morbid obesity, hysterectomy. She did get the Moderna Covid vaccines. She is febrile. When I evaluated the patient in the ICU she was on BiPAP pretty tachypneic. Settings 40% FiO2 08/11. Was able to get her to open her eyes and asked about CODE STATUS especially in terms of intubation should that be needed. She shook her head no other she would not want to ever be on a breathing machine. Explained to her what this meant in detail and she was able to do shake her head yes that she understood this. 05/01 Patient evaluated examined at bedside. Very different from yesterday much more alert today and very combative with any staff. Verbally abusive to nursing staff. Frequently calling everybody racist for reasons unknown to this author. She was refusing all medications today. Discussed with her the reason for this and really cannot get a good answer from her she just continue to talk in circles. However she agreed to continue taking her antibiotics. She is on room air tolerating well. Suspect there is a lot to anxiety and some sort of psychiatry issue. Consult PAT. Martin to transfer out of ICU. Vitals/I&O Vitals/I&O: Vital Signs Date Time Temp Pulse Resp B/P (MAP) Pulse Ox O2 Delivery O2 Flow Rate FiO2 05/03/21 10:20 88 148/60 (89) 05/03/21 10:00 100 Nasal Cannula 1.0 05/03/21 08:00 98.6 32 98.6 I & O 05/02/21 05/02/21 05/03/21 15:00 23:00 07:00 Intake Total 180 ml 620 ml Output Total 1550 ml 1000 ml 850 ml Balance -1370 ml -1000 ml -230 ml Physical Exam General: mild distress, Other (On BiPAP) Heart: Regular rate (SR), Normal S1, Normal S2 Lungs: Crackles Abdomen: Normal bowel sounds, Soft, No tenderness, No hepatosplenomegaly, Other (obese ) Extremities: Other (1+ bilateral LE edema with chronic changes) Skin: No significant lesion Labs Labs: Laboratory Tests Test 05/03/21 06:55 Creatinine 1.3 mg/dL (0.6-1.0) Estimated GFR (Cockcroft-Gault) 53.1 Assessment and Plan Assessmemt and Plan Problems Medical Problems: (1) Hypertensive emergency Status: Acute (2) Person under investigation for COVID-19 Status: Acute (3) Pneumonia Status: Acute Respiratory failure requiring BiPAP Pneumonia CHF PUI Hypertensive emergency Noncompliance Psychiatric issues? Obesity Plan IV antibiotics Cardiac monitoring We will try a dose of IV Lasix 40 mg today As needed BiPAP Beta agonists I added in metoprolol and Norvasc yesterday (she is also on hydralazine and clonidine as needed) Appreciate pulmonary input DVT prophylaxis Weight loss diet Full code Home meds Comment Review of Relevant I have reviewed the following items rhonda (where applicable) has been applied. Medications: Current Medications Medications (Trade) Dose Ordered Sig/Kathrine Route PRN Reason Start Time Stop Time Status Last Admin Dose Admin Metoprolol Tartrate (Lopressor) 50 mg BID PO 05/02/21 21:00 05/03/21 09:03 Furosemide (Lasix) 40 mg 1X ONCE IVP 05/03/21 10:30 05/03/21 10:31 DC 05/03/21 10:23 Justifications for Admission Other Justification ARYA SCOTT III DO May 03, 2021 11:01
[2021-05-03] MEDS: VANCOMYCIN PER PHARMACY MC PRN (11:10)
[2021-05-03] MEDS: QUEtiapine 100 MG TABLET. PO SCH (21:00)
--- NOTE | 2021-05-03 21:31 | NUR ---
As I entered the room I introduced myself as respiratory and told pt I was there to give them a breathing tx. Pt said that they were in pain, I told them that the nurse would get that for them. After initial assessment and scanning pt for meds and getting ready to give txs pt became very verbally violent with me. They had changed their mind and wanted the pain meds before the tx. I explained the tx would help with the lungs not the pain they were having. They explained,"I wasn't an effing Dr and should get the eff out of their room several times". I left as quickly as I could and reported it to pts nurse
[2021-05-04 03:00] VITALS: BP 140/75
[2021-05-04] MEDS: MORPHINE SULFATE 2 MG/ML INJ. IVP PRN (03:52)
[2021-05-04] MEDS: oxyCODONE IR 5 MG TABLET PO PRN ×4 (03:54→20:57)
[2021-05-04 06:08] LABS: CALCIUM 8.5 mg/dL (8.5-10.1); CREATININE 1.3 mg/dL (0.6-1.0); GFR 53.1; POTASSIUM 3.8 mmol/L (3.5-5.1)
[2021-05-04] MEDS: HEPARIN for SUB-Q USE 5,000 UNIT/ML VIAL. SQ SCH ×3 (06:18→21:13)
[2021-05-04 06:39] LABS: BASO % 1 % (0-3); EOS # 0.3 x10^3/uL (0.0-0.7); EOS % 4 % (0-3); HEMATOCRIT 28.6 % (36.0-47.0); HEMOGLOBIN 9.2 g/dL (12.0-15.5); LYMPH # 3.2 x10^3/uL (1.0-4.8); LYMPH % 40 % (24-48); MEAN CORPUSCULAR HEMOGLOBIN 27 pg (25-35); MEAN CORPUSCULAR HGB CONC 32 g/dL (31-37); MEAN CORPUSCULAR VOLUME 85 fL (79-100); MONO # 0.7 x10^3/uL (0.0-1.1); MONO % 8 % (0-9); NEUT # 3.7 x10^3/uL (1.8-7.7); NEUT % 47 % (31-73); PLATELET COUNT 220 x10^3/uL (140-400); RED BLOOD COUNT 3.36 x10^6/uL (3.50-5.40); RED CELL DISTRIBUTION WIDTH 16.4 % (11.5-14.5)
[2021-05-04 07:00] VITALS: BP 162/86
[2021-05-04] MEDS: BUDESONIDE 0.5 MG/2 ML NEBU. NEB SCH ×2 (07:27→20:37)
[2021-05-04] MEDS: IPRATRPIUM/ALBUTEROL 0.5/2.5MG 3 ML NEBU. NEB SCH ×3 (07:27→20:37)
[2021-05-04] MEDS: LACTOBACILLUS RHAMNOSUS GG 1 CAPSULE. PO SCH ×2 (08:58→20:57)
[2021-05-04] MEDS: tiZANidine 4 MG TABLET. PO PRN (08:59)
[2021-05-04] MEDS: METOPROLOL TART IMMED RELEASE 50 MG TABLET. PO SCH ×2 (08:59→20:59)
[2021-05-04] MEDS ORDERED: METOPROLOL TART IMMED RELEASE 25 MG TABLET. PO ONE (10:30)
--- NOTE | 2021-05-04 10:36 | PDOC ---
PROGRESS NOTES Date of Service: DATE: 05/04/21 TIME: 10:35 Subjective Subjective Feeling better. Continues to complain of atypical chest pain that appears to be musculoskeletal. Objective Objective Vital Signs Date Time Temp Pulse Resp B/P (MAP) Pulse Ox O2 Delivery O2 Flow Rate FiO2 05/04/21 08:59 95 140/75 05/04/21 08:59 95 Room Air 05/04/21 07:00 98.7 20 98.7 05/03/21 17:30 1.0 Intake and Output 05/04/21 07:00 Intake Total 900 ml Output Total 2675 ml Balance -1775 ml Intake Oral 900 ml Output Urine Total 2675 ml Physical Exam Abdomen: Normal bowel sounds, Soft, No tenderness, No hepatosplenomegaly, Other (obese ) Heart: Regular rate (SR), Normal S1, Normal S2 Extremities: Other (1+ bilateral LE edema with chronic changes) General: mild distress, Other (On BiPAP) HEENT: Atraumatic Lungs: Other (BiPAP) Neuro: Other (on mild sedation ) Psych/Mental Status: Other (unable to assess ) Skin: No significant lesion Assessment Assessment 1. Acute respiratory failure; multifactorial with PNA, CHF, and probable BERTO 2. Acute diastolic CHF; s/p IV diuresis 3. Hypertensive urgency:better controlled 4. Leukocytosis, fevers 5. Diabetes, II 6. Obesity 7. Hypomagnesemia; replaced 8. Obesity, probable hypoventilation syndrome 9. PUI; COVID negative 10. Chest pain with atypical features, most probably musculoskeletal since this is reproducible to palpation Recommendations Continue current medical regimen 2D echo showed normal LV systolic function Ongoing lung optimization, treatment of PNA Supportive care Plan Plan of Care Problems Medical Problems: (1) Hypertensive emergency Status: Acute (2) Person under investigation for COVID-19 Status: Acute (3) Pneumonia Status: Acute Comment Review of Relevant I have reviewed the following items rhonda (where applicable) has been applied. Labs Laboratory Tests Test 05/04/21 05:15 05/04/21 09:25 White Blood Count 8.0 x10^3/uL (4.0-11.0) Red Blood Count 3.36 x10^6/uL (3.50-5.40) Hemoglobin 9.2 g/dL (12.0-15.5) Hematocrit 28.6 % (36.0-47.0) Mean Corpuscular Volume 85 fL (79-100) Mean Corpuscular Hemoglobin 27 pg (25-35) Mean Corpuscular Hemoglobin Concent 32 g/dL (31-37) Red Cell Distribution Width 16.4 % (11.5-14.5) Platelet Count 220 x10^3/uL (140-400) Neutrophils (%) (Auto) 47 % (31-73) Lymphocytes (%) (Auto) 40 % (24-48) Monocytes (%) (Auto) 8 % (0-9) Eosinophils (%) (Auto) 4 % (0-3) Basophils (%) (Auto) 1 % (0-3) Neutrophils # (Auto) 3.7 x10^3/uL (1.8-7.7) Lymphocytes # (Auto) 3.2 x10^3/uL (1.0-4.8) Monocytes # (Auto) 0.7 x10^3/uL (0.0-1.1) Eosinophils # (Auto) 0.3 x10^3/uL (0.0-0.7) Basophils # (Auto) 0.0 x10^3/uL (0.0-0.2) Sodium Level 138 mmol/L (136-145) Potassium Level 3.8 mmol/L (3.5-5.1) Chloride Level 104 mmol/L (98-107) Carbon Dioxide Level 27 mmol/L (21-32) Anion Gap 7 (6-14) Blood Urea Nitrogen 21 mg/dL (7-20) Creatinine 1.3 mg/dL (0.6-1.0) Estimated GFR (Cockcroft-Gault) 53.1 Glucose Level 112 mg/dL (70-99) Calcium Level 8.5 mg/dL (8.5-10.1) Magnesium Level 2.0 mg/dL (1.8-2.4) Vancomycin Level Trough 19.0 mcg/mL (10.0-20.0) Vancomycin Last Dose Date 05/03/21 Vancomycin Last Dose Time 1000 Microbiology 04/30/21 Blood Culture - Preliminary, Resulted NO GROWTH AFTER 3 DAYS 04/30/21 Gram Stain Evaluation - Final, Complete 04/30/21 Respiratory Culture - Final, Complete Medications Current Medications Vancomycin HCl (Vancomycin Trough Level) 1 each 1X ONCE MC ; Start 05/04/21 at 09:30; Stop 05/04/21 at 09:31; Status DC Vitals/I & O Vital Sign - Last 24 Hours 05/03/21 05/03/21 05/03/21 05/03/21 11:00 11:17 11:32 12:00 Temp 99.2 99.2 Pulse 78 Resp 30 B/P (MAP) 152/66 (94) Pulse Ox 97 100 100 O2 Delivery Nasal Cannula Nasal Cannula Nasal Cannula Nasal Cannula O2 Flow Rate 1.0 1.0 1.0 1.0 05/03/21 05/03/21 05/03/21 05/03/21 15:00 15:35 15:45 15:48 Temp 97.7 97.7 Pulse 96 96 Resp 28 B/P (MAP) 175/86 (115) 175/86 Pulse Ox 100 100 O2 Delivery Nasal Cannula Nasal Cannula Nasal Cannula O2 Flow Rate 1.0 1.0 1.0 05/03/21 05/03/21 05/03/21 05/03/21 16:38 16:55 17:30 19:00 Temp 98.6 98.6 Pulse 91 Resp 20 B/P (MAP) 133/57 (82) Pulse Ox 100 100 100 95 O2 Delivery Nasal Cannula Nasal Cannula Nasal Cannula Nasal Cannula O2 Flow Rate 1.0 1.0 1.0 05/03/21 05/03/21 05/03/21 05/03/21 19:59 20:00 20:25 22:47 Pulse 91 Resp 19 19 B/P (MAP) 133/57 O2 Delivery Room Air Nasal Cannula Room Air 05/03/21 05/03/21 05/03/21 05/04/21 22:51 23:00 23:21 03:00 Temp 99.3 98.7 99.3 98.7 Pulse 96 95 Resp 20 20 20 20 B/P (MAP) 129/63 (85) 140/75 (96) Pulse Ox 95 97 O2 Delivery Room Air Room Air Room Air Room Air 05/04/21 05/04/21 05/04/21 05/04/21 03:52 03:54 04:22 04:22 Resp 19 19 18 18 O2 Delivery Room Air Room Air Room Air Room Air 05/04/21 05/04/21 05/04/21 05/04/21 07:00 07:27 07:31 08:58 Temp 98.7 98.7 Pulse 96 95 Resp 20 B/P (MAP) 162/86 (111) 140/75 Pulse Ox 95 95 95 O2 Delivery Room Air Room Air Room Air 05/04/21 05/04/21 08:59 08:59 Pulse 95 B/P (MAP) 140/75 Pulse Ox 95 O2 Delivery Room Air Intake and Output 05/03/21 05/03/21 05/04/21 15:00 23:00 07:00 Intake Total 400 ml 500 ml Output Total 1975 ml 700 ml Balance -1975 ml 400 ml -200 ml SUSAN LEIVA MD May 04, 2021 10:36
--- NOTE | 2021-05-04 10:50 | PDOC ---
PULMONARY PROGRESS NOTES DATE: 05/04/21 TIME: 10:48 Subjective on 02 sob better neb tx helped had psg this yr in [place] no cpap could not afford it Vitals Vital Signs Date Time Temp Pulse Resp B/P (MAP) Pulse Ox O2 Delivery O2 Flow Rate FiO2 05/04/21 08:59 95 140/75 05/04/21 08:59 95 Room Air 05/04/21 07:00 98.7 20 98.7 05/03/21 17:30 1.0 ROS: No Nausea, No Abdominal Pain, No Increase Cough General: Alert Lungs: Crackles Cardiovascular: S1, S2 Abdomen: Soft, Non-tender Neuro Exam: Alert Extremities: No Edema Skin: Warm Labs Laboratory Tests Test 05/03/21 06:55 05/04/21 05:15 05/04/21 09:25 Creatinine 1.3 mg/dL (0.6-1.0) 1.3 mg/dL (0.6-1.0) Estimated GFR (Cockcroft-Gault) 53.1 53.1 White Blood Count 8.0 x10^3/uL (4.0-11.0) Red Blood Count 3.36 x10^6/uL (3.50-5.40) Hemoglobin 9.2 g/dL (12.0-15.5) Hematocrit 28.6 % (36.0-47.0) Mean Corpuscular Volume 85 fL (79-100) Mean Corpuscular Hemoglobin 27 pg (25-35) Mean Corpuscular Hemoglobin Concent 32 g/dL (31-37) Red Cell Distribution Width 16.4 % (11.5-14.5) Platelet Count 220 x10^3/uL (140-400) Neutrophils (%) (Auto) 47 % (31-73) Lymphocytes (%) (Auto) 40 % (24-48) Monocytes (%) (Auto) 8 % (0-9) Eosinophils (%) (Auto) 4 % (0-3) Basophils (%) (Auto) 1 % (0-3) Neutrophils # (Auto) 3.7 x10^3/uL (1.8-7.7) Lymphocytes # (Auto) 3.2 x10^3/uL (1.0-4.8) Monocytes # (Auto) 0.7 x10^3/uL (0.0-1.1) Eosinophils # (Auto) 0.3 x10^3/uL (0.0-0.7) Basophils # (Auto) 0.0 x10^3/uL (0.0-0.2) Sodium Level 138 mmol/L (136-145) Potassium Level 3.8 mmol/L (3.5-5.1) Chloride Level 104 mmol/L (98-107) Carbon Dioxide Level 27 mmol/L (21-32) Anion Gap 7 (6-14) Blood Urea Nitrogen 21 mg/dL (7-20) Glucose Level 112 mg/dL (70-99) Calcium Level 8.5 mg/dL (8.5-10.1) Magnesium Level 2.0 mg/dL (1.8-2.4) Vancomycin Level Trough 19.0 mcg/mL (10.0-20.0) Vancomycin Last Dose Date 05/03/21 Vancomycin Last Dose Time 1000 Laboratory Tests Test 05/04/21 05:15 05/04/21 09:25 White Blood Count 8.0 x10^3/uL (4.0-11.0) Red Blood Count 3.36 x10^6/uL (3.50-5.40) Hemoglobin 9.2 g/dL (12.0-15.5) Hematocrit 28.6 % (36.0-47.0) Mean Corpuscular Volume 85 fL (79-100) Mean Corpuscular Hemoglobin 27 pg (25-35) Mean Corpuscular Hemoglobin Concent 32 g/dL (31-37) Red Cell Distribution Width 16.4 % (11.5-14.5) Platelet Count 220 x10^3/uL (140-400) Neutrophils (%) (Auto) 47 % (31-73) Lymphocytes (%) (Auto) 40 % (24-48) Monocytes (%) (Auto) 8 % (0-9) Eosinophils (%) (Auto) 4 % (0-3) Basophils (%) (Auto) 1 % (0-3) Neutrophils # (Auto) 3.7 x10^3/uL (1.8-7.7) Lymphocytes # (Auto) 3.2 x10^3/uL (1.0-4.8) Monocytes # (Auto) 0.7 x10^3/uL (0.0-1.1) Eosinophils # (Auto) 0.3 x10^3/uL (0.0-0.7) Basophils # (Auto) 0.0 x10^3/uL (0.0-0.2) Sodium Level 138 mmol/L (136-145) Potassium Level 3.8 mmol/L (3.5-5.1) Chloride Level 104 mmol/L (98-107) Carbon Dioxide Level 27 mmol/L (21-32) Anion Gap 7 (6-14) Blood Urea Nitrogen 21 mg/dL (7-20) Creatinine 1.3 mg/dL (0.6-1.0) Estimated GFR (Cockcroft-Gault) 53.1 Glucose Level 112 mg/dL (70-99) Calcium Level 8.5 mg/dL (8.5-10.1) Magnesium Level 2.0 mg/dL (1.8-2.4) Vancomycin Level Trough 19.0 mcg/mL (10.0-20.0) Vancomycin Last Dose Date 05/03/21 Vancomycin Last Dose Time 1000 Medications Active Scripts Medications Dose Route/Sig Max Daily Dose Days Date Category Plxpwm-Uwfxsrax-Yhyk 50-325-40 (Butalb/Acetaminophen/Caffeine) 1 Each Tablet 1-2 Each PO Q4HRS PRN MDD 6 tabs 3 07/30/20 Rx Gznyve-Yjhcwxdl-Juhm 50-325-40 (Butalb/Acetaminophen/Caffeine) 1 Each Tablet 1-2 Each PO Q4HRS PRN MDD 6 tabs 3 06/01/19 Rx Seroquel (Quetiapine Fumarate) 200 Mg Tablet 200 Mg PO HS 05/12/19 Reported Tizanidine Hcl 4 Mg Tablet 4 Mg PO TID PRN 05/12/19 Reported Clonidine Hcl 0.1 Mg Tablet 0.1 Mg PO DAILY 05/12/19 Reported Bactrim 400-80 Mg Tablet (Sulfamethoxazole/Trimethoprim) 1 Each Tablet 1 Tab PO BID 11/02/18 Rx Zofran (Ondansetron Hcl) 4 Mg Tablet 1 Tab PO PRN Q6-8HRS 11/02/18 Rx Impression . IMPRESSION: 1. Acute hypoxemic respiratory failure secondary to significant consolidation of the right lung. 2. Suspect gram-negative, possibly gram positive pneumonia. 3. Sepsis. 4. Hypertensive emergency. 5. Morbid obesity. 6. History of hypertension, uncontrolled. 7. Arthritis. 8. History of migraine. Plan . 02 titration abx, currently changed to p.o. Levaquin. We will repeat a chest x-ray today to see any radiographic improvement. May need a CT chest if there is no chest x-ray improvement. chacho the importance of tx discussed psg as out pt cont BD ICS hep sq for dvt prophylaxis lose wt DNI discussed w pt and rn 05/02 02 titration abx chacho the importance of tx discussed psg as out pt start BD ICS hep sq for dvt prophylaxis lose wt DNI discussed w pt and rn Updated 05/01 patient respiratory status appears to have improved I informed the patient that she has a significant pneumonia on the right side, she was mainly focused on the fact that the medical team is not addressing her pain I informed her that her respiratory status is slowly improving, she requires antibiotics, oxygen, BiPAP nightly She became irate with the nursing staff this morning, and it is inappropriate. Will defer to PCP for pain management PLAN: 1. As indicated above. We will continue patient on noninvasive ventilation with BiPAP. 2. Initiate a Precedex to allow for synchrony with noninvasive ventilation. 3. Continue vancomycin and Levaquin. 4. Initiate hydralazine. 5. DVT prophylaxis. 6. Maintenance IV fluids. I do appreciate the privilege in sharing in the patient's care. Total cumulative critical care time of 40 minutes, examining the patient, reviewing the current documentation. Case discussed with both Dr. Cifuentes and the Emergency Room nurse practitioner. SOLANGE ZAMBRANO MD May 04, 2021 10:50
[2021-05-04 11:00] VITALS: BP 142/71
[2021-05-04] MEDS: LINEZOLID 600 MG TABLET PO SCH ×2 (11:15→20:57)
[2021-05-04] MEDS: FUROSEMIDE 40 MG TABLET. PO SCH (11:15)
--- NOTE | 2021-05-04 11:22 | NUR ---
SW following. Discussed with RN, pt from home with aunt, room air, cardiac diet, COVID-19 negative. PAT team bringing by the safety plan to place copy in pt's chart. Dr. Driscoll advising discharge soon. RN advised no SW needs at this time. SW will continue to follow.
[2021-05-04] MEDS: POTASSIUM BICARB 20 MEQ EFFERVESCENT TABLET. PEG SCH (11:27)
--- NOTE | 2021-05-04 11:27 | RAD ---
Single view of the chest. 05/04/2021 10:49 AM Indication: Reason: pna / Spl. Instructions: / History: Comparison: 04.30.21 single view chest Findings: Interval interval significant improvement in diffuse right-sided infiltrates. Minimal resid ual left infiltrates persist. No pneumothorax or definitive effusion is seen. Heart is top normal giv en portable technique. No acute osseous changes noted in the interim. IMPRESSION: Significantly improved right-sided infiltrates in the interim. Continued radiographic fol low-up to ensure resolution recommended Electronically signed by: Mike Jasmine MD (05/04/2021 11:25 AM) [id number]
--- NOTE | 2021-05-04 11:40 | PDOC ---
[facility] PROGRESS NOTE Date of Service DOS: DATE: 05/04/21 TIME: 11:38 Chief Complaint Chief Complaint Pneumonia Respiratory failure requiring History of Present Illness History of Present Illness 05/04/2021 Patient seen and examined She was resting but awoke Discussed with RN Discussed with case management Chart reviewed Getting a portable chest x-ray per pulmonary this morning and we certainly agree 05/03/2021 Patient seen and examined She is off BiPAP Discussed with RN Chart reviewed Patient apparently has refused BiPAP and breathing treatments per RN Blood pressure still running high at 228/117 despite the addition of metoprolol and Norvasc yesterday (she is already getting hydralazine and as needed clonidine) I am going to try a dose of 40 mg of IV Lasix today 05/02/2021 Patient seen and examined She is currently on BiPAP 05/02 with 50% FiO2 Discussed with RN Chart reviewed She is extremely ill Blood pressures running 200/100 I ordered 25 of metoprolol twice daily as she is tachycardic I also ordered Norvasc 10 a day She is already on clonidine patch and hydralazine Patient is a 46 year old female who presents with last night began having s hortness of breath, chest pain, nausea, wheezing and back pain. She is in respiratory distress upon arrival and breathing 50 times a minute. She states that when she " gets like this her creatinine increases and she starts having back pain". Patient is not answering questions. She is alert and oriented but is stating that we just need to call her DPOA. When asked if she would allow us to intubate her she would not give us a answer and then stated no but would be okay with CPR. Patient has a history of arthritis, neuropathy, aneurysm, hypertension, migraine, cholecystectomy, morbid obesity, hysterectomy. She did get the Moderna Covid vaccines. She is febrile. When I evaluated the patient in the ICU she was on BiPAP pretty tachypneic. Settings 40% FiO2 /. Was able to get her to open her eyes and asked about CODE STATUS especially in terms of intubation should that be needed. She shook her head no other she would not want to ever be on a breathing machine. Explained to her what this meant in detail and she was able to do shake her head yes that she understood this. 05/01 Patient evaluated examined at bedside. Very different from yesterday much more alert today and very combative with any staff. Verbally abusive to nursing staff. Frequently calling everybody racist for reasons unknown to this author. She was refusing all medications today. Discussed with her the reason for this and really cannot get a good answer from her she just continue to talk in circles. However she agreed to continue taking her antibiotics. She is on room air tolerating well. Suspect there is a lot to anxiety and some sort of psychiatry issue. Consult PAT. Okay to transfer out of ICU. Vitals/I&O Vitals/I&O: Vital Signs Date Time Temp Pulse Resp B/P (MAP) Pulse Ox O2 Delivery O2 Flow Rate FiO2 05/04/21 11:30 96 Room Air 05/04/21 11:15 95 140/75 05/04/21 07:00 98.7 20 98.7 05/03/21 17:30 1.0 I & O 05/03/21 05/03/21 05/04/21 15:00 23:00 07:00 Intake Total 400 ml 500 ml Output Total 1975 ml 700 ml Balance -1975 ml 400 ml -200 ml Physical Exam General: Other (On BiPAP) Heart: Regular rate (SR), Normal S1, Normal S2 Lungs: Crackles Abdomen: Normal bowel sounds, Soft, No tenderness, No hepatosplenomegaly, Other (obese ) Extremities: Other (1+ bilateral LE edema with chronic changes) Skin: No significant lesion Labs Labs: Laboratory Tests Test 05/04/21 05:15 05/04/21 09:25 White Blood Count 8.0 x10^3/uL (4.0-11.0) Red Blood Count 3.36 x10^6/uL (3.50-5.40) Hemoglobin 9.2 g/dL (12.0-15.5) Hematocrit 28.6 % (36.0-47.0) Mean Corpuscular Volume 85 fL (79-100) Mean Corpuscular Hemoglobin 27 pg (25-35) Mean Corpuscular Hemoglobin Concent 32 g/dL (31-37) Red Cell Distribution Width 16.4 % (11.5-14.5) Platelet Count 220 x10^3/uL (140-400) Neutrophils (%) (Auto) 47 % (31-73) Lymphocytes (%) (Auto) 40 % (24-48) Monocytes (%) (Auto) 8 % (0-9) Eosinophils (%) (Auto) 4 % (0-3) Basophils (%) (Auto) 1 % (0-3) Neutrophils # (Auto) 3.7 x10^3/uL (1.8-7.7) Lymphocytes # (Auto) 3.2 x10^3/uL (1.0-4.8) Monocytes # (Auto) 0.7 x10^3/uL (0.0-1.1) Eosinophils # (Auto) 0.3 x10^3/uL (0.0-0.7) Basophils # (Auto) 0.0 x10^3/uL (0.0-0.2) Sodium Level 138 mmol/L (136-145) Potassium Level 3.8 mmol/L (3.5-5.1) Chloride Level 104 mmol/L (98-107) Carbon Dioxide Level 27 mmol/L (21-32) Anion Gap 7 (6-14) Blood Urea Nitrogen 21 mg/dL (7-20) Creatinine 1.3 mg/dL (0.6-1.0) Estimated GFR (Cockcroft-Gault) 53.1 Glucose Level 112 mg/dL (70-99) Calcium Level 8.5 mg/dL (8.5-10.1) Magnesium Level 2.0 mg/dL (1.8-2.4) Vancomycin Level Trough 19.0 mcg/mL (10.0-20.0) Vancomycin Last Dose Date 05/03/21 Vancomycin Last Dose Time 1000 Assessment and Plan Assessmemt and Plan Problems Medical Problems: (1) Hypertensive emergency Status: Acute (2) Person under investigation for COVID-19 Status: Acute (3) Pneumonia Status: Acute Respiratory failure requiring BiPAP Pneumonia CHF PUI Hypertensive emergency Noncompliance Psychiatric issues? Obesity Plan Getting a portable chest x-ray this morning per pulmonary and we certainly agree Change to p.o. Levaquin per pulmonary Cardiac monitoring Ordered daily Lasix Continue the Norvasc Increase metoprolol 75 twice daily As needed BiPAP Beta agonists Continue as needed hydralazine and clonidine Appreciate pulmonary input DVT prophylaxis Weight loss diet Full code Home meds Per pulmonary recommendations please see the following; 02 titration abx, currently changed to p.o. Levaquin. We will repeat a chest x-ray today to see any radiographic improvement. May need a CT chest if there is no chest x-ray improvement. chacho the importance of tx discussed psg as out pt cont BD ICS hep sq for dvt prophylaxis lose wt DNI discussed w pt and rn Comment Review of Relevant I have reviewed the following items rhonda (where applicable) has been applied. Medications: Current Medications Medications (Trade) Dose Ordered Sig/Kathrine Route PRN Reason Start Time Stop Time Status Last Admin Dose Admin Furosemide (Lasix) 40 mg DAILY PO 05/04/21 10:30 05/04/21 11:15 Potassium Bicarbonate (Potassium Effervescent Tablet) 20 meq DAILY PEG 05/04/21 10:30 05/04/21 11:27 Linezolid (Zyvox) 600 mg BID PO 05/04/21 11:00 05/04/21 11:15 Levofloxacin (Levaquin) 500 mg DAILY06 PO 05/04/21 10:30 05/04/21 11:15 Metoprolol Tartrate (Lopressor) 25 mg 1X ONCE PO 05/04/21 10:30 05/04/21 10:51 DC 05/04/21 11:15 Justifications for Admission Other Justification ARYA SCOTT III DO May 04, 2021 11:40
[2021-05-04 15:00] VITALS: BP 176/94
[2021-05-04 19:00] VITALS: BP 168/78
[2021-05-04] MEDS: QUEtiapine 100 MG TABLET. PO SCH (21:00)
[2021-05-04] MEDS: PROMETHAZINE 12.5 MG TABLET. PO PRN (21:08)
[2021-05-04 23:00] VITALS: BP 174/89
[2021-05-05] MEDS: oxyCODONE IR 5 MG TABLET PO PRN ×2 (00:28→09:43)
[2021-05-05 03:00] VITALS: BP 188/103
[2021-05-05] MEDS: HEPARIN for SUB-Q USE 5,000 UNIT/ML VIAL. SQ SCH (06:00)
[2021-05-05 06:23] LABS: BASO # 0.1 x10^3/uL (0.0-0.2); BASO % 1 % (0-3); EOS # 0.3 x10^3/uL (0.0-0.7); EOS % 5 % (0-3); HEMATOCRIT 28.5 % (36.0-47.0); HEMOGLOBIN 9.5 g/dL (12.0-15.5); LYMPH # 2.7 x10^3/uL (1.0-4.8); LYMPH % 39 % (24-48); MEAN CORPUSCULAR HEMOGLOBIN 28 pg (25-35); MEAN CORPUSCULAR HGB CONC 33 g/dL (31-37); MEAN CORPUSCULAR VOLUME 84 fL (79-100); MONO # 0.6 x10^3/uL (0.0-1.1); MONO % 9 % (0-9); NEUT # 3.3 x10^3/uL (1.8-7.7); NEUT % 47 % (31-73); PLATELET COUNT 216 x10^3/uL (140-400); RED BLOOD COUNT 3.42 x10^6/uL (3.50-5.40); RED CELL DISTRIBUTION WIDTH 16.1 % (11.5-14.5); WHITE BLOOD COUNT 7.1 x10^3/uL (4.0-11.0)
[2021-05-05 07:00] VITALS: BP 191/97
--- NOTE | 2021-05-05 07:46 | NUR ---
Patient has refused her BIPAP last night, had stated that she would have her breathing treatment, and then refuses it , her heart rate dropped tonight, had some pauses, crystal Young rn, did report that she ad some pauses yesterday.
[2021-05-05] MEDS: IPRATRPIUM/ALBUTEROL 0.5/2.5MG 3 ML NEBU. NEB SCH ×3 (08:02→11:33)
[2021-05-05] MEDS: BUDESONIDE 0.5 MG/2 ML NEBU. NEB SCH (08:02)
--- NOTE | 2021-05-05 08:26 | PDOC ---
[employer] PROGRESS NOTE Date of Service DOS: DATE: 05/05/21 TIME: 08:24 Chief Complaint Chief Complaint Pneumonia Respiratory failure requiring History of Present Illness History of Present Illness 05/05/2021 Patient seen and examined She seems to be approaching her baseline Chest x-ray much improved Discussed with RN Discussed with case management Hope to discharge this afternoon 05/04/2021 Patient seen and examined She was resting but awoke Discussed with RN Discussed with case management Chart reviewed Getting a portable chest x-ray per pulmonary this morning and we certainly agree 05/03/2021 Patient seen and examined She is off BiPAP Discussed with RN Chart reviewed Patient apparently has refused BiPAP and breathing treatments per RN Blood pressure still running high at 228/117 despite the addition of metoprolol and Norvasc yesterday (she is already getting hydralazine and as needed clonidine) I am going to try a dose of 40 mg of IV Lasix today 05/02/2021 Patient seen and examined She is currently on BiPAP 05/02 with 50% FiO2 Discussed with RN Chart reviewed She is extremely ill Blood pressures running 200/100 I ordered 25 of metoprolol twice daily as she is tachycardic I also ordered Norvasc 10 a day She is already on clonidine patch and hydralazine Patient is a 46 year old female who presents with last night began having shortness of breath, chest pain, nausea, wheezing and back pain. She is in respiratory distress upon arrival and breathing 50 times a minute. She states that when she " gets like this her creatinine increases and she starts having back pain". Patient is not answering questions. She is alert and oriented but is stating that we just need to call her DPOA. When asked if she would allow us to intubate her she would not give us a answer and then stated no but would be okay with CPR. Patient has a history of arthritis, neuropathy, aneurysm, hypertension, migraine, cholecystectomy, morbid obesity, hysterectomy. She did get the Moderna Covid vaccines. She is febrile. When I evaluated the patient in the ICU she was on BiPAP pretty tachypneic. Settings 40% FiO2 15/5. Was able to get her to open her eyes and asked about CODE STATUS especially in terms of intubation should that be needed. She shook her head no other she would not want to ever be on a breathing machine. Explained to her what this meant in detail and she was able to do shake her head yes that she understood this. 05/01 Patient evaluated examined at bedside. Very different from yesterday much more alert today and very combative with any staff. Verbally abusive to nursing staff. Frequently calling everybody racist for reasons unknown to this author. She was refusing all medications today. Discussed with her the reason for this and really cannot get a good answer from her she just continue to talk in circles. However she agreed to continue taking her antibiotics. She is on room air tolerating well. Suspect there is a lot to anxiety and some sort of psychiatry issue. Consult PATMonica Gavinay to transfer out of ICU. Vitals/I&O Vitals/I&O: Vital Signs Date Time Temp Pulse Resp B/P (MAP) Pulse Ox O2 Delivery O2 Flow Rate FiO2 05/05/21 08:02 96 Room Air 05/05/21 07:00 98.1 84 20 191/97 (128) 1.0 98.1 I & O 05/04/21 05/04/21 05/05/21 15:00 23:00 07:00 Intake Total 240 ml 200 ml Output Total 1100 ml 4700 ml Balance -860 ml -4500 ml Physical Exam General: Alert, Oriented X3 Heart: Regular rate (SR), Normal S1, Normal S2 Lungs: Clear Abdomen: Normal bowel sounds, Soft, No tenderness, No hepatosplenomegaly, Other (obese ) Extremities: Other (1+ bilateral LE edema with chronic changes) Skin: No significant lesion Labs Labs: Laboratory Tests Test 05/04/21 09:25 05/05/21 06:05 Vancomycin Level Trough 19.0 mcg/mL (10.0-20.0) Vancomycin Last Dose Date 05/03/21 Vancomycin Last Dose Time 1000 White Blood Count 7.1 x10^3/uL (4.0-11.0) Red Blood Count 3.42 x10^6/uL (3.50-5.40) Hemoglobin 9.5 g/dL (12.0-15.5) Hematocrit 28.5 % (36.0-47.0) Mean Corpuscular Volume 84 fL (79-100) Mean Corpuscular Hemoglobin 28 pg (25-35) Mean Corpuscular Hemoglobin Concent 33 g/dL (31-37) Red Cell Distribution Width 16.1 % (11.5-14.5) Platelet Count 216 x10^3/uL (140-400) Neutrophils (%) (Auto) 47 % (31-73) Lymphocytes (%) (Auto) 39 % (24-48) Monocytes (%) (Auto) 9 % (0-9) Eosinophils (%) (Auto) 5 % (0-3) Basophils (%) (Auto) 1 % (0-3) Neutrophils # (Auto) 3.3 x10^3/uL (1.8-7.7) Lymphocytes # (Auto) 2.7 x10^3/uL (1.0-4.8) Monocytes # (Auto) 0.6 x10^3/uL (0.0-1.1) Eosinophils # (Auto) 0.3 x10^3/uL (0.0-0.7) Basophils # (Auto) 0.1 x10^3/uL (0.0-0.2) Assessment and Plan Assessmemt and Plan Problems Medical Problems: (1) Hypertensive emergency Status: Acute (2) Person under investigation for COVID-19 Status: Acute (3) Pneumonia Status: Acute Respiratory failure requiring BiPAP Pneumonia CHF PUI Hypertensive emergency Noncompliance Psychiatric issues? Obesity Plan Hope to discharge this afternoon on p.o. Levaquin for now continue the following; Cardiac monitoring Continue lace Continue the Norvasc Increase metoprolol 75 twice daily Beta agonists Continue as needed hydralazine and clonidine Appreciate pulmonary input DVT prophylaxis Weight loss diet Full code Home meds Hope to discharge later after seen by pulmonary Comment Review of Relevant I have reviewed the following items rhonda (where applicable) has been applied. Medications: Current Medications Medications (Trade) Dose Ordered Sig/Kathrine Route PRN Reason Start Time Stop Time Status Last Admin Dose Admin Furosemide (Lasix) 40 mg DAILY PO 05/04/21 10:30 05/04/21 11:15 Potassium Bicarbonate (Potassium Effervescent Tablet) 20 meq DAILY PEG 05/04/21 10:30 05/04/21 11:27 Linezolid (Zyvox) 600 mg BID PO 05/04/21 11:00 05/04/21 20:57 Levofloxacin (Levaquin) 500 mg DAILY06 PO 05/04/21 10:30 05/04/21 11:15 Metoprolol Tartrate (Lopressor) 75 mg BID PO 05/04/21 21:00 05/04/21 20:59 Metoprolol Tartrate (Lopressor) 25 mg 1X ONCE PO 05/04/21 10:30 05/04/21 10:51 DC 05/04/21 11:15 Lorazepam (Ativan) 2 mg PRN Q4HRS PRN PO ANXIETY / AGITATION 05/04/21 20:15 05/05/21 00:28 Justifications for Admission Other Justification ARYA SCOTT III DO May 05, 2021 08:26
[2021-05-05] MEDS ORDERED: LORA-434 PO (08:31)
[2021-05-05] MEDS ORDERED: POTA20TA40 PEG (08:31)
[2021-05-05] MEDS ORDERED: LEVO500T9 PO (08:31)
[2021-05-05] MEDS ORDERED: LINE600T12 PO (08:31)
[2021-05-05] MEDS ORDERED: METO50TA6 PO (08:31)
[2021-05-05] MEDS ORDERED: FURO40TA4 PO (08:31)
[2021-05-05] MEDS ORDERED: OXYC5TAB4 PO (08:31)
[2021-05-05] MEDS ORDERED: CLON1PAT6 TD (08:31)
[2021-05-05] MEDS ORDERED: AMLO-187 PO (08:31)
--- NOTE | 2021-05-05 08:33 | SNU/HH DC ---
DISCHARGE WITH HOME HEALTH DISCHARGE INFORMATION: Final Diagnosis: Problems Medical Problems: (1) Hypertensive emergency Status: Acute (2) Person under investigation for COVID-19 Status: Acute (3) Pneumonia Status: Acute Condition on Discharge: Stable CODE STATUS: Code Status: Full HOME HEALTH: Face to Face: I certify this patient is under my care and that I, or a nurse practitioner or physician's staff assistant working with me, had a face to face encounter that meets the physician face to face encounter requirements with this patient on []. Medical Complications: Other (Resolving pneumonia) Half-Way For: Assess & Educate Safety RN For Eval/Treatment: Yes Physical Therapy For: Evalulation/Treatment Occupational Therapy For: Evaluation/Treatment Home Health Aide For: Self-care OTR FLATBED DRIVER For: Community Resources Pt Meets Homebound Status: Unsteady balance w/ amb, POST DISCHARGE ORDERS: Activity Instructions for Disc: Activity as tolerated DIET AFTER DISCHARGE: Cardiac CHECKS AFTER DISCHARGE: Checks after discharge: Check blood press - daily CERTIFICATION STATEMENT: Certification Statement: Certification Statement: Based on the above finding, I certify that this patient is confined to the home and needs intermittent alf care, physical therapy and/or speech therapy, or continues to need occupational therapy.~ This patient is under my care, and I have initiated the establishment of the plan of care.~ This patient will be followed by myself or a community physician who will periodically review the plan of care. Home Meds Active Scripts Lorazepam (ATIVAN) 1 Mg Tablet, 2 MG PO PRN Q4HRS PRN for ANXIETY / AGITATION for 10 Days, #20 TAB Prov:ARYA SCOTT K III DO 05/05/21 Oxycodone Hcl (OXYCODONE HCL IMMED.RELEASE ) 5 Mg Tablet, 5 MG PO PRN Q3HRS PRN for pain for 7 Days, #20 TAB Prov:CASTLENIAL K III DO 05/05/21 Butalb/Acetaminophen/Caffeine ([id number] 50-325-40) 1 Each Tablet, 1- 2 EACH PO Q4HRS PRN for PAIN MDD 6 tabs for 3 Days, #18 TAB 0 Refills Prov:NAYELI ROJAS ROOFING TECHNICIAN 07/30/20 Butalb/Acetaminophen/Caffeine ([id number] 50-325-40) 1 Each Tablet, 1- 2 EACH PO Q4HRS PRN for PAIN MDD 6 tabs for 3 Days, #18 TAB 0 Refills Prov:NAYELI ROJAS APRN 06/01/19 Sulfamethoxazole/Trimethoprim (BACTRIM 400-80 MG TABLET) 1 Each Tablet, 1 TAB PO BID, #6 TAB Prov:CHRIS APPIAH DO 11/02/18 Ondansetron Hcl (ZOFRAN) 4 Mg Tablet, 1 TAB PO PRN Q6-8HRS, #15 TAB Prov:CHRIS APPIAH DO 11/02/18 Reported Medications Quetiapine Fumarate (SEROQUEL) 200 Mg Tablet, 200 MG PO HS for sleep, TAB 05/12/19 Tizanidine Hcl (TIZANIDINE HCL) 4 Mg Tablet, 4 MG PO TID PRN for MUSCLE SPASMS, TAB 05/12/19 Clonidine Hcl (CLONIDINE HCL) 0.1 Mg Tablet, 0.1 MG PO DAILY for HTN, TAB 05/12/19 ARYA SCOTT III DO May 05, 2021 08:33
--- NOTE | 2021-05-05 09:27 | DS ---
DATE OF DISCHARGE: 05/05/2021 ADMITTING DIAGNOSIS: Pneumonia, respiratory failure. DISCHARGE DIAGNOSES: Resolving pneumonia, resolving respiratory failure, congestive heart failure, resolving hypertensive urgency, noncompliance, psychiatric issues and obesity. CONSULTS: Pulmonary Medicine and Cardiology. PROCEDURES: None. HOSPITAL COURSE: The patient is a pleasant, middle-aged female who presented with pneumonia. She is quite large and has multiple medical issues. We treated the patient with IV antibiotics, breathing treatments, oxygen. We ruled out COVID-19. The above consults were obtained. Over the past few days, she slowly returned to her baseline. We did a chest x-ray yesterday, which is much improved. I saw her this morning. She wants to go home. We plan to discharge. DISPOSITION: Home. ACTIVITY: As tolerated. DIET: Low sodium. MEDICATIONS: Amlodipine 10 a day, clonidine patch TTS-2 changed weekly, Lasix 40 a day, Levaquin 500 a day for 1 more week, Zyvox 600 b.i.d. for 1 more week, lorazepam 2 mg q. 4 p.r.n., metoprolol 75 b.i.d., oxycodone 5 mg q 4 p.r.n., and potassium 20 a day. We will also continue her home meds, which included p.r.n. Soma, Zofran 4 q.6 p.r.n., Seroquel 200 at bedtime and tizanidine 4 t.i.d. p.r.n. TOTAL TIME: 34 minutes. RADHA/MOLLY DR: Katharina TID: [id number]
[2021-05-05] MEDS: LACTOBACILLUS RHAMNOSUS GG 1 CAPSULE. PO SCH (09:40)
[2021-05-05] MEDS: FUROSEMIDE 40 MG TABLET. PO SCH (09:41)
[2021-05-05] MEDS: METOPROLOL TART IMMED RELEASE 50 MG TABLET. PO SCH (09:42)
[2021-05-05] MEDS: LINEZOLID 600 MG TABLET PO SCH (09:42)
[2021-05-05] MEDS: POTASSIUM BICARB 20 MEQ EFFERVESCENT TABLET. PEG SCH (09:46)
[2021-05-05] MEDS: tiZANidine 4 MG TABLET. PO PRN (09:46)
[2021-05-05] MEDS ORDERED: guaiFENesin DM 600/30MG 1 TAB TAB.ER.12H PO SCH (10:00)
[2021-05-05] MEDS: PROMETHAZINE 12.5 MG TABLET. PO PRN (10:32)
--- NOTE | 2021-05-05 10:54 | NUR ---
SW following. Discussed with RN, discharge order for home with home health. Dr. Driscoll actually does not think pt needs home health but put it in anyway. Dr. Driscoll fine with no home health. RN also believes pt does not need home health. Pt discharging home with self care. RN advised no SW needs.
[2021-05-05 11:15] VITALS: BP 154/82
--- NOTE | 2021-05-05 15:00 | NUR ---
Patient and all belongings escorted to main entrance by Rhiannon OWEN in wheelchair to personal vehicle at the main entrance. Education given, miles, and telemonitor discontinued.
== END 2021-05-05 15:00 | disposition home or self-care (01) | DRG 871 ==
LOC: ER 09:07 → 1 WEST ICU 09:45 → EEVIPCON 09:45 → 1 WEST ICU 13:39 → 5 NORTH 05-01 19:45
PROVIDERS: ADMIT Student in an Organized Health Care Education/Training Program; ATTEND Student in an Organized Health Care Education/Training Program
PROC: 5A09357 Assistance with Respiratory Ventilation, Less than 24 Consecutive Hours, Continuous Positive Airway Pressure (ICD-10-PCS; 2021-04-30)
PROC: 5A09357 Assistance with Respiratory Ventilation, Less than 24 Consecutive Hours, Continuous Positive Airway Pressure (ICD-10-PCS; principal; 2021-05-01)
DX: A41.9 Sepsis, unspecified organism (principal); J96.01 Acute respiratory failure with hypoxia; J18.9 Pneumonia, unspecified organism; I50.33 Acute on chronic diastolic (congestive) heart failure; I16.1 Hypertensive emergency; E11.9 Type 2 diabetes mellitus without complications; E66.01 Morbid (severe) obesity due to excess calories; E83.42 Hypomagnesemia; G43.909 Migraine, unspecified, not intractable, without status migrainosus; G47.33 Obstructive sleep apnea (adult) (pediatric); G62.9 Polyneuropathy, unspecified; I11.0 Hypertensive heart disease with heart failure; M19.90 Unspecified osteoarthritis, unspecified site; Z20.822 Contact with and (suspected) exposure to COVID-19; Z53.20 Procedure and treatment not carried out because of patient's decision for unspecified reasons; Z82.49 Family history of ischemic heart disease and other diseases of the circulatory system; Z90.49 Acquired absence of other specified parts of digestive tract; Z90.710 Acquired absence of both cervix and uterus; Z91.19 Patient's noncompliance with other medical treatment and regimen; F32.A Depression, unspecified; F41.9 Anxiety disorder, unspecified; K21.9 Gastro-esophageal reflux disease without esophagitis
CPT/HCPCS: 36415; 71045; 80048; 80053; 80202; 80307; 81001; 82565; 82805; 83605; 83735; 83880; 84145; 84484; 85025; 87040; 87070; 87205; 87426; 93005; 93306; 94640; 94644; 94660; 94760; 96365; 96375; J0360; J0456; J1170; J1644; J1940; J1956; J2060; J2270; J2405; J2930; J3370; J3475; J3490; J7040; J7050; U0003; U0005; 99285-25; G0378; J7030; J7613; J7626; Q0169

== ENCOUNTER 2021-06-04 19:07 | Emergency (ER) | payer OTHER ==
[~2021-06-04] VITALS: Ht 160 cm; Wt 159.1 kg
[~2021-06-04 19:07] MED LIST changes: +AMLO-187 PO; +CLON1PAT6 TD; +FURO40TA4 PO; +HYDR-2761 PO; +HYDR-2869 PO; +LEVO500T9 PO; +LINE600T12 PO; +LORA-434 PO; +LUBI24CA7 PO; +METO50TA6 PO; +OXYB10TA26 PO; +OXYC5TAB4 PO; +POTA20TA40 PEG
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
[2021-06-05] MEDS ORDERED: DEXAMETHASONE SOD PHOS 20 MG/5 ML VIAL. IV ONE (00:45)
[2021-06-05] MEDS ORDERED: diphenhydrAMINE 50 MG/ML VIAL IM ONE (04:15)
[2021-06-05] MEDS ORDERED: DEXAMETHASONE SOD PHOS 20 MG/5 ML VIAL. IM ONE (04:15)
[2021-06-05] MEDS ORDERED: PROCHLORPERAZINE 10 MG/2 ML VIAL. IM ONE (04:15)
--- NOTE | 2021-06-05 04:45 | RAD ---
INDICATION: Reason: Evaluate history of aneurysm / Spl. Instructions: / History: COMPARISON: July 2020 TECHNIQUE: Axial CT images obtained through the head without intravenous contrast. One or more of the following individualized dose reduction techniques were utilized for this examinat ion: 1. Automated exposure control; 2. Adjustment of the mA and/or kV according to patient size; 3 . Use of iterative reconstruction technique. FINDINGS: No intracranial hemorrhage. No significant midline shift. Ventricles and sulci are unremarkable. No acute osseous abnormality. IMPRESSION: * No acute intracranial hemorrhage. Electronically signed by: Luis Fernando Aceves MD (06/05/2021 4:43 AM) [id number]
[2021-06-05 05:30] VITALS: BP 171/74
[2021-06-05] MEDS ORDERED: OXYBUTYNIN CHLORIDE 5 MG TABLET PO ONE (06:15)
== END 2021-06-05 06:53 | disposition home or self-care (01) ==
LOC: ER 19:07
DX: G43.909 Migraine, unspecified, not intractable, without status migrainosus (principal); I10 Essential (primary) hypertension; Z59.00 Homelessness unspecified; Z88.0 Allergy status to penicillin; Z88.6 Allergy status to analgesic agent; Z88.1 Allergy status to other antibiotic agents
CPT/HCPCS: 70450; 96372; 99284; J0780; J1100; J1200

== ENCOUNTER 2021-06-05 12:23 | Emergency (ER) | payer OTHER ==
[~2021-06-05] VITALS: Ht 160 cm; Wt 162.0 kg
--- NOTE | 2021-06-05 13:24 | PHYS DOC ---
Past Medical History Past Medical History: Arthritis, Hypertension, Migraines, Other Additional Past Medical Histor: Thyroid Past Surgical History: Other Additional Past Surgical Histo: KELOID Smoking Status: Never Smoker Alcohol Use: None Drug Use: None General Adult EDM: Chief Complaint: OTHER COMPLAINTS HPI: HPI: Patient is a 46 year old [f__sex] who presents with [] Review of Systems: Review of Systems: Fourteen body systems of review of systems have been reviewed. See HPI for pe rtinent positives and negative responses, other nichols all other systems are negative, non-pertinent or non-contributory Heart Score: C/O Chest Pain: No Risk Factors: Risk Factors: DM, Current or recent (<one month) smoker, HTN, HLP, family history of CAD, obesity. Risk Scores: Score 0 - 3: 2.5% MACE over next 6 weeks - Discharge Home Score 4 - 6: 20.3% MACE over next 6 weeks - Admit for Clinical Observation Score 7 - 10: 72.7% MACE over next 6 weeks - Early Invasive Strategies Allergies: Allergies: Allergies Coded Allergies Type Severity Reaction Last Updated Verified Penicillins Allergy Severe Anaphylaxis 04/30/21 Yes haloperidol Allergy Intermediate 05/01/21 Yes ketorolac Allergy Intermediate 04/30/21 Yes metoclopramide Allergy Intermediate 04/30/21 Yes prochlorperazine Allergy Intermediate 05/01/21 Yes gabapentin Adverse Reaction Intermediate vomiting 05/27/21 No Physical Exam: PE: Constitutional: Well developed, well nourished, no acute distress, non-toxic appearance. HENT: Normocephalic, atraumatic, bilateral external ears normal, oropharynx moist, no oral exudates, nose normal. Eyes: PERRLA, EOMI, conjunctiva normal, no discharge. Neck: Normal range of motion, no tenderness, supple, no stridor. Cardiovascular: Heart rate regular, sinus rhythm, no murmurs rubs or gallops Lungs & Thorax: Bilateral breath sounds clear to auscultation Abdomen: Bowel sounds normal, soft, no tenderness, no masses, no pulsatile masses. Nonsurgical abdomen, no peritoneal signs Skin: Warm, dry, no erythema, no rash. Back: No tenderness, no CVA tenderness. Extremities: No tenderness, no cyanosis, no clubbing, ROM intact, no edema. Neurologic: Alert and oriented X 3, grossly normal motor & sensory function, no focal deficits noted. Psychologic: Affect normal, judgement normal, mood normal. Current Patient Data: Vital Signs: Vital Signs Date Time Temp Pulse Resp B/P (MAP) Pulse Ox O2 Delivery O2 Flow Rate FiO2 06/05/21 12:29 98.2 17 202/121 (148) Room Air 98.2 EKG: EKG: [] Radiology/Procedures: Radiology/Procedures: [] Course & Med Decision Making: Course & Med Decision Making Pertinent Labs and Imaging studies reviewed. (See chart for details) [] Dragon Disclaimer: Dragon Disclaimer: This electronic medical record was generated, in whole or in part, using a voice recognition dictation system. Departure Departure Impression: Primary Impression: Neuropathy Additional Impression: Hypertension Disposition: HOME / SELF CARE / HOMELESS Condition: STABLE Referrals: RAVIN BRAND JR, MD (PCP) Additional Instructions: As discussed prior to ER departure, your vitals were concerning for high blood pressure only, your physical examination was nonconcerning for any emergent or surgical issues. You took all of your home blood pressure medication and without any concerning signs or symptoms of endorgan damage, clonidine was offered to improve your blood pressure with recommendations to keep serial blood pressures and make a log for you to review with your primary care physician. You have various complaints that are best dealt with in outpatient setting and as disclosed, it is beneficial for you to establish care with a local primary care physician who can address these for you. If any concerning signs or symptoms present prior to outpatient follow-up please do not hesitate to come back for repeat evaluation HARMEET MEJIA DO Jun 05, 2021 13:24
[2021-06-05 13:30] VITALS: BP 185/111
[2021-06-05] MEDS ORDERED: cloNIDine HCL 0.1 MG TABLET PO ONE (13:30)
== END 2021-06-05 15:18 | disposition home or self-care (01) ==
LOC: EEVIPCON 12:23 → ER 12:23
DX: G62.9 Polyneuropathy, unspecified (principal); I10 Essential (primary) hypertension; M19.90 Unspecified osteoarthritis, unspecified site; G43.909 Migraine, unspecified, not intractable, without status migrainosus; Z88.0 Allergy status to penicillin; Z88.8 Allergy status to other drugs, medicaments and biological substances
CPT/HCPCS: 99284

== ENCOUNTER 2021-08-12 20:49 | Emergency (ER) | payer OTHER ==
[~2021-08-12] VITALS: Ht 162.6 cm; Wt 163.0 kg
[2021-08-13 00:05] VITALS: BP 179/80
--- NOTE | 2021-08-13 00:50 | PHYS DOC ---
Past Medical History Past Medical History: Arthritis, Hypertension, Migraines, Other Additional Past Medical Histor: Thyroid Past Surgical History: Other Additional Past Surgical Histo: KELOID Smoking Status: Never Smoker Alcohol Use: None Drug Use: None General Adult EDM: Chief Complaint: BLOODY STOOL HPI: HPI: Patient is a 46-year-old female who presents to the emergency department with ch ief complaint of "I am having a thyroid storm...my pinky toes are hurting...I have cellulitis of my legs... And I have thrush and I need admitted to the hospital ". Patient also complains of nausea, reports pinky toe pain at a 10 out of 10 pain scale. Patient states that the symptoms have been going on for quite some time, was at the [employer] and could not take it any longer when she called 911 to have her transported here to the emergency department. Patient denies chest pains, shortness of breath, chest or nasal congestion, reports that she has thyroid cancer, has a biopsy scheduled for August 2021. Patient states she is here to be admitted to the hospital to be taken care of by Dr. Driscoll. Patient denies other physical complaints or physical concerns. Review of Systems: Review of Systems: 14 body systems of review of systems have been reviewed. See HPI for pertinent positives and negative responses, otherwise all other systems are negative, nonpertinent or noncontributory. Constitutional: Negative except as outlined in HPI above. Skin: Negative except as outlined in HPI above. Eyes: Negative except as outlined in HPI above. HENT: Negative except as outlined in HPI above. Respiratory: Negative except as outlined in HPI above. Cardiovascular: Negative except as outlined in HPI above. GI: Negative except as outlined in HPI above. : Negative except as outlined in HPI above. Musculoskeletal: Negative except as outlined in HPI above. Integument: Negative except as outlined in HPI above. Neurologic: Negative except as outlined in HPI above. Endocrine: Negative except as outlined in HPI above. Lymphatic: Negative except as outlined in HPI above. Psychiatric: Negative except as outlined in HPI above. Heart Score: C/O Chest Pain: No Risk Factors: Risk Factors: DM, Current or recent (<one month) smoker, HTN, HLP, family history of CAD, obesity. Risk Scores: Score 0 - 3: 2.5% MACE over next 6 weeks - Discharge Home Score 4 - 6: 20.3% MACE over next 6 weeks - Admit for Clinical Observation Score 7 - 10: 72.7% MACE over next 6 weeks - Early Invasive Strategies Allergies: Allergies: Allergies Coded Allergies Type Severity Reaction Last Updated Verified Penicillins Allergy Severe Anaphylaxis 04/30/21 Yes haloperidol Allergy Intermediate 05/01/21 Yes ketorolac Allergy Intermediate 04/30/21 Yes metoclopramide Allergy Intermediate 04/30/21 Yes prochlorperazine Allergy Intermediate 05/01/21 Yes gabapentin Adverse Reaction Intermediate vomiting 05/27/21 No Physical Exam: PE: Constitutional: Well developed, well nourished, no acute distress, non-toxic appearance. 46-year-old female in no apparent distress. HENT: Normocephalic, atraumatic. Oropharynx moist, pink, no deep tissue infectious process appreciated, tongue is pink and moist, no infectious process appreciated, no lymphadenopathy of the head or neck appreciated, bilateral TMs intact and within normal limits. No drooling, no trismus, patient speaking in normal voice tones. Eyes: Conjunctiva normal, no discharge. No scleral icterus Neck: Normal range of motion, no stridor. No C-spine tenderness, no meningismus signs Cardiovascular: No cyanosis appreciated, distal cap refill less than 2 seconds. Heart sounds are S1-S2 to auscultation, regular rate and rhythm. Lungs & Thorax: Patient is in no respiratory distress, lung sounds are clear to auscultation all lung lyn, normal work of breathing, there is no tachypnea. Abdomen: Nontender, no abnormalities noted. Abdomen round, soft, morbidly obese, BMI 61.7. Skin: Warm, dry, no erythema, no rash. See extremity note for focused skin examination. Back: No tenderness, no deformities. Extremities: No tenderness, no cyanosis, no clubbing, ROM intact, no edema. Bilateral lower extremities 4+ nonpitting edema, no infectious process appreciated, no skin weeping, bilateral dorsalis pedis pulses 2+, distal cap refill is less than 2 seconds, no discrepancies of the toes appreciated, keloids of the upper extremities appreciated, bilateral radial pulses 2+, distal cap refill less than 2 seconds of bilateral upper extremities. Neurologic: Alert and oriented X 3, normal motor function, normal sensory function, no focal deficits noted. Patient mood is calm, patient is very manipulative during conversation, attention seeking behavior, no current psychosis, patient denies homicidal or suicidal ideation, patient has medical decision-making capacity. Psychologic: Affect normal, judgement normal, mood normal. Current Patient Data: Labs: Laboratory Tests Test 08/12/21 22:40 POC Urine HCG, Qualitative Hcg negative (Negative) Vital Signs: Vital Signs Date Time Temp Pulse Resp B/P (MAP) Pulse Ox O2 Delivery O2 Flow Rate FiO2 08/12/21 22:50 71 19 184/79 (114) 98 Room Air 08/12/21 20:54 98.1 98.1 EKG: EKG: [] Radiology/Procedures: Radiology/Procedures: [] Course & Med Decision Making: Course & Med Decision Making Pertinent Labs and Imaging studies reviewed. (See chart for details) 46-year-old female, vital signs reviewed, presents to the emergency department with multiple concerns. Patient's physical examination is unremarkable. Has a past medical history of hypertension, peripheral neuropathy, chronic leg pains, headache, morbid obesity, osteoarthritis, lymphedema, upon extensive chart review, patient has underlying psychiatric history, has been prescribed Seroquel but chooses not to take this medication. The patient is well-appearing, in no distress, there is no nausea or vomiting, no neurological deficits appreciated, no stiffness of the neck, or fevers appreciated, there were no signs of trauma, the patient is homeless, reports being kicked out of area shelters, I do suspect the patient is malingering for assisted as she has a history of this type of behavior. I discussed patient case and presentation with ED attending physician Dr. Gentile who agrees with the information he was given by myself that the patient presentation does not indicate any labs or further emergency department work-up. Will treat patient complaint of nausea and give p.o. pain medication in the emergency department and discharged. Discussed this with patient, patient was amendable to ED planning. Discussed with the patient all findings and diagnostic testing as well as the need to follow-up with their primary care provider for further evaluation and treatment or return to the ED if any new or worsening symptoms. Strict return precautions were also discussed at length, the patient voiced understanding and agreement with the discharge planning. The patient was nontoxic in appearance, in no apparent distress, and hemodynamically stable at the time of disposition. Dragon Disclaimer: Dragon Disclaimer: This electronic medical record was generated, in whole or in part, using a voice recognition dictation system. Departure Departure Impression: Primary Impression: Toe pain Qualified Codes: M79.674 - Pain in right toe(s); M79.675 - Pain in left toe(s) Additional Impression: Nausea Disposition: 01 HOME / SELF CARE / HOMELESS Condition: GOOD Referrals: EMMA WARREN (PCP) Additional Instructions: You were seen in the emergency department for multiple complaints, your physical examination did not warrant any further follow-up in the emergency department, you were given nausea and pain medication in the emergency department today. I encourage you to follow-up with your primary care physician for ongoing evaluation and treatment of your thyroid problems. Please have your thyroid levels drawn at your primary care physician office this week. Continue to take your prescribed Zofran for nausea, he may use Tylenol or ibuprofen for ongoing aches and pains. Thank you for visiting our Emergency Department. It was a pleasure taking care of you today in the emergency department and we appreciate you trusting us with your care. If any additional problems come up don't hesitate to return to visit us. Please follow up with your primary care provider so they can plan additional care if needed and know about the problem that you had. If symptoms worsen come back to the Emergency Department. Any concerning symptoms that start such as chest pain, shortness of air, weakness or numbness on one side of the body, running high fevers or any other concerning symptoms return to the ER. LAURE DOUGLAS APRN Aug 13, 2021 00:49
[2021-08-13] MEDS ORDERED: PROMETHAZINE 12.5 MG TABLET. PO ONE (01:00)
[2021-08-13] MEDS ORDERED: IBUPROFEN 200 MG TABLET. PO ONE (01:00)
== END 2021-08-13 01:35 | disposition home or self-care (01) ==
LOC: ER 20:49
DX: M79.674 Pain in right toe(s) (principal); M79.675 Pain in left toe(s); R11.0 Nausea; I10 Essential (primary) hypertension; G43.909 Migraine, unspecified, not intractable, without status migrainosus; Z88.0 Allergy status to penicillin; Z88.1 Allergy status to other antibiotic agents; Z88.6 Allergy status to analgesic agent; Z88.8 Allergy status to other drugs, medicaments and biological substances
CPT/HCPCS: 81025; 99284; Q0169

== ENCOUNTER 2021-08-13 06:21 | Emergency (ER) | payer OTHER ==
[~2021-08-13] VITALS: Ht 162.6 cm; Wt 163.0 kg
--- NOTE | 2021-08-13 06:34 | PHYS DOC ---
Past Medical History Past Medical History: Arthritis, Hypertension, Migraines, Other Additional Past Medical Histor: Thyroid Past Surgical History: Other Additional Past Surgical Histo: KELOID Smoking Status: Never Smoker Alcohol Use: None Drug Use: None General Adult EDM: Chief Complaint: MULTIPLE COMPLAINTS HPI: HPI: Patient is a 46 year old female who presents here with an attempt to discuss multiple, chronic complaints. I was able to ascertain that the main complaint she checked back into the ER for was for a headache. She was seen earlier this morning, discharged, she had been waiting in the waiting room for a cab. She is homeless. She has had a check back in for what she describes as a migraine headache. She describes this as her usual migraine headache. She reports that she vomited once. She reports having nausea still. Denies syncope, fall, head injury. She denies focal weakness, numbness or tingling. She denies photophobia or vision loss. She is incredibly hostile and argumentative with me as well as all staff. This seems to be congruent with her previous behavior. The patient has been seen in this ER for multiple times for various somatic complaints. The patient reports that she wants me to and "look at my aneurysm." No thunderclap headache reported. She was not witnessed to have vomited in the waiting room. She was able to ambulate without any difficulty from the waiting room back to her ED room. The patient reports that she wants a "shot." She is allergic to multiple phenothiazine antiemetics as well as allergic to Toradol. I have offered oral Zofran and Tylenol. Review of Systems: Review of Systems: Constitutional: Denies fever or chills. [] Eyes: Denies change in visual acuity or photophobia HENT: Denies nasal congestion or sore throat. [] Respiratory: Denies cough or shortness of breath. [] Cardiovascular: Denies chest pain GI: Denies abdominal pain. Reported one episode of nausea and vomiting. Musculoskeletal: Denies back pain or joint pain. [] Integument: Denies rash. [] Neurologic: Headache reported, no thunderclap headache reported. No focal weakness or sensory loss. Chronic neuropathy symptoms. Denies dizziness or vertigo. Denies syncope, fall, head injury Psychiatric: Chronic mood disturbance Heart Score: C/O Chest Pain: No Risk Factors: Risk Factors: DM, Current or recent (<one month) smoker, HTN, HLP, family history of CAD, obesity. Risk Scores: Score 0 - 3: 2.5% MACE over next 6 weeks - Discharge Home Score 4 - 6: 20.3% MACE over next 6 weeks - Admit for Clinical Observation Score 7 - 10: 72.7% MACE over next 6 weeks - Early Invasive Strategies Allergies: Allergies: Allergies Coded Allergies Type Severity Reaction Last Updated Verified Penicillins Allergy Severe Anaphylaxis 04/30/21 Yes haloperidol Allergy Intermediate 05/01/21 Yes ketorolac Allergy Intermediate 04/30/21 Yes metoclopramide Allergy Intermediate 04/30/21 Yes prochlorperazine Allergy Intermediate 05/01/21 Yes gabapentin Adverse Reaction Intermediate vomiting 05/27/21 No Physical Exam: PE: Constitutional: Well developed, well nourished, no acute distress, non-toxic appearance. [] HENT: Normocephalic, atraumatic, oropharynx is patent and clear, no facial or oral edema or swelling or erythema. TMs are clear bilaterally. Nares patent without rhinorrhea epistaxis. Mucous membranes are moist. Eyes: PERRL, EOMI, conjunctiva normal, no discharge. No nystagmus. No scleral icterus. Neck: Normal range of motion, no tenderness, supple, no stridor. Trachea midline, no JVD, no meningismus. Cardiovascular:Heart rate regular rhythm, well-perfused, +2 radial pulses bilaterally Lungs & Thorax: Bilateral breath sounds clear to auscultation [] Abdomen: Abdomen is obese, soft, nondistended, nontender to palpation Skin: Warm, dry, no erythema, no rash. No jaundice. No warmth erythema. Back: No deformity, full range of motion Extremities: Bilateral, symmetric lower extremity lymphedema. No tenderness, no warmth or erythema. No calf tenderness. No deformity. Neurologic: She is awake, alert, oriented x3, cranial nerves II through XII grossly intact, 5 out of 5 motor strength all four extremities, no limb ataxia, ambulatory with a steady gait, sensation grossly intact, speech is clear and fluent Psychologic: She is hostile and argumentative EKG: EKG: [] Radiology/Procedures: Radiology/Procedures: [] Course & Med Decision Making: Course & Med Decision Making The patient is refusing the noncontrasted head CT. I explained why I was ordering a noncontrasted CT, she is demanding a CT with contrast. I explained this not appear to be clinically warranted at this time based on her presentation. I have ordered p.o. Tylenol and p.o. ODT Zofran for her. The patient refused to take the Tylenol, but she took the Zofran. I reviewed previous imaging studies. CT angiogram of the head and neck from July 2020 revealed no evidence of aneurysm. 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 The patient has a nonfocal neurologic exam. No thunderclap headache. She admits that this headache is just like her usual migraine headaches. She has adamantly refused head CT. I do not see any indication for invasive exams, imaging or laboratory exams at this time, and the patient is willfully noncompliant, refuses to comply or cooperate with care here. This seems to be congruent with previous behaviors. She will be discharged. I kindly offered to help her make some phone calls to other people who may be will pick her up, while waiting for a cab. She refuses to provide this information and she angrily yell at me that she does not want me to help her with this. She will be discharged to the waiting room, she may wait on a cab to take her to a detention. I personally gathered snacks and water for her while she waited. Kyara Disclaimer: Kyara Disclaimer: This electronic medical record was generated, in whole or in part, using a voice recognition dictation system. Departure Departure Impression: Primary Impression: Headache Additional Impression: History of nausea and vomiting Disposition: 01 HOME / SELF CARE / HOMELESS Condition: STABLE Referrals: EMMA WARREN (PCP) Patient Instructions: Recurrent Migraine Headache Additional Instructions: Return to the ER for an emergency medical condition, if you are acutely injured, if you sustain head injury, temperature 100.4 or higher, if you develop refractory or uncontrolled vomiting, dehydration or other concerns. Please contact your primary care physician for follow-up and for further evaluation treatment of your chronic conditions. PITO ASHRAF DO Aug 13, 2021 06:34
[2021-08-13] MEDS ORDERED: ACETAMINOPHEN 500 MG TABLET PO ONE (07:00)
[2021-08-13] MEDS ORDERED: ONDANSETRON ODT 4 MG TAB.RAPDIS. PO ONE (07:00)
[2021-08-13 07:18] VITALS: BP 194/99
== END 2021-08-13 07:18 | disposition home or self-care (01) ==
LOC: ER 06:21
DX: G43.909 Migraine, unspecified, not intractable, without status migrainosus (principal); R11.2 Nausea with vomiting, unspecified; I10 Essential (primary) hypertension; Z88.0 Allergy status to penicillin; Z88.6 Allergy status to analgesic agent; Z88.8 Allergy status to other drugs, medicaments and biological substances; Z88.1 Allergy status to other antibiotic agents
CPT/HCPCS: 99284

== ENCOUNTER 2021-10-02 17:37 | Emergency (ER) | payer OTHER ==
[~2021-10-02] VITALS: Ht 162.6 cm; Wt 157.1 kg
[2021-10-02] MEDS ORDERED: fentaNYL PF VIAL 100 MCG/2 ML VIAL IM ONE (19:00)
[2021-10-02] MEDS ORDERED: diphenhydrAMINE 50 MG/ML VIAL IM ONE (19:00)
--- NOTE | 2021-10-02 19:13 | PHYS DOC ---
Past Medical History Past Medical History: Arthritis, Hypertension, Migraines, Other Additional Past Medical Histor: Thyroid Past Surgical History: No Surgical History, Other Additional Past Surgical Histo: KELOID Smoking Status: Never Smoker Alcohol Use: None Drug Use: None General Adult EDM: Chief Complaint: HEADACHE HPI: HPI: Patient is a 46-year-old female presents to the emergency department complaining of a migraine headache. Patient reports this is the same as her normal migraines reporting a 8 out of 10 pain, denies thunderclap onset, states this is not the worst headache of her life. Patient denies visual disturbances, denies dizziness, syncopal or near syncopal episodes, denies chest pain, chest or nasal congestion, denies increased urinary frequency, urinary burning, hematuria or other dysuria. Patient denies numbness or tingling to her extremities. Patient denies other physical complaints or physical concerns. Review of Systems: Review of Systems: 14 body systems of review of systems have been reviewed. See HPI for pertinent positives and negative responses, otherwise all other systems are negative, nonpertinent or noncontributory. Constitutional: Negative except as outlined in HPI above. Skin: Negative except as outlined in HPI above. Eyes: Negative except as outlined in HPI above. HENT: Negative except as outlined in HPI above. Respiratory: Negative except as outlined in HPI above. Cardiovascular: Negative except as outlined in HPI above. GI: Negative except as outlined in HPI above. : Negative except as outlined in HPI above. Musculoskeletal: Negative except as outlined in HPI above. Integument: Negative except as outlined in HPI above. Neurologic: Negative except as outlined in HPI above. Endocrine: Negative except as outlined in HPI above. Lymphatic: Negative except as outlined in HPI above. Psychiatric: Negative except as outlined in HPI above. Heart Score: C/O Chest Pain: No Risk Factors: Risk Factors: DM, Current or recent (<one month) smoker, HTN, HLP, family history of CAD, obesity. Risk Scores: Score 0 - 3: 2.5% MACE over next 6 weeks - Discharge Home Score 4 - 6: 20.3% MACE over next 6 weeks - Admit for Clinical Observation Score 7 - 10: 72.7% MACE over next 6 weeks - Early Invasive Strategies Current Medications: Current Medications Medications (Trade) Dose Ordered Sig/Kathrine Start Time Stop Time Status Last Admin Dose Admin Diphenhydramine HCl (Benadryl) 50 mg 1X ONCE 10/02/21 19:00 10/02/21 19:01 Fentanyl Citrate (Fentanyl 2ml Vial) 75 mcg 1X ONCE 10/02/21 19:00 10/02/21 19:01 Lorazepam (Ativan Inj) 2 mg 1X ONCE 10/02/21 19:00 10/02/21 19:01 Allergies: Allergies: Allergies Coded Allergies Type Severity Reaction Last Updated Verified Penicillins Allergy Severe Anaphylaxis 04/30/21 Yes haloperidol Allergy Intermediate 05/01/21 Yes ketorolac Allergy Intermediate 04/30/21 Yes metoclopramide Allergy Intermediate 04/30/21 Yes prochlorperazine Allergy Intermediate 05/01/21 Yes gabapentin Adverse Reaction Intermediate vomiting 05/27/21 No Physical Exam: PE: Constitutional: Well developed, well nourished, no acute distress, non-toxic allison earance. 46-year-old female in no apparent distress. HENT: Normocephalic, atraumatic. Eyes: Conjunctiva normal, no discharge. Neck: Normal range of motion, no stridor. Cardiovascular: No cyanosis appreciated, distal cap refill less than 2 seconds. Lungs & Thorax: Patient is in no respiratory distress, no audible adventitious lung sounds appreciated. Abdomen: Nontender, no abnormalities noted. Skin: Warm, dry, no erythema, no rash. Back: No tenderness, no deformities. Extremities: No tenderness, no cyanosis, no clubbing, ROM intact, no edema. Neurologic: Alert and oriented X 3, normal motor function, normal sensory function, no focal deficits noted. Psychologic: Affect normal, judgement normal, mood normal. Current Patient Data: Vital Signs: Vital Signs Date Time Temp Pulse Resp B/P (MAP) Pulse Ox O2 Delivery O2 Flow Rate FiO2 10/02/21 17:50 98.7 18 201/105 (137) 100 Room Air 98.7 EKG: EKG: [] Radiology/Procedures: Radiology/Procedures: [] Course & Med Decision Making: Course & Med Decision Making Pertinent Labs and Imaging studies reviewed. (See chart for details) 46-year-old female, vital signs reviewed, presents emergency department concerning migraine headache. Patient has been seen here several times in the past, has exhibited manipulative behavior. Patient currently is asking for medications for her headache and wishes to be discharged back to her residence so that she may get some sleep so that she may go to work later this evening. Will give pain medications and discharge patient. Patient does not have thunderclap onset, visual disturbances, or neurological findings that would warrant emergent radiologic imaging. Discussed with patient continue all follow-up appointments with her primary care physician, return to ER precautions and concerns were reviewed, patient gave verbal understanding of and is amenable to ED discharge planning. Pain medications ordered 50 mg Benadryl, 1 mg Ativan IM. 75 mcg of fentanyl was ordered however this was DC'd and not given to patient. Dragon Disclaimer: Dragon Disclaimer: This electronic medical record was generated, in whole or in part, using a voice recognition dictation system. Departure Departure Impression: Primary Impression: Headache Qualified Codes: R51.9 - Headache, unspecified Disposition: HOME / SELF CARE / HOMELESS Condition: GOOD Referrals: EMMA WARREN (PCP) Patient Instructions: General Headache Without Cause Additional Instructions: You were seen today in the emergency department for headache. You were given a headache cocktail, please get some rest at home, follow-up with your primary care physician for ongoing headache management. Return to the emergency department for worsening symptoms or other concerns. Thank you for visiting our Emergency Department. It was a pleasure taking care of you today in the emergency department and we appreciate you trusting us with your care. If any additional problems come up don't hesitate to return to visit us. Please follow up with your primary care provider so they can plan additional care if needed and know about the problem that you had. If symptoms worsen come back to the Emergency Department. Any concerning symptoms that start such as chest pain, shortness of air, weakness or numbness on one side of the body, running high fevers or any other concerning symptoms return to the ER. LAURE DOUGLAS APRN Oct 02, 2021 19:13
[2021-10-02 20:15] VITALS: BP 206/98
== END 2021-10-02 20:50 | disposition home or self-care (01) ==
LOC: EEVIPCON 17:37 → ER 17:37
DX: G43.909 Migraine, unspecified, not intractable, without status migrainosus (principal); I10 Essential (primary) hypertension; Z88.0 Allergy status to penicillin; Z88.1 Allergy status to other antibiotic agents; Z88.6 Allergy status to analgesic agent; Z88.8 Allergy status to other drugs, medicaments and biological substances
CPT/HCPCS: 96372; 99284; J1200; J2060